=== PATIENT | female | born 1945 | race Caucasian/White ===

== ENCOUNTER 2019-09-12 09:33 | Outpatient (CLI) | payer MEDICARE | END 2019-09-12 09:34 | disposition critical access hospital (66) | LOC: EMS 09:33 | PROVIDERS: ATTEND Surgery | DX: S49.92XA Unspecified injury of left shoulder and upper arm, initial encounter (principal); S59.912A Unspecified injury of left forearm, initial encounter; S59.911A Unspecified injury of right forearm, initial encounter; S89.92XA Unspecified injury of left lower leg, initial encounter; S89.91XA Unspecified injury of right lower leg, initial encounter; R03.1 Nonspecific low blood-pressure reading; W06.XXXA Fall from bed, initial encounter; Y92.003 Bedroom of unspecified non-institutional (private) residence as the place of occurrence of the external cause | CPT/HCPCS: A0425; A0429 ==

== ENCOUNTER 2019-09-12 09:48 | Inpatient (IN) | payer MEDICARE ==
--- NOTE | 2019-09-12 10:35 | ED Physician Documentation ---
PD HPI Fall - Stated complaint Stated Complaint: FALL - Chief complaint Chief Complaint: Cardiac - History obtained from History obtained from: Patient, EMS - History of Present Illness Mechanism of injury: Other (She states she was feeling very restless sleeping and tossing and turning a lot. She states she turned excessively and fell out of bed. Her bed is near the wall and so she was wedged tightly. She had to wiggle and push herself downward to get out by the end of the bed. This took several hours.) Fall distance: From bed Where injury occurred: Home Timing - onset: Last night Injury(ies) location: Neck (She states she was somewhat sore in the base of the neck but denied any significant pain nor any numbness or tingling in the fingers or legs.), Right Upper Extremity (She has bruising as well as muscle soreness in the forearms and upper arms on both right and left. She has bruising of both legs but only mild muscle soreness), Left Uppper Extremity, Right Lower Extremity, Left Lower Extremity. No: Head, Chest, Abdomen Review of Systems Constitutional: denies: Fever, Chills, Myalgias Nose: denies: Rhinorrhea / runny nose, Congestion Throat: denies: Sore throat Cardiac: denies: Chest pain / pressure Respiratory: denies: Dyspnea, Cough GI: denies: Abdominal Pain, Vomiting, Diarrhea : denies: Dysuria Skin: reports: Abrasion (s) (both lower legs) Musculoskeletal: reports: Neck pain. denies: Back pain Neurologic: reports: Generalized weakness. denies: Focal weakness, Numbness PD PAST MEDICAL HISTORY - Past Medical History Cardiovascular: Hypertension Respiratory: None Neuro: None Endocrine/Autoimmune: None GI: None - Present Medications Home Medications: Ambulatory Orders Medication Instructions Recorded Confirmed Lisinopril [Zestril] 5 mg PO 09/12/19 No Known Home Medications 09/12/19 09/12/19 - Allergies Allergies/Adverse Reactions: Allergies Allergy/AdvReac Type Severity Reaction Status Date / Time No Known Drug Allergies Allergy Verified 09/12/19 10:02 PD ED PE NORMAL - Vitals Vital signs reviewed: Yes - General General: Alert and oriented X 3, Well developed/nourished - HEENT HEENT: Atraumatic, Pharynx benign. No: Moist mucous membranes - Neck Neck: Supple, no meningeal sign, No adenopathy, Other (Minimal tenderness in the right para vertebral muscles at the lower cervical area. No midline tenderness per se) - Cardiac Cardiac: RRR, No murmur - Respiratory Respiratory: No respiratory distress, Clear bilaterally - Abdomen Abdomen: Normal bowel sounds, Soft, Non tender, Non distended - Back Back: No spinal TTP - Derm Derm: Normal color, Warm and dry - Extremities Extremities: No edema, No calf tenderness / cord, Other (She has moderate to significant tenderness in muscles of her upper and lower arms. She has normal sensation color and capillary refill in her finger tips and radial pulses. She does hurt with flexion extension of the elbows. There is bruising from the shoulders to wrists on the dorsal aspects). No: Normal ROM s pain (Her legs have bruising as well predominantly on the anterior lateral aspects of the thighs and some on the shins but no muscle tenderness. She has pretty good range of motion of the legs without much muscle pain.) - Neuro Neuro: Alert and oriented X 3, No motor deficit, No sensory deficit Eye Opening: Spontaneous Motor: Obeys Commands Verbal: Oriented GCS Score: 15 Results - Vitals Vitals: Vital Signs - 24 hr 09/12/19 09/12/19 09/12/19 09:56 10:21 10:31 Temperature 36.8 C Heart Rate 59 L 85 87 Respiratory 18 17 18 Rate Blood Pressure 83/54 L 84/59 L 75/57 L O2 Saturation 100 98 100 09/12/19 09/12/19 09/12/19 11:01 11:30 11:35 Temperature Heart Rate 87 91 Respiratory 17 17 Rate Blood Pressure 91/61 97/54 L O2 Saturation 97 98 09/12/19 09/12/19 09/12/19 12:53 13:00 14:00 Temperature Heart Rate 93 92 96 Respiratory 24 19 17 Rate Blood Pressure 104/69 105/73 94/66 O2 Saturation 98 94 93 09/12/19 09/12/19 09/12/19 15:16 15:40 16:00 Temperature 36.6 C Heart Rate 98 94 91 Respiratory 25 H 18 17 Rate Blood Pressure 105/69 108/72 112/72 O2 Saturation 95 98 09/12/19 17:00 Temperature Heart Rate 91 Respiratory 19 Rate Blood Pressure 102/62 O2 Saturation 100 Oxygen O2 Source Room air - Labs Labs: Laboratory Tests 09/12/19 09/12/19 09/12/19 10:15 10:15 10:15 WBC RBC Hgb Hct MCV MCH MCHC RDW Plt Count MPV Neut # (Auto) Lymph # (Auto) [place] # (Auto) Eos # (Auto) Baso # (Auto) Absolute Nucleated RBC Nucleated RBC % Sodium 140 Potassium 3.4 L Chloride 106 Carbon Dioxide 21 Anion Gap 13.0 BUN 28 H Creatinine 1.4 H Estimated GFR (MDRD) 37 L Glucose 161 H Lactic Acid 3.4 H* Calcium 9.4 Magnesium 2.2 Total Bilirubin 1.0 AST 162 H ALT 48 Alkaline Phosphatase 86 Total Creatine Kinase 6928 H* Total Protein 7.3 Albumin 4.0 Globulin 3.3 Albumin/Globulin Ratio 1.2 Lipase 29 Urine Color Urine Clarity Urine pH Ur Specific [place] Urine Protein Urine Glucose (UA) Urine Ketones Urine Occult Blood Urine Nitrite Urine Bilirubin Urine Urobilinogen Ur Leukocyte Esterase Urine RBC Urine WBC Ur Epithelial Cells Ur Squamous Epith Cells Amorphous Sediment Urine Bacteria Urine Casts Ur Microscopic Review Urine Culture Comments Ethyl Alcohol Blood Type Blood Type Recheck O POSITIVE Antibody Screen 09/12/19 09/12/19 09/12/19 10:52 11:12 11:12 WBC 12.7 H RBC 4.26 Hgb 12.3 Hct 37.8 MCV 88.7 MCH 28.9 MCHC 32.5 RDW 14.3 Plt Count 242 MPV 11.2 H Neut # (Auto) 10.4 H Lymph # (Auto) 0.8 L [place] # (Auto) 1.3 H Eos # (Auto) 0.0 Baso # (Auto) 0.0 Absolute Nucleated RBC 0.00 Nucleated RBC % 0.0 Sodium Potassium Chloride Carbon Dioxide Anion Gap BUN Creatinine Estimated GFR (MDRD) Glucose Lactic Acid Calcium Magnesium Total Bilirubin AST ALT Alkaline Phosphatase Total Creatine Kinase Total Protein Albumin Globulin Albumin/Globulin Ratio Lipase Urine Color Urine Clarity Urine pH Ur Specific [place] Urine Protein Urine Glucose (UA) Urine Ketones Urine Occult Blood Urine Nitrite Urine Bilirubin Urine Urobilinogen Ur Leukocyte Esterase Urine RBC Urine WBC Ur Epithelial Cells Ur Squamous Epith Cells Amorphous Sediment Urine Bacteria Urine Casts Ur Microscopic Review Urine Culture Comments Ethyl Alcohol < 5.0 Blood Type O POSITIVE Blood Type Recheck Antibody Screen NEGATIVE 09/12/19 11:20 WBC RBC Hgb Hct MCV MCH MCHC RDW Plt Count MPV Neut # (Auto) Lymph # (Auto) [place] # (Auto) Eos # (Auto) Baso # (Auto) Absolute Nucleated RBC Nucleated RBC % Sodium Potassium Chloride Carbon Dioxide Anion Gap BUN Creatinine Estimated GFR (MDRD) Glucose Lactic Acid Calcium Magnesium Total Bilirubin AST ALT Alkaline Phosphatase Total Creatine Kinase Total Protein Albumin Globulin Albumin/Globulin Ratio Lipase Urine Color YELLOW Urine Clarity CLEAR Urine pH 5.5 Ur Specific [place] >=1.030 H Urine Protein 100 H Urine Glucose (UA) 250 H Urine Ketones NEGATIVE Urine Occult Blood MODERATE H Urine Nitrite NEGATIVE Urine Bilirubin NEGATIVE Urine Urobilinogen 0.2 (NORMAL) Ur Leukocyte Esterase NEGATIVE Urine RBC None Seen Urine WBC 0-3 Ur Epithelial Cells RARE Transitional Ur Squamous Epith Cells FEW Squamous Amorphous Sediment Moderate Urine Bacteria Few Urine Casts 0-2 Hyaline Casts Ur Microscopic Review INDICATED Urine Culture Comments NOT INDICATED Ethyl Alcohol Blood Type Blood Type Recheck Antibody Screen - Rads (name of study) chest/abd CT Radiology: Prelim report reviewed (no acute truncal injuries), See rad report cervical CT Radiology: Prelim report reviewed (Notable arthritic changes in the facets at all levels. There is a possible linear fracture at the right facet of C3-4 involving C4.), See rad report PD MEDICAL DECISION MAKING - ED course Complexity details: reviewed results (Chest and abdomen appear clear on the CTs. Her neck CT had question of arthritic change versus old or new facet fracture at C3-4. We will have spine at the trauma center review the films to see if this is of any clinical consequence), considered differential (Concern for rhabdo given the muscle soreness and significant bruising on both upper arms and forearms. She is initially hypotensive and may be related to hydration. Will look for signs of infection otherwise. She has not had any infectious symptoms. Can scan chest/abd to ensure to thoracic trauma), d/w patient ED course: She is having rhabdomyolysis. We do not have prior baseline labs. Her creatinine is 1.4 so not significantly elevated but not sure if it is change from baseline. Her CK is elevated at 6000 and needs IV fluids. Her lactate was elevated as well though no signs of or symptoms of sepsis or preceding infection to this. Departure - Departure Disposition: 66 [facility] DC/Xfer Clinical Impression: Transient hypotension Traumatic ecchymosis of multiple sites of upper extremity and shoulder Qualifiers: Encounter type: initial encounter Laterality: unspecified laterality Qualified Code(s): S40.029A - Contusion of unspecified upper arm, initial encounter Traumatic ecchymosis of lower leg Qualifiers: Encounter type: initial encounter Laterality: unspecified laterality Qualified Code(s): S80.10XA - Contusion of unspecified lower leg, initial encounter Rhabdomyolysis Qualifiers: Rhabdomyolysis type: traumatic Encounter type: initial encounter Qualified Code(s): T79.6XXA - Traumatic ischemia of muscle, initial encounter Condition: Stable Record reviewed to determine appropriate education?: Yes
[2019-09-12] MEDS ORDERED: SODIUM CHLORIDE 0.9% 1,000 ML IV STA ×3 (10:48→19:11)
[2019-09-12] MEDS ORDERED: LACTATED RINGERS 1,000 ML IV STA (10:49)
[2019-09-12] MEDS ORDERED: IOVERSOL 320 100 ML VIAL IVP ONE ×2 (11:08→13:15)
[2019-09-12 11:18] LABS: BASOPHILS % (AUTO) 0.3 %; EOSINOPHILS % (AUTO) 0.1 %; HGB - HEMOGLOBIN 12.3 g/dL (12.0-16.0); LYMPHOCYTES # (AUTO) 0.8 10^3/uL (1.5-3.5); LYMPHOCYTES % (AUTO) 6.5 %; MEAN CORPUSCULAR HEMOGLOBIN 28.9 pg (27.0-31.0); MEAN CORPUSCULAR HGB CONC 32.5 g/dL (32.0-36.0); MEAN CORPUSCULAR VOLUME 88.7 fL (81.0-99.0); MEAN PLATELET VOLUME 11.2 fL (7.9-10.8); MONOCYTES # (AUTO) 1.3 10^3/uL (0.0-1.0); MONOCYTES % (AUTO) 10.5 %; NEUTROPHILS # (AUTO) 10.4 10^3/uL (1.5-6.6); PLT - PLATELET COUNT 242 10^3/uL (130-450); RED BLOOD COUNT 4.26 10^6/uL (4.20-5.40); RED CELL DISTRIBUTION WIDTH 14.3 % (12.0-15.0); WHITE BLOOD COUNT 12.7 x10^3/uL (4.8-10.8)
[2019-09-12 11:40] LABS: BILIRUBIN,URINE NEGATIVE (NEGATIVE); GLUCOSE, URINE (UA) 250 mg/dL (NEGATIVE); KETONES,URINE (UA) NEGATIVE (NEGATIVE); LEUKOCYTE ESTERASE, URINE NEGATIVE (NEGATIVE); NITRITE,URINE NEGATIVE (NEGATIVE); OCCULT BLOOD,URINE MODERATE (NEGATIVE); PH,URINE 5.5 PH (5.0-7.5); PROTEIN,URINE 100 mg/dL (NEGATIVE); UROBILINOGEN,URINE 0.2 (NORMAL) E.U./dL (NORMAL)
[2019-09-12 11:45] LABS: CLARITY,URINE CLEAR (CLEAR)
[2019-09-12 11:57] LABS: AMORPHOUS SEDIMENT,UR Moderate /LPF; BACTERIA,URINE Few /HPF (None Seen); EPITHELIAL CELLS,UR RARE Transitional /HPF (<= Few)
[2019-09-12 11:57] LABS: ALBUMIN/GLOBULIN RATIO 1.2 (1.0-2.2); CALCIUM 9.4 mg/dL (8.5-10.3); CREATININE 1.4 mg/dL (0.4-1.0); MAGNESIUM 2.2 mg/dL (1.7-2.8); TOTAL PROTEIN 7.3 g/dL (6.7-8.2)
[2019-09-12 11:58] LABS: CASTS, URINE 0-2 Hyaline Casts /LPF; RBC,URINE None Seen /HPF (0-5); SQUAMOUS EPITHELIAL CELL,UR FEW Squamous (<= Few)
[2019-09-12] MEDS ORDERED: HYDROmorphone 1 MG/ML CARPUJECT IVP STA (13:03)
[2019-09-12] MEDS ORDERED: KETOROLAC 15 MG/ML VIAL IVP STA (13:04)
--- NOTE | 2019-09-12 13:10 | CT Report ---
PROCEDURE: CERVICAL SPINE WO INDICATIONS: fall, neck pain TECHNIQUE: Noncontrast 3 mm thick sections acquired from the skull base to the T4 level. Sagittal and coronal r eformats were then constructed. For radiation dose reduction, the following was used: automated exp osure control, adjustment of mA and/or kV according to patient size. COMPARISON: None. FINDINGS: Image quality: Excellent. Bones: Extensive cervical spondylitic change. Findings include multilevel facet arthropathy. Anteroli sthesis of C3 on C4 measuring 4 mm may be degenerative in nature secondary to cervical facet there is extensive cervical facet arthropathy involving most levels. However, there is an apparent acute frac ture involving the right C3-C4 facet joint at the superior articulation of the C4 facet. Reference im age 42/5 (coronal reformats). This probable acute fracture extends into the vertebral foramen. Also r eference sagittal image 57/6. Cannot exclude ligamentous injury. No other fractures or dislocations. Visualized superior ribs are intact. Soft tissues: Prevertebral soft tissues are normal in thickness. No paravertebral hematomas. No ap ical pneumothoraces. IMPRESSION: 1. There is severe cervical spondylitic change. Findings include extensive cervical facet arthropathy . 2. There is apparent right facet fracture at C3-C4 involving C4. It extends into the vertebral artery foramen. 3. 4 mm anterolisthesis of C3 and C4 may be a chronic finding secondary to cervical facet arthropathy . However, cannot exclude ligamentous laxity. Above discussed with YOLA DUGGAN at the time of dictation on 09.12.19 at 13:07 hours. Reviewed by: Anupam Suarez MD on 09/12/2019 1:09 PM PDT Approved by: Anupam Suarez MD on 09/12/2019 1:09 PM PDT Station ID: [id number]
--- NOTE | 2019-09-12 13:18 | CT Report ---
PROCEDURE: CHEST W INDICATIONS: fall CONTRAST: IV CONTRAST: Optiray 320 ml: 100 PO CONTRAST: *NO PO CONTRAST TECHNIQUE: After the administration of intravenous contrast, 5 mm thick sections acquired from the pulmonary api tristan to the posterior costophrenic angles. 7 mm thick coronal MIP reformats were acquired. For radia tion dose reduction, the following was used: automated exposure control, adjustment of mA and/or kV according to patient size. COMPARISON: None. FINDINGS: Image quality: Excellent. Lungs and pleura: No acute air space opacities. No pleural effusions or pneumothorax. Central and peripheral airways are patent and normal in caliber. Mediastinum: Heart size is normal. No pericardial effusion. Coronary artery calcifications. No medi astinal or hilar adenopathy by size criteria. Thoracic aorta and central pulmonary arteries are norm al in size. Esophagus is normal in caliber. No hiatal hernia. Bones and chest wall: No suspicious bony lesions. Question nondisplaced fracture head of the right f irst rib at the right sternocostal joint. Reference image 10/. Suggest clinical correlation for pain symptomatology. No vertebral body compression fractures. No axillary or supraclavicular adenopathy by size criteria. Thyroid gland is unremarkable. Abdomen: Hepatic steatosis. IMPRESSION: 1. Question fracture of the head of the first right rib. Suggest clinical correlation for presence or absence of pain. 2. Hepatic steatosis. 3. Coronary artery disease. Reviewed by: Anupam Suarez MD on 09/12/2019 1:17 PM PDT Approved by: Anupam Suarez MD on 09/12/2019 1:17 PM PDT Station ID: [id number]
--- NOTE | 2019-09-12 13:18 | CT Report ---
PROCEDURE: Abdomen/Pelvis W INDICATIONS: fall; low BP CONTRAST: IV CONTRAST: Optiray 320 ml: 100 PO CONTRAST: *NO PO CONTRAST TECHNIQUE: After the administration of oral and intravenous contrast, 5 mm thick sections acquired from the diap hragms to the symphysis. 5 mm thick coronal and sagittal reformats were acquired. For radiation dos e reduction, the following was used: automated exposure control, adjustment of mA and/or kV accordin g to patient size. COMPARISON: None. FINDINGS: Image quality: Excellent. ABDOMEN: Lung bases: Lung bases are clear. Heart size is normal. Solid organs: Liver is mildly prominent with steatosis. The spleen is normal in size and enhancement . Gallbladder is unremarkable Biliary system is non dilated. Pancreas enhances normally. Slight no dularity is present within the adrenal glands bilaterally, left greater than right. Kidneys are atrop hic with bilateral low-attenuation foci the most prominent on the right measuring 27 mm. Peritoneum and bowel: Bowel loops demonstrate normal wall thickness and caliber. No free fluid or a ir. Scattered colonic diverticula are present. Nodes and vessels: No retroperitoneal or mesenteric adenopathy by size criteria. Aorta and inferior vena cava are normal in size. Miscellaneous: Supraumbilical ventral hernia with small bowel herniation is present. Diastases of rec tus musculature measures 5 cm. No incarceration or strangulation. No proximal obstruction. PELVIS: Genitourinary: Bladder is collapsed with a Guidry catheter, limiting evaluation. Foci of air is prese nt in the nondependent portion. Miscellaneous: No inguinal hernias or adenopathy. Bones: No suspicious bony lesions. No vertebral body compression fractures. Cysts are present with in the femoral heads bilaterally. IMPRESSION: 1. No acute visceral or osseous abnormality. 2. Diverticulosis. 3. Ventral hernia. 4. Hepatic steatosis. Reviewed by: Stacey Shannon MD on 09/12/2019 1:16 PM PDT Approved by: Stacey Shannon MD on 09/12/2019 1:16 PM PDT Station ID: [id number]
[2019-09-12 17:35] LABS: CALCIUM 8.4 mg/dL (8.5-10.3); CREATININE 1.1 mg/dL (0.4-1.0)
[2019-09-12] MEDS ORDERED: NYSTATIN POWDER 15 GM TOP STA (18:11)
[2019-09-12] MEDS ORDERED: MORPHINE 2 MG/ML CARPUJECT IVP STA (19:11)
[2019-09-12] MEDS ORDERED: SODIUM CHLORIDE FLUSH 0.9% 10 ML SYRINGE IVP PRN (19:39)
--- NOTE | 2019-09-12 19:44 | ED Physician Documentation ---
ED Addendum - Addendum Addendum: 09/12/19 19:42 Discussed the case with Dr. Rashel Noble, neurosurgery at [facility]. He reviewed the images. States that this injury does not need any active management. Does not need a c-collar. Does not need repeat imaging unless she develops symptoms such as pain, weakness or numbness c/w radiculopathy. If this occurs, she can follow-up in clinic at [facility]. Does not need repeat imaging either. Discussed the case with Dr. Alfonso, hospitalist who accepts This document was made in part using voice recognition software. While efforts are made to proofread this document, sound alike and grammatical errors may occur.
--- NOTE | 2019-09-12 19:46 | HISTORY & PHYSICAL EXAMINATION ---
Chief Complaint - Chief Complaint Chief Complaint: fall History of Present Illness - Admitted From Admitted From:: [facility] ED - History Obtained From Records Reviewed: yes History obtained from: patient - History of Present Illness HPI Comment/Other: Patient is a 74-year-old female who fell out of bed last night and got wedged between the wall and the side board. This happened around 130 and 2 AM. It took her about 5 hours to scoot down about 3 feet enough to be able to free an arm. After this she was able to reach her phone and call her neighbor who came to her aid. Her neighbor then called EMS who brought her to the ED. She was significantly bruised on her arms and legs as a result of trying to free herself. She was found to be hypotensive with a systolic blood pressure of 84 upon presentation to the ED. She lives alone and usually does not use any walking aid at home. She is independent for activities of daily living. In the ED work-up included CK which was initially 6000 and 10,000 and recheck. Her creatinine was initially 1.4. She also had a lactic acid of 3.4. She also had a CT scan done of the neck which showed a right facet fracture between C3-C4. This was discussed with her spine surgeons at [facility] who determined that no further intervention was warranted. Also that the patient did not need a c- collar. At bedside she is laying flat. She denies headache, neck pain, chest pain, dyspnea, abdominal pain, nausea, vomiting, fever or chills. She complains of pain in her knees which is exquisitely tender to touch. As a result of her lab findings she is presented for admission for further management. 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 She was a smoker), Father: Family History Comment/Other: Father had vascular dementia. Living arrangement: At home Living Situation: Alone Social History Notes: She lives alone. She does not smoke tobacco products. She rarely drinks alcohol. She denies any illicit drugs. - POLST Patient has POLST: No POLST Status: Full Code Meds/Allgy - Home Medications Home Medications: Ambulatory Orders Medication Instructions Recorded Confirmed Lisinopril [Zestril] 5 mg PO 09/12/19 No Known Home Medications 09/12/19 09/12/19 - Allergies Allergies/Adverse Reactions: Allergies Allergy/AdvReac Type Severity Reaction Status Date / Time No Known Drug Allergies Allergy Verified 09/12/19 10:02 Review of Systems - Constitutional Constitutional: denies: Fatigue, Fever, Chills - Eyes Eyes: denies: Pain, Vision loss, Dipolpia - Ears, Nose & Throat Ears, Nose & Throat: denies: Ear pain - Cardiovascular Cariovascular: denies: Irregular heart rate, Palpitations, Chest pain, Edema, Lightheadedness, Syncope, Exertional dyspnea - Respiratory Respiratory: denies: Cough, Wheezing, SOB at rest, SOB with exertion - Gastrointestinal Gastrointestinal: denies: Abdominal pain, Abdominal distention, Nausea, Vomiting - Genitourinary Genitourinary: denies: Dysuria, Frequency, Urgency, Hematuria, Incontinence - Musculoskeletal Musculoskeletal: reports: Muscle pain, Back pain, Muscle weakness - Integumentary Integumentary: denies: Rash, Pruritis - Neurological Neurological: denies: General weakness, Focal weakness, Headache - Psychiatric Psychiatric: denies: Depression, Anxiety - Endocrine Endocrine: denies: Polyuria, Polydypsia - Hematologic/Lymphatic Hematologic/Lymphatic: reports: Bruising (arms and legs). denies: Anemia Prior Level of Functionality: Patient is independent for activities of daily living Exam - Vital Signs Vital Signs: Vital Signs x48h Temp Pulse Resp BP Pulse Ox 09/12/19 19:00 91 18 105/66 97 09/12/19 18:00 88 21 112/71 96 09/12/19 17:00 91 19 102/62 100 09/12/19 16:00 91 17 112/72 98 09/12/19 15:40 94 18 108/72 95 09/12/19 15:16 36.6 C 98 25 H 105/69 09/12/19 14:00 96 17 94/66 93 09/12/19 13:00 92 19 105/73 94 09/12/19 12:53 93 24 104/69 98 - Physical Exam General Appearance: positive: Alert, Moderate distress Eyes Bilateral: positive: PERRL, EOMI ENT: positive: No signs of dehydration Neck: positive: No JVD, Trachea midline Respiratory: positive: Chest non-tender, No respiratory distress, Breath sounds nml. negative: Wheezes, Rales, Rhonchi Cardiovascular: positive: Regular rate & rhythm Abdomen: positive: Non-tender, No organomegaly, No distention Back: positive: Nml inspection Skin: positive: Warm, Dry, Other (bruising noted on arms and legs) Extremities: positive: Full ROM, No pedal edema Neurologic/Psychiatric: positive: Oriented x3, Mood/affect nml Conclusion/Plan - Problem List (1) Rhabdomyolysis Conclusion/Plan: Patient receiving normal saline at 150 mils per hour. We will check CK daily. Qualifiers: Rhabdomyolysis type: traumatic Encounter type: initial encounter Qualified Code(s): T79.6XXA - Traumatic ischemia of muscle, initial encounter (2) JESSICA (acute kidney injury) Conclusion/Plan: Likely secondary to rhabdomyolysis. Initial creatinine was 1.4. Creatinine is currently 1.1 after IV hydration. Anticipating further improvement with more hydration. Will check BMP in the morning. (3) Traumatic dislocation of facet joint between third and fourth cervical verte brae Conclusion/Plan: The radiologic findings were discussed with the spine surgeons at [facility] who determined that the patient did not need a c-collar and that no further intervention was needed. Tylenol ordered for pain (4) DM (diabetes mellitus), type 2 Conclusion/Plan: Patient takes metformin at home. Will hold for now. Accu-Cheks q. before meals and at bedtime. - Lab Results Fish Bones: 09/12/19 11:12 09/12/19 16:50 Core Measures - Anticipated LOS I expect patient to be DC'd or transferred within 96 hours.: Yes - DVT/VTE - Prophylaxis VTE/DVT Device ordered at admit?: Yes
[2019-09-12] MEDS: oxyCODONE 5 MG TABLET PO PRN (21:57)
[2019-09-12] MEDS: ACETAMINOPHEN 325 MG TABLET PO PRN (21:57)
[2019-09-12] MEDS: SODIUM CHLORIDE 0.9% 1,000 ML IV SCH (21:58)
[2019-09-13] MEDS: oxyCODONE 5 MG TABLET PO PRN ×3 (00:20→11:04)
--- NOTE | 2019-09-13 00:51 | CONSULTATION NOTE ---
Consultation Report: Called for IV access. 20ga 1.88" IV placed at R FA with US x 1 aatempt. Easily flushes w/cap. Secured. Pt tolerated procedure without complaint.
[2019-09-13] MEDS: SODIUM CHLORIDE FLUSH 0.9% 10 ML SYRINGE IVP SCH ×3 (01:48→17:52)
[2019-09-13] MEDS: ACETAMINOPHEN 325 MG TABLET PO PRN ×2 (04:30→11:04)
[2019-09-13] MEDS: SODIUM CHLORIDE 0.9% 1,000 ML IV SCH ×3 (04:40→17:51)
[2019-09-13] MEDS: PANTOPRAZOLE 40 MG TABLET PO SCH (06:10)
[2019-09-13 06:25] LABS: BASOPHILS % (AUTO) 0.3 %; EOSINOPHILS % (AUTO) 0.4 %; HGB - HEMOGLOBIN 11.3 g/dL (12.0-16.0); LYMPHOCYTES # (AUTO) 1.5 10^3/uL (1.5-3.5); LYMPHOCYTES % (AUTO) 13.1 %; MEAN CORPUSCULAR HEMOGLOBIN 27.7 pg (27.0-31.0); MEAN CORPUSCULAR HGB CONC 31.2 g/dL (32.0-36.0); MEAN CORPUSCULAR VOLUME 88.7 fL (81.0-99.0); MEAN PLATELET VOLUME 11.2 fL (7.9-10.8); MONOCYTES # (AUTO) 0.9 10^3/uL (0.0-1.0); MONOCYTES % (AUTO) 8.2 %; NEUTROPHILS # (AUTO) 8.6 10^3/uL (1.5-6.6); NEUTROPHILS % (AUTO) 77.5 %; PLT - PLATELET COUNT 215 10^3/uL (130-450); RED BLOOD COUNT 4.08 10^6/uL (4.20-5.40); RED CELL DISTRIBUTION WIDTH 14.6 % (12.0-15.0); WHITE BLOOD COUNT 11.1 x10^3/uL (4.8-10.8)
[2019-09-13 07:18] LABS: CREATININE 0.7 mg/dL (0.4-1.0)
--- NOTE | 2019-09-13 08:36 | PHARMACY PROGRESS NOTE ---
- Best Possible Medication History Admit Date and Time: 09/12/191938 Processed by: Pharmacy Medication History completed: Yes Secondary Source(s): Physician records, Pharmacy records, Insurance records As the person ultimately responsible for medication therapy, providers are able to order a medication from an existing home medication list in [facility] via the "Reconcile Routine" prior to Confirmation of that medication by bioinformatics support specialist. Such practice is discouraged except when the physician, in their clinical judgment, deems that a medical need exists for a medication without regard to previous use.
[2019-09-13] MEDS ORDERED: ZINC OXIDE 20% OINT 30 GM TUBE TOP PRN (11:00)
--- NOTE | 2019-09-13 12:23 | PROVIDER PROGRESS NOTE ---
Assessment/Plan - Problem List (1) Rhabdomyolysis Qualifiers: Rhabdomyolysis type: traumatic Encounter type: initial encounter Qualified Code(s): T79.6XXA - Traumatic ischemia of muscle, initial encounter Assessment/Plan: CK continues to climb from admission 6900>>10,700>> 16,810 today. I suspect that the rising CK is a result of continued washout from the muscle trauma. Follow CK daily. Continue IV fluids. Treat pain PRN. We will hold off on physical therapy due to diffuse pain. (2) Cervical spine fracture Assessment/Plan: She has a fracture of her C3/C4 facet; it is impinging into the lumen of the vertebral artery foramen. She was cleared by neurosurgery at [facility], did not need to be transferred to a larger facility. A c-collar was also not advised. She has no pain in the neck. We will continue with pain medications and order a c-collar to use prn pain. (3) JESSICA (acute kidney injury) Assessment/Plan: Resolved with IV fluids overnight. Glucophage is on hold. Follow BMP daily. (4) Traumatic ecchymosis of multiple sites Assessment/Plan: Photos were taken by the admitting RN. Will treat for pain as needed. Also watch her hemoglobin in case she had a lot of blood loss into these ecchymotic areas. Follow CBC daily. Will hold off on physical therapy starting until tomorrow because of the pain everywhere. (5) Restless leg syndrome Assessment/Plan: She has had this for years, never had it treated, states it runs in her family. We will start treatment with gabapentin, 100 mg during the day and 300 mg at bedtime, this will also help with pain control. We will also check iron stores, as recommended in [employer] (6) DM (diabetes mellitus), type 2 Assessment/Plan: She is on oral diabetic med at home. We will change her regular diet to a carb controlled diet and start fingerstick checks and sliding scale insulin coverage. Check A1c (7) Hx of essential hypertension Assessment/Plan: She was on an ARB prior to admission, for blood pressure control. Here blood pressure is 110-120s systolic off her BP meds. We will resume her Losartan if blood pressure becomes hypertensive - Current Meds Current Meds: Current Medications Generic Name Dose Route Start Last Admin Trade Name Freq PRN Reason Stop Dose Admin Acetaminophen 650 mg 09/12/19 19:39 09/13/19 11:04 Tylenol PO 650 mg Q6HR PRN Administration Pain 1 to 4 Sodium Chloride 1,000 mls @ 150 mls/hr 09/12/19 20:00 09/13/19 11:04 Normal Saline 0.9% IV 150 mls/hr .Q6H40M JOSE Administration Oxycodone HCl 5 mg 09/12/19 21:04 09/13/19 11:04 Roxicodone PO 5 mg Q4HR PRN Administration PAIN Pantoprazole Sodium 40 mg 09/13/19 07:00 09/13/19 06:10 Protonix PO 40 mg QDAC JOSE Administration Sodium Chloride 10 ml 09/13/19 01:00 09/13/19 10:26 Normal Saline Flush 0.9% IVP Not Given 0100,0900,1700 JOSE - Lab Result Fish Bone Diagrams: 09/13/19 06:00 09/13/19 06:00 - Additional Planning My Orders: My Active Orders 09/13/19 11:00 Zinc Oxide 20% Oint [Zinc Oxide] 1 applic TOP PRN PRN 09/13/19 11:55 Blood Glucose Checks - Eating [RC] 0800,1200,1700,2100 Initiate Hypoglycemia Protocol [RC] .protocol 09/13/19 11:56 Miscellaenous Nursing Order [RC] QSHIFT ED C-Collar Application PRN 09/13/19 12:00 Insulin Aspart [NovoLOG] 1 - 5 unit SUBQ 0800,1200,1700,2100 09/13/19 Dinner DIET [Carb-controlled Diet] [DIET] 09/14/19 05:00 A1C [CHEM] Routine Subjective - Subjective Patient Reports: Other (Complains of pain in bilateral lower legs and bilateral shoulders and both arms. Planes of anxiety and says she had a panic attack, reliving the 7 hours she was wedged between her bed and her wall. She reports she has restless leg syndrome.) Objective Vital Signs: Vital Signs - 24 hr 09/12/19 09/12/19 09/12/19 12:53 13:00 14:00 Temperature Heart Rate 93 92 96 Heart Rate [ Brachial] Heart Rate [ Radial] Respiratory 24 19 17 Rate Blood Pressure 104/69 105/73 94/66 Blood Pressure [Left Brachial artery] Blood Pressure [Right Brachial artery] O2 Saturation 98 94 93 09/12/19 09/12/19 09/12/19 15:16 15:40 16:00 Temperature 36.6 C Heart Rate 98 94 91 Heart Rate [ Brachial] Heart Rate [ Radial] Respiratory 25 H 18 17 Rate Blood Pressure 105/69 108/72 112/72 Blood Pressure [Left Brachial artery] Blood Pressure [Right Brachial artery] O2 Saturation 95 98 09/12/19 09/12/19 09/12/19 17:00 18:00 19:00 Temperature Heart Rate 91 88 91 Heart Rate [ Brachial] Heart Rate [ Radial] Respiratory 19 21 18 Rate Blood Pressure 102/62 112/71 105/66 Blood Pressure [Left Brachial artery] Blood Pressure [Right Brachial artery] O2 Saturation 100 96 97 09/12/19 09/12/19 09/13/19 20:30 23:55 03:33 Temperature 36.5 C 36.6 C 36.6 C Heart Rate Heart Rate [ 91 Brachial] Heart Rate [ 92 89 Radial] Respiratory 18 16 18 Rate Blood Pressure Blood Pressure 107/61 [Left Brachial artery] Blood Pressure 113/66 97/53 L [Right Brachial artery] O2 Saturation 100 93 93 09/13/19 09/13/19 04:30 07:48 Temperature 36.3 C L Heart Rate Heart Rate [ 96 91 Brachial] Heart Rate [ Radial] Respiratory 18 Rate Blood Pressure Blood Pressure 113/72 118/62 [Left Brachial artery] Blood Pressure [Right Brachial artery] O2 Saturation 92 Oxygen O2 Source Room air I&O (Last 24 Hrs): Intake and Output Totals x24h 09/11/19 09/12/19 09/13/19 23:59 23:59 23:59 Intake Total 3663 2400.0 Output Total 525 250 Balance 3138 2150.0 General: Alert, Oriented x3 HEENT: Other (Oral mucosa dry, few ecchymoses of the cheeks are present) Neck: Supple, No JVD Neuro: Alert, Non Focal, Other (Continuous movement of her legs is noted while we are talking) Cardiovascular: Regular rate Respiratory: No respiratory distress, Breath sounds nml Abdomen: Normal bowel sounds, Soft, Other (Obese with pannus) Extremities: Other (1+ pretibial edema. Diffuse large ecchymotic purple blotches of the arms and legs (mostly the shins and calves).) - Results Results: Laboratory Results WBC 11.1 x10^3/uL (4.8-10.8) H 09/13/19 06:00 RBC 4.08 10^6/uL (4.20-5.40) L 09/13/19 06:00 Hgb 11.3 g/dL (12.0-16.0) L 09/13/19 06:00 Hct 36.2 % (37.0-47.0) L 09/13/19 06:00 MCV 88.7 fL (81.0-99.0) 09/13/19 06:00 MCH 27.7 pg (27.0-31.0) 09/13/19 06:00 MCHC 31.2 g/dL (32.0-36.0) L 09/13/19 06:00 RDW 14.6 % (12.0-15.0) 09/13/19 06:00 Plt Count 215 10^3/uL (130-450) 09/13/19 06:00 MPV 11.2 fL (7.9-10.8) H 09/13/19 06:00 Neut # (Auto) 8.6 10^3/uL (1.5-6.6) H 09/13/19 06:00 Lymph # (Auto) 1.5 10^3/uL (1.5-3.5) 09/13/19 06:00 [place] # (Auto) 0.9 10^3/uL (0.0-1.0) 09/13/19 06:00 Eos # (Auto) 0.0 10^3/uL (0.0-0.7) 09/13/19 06:00 Baso # (Auto) 0.0 10^3/uL (0.0-0.1) 09/13/19 06:00 Absolute Nucleated RBC 0.00 x10^3/uL 09/13/19 06:00 Nucleated RBC % 0.0 /100WBC 09/13/19 06:00 Sodium 137 mmol/L (135-145) 09/13/19 06:00 Potassium 3.6 mmol/L (3.5-5.0) 09/13/19 06:00 Chloride 109 mmol/L (101-111) 09/13/19 06:00 Carbon Dioxide 21 mmol/L (21-32) 09/13/19 06:00 Anion Gap 7.0 (6-13) 09/13/19 06:00 BUN 21 mg/dL (6-20) H 09/13/19 06:00 Creatinine 0.7 mg/dL (0.4-1.0) 09/13/19 06:00 Estimated GFR (MDRD) 82 (>89) L 09/13/19 06:00 Glucose 168 mg/dL (70-100) H 09/13/19 06:00 POC Whole Bld Glucose 141 mg/dL (70 - 100) H 09/13/19 11:12 Lactic Acid 2.2 mmol/L (0.5-2.2) 09/12/19 17:50 Calcium 8.0 mg/dL (8.5-10.3) L 09/13/19 06:00 Magnesium 2.2 mg/dL (1.7-2.8) 09/12/19 10:15 Total Bilirubin 1.0 mg/dL (0.2-1.0) 09/12/19 10:15 AST 162 IU/L (10-42) H 09/12/19 10:15 ALT 48 IU/L (10-60) 09/12/19 10:15 Alkaline Phosphatase 86 IU/L (42-121) 09/12/19 10:15 Total Creatine Kinase 22843 IU/L (22-269) H* 09/13/19 06:00 Total Protein 7.3 g/dL (6.7-8.2) 09/12/19 10:15 Albumin 4.0 g/dL (3.2-5.5) 09/12/19 10:15 Globulin 3.3 g/dL (2.1-4.2) 09/12/19 10:15 Albumin/Globulin Ratio 1.2 (1.0-2.2) 09/12/19 10:15 Lipase 29 U/L (22-51) 09/12/19 10:15 Urine Color YELLOW 09/12/19 11:20 Urine Clarity CLEAR (CLEAR) 09/12/19 11:20 Urine pH 5.5 PH (5.0-7.5) 09/12/19 11:20 Ur Specific [place] >=1.030 (1.002-1.030) H 09/12/19 11:20 Urine Protein 100 mg/dL (NEGATIVE) H 09/12/19 11:20 Urine Glucose (UA) 250 mg/dL (NEGATIVE) H 09/12/19 11:20 Urine Ketones NEGATIVE mg/dL (NEGATIVE) 09/12/19 11:20 Urine Occult Blood MODERATE (NEGATIVE) H 09/12/19 11:20 Urine Nitrite NEGATIVE (NEGATIVE) 09/12/19 11:20 Urine Bilirubin NEGATIVE (NEGATIVE) 09/12/19 11:20 Urine Urobilinogen 0.2 (NORMAL) E.U./dL (NORMAL) 09/12/19 11:20 Ur Leukocyte Esterase NEGATIVE (NEGATIVE) 09/12/19 11:20 Urine RBC None Seen /HPF (0-5) 09/12/19 11:20 Urine WBC 0-3 /HPF (0-5) 09/12/19 11:20 Ur Epithelial Cells RARE Transitional /HPF (<= Few) 09/12/19 11:20 Ur Squamous Epith Cells FEW Squamous (<= Few) 09/12/19 11:20 Amorphous Sediment Moderate /LPF 09/12/19 11:20 Urine Bacteria Few /HPF (None Seen) 09/12/19 11:20 Urine Casts 0-2 Hyaline Casts /LPF 09/12/19 11:20 Ur Microscopic Review INDICATED 09/12/19 11:20 Urine Culture Comments NOT INDICATED 09/12/19 11:20 Ethyl Alcohol < 5.0 mg/dL 09/12/19 10:52 Blood Type O POSITIVE 09/12/19 11:12 Blood Type Recheck O POSITIVE 09/12/19 10:15 Antibody Screen NEGATIVE 09/12/19 11:12
[2019-09-13] MEDS: INSULIN ASPART 300 UNIT/3 ML PEN SUBQ SCH ×3 (12:35→20:20)
[2019-09-13] MEDS: HYDROmorphone 1 MG/ML CARPUJECT IVP PRN (14:35)
[2019-09-13] MEDS: LORazepam 0.5 MG TABLET PO PRN (15:04)
[2019-09-13] MEDS: GABAPENTIN 100 MG CAPSULE PO SCH (16:59)
[2019-09-13] MEDS: GABAPENTIN 300 MG CAPSULE PO SCH (21:17)
[2019-09-14] MEDS: LORazepam 0.5 MG TABLET PO PRN ×2 (00:48→07:43)
[2019-09-14] MEDS: HYDROmorphone 1 MG/ML CARPUJECT IVP PRN ×2 (00:49→07:43)
[2019-09-14] MEDS: SODIUM CHLORIDE FLUSH 0.9% 10 ML SYRINGE IVP SCH ×3 (00:50→15:55)
[2019-09-14] MEDS: SODIUM CHLORIDE 0.9% 1,000 ML IV SCH ×4 (00:53→20:32)
[2019-09-14 05:11] LABS: BASOPHILS % (AUTO) 0.3 %; EOSINOPHILS # (AUTO) 0.1 10^3/uL (0.0-0.7); EOSINOPHILS % (AUTO) 1.3 %; HGB - HEMOGLOBIN 10.5 g/dL (12.0-16.0); LYMPHOCYTES # (AUTO) 1.8 10^3/uL (1.5-3.5); LYMPHOCYTES % (AUTO) 20.7 %; MEAN CORPUSCULAR HEMOGLOBIN 27.5 pg (27.0-31.0); MEAN CORPUSCULAR HGB CONC 30.6 g/dL (32.0-36.0); MEAN CORPUSCULAR VOLUME 89.8 fL (81.0-99.0); MEAN PLATELET VOLUME 11.3 fL (7.9-10.8); MONOCYTES # (AUTO) 0.8 10^3/uL (0.0-1.0); MONOCYTES % (AUTO) 8.7 %; NEUTROPHILS # (AUTO) 6.1 10^3/uL (1.5-6.6); NEUTROPHILS % (AUTO) 68.3 %; PLT - PLATELET COUNT 216 10^3/uL (130-450); RED BLOOD COUNT 3.82 10^6/uL (4.20-5.40); RED CELL DISTRIBUTION WIDTH 14.7 % (12.0-15.0); WHITE BLOOD COUNT 8.9 x10^3/uL (4.8-10.8)
[2019-09-14 05:52] LABS: HB2 TOTAL 11.1 g/dL; HEMOGLOBIN A1C 0.65 g/dL; HEMOGLOBIN A1C % 7.5 % (4.6-6.2)
[2019-09-14 06:09] LABS: CALCIUM 7.9 mg/dL (8.5-10.3); CREATININE 0.6 mg/dL (0.4-1.0)
[2019-09-14] MEDS: oxyCODONE 5 MG TABLET PO PRN ×2 (06:14→20:02)
[2019-09-14] MEDS: PANTOPRAZOLE 40 MG TABLET PO SCH (06:15)
[2019-09-14] MEDS ORDERED: MIN OIL/DIMETHICON/COCONUT OIL 92 GM TUBE TOP PRN (06:18)
[2019-09-14] MEDS: INSULIN ASPART 300 UNIT/3 ML PEN SUBQ SCH ×4 (07:43→21:58)
--- NOTE | 2019-09-14 07:52 | PROVIDER PROGRESS NOTE ---
Assessment/Plan - Problem List (1) Rhabdomyolysis Qualifiers: Rhabdomyolysis type: traumatic Encounter type: initial encounter Qualified Code(s): T79.6XXA - Traumatic ischemia of muscle, initial encounter Assessment/Plan: How she became wedged between the wall and her bed was discussed with the patient. The daughter is at bedside, visiting from [facility]. There is concerned that she was hypoglycemic and confused. CK is dropping to 8000. Continue with IV fluids. Follow CK daily (2) Cervical spine fracture Assessment/Plan: She has no neck pain. C-collar PRN was ordered. Okay to start PT today. (3) Wounds, multiple open, lower extremity Assessment/Plan: She has multiple skin tears. We will order a wound consult from [facility] (4) Traumatic ecchymosis of multiple sites Assessment/Plan: She has multiple ecchymoses. I suspect this occurred because of her restless leg syndrome hitting the wall or bed when she was wedged and on the floor for 7 hours. Pain control meds ordered. Okay to start PT today (5) Anemia Assessment/Plan: Hemoglobin was 12.7 at admission >> 11>> 8.9 today. Part of this is hemo- dilutional but I also suspect there has been blood loss into her multiple ecchymotic sites. Iron stores were checked and are adequate. Follow H&H daily, transfuse if under 7. (6) Restless leg syndrome Assessment/Plan: She had never been on any treatment in the past. Her leg movement was excessive when I first met her at admission. She likely had continued motion of these restless legs hitting hard surfaces when she was wedged on the floor for 7 hours. Gabapentin 100 mg daily and 300 mg at bedtime have been ordered, for RLS. Gabapentin will also help with pain control. (7) DM (diabetes mellitus), type 2 Assessment/Plan: She was on Glucophage at home. This was stopped with her JESSICA at admission. A1c is 7.5 indicating fair DM control. Concerned that she may have been hypoglycemic over night creating confusion and that is why she somehow was out of bed in the middle of the night, wedged between bed and wall, on the floor. Continue with carb controlled diet and sliding scale insulin for coverage of fingerstick glucose checks. She admitted that she is not good about checking fingerstick glucoses ever. Will order diabetic teaching from [facility]. (8) Anxiety and depression Assessment/Plan: Social Work saw the patient and feels there may be depression. Yesterday I saw her have anxiety when she had a panic attack "reliving how she felt when she was wedged for 7 hours between the bed and the wall". PRN Ativan has been ordered. (9) Hx of essential hypertension Assessment/Plan: Her blood pressure meds were on hold because she had a soft blood pressure at admission. Resume meds when she is hypertensive. (10) JESSICA (acute kidney injury) Assessment/Plan: Resolved. - Current Meds Current Meds: Current Medications Generic Name Dose Route Start Last Admin Trade Name Freq PRN Reason Stop Dose Admin Acetaminophen 650 mg 09/12/19 19:39 09/13/19 11:04 Tylenol PO 650 mg Q6HR PRN Administration Pain 1 to 4 Gabapentin 100 mg 09/13/19 16:38 09/13/19 16:59 Neurontin PO 100 mg DAILY JOSE Administration Gabapentin 300 mg 09/13/19 21:00 09/13/19 21:17 Neurontin PO 300 mg QPM JOSE Administration Hydromorphone HCl 1 mg 09/12/19 23:51 09/14/19 07:43 Dilaudid Inj Carp IVP 1 mg Q3HR PRN Administration PAIN Sodium Chloride 1,000 mls @ 150 mls/hr 09/12/19 20:00 09/14/19 07:42 Normal Saline 0.9% IV 150 mls/hr .Q6H40M JOSE Administration Insulin Aspart 1 - 5 unit 09/13/19 12:00 09/14/19 07:43 Novolog SUBQ Not Given 0800,1200,1700,2100 JOSE Protocol Lorazepam 0.5 mg 09/13/19 14:45 09/14/19 07:43 Ativan PO 0.5 mg Q6H PRN Administration Anxiety Oxycodone HCl 5 mg 09/12/19 21:04 09/14/19 06:14 Roxicodone PO 5 mg Q4HR PRN Administration PAIN Pantoprazole Sodium 40 mg 09/13/19 07:00 09/14/19 06:15 Protonix PO 40 mg QDAC JOSE Administration Sodium Chloride 10 ml 09/13/19 01:00 09/14/19 00:50 Normal Saline Flush 0.9% IVP 10 ml 0100,0900,1700 [facility] Administration - Lab Result Fish Bone Diagrams: 09/14/19 04:30 09/14/19 04:30 - Additional Planning My Orders: My Active Orders 09/13/19 11:00 Zinc Oxide 20% Oint [Zinc Oxide] 1 applic TOP PRN PRN 09/13/19 11:55 Blood Glucose Checks - Eating [RC] 0800,1200,1700,2100 Initiate Hypoglycemia Protocol [RC] .protocol 09/13/19 11:56 Miscellaenous Nursing Order [RC] QSHIFT ED C-Collar Application PRN 09/13/19 12:00 Insulin Aspart [NovoLOG] 1 - 5 unit SUBQ 0800,1200,1700,2100 09/13/19 14:45 LORazepam [Ativan] 0.5 mg PO Q6H PRN 09/13/19 Dinner DIET [Carb-controlled Diet] [DIET] 09/13/19 16:38 Gabapentin [Neurontin] 100 mg PO DAILY 09/13/19 21:00 Gabapentin [Neurontin] 300 mg PO QPM 09/14/19 Wound Consult MAC [MAC] Routine 09/14/19 06:18 Min Oil/Dimeth/Coconut Oil Crm [Cavilon] 1 applic TOP PRN PRN 09/14/19 09:00 Docusate Sodium 250Mg Capsule [Colace 250Mg Capsule] 250 - 500 mg PO DAILY Senna [Senokot] 8.6 - 17.2 mg PO DAILY polyethylene glycoL 3350 [Miralax] 17 gm PO DAILY Subjective - Subjective Patient Reports: Feeling Better, Resting Comfortably (He was able to stand up with physical therapy, took 4 steps, sat in a chair. She felt apprehensive but not lightheaded.) Objective Vital Signs: Vital Signs - 24 hr 09/13/19 09/13/19 09/13/19 12:33 16:58 20:18 Temperature 36.4 C L 36.8 C 36.7 C Heart Rate [ 83 90 94 Brachial] Respiratory 20 16 16 Rate Blood Pressure 124/66 126/69 136/72 H [Left Brachial artery] O2 Saturation 94 97 98 09/13/19 09/14/19 09/14/19 23:45 03:05 07:22 Temperature 36.5 C 36.7 C 36.7 C Heart Rate [ 95 99 93 Brachial] Respiratory 18 18 20 Rate Blood Pressure 138/71 H 146/79 H 136/77 H [Left Brachial artery] O2 Saturation 95 93 92 Oxygen O2 Source Room air I&O (Last 24 Hrs): Intake and Output Totals x24h 09/12/19 09/13/19 09/14/19 23:59 23:59 23:59 Intake Total 3663 4730.0 1627.5 Output Total 525 1025 300 Balance 3138 3705.0 1327.5 General: Alert, Oriented x3 HEENT: Mucous membr. moist/pink, Other (Several bruises and skin abraisions of the right face) Neuro: Alert, Non Focal Cardiovascular: Regular rate Respiratory: No respiratory distress Abdomen: Soft, Other (Obese with pannus) Extremities: Other (Trace-1+ edema. Multiple large ecchymoses, some have skin tears and are covered with Band-Aids, some skin abrasions. No purulence seen) - Results Results: Laboratory Results WBC 8.9 x10^3/uL (4.8-10.8) 09/14/19 04:30 RBC 3.82 10^6/uL (4.20-5.40) L 09/14/19 04:30 Hgb 10.5 g/dL (12.0-16.0) L 09/14/19 04:30 Hct 34.3 % (37.0-47.0) L 09/14/19 04:30 MCV 89.8 fL (81.0-99.0) 09/14/19 04:30 MCH 27.5 pg (27.0-31.0) 09/14/19 04:30 MCHC 30.6 g/dL (32.0-36.0) L 09/14/19 04:30 RDW 14.7 % (12.0-15.0) 09/14/19 04:30 Plt Count 216 10^3/uL (130-450) 09/14/19 04:30 MPV 11.3 fL (7.9-10.8) H 09/14/19 04:30 Neut # (Auto) 6.1 10^3/uL (1.5-6.6) 09/14/19 04:30 Lymph # (Auto) 1.8 10^3/uL (1.5-3.5) 09/14/19 04:30 [place] # (Auto) 0.8 10^3/uL (0.0-1.0) 09/14/19 04:30 Eos # (Auto) 0.1 10^3/uL (0.0-0.7) 09/14/19 04:30 Baso # (Auto) 0.0 10^3/uL (0.0-0.1) 09/14/19 04:30 Absolute Nucleated RBC 0.00 x10^3/uL 09/14/19 04:30 Nucleated RBC % 0.0 /100WBC 09/14/19 04:30 Sodium 139 mmol/L (135-145) 09/14/19 04:30 Potassium 3.4 mmol/L (3.5-5.0) L 09/14/19 04:30 Chloride 113 mmol/L (101-111) H 09/14/19 04:30 Carbon Dioxide 21 mmol/L (21-32) 09/14/19 04:30 Anion Gap 5.0 (6-13) L 09/14/19 04:30 BUN 12 mg/dL (6-20) 09/14/19 04:30 Creatinine 0.6 mg/dL (0.4-1.0) 09/14/19 04:30 Estimated GFR (MDRD) 98 (>89) 09/14/19 04:30 Glucose 145 mg/dL (70-100) H 09/14/19 04:30 POC Whole Bld Glucose 129 mg/dL (70 - 100) H 09/14/19 07:19 Glycated Hemoglobin 7.5 % (4.6-6.2) H 09/14/19 04:30 Estim Average Glucose 169 (70-100) H 09/14/19 04:30 Lactic Acid 2.2 mmol/L (0.5-2.2) 09/12/19 17:50 Calcium 7.9 mg/dL (8.5-10.3) L 09/14/19 04:30 Magnesium 2.2 mg/dL (1.7-2.8) 09/12/19 10:15 Iron 37 ug/dL (28-170) 09/14/19 04:30 TIBC 287 ug/dL (250-450) 09/14/19 04:30 % Saturation 13 % (20-50) L 09/14/19 04:30 Transferrin 205 mg/dL (192-382) 09/14/19 04:30 Total Bilirubin 1.0 mg/dL (0.2-1.0) 09/12/19 10:15 AST 162 IU/L (10-42) H 09/12/19 10:15 ALT 48 IU/L (10-60) 09/12/19 10:15 Alkaline Phosphatase 86 IU/L (42-121) 09/12/19 10:15 Total Creatine Kinase 8039 IU/L (22-269) H* 09/14/19 04:30 Total Protein 7.3 g/dL (6.7-8.2) 09/12/19 10:15 Albumin 4.0 g/dL (3.2-5.5) 09/12/19 10:15 Globulin 3.3 g/dL (2.1-4.2) 09/12/19 10:15 Albumin/Globulin Ratio 1.2 (1.0-2.2) 09/12/19 10:15 Lipase 29 U/L (22-51) 09/12/19 10:15 Urine Color YELLOW 09/12/19 11:20 Urine Clarity CLEAR (CLEAR) 09/12/19 11:20 Urine pH 5.5 PH (5.0-7.5) 09/12/19 11:20 Ur Specific [place] >=1.030 (1.002-1.030) H 09/12/19 11:20 Urine Protein 100 mg/dL (NEGATIVE) H 09/12/19 11:20 Urine Glucose (UA) 250 mg/dL (NEGATIVE) H 09/12/19 11:20 Urine Ketones NEGATIVE mg/dL (NEGATIVE) 09/12/19 11:20 Urine Occult Blood MODERATE (NEGATIVE) H 09/12/19 11:20 Urine Nitrite NEGATIVE (NEGATIVE) 09/12/19 11:20 Urine Bilirubin NEGATIVE (NEGATIVE) 09/12/19 11:20 Urine Urobilinogen 0.2 (NORMAL) E.U./dL (NORMAL) 09/12/19 11:20 Ur Leukocyte Esterase NEGATIVE (NEGATIVE) 09/12/19 11:20 Urine RBC None Seen /HPF (0-5) 09/12/19 11:20 Urine WBC 0-3 /HPF (0-5) 09/12/19 11:20 Ur Epithelial Cells RARE Transitional /HPF (<= Few) 09/12/19 11:20 Ur Squamous Epith Cells FEW Squamous (<= Few) 09/12/19 11:20 Amorphous Sediment Moderate /LPF 09/12/19 11:20 Urine Bacteria Few /HPF (None Seen) 09/12/19 11:20 Urine Casts 0-2 Hyaline Casts /LPF 09/12/19 11:20 Ur Microscopic Review INDICATED 09/12/19 11:20 Urine Culture Comments NOT INDICATED 09/12/19 11:20 Ethyl Alcohol < 5.0 mg/dL 09/12/19 10:52 Blood Type O POSITIVE 09/12/19 11:12 Blood Type Recheck O POSITIVE 09/12/19 10:15 Antibody Screen NEGATIVE 09/12/19 11:12
[2019-09-14] MEDS: polyethylene glycoL 3350 17 GM PACKET PO SCH (08:49)
[2019-09-14] MEDS: DOCUSATE SODIUM 250 MG CAPSULE PO SCH (08:53)
[2019-09-14] MEDS: SENNA 8.6 MG TABLET PO SCH (08:53)
[2019-09-14] MEDS: GABAPENTIN 100 MG CAPSULE PO SCH (08:53)
[2019-09-14] MEDS: GABAPENTIN 300 MG CAPSULE PO SCH (20:32)
[2019-09-15] MEDS: ACETAMINOPHEN 325 MG TABLET PO PRN
[2019-09-15] MEDS: oxyCODONE 5 MG TABLET PO PRN ×4 (00:01→23:40)
[2019-09-15] MEDS: LORazepam 0.5 MG TABLET PO PRN ×3 (00:01→20:48)
[2019-09-15] MEDS: SODIUM CHLORIDE FLUSH 0.9% 10 ML SYRINGE IVP SCH ×4 (01:12→23:16)
[2019-09-15] MEDS: SODIUM CHLORIDE 0.9% 1,000 ML IV SCH ×4 (02:51→23:11)
[2019-09-15 05:50] LABS: BASOPHILS % (AUTO) 0.4 %; EOSINOPHILS # (AUTO) 0.2 10^3/uL (0.0-0.7); EOSINOPHILS % (AUTO) 2.9 %; HGB - HEMOGLOBIN 10.6 g/dL (12.0-16.0); LYMPHOCYTES # (AUTO) 1.7 10^3/uL (1.5-3.5); LYMPHOCYTES % (AUTO) 23.6 %; MEAN CORPUSCULAR HGB CONC 32.2 g/dL (32.0-36.0); MEAN CORPUSCULAR VOLUME 89.9 fL (81.0-99.0); MEAN PLATELET VOLUME 11.2 fL (7.9-10.8); MONOCYTES # (AUTO) 0.5 10^3/uL (0.0-1.0); MONOCYTES % (AUTO) 6.8 %; NEUTROPHILS # (AUTO) 4.8 10^3/uL (1.5-6.6); NEUTROPHILS % (AUTO) 65.3 %; PLT - PLATELET COUNT 205 10^3/uL (130-450); RED BLOOD COUNT 3.66 10^6/uL (4.20-5.40); RED CELL DISTRIBUTION WIDTH 14.7 % (12.0-15.0); WHITE BLOOD COUNT 7.3 x10^3/uL (4.8-10.8)
[2019-09-15 06:01] LABS: CALCIUM 7.8 mg/dL (8.5-10.3); CREATININE 0.6 mg/dL (0.4-1.0)
[2019-09-15] MEDS: PANTOPRAZOLE 40 MG TABLET PO SCH (06:45)
[2019-09-15] MEDS ORDERED: POTASSIUM CHLORIDE 20 MEQ TABLET PO ONE (07:13)
[2019-09-15] MEDS: SENNA 8.6 MG TABLET PO SCH ×2 (07:51→20:48)
[2019-09-15] MEDS: DOCUSATE SODIUM 250 MG CAPSULE PO SCH (08:24)
[2019-09-15] MEDS: polyethylene glycoL 3350 17 GM PACKET PO SCH (08:25)
[2019-09-15] MEDS: GABAPENTIN 100 MG CAPSULE PO SCH (08:25)
[2019-09-15] MEDS: INSULIN ASPART 300 UNIT/3 ML PEN SUBQ SCH ×4 (08:36→21:18)
--- NOTE | 2019-09-15 09:08 | PROVIDER PROGRESS NOTE ---
Assessment/Plan - Problem List (1) Wheezing Assessment/Plan: This is a new complaint, started this morning. It is likely cardiac asthma from getting IV fluids at 150 cc/hour for 3 days. She denies asthma or COPD. We will obtain chest x-ray>> it showed CHF. Lasix iv x1 was given and she improved. We will obtain BNP and troponins. We will obtain Echo to evaluate LV and RV contractility. Will decrease IV fluid rate substantially. Follow BNP (2) Pulmonary HTN Assessment/Plan: The Echo was done and showed LVH, normal LVEF and RVEF with mild-moder mitral and tricuspid regurg and found pulm HTN, PA pressure 60 mmhg. The EKG showed RBBB with right axis deviation. She enies any pulmonary Hx llike asthma or COPD. She may have sleep apnea, given her obesity and description of restless sleep. A sleep study and PFTs after Dch are advised. (3) Rhabdomyolysis Qualifiers: Rhabdomyolysis type: traumatic Encounter type: subsequent encounter Qualified Code(s): T79.6XXD - Traumatic ischemia of muscle, subsequent encounter Assessment/Plan: Her admission CK was 6405>> 8039>> 84061 even despite [place] [address] yesterday, and 6928 today. Continue iv fluids, but the rate has been decreased from 150/hr to 60/hr. Follow CK daily. (4) Cervical spine fracture Assessment/Plan: She has fracture of the facet between C3 and C4. When she was in the ER, those images were sent to [facility] and the neurosurgeon signed off on this, they did not even recommend a c-collar. She has no neck pain. C-collar was ordered to use here when OOB and when ambulating. She started PT \\yesterday (5) Wounds, multiple open, lower extremity Assessment/Plan: She has multiple skin tears. A wound consult from [facility] was requested to be done today. (6) Traumatic ecchymosis of multiple sites Assessment/Plan: She has multiple ecchymoses. I suspect this occurred because of her restless leg syndrome hitting the wall or bed when she was wedged and on the floor for 7 hours. Pain control meds ordered. She started PT yesterday. (7) Anemia Assessment/Plan: Hemoglobin was 12.7 at admission >> 11>> 10 for 2 days. This is likely hemo-dilutional but I also suspect there has been blood loss into her multiple ecchymotic sites. Iron stores were checked and are adequate. Follow H&H daily, transfuse if under 7. (8) Restless leg syndrome Assessment/Plan: She described that this was familial, and had never been treated for her. Gabapentin 100 mg daily was started and 300 mg at at bedtime, also for pain control. This is helped her considerably and she has been very thankful for this new med. (9) DM (diabetes mellitus), type 2 Assessment/Plan: She was only on metformin for diabetic management. She admitted that she never checked fingerstick checks. Her A1c came back at 7.5. Diabetic Education from [facility] was ordered to see her today for further education, recommendations and management. (10) Anxiety and depression Assessment/Plan: On her first day here, she had a "panic attack" reliving how she felt when she was wedged between the wall and the mattress. When the social services designee saw her, there was an impression that the patient is also somewhat depressed. Ativan as needed has been prescribed. She needs follow-up for this by her PCP after discharge. (11) Hx of essential hypertension Assessment/Plan: She was on losartan before this hospitalization. It has been on hold since admission because she has had "soft" blood pressures and was in [place]. Resume it when BPs are elevated. (12) JESSICA (acute kidney injury) Assessment/Plan: Resolved with iv fluids - Current Meds Current Meds: Current Medications Generic Name Dose Route Start Last Admin Trade Name Freq PRN Reason Stop Dose Admin Acetaminophen 650 mg 09/12/19 19:39 09/15/19 00:00 Tylenol PO 650 mg Q6HR PRN Administration Pain 1 to 4 Docusate Sodium 250 - 500 mg 09/14/19 09:00 09/15/19 08:24 Colace 250mg Capsule PO 250 mg DAILY JOSE Administration Gabapentin 100 mg 09/13/19 16:38 09/15/19 08:25 Neurontin PO 100 mg DAILY JOSE Administration Gabapentin 300 mg 09/13/19 21:00 09/14/19 20:32 Neurontin PO 300 mg QPM JOSE Administration Hydromorphone HCl 1 mg 09/12/19 23:51 09/14/19 07:43 Dilaudid Inj Carp IVP 1 mg Q3HR PRN Administration PAIN Sodium Chloride 1,000 mls @ 60 mls/hr 09/15/19 09:04 09/15/19 09:05 Normal Saline 0.9% IV 60 mls/hr .[id number] JOSE Administration Insulin Aspart 1 - 5 unit 09/13/19 12:00 09/15/19 08:36 Novolog SUBQ 1 unit 0800,1200,1700,2100 JOSE Administration Protocol Lorazepam 0.5 mg 09/13/19 14:45 09/15/19 08:25 Ativan PO 0.5 mg Q6H PRN Administration Anxiety Oxycodone HCl 5 mg 09/12/19 21:04 09/15/19 08:25 Roxicodone PO 5 mg Q4HR PRN Administration PAIN Pantoprazole Sodium 40 mg 09/13/19 07:00 09/15/19 06:45 Protonix PO Not Given QDAC JOSE Polyethylene Glycol 17 gm 09/14/19 09:00 09/15/19 08:25 Miralax PO 17 gm DAILY JOSE Administration Senna 8.6 - 17.2 mg 09/14/19 09:00 09/15/19 07:51 Senokot PO Not Given DAILY JOSE Sodium Chloride 10 ml 09/13/19 01:00 09/15/19 07:30 Normal Saline Flush 0.9% IVP Not Given 0100,0900,1700 JOSE - Lab Result Fish Bone Diagrams: 09/15/19 04:45 09/15/19 04:45 - Additional Planning My Orders: My Active Orders 09/14/19 09:00 Docusate Sodium 250Mg Capsule [Colace 250Mg Capsule] 250 - 500 mg PO DAILY Senna [Senokot] 8.6 - 17.2 mg PO DAILY polyethylene glycoL 3350 [Miralax] 17 gm PO DAILY 09/15/19 BNP - B-NATRIURETIC PEPTIDE [IAI] Routine Diabetes Outpatient Education MAC [MAC] Routine 09/15/19 08:58 Chest 1 View X-Ray [XR] Stat 09/15/19 09:03 Echo Transthoracic Complete [ECHO] Routine 09/15/19 09:04 Sodium Chloride 0.9% [Normal Saline 0.9%] 1,000 ml IV 60 mls/hr 09/16/19 05:00 BNP - B-NATRIURETIC PEPTIDE [IAI] DAILYLAB Subjective - Subjective Patient Reports: Shortness of Breath, Other (Less restless legs since on Gabapentin.) Objective Vital Signs: Vital Signs - 24 hr 09/14/19 09/14/19 09/14/19 13:09 15:46 19:49 Temperature 36.7 C 36.6 C 36.6 C Heart Rate [ 92 94 98 Brachial] Respiratory 16 20 20 Rate Blood Pressure 130/66 138/76 H 140/78 H [Left Brachial artery] Blood Pressure [Right Brachial artery] O2 Saturation 93 95 94 09/15/19 09/15/19 09/15/19 00:17 04:25 07:50 Temperature 36.4 C L 36.5 C 36.5 C Heart Rate [ 94 95 96 Brachial] Respiratory 20 20 24 Rate Blood Pressure 143/76 H 141/73 H [Left Brachial artery] Blood Pressure 138/78 H [Right Brachial artery] O2 Saturation 93 93 09/15/19 08:23 Temperature Heart Rate [ Brachial] Respiratory Rate Blood Pressure [Left Brachial artery] Blood Pressure [Right Brachial artery] O2 Saturation 94 Oxygen O2 Source Room air I&O (Last 24 Hrs): Intake and Output Totals x24h 09/13/19 09/14/19 09/15/19 23:59 23:59 23:59 Intake Total 4730.0 4530.0 1882.0 Output Total 1025 1125 300 Balance 3705.0 3405.0 1582.0 General: Alert, Oriented x3 HEENT: Mucous membr. moist/pink, Other (Abraision lateral to R eye.) Neck: Supple, No JVD Neuro: Alert, Non Focal Cardiovascular: Regular rate, No murmurs Respiratory: No respiratory distress Abdomen: Normal bowel sounds, Soft, Other (Obese with pannus) - Results Results: Laboratory Results WBC 7.3 x10^3/uL (4.8-10.8) 09/15/19 04:45 RBC 3.66 10^6/uL (4.20-5.40) L 09/15/19 04:45 Hgb 10.6 g/dL (12.0-16.0) L 09/15/19 04:45 Hct 32.9 % (37.0-47.0) L 09/15/19 04:45 MCV 89.9 fL (81.0-99.0) 09/15/19 04:45 MCH 29.0 pg (27.0-31.0) 09/15/19 04:45 MCHC 32.2 g/dL (32.0-36.0) 09/15/19 04:45 RDW 14.7 % (12.0-15.0) 09/15/19 04:45 Plt Count 205 10^3/uL (130-450) 09/15/19 04:45 MPV 11.2 fL (7.9-10.8) H 09/15/19 04:45 Neut # (Auto) 4.8 10^3/uL (1.5-6.6) 09/15/19 04:45 Lymph # (Auto) 1.7 10^3/uL (1.5-3.5) 09/15/19 04:45 [place] # (Auto) 0.5 10^3/uL (0.0-1.0) 09/15/19 04:45 Eos # (Auto) 0.2 10^3/uL (0.0-0.7) 09/15/19 04:45 Baso # (Auto) 0.0 10^3/uL (0.0-0.1) 09/15/19 04:45 Absolute Nucleated RBC 0.00 x10^3/uL 09/15/19 04:45 Nucleated RBC % 0.0 /100WBC 09/15/19 04:45 Sodium 139 mmol/L (135-145) 09/15/19 04:45 Potassium 3.3 mmol/L (3.5-5.0) L 09/15/19 04:45 Chloride 112 mmol/L (101-111) H 09/15/19 04:45 Carbon Dioxide 19 mmol/L (21-32) L 09/15/19 04:45 Anion Gap 8.0 (6-13) 09/15/19 04:45 BUN 10 mg/dL (6-20) 09/15/19 04:45 Creatinine 0.6 mg/dL (0.4-1.0) 09/15/19 04:45 Estimated GFR (MDRD) 98 (>89) 09/15/19 04:45 Glucose 153 mg/dL (70-100) H 09/15/19 04:45 POC Whole Bld Glucose 147 mg/dL (70 - 100) H 09/15/19 07:44 Glycated Hemoglobin 7.5 % (4.6-6.2) H 09/14/19 04:30 Estim Average Glucose 169 (70-100) H 09/14/19 04:30 Lactic Acid 2.2 mmol/L (0.5-2.2) 09/12/19 17:50 Calcium 7.8 mg/dL (8.5-10.3) L 09/15/19 04:45 Magnesium 2.2 mg/dL (1.7-2.8) 09/12/19 10:15 Iron 37 ug/dL (28-170) 09/14/19 04:30 TIBC 287 ug/dL (250-450) 09/14/19 04:30 % Saturation 13 % (20-50) L 09/14/19 04:30 Transferrin 205 mg/dL (192-382) 09/14/19 04:30 Total Bilirubin 1.0 mg/dL (0.2-1.0) 09/12/19 10:15 AST 162 IU/L (10-42) H 09/12/19 10:15 ALT 48 IU/L (10-60) 09/12/19 10:15 Alkaline Phosphatase 86 IU/L (42-121) 09/12/19 10:15 Total Creatine Kinase 6405 IU/L (22-269) H* 09/15/19 04:45 Total Protein 7.3 g/dL (6.7-8.2) 09/12/19 10:15 Albumin 4.0 g/dL (3.2-5.5) 09/12/19 10:15 Globulin 3.3 g/dL (2.1-4.2) 09/12/19 10:15 Albumin/Globulin Ratio 1.2 (1.0-2.2) 09/12/19 10:15 Lipase 29 U/L (22-51) 09/12/19 10:15 Urine Color YELLOW 09/12/19 11:20 Urine Clarity CLEAR (CLEAR) 09/12/19 11:20 Urine pH 5.5 PH (5.0-7.5) 09/12/19 11:20 Ur Specific [place] >=1.030 (1.002-1.030) H 09/12/19 11:20 Urine Protein 100 mg/dL (NEGATIVE) H 09/12/19 11:20 Urine Glucose (UA) 250 mg/dL (NEGATIVE) H 09/12/19 11:20 Urine Ketones NEGATIVE mg/dL (NEGATIVE) 09/12/19 11:20 Urine Occult Blood MODERATE (NEGATIVE) H 09/12/19 11:20 Urine Nitrite NEGATIVE (NEGATIVE) 09/12/19 11:20 Urine Bilirubin NEGATIVE (NEGATIVE) 09/12/19 11:20 Urine Urobilinogen 0.2 (NORMAL) E.U./dL (NORMAL) 09/12/19 11:20 Ur Leukocyte Esterase NEGATIVE (NEGATIVE) 09/12/19 11:20 Urine RBC None Seen /HPF (0-5) 09/12/19 11:20 Urine WBC 0-3 /HPF (0-5) 09/12/19 11:20 Ur Epithelial Cells RARE Transitional /HPF (<= Few) 09/12/19 11:20 Ur Squamous Epith Cells FEW Squamous (<= Few) 09/12/19 11:20 Amorphous Sediment Moderate /LPF 09/12/19 11:20 Urine Bacteria Few /HPF (None Seen) 09/12/19 11:20 Urine Casts 0-2 Hyaline Casts /LPF 09/12/19 11:20 Ur Microscopic Review INDICATED 09/12/19 11:20 Urine Culture Comments NOT INDICATED 09/12/19 11:20 Ethyl Alcohol < 5.0 mg/dL 09/12/19 10:52 Blood Type O POSITIVE 09/12/19 11:12 Blood Type Recheck O POSITIVE 09/12/19 10:15 Antibody Screen NEGATIVE 09/12/19 11:12
--- NOTE | 2019-09-15 09:17 | XRAY Report ---
PROCEDURE: Chest 1 View X-Ray INDICATIONS: wheezing TECHNIQUE: One view of the chest was acquired. COMPARISON: None FINDINGS: Surgical changes and devices: None. Lungs and pleura: No pneumothorax. Small bilateral pleural fluid collections. There is basilar opaci fication and increased perihilar opacification. Mediastinum: Mediastinal contours appear normal. Heart size is normal. Bones and chest wall: No suspicious bony lesions. Overlying soft tissues appear unremarkable. IMPRESSION: 1. Bilateral perihilar and bibasilar increased opacification concerning for pulmonary edema. 2. Small bilateral pleural effusions. Reviewed by: Jessa Dooley MD, PhD on 09/15/2019 9:16 AM PDT Approved by: Jessa Dooley MD, PhD on 09/15/2019 9:16 AM PDT Station ID: [id number]
[2019-09-15] MEDS ORDERED: FUROSEMIDE 20 MG/2 ML VIAL IVP STA (09:29)
[2019-09-15] MEDS ORDERED: DOCUSATE SODIUM 250 MG CAPSULE PO SCH (20:00)
[2019-09-15] MEDS: GABAPENTIN 300 MG CAPSULE PO SCH (20:49)
[2019-09-16] MEDS: LORazepam 0.5 MG TABLET PO PRN (02:42)
[2019-09-16 04:59] LABS: BASOPHILS # (AUTO) 0.1 10^3/uL (0.0-0.1); BASOPHILS % (AUTO) 0.7 %; EOSINOPHILS # (AUTO) 0.2 10^3/uL (0.0-0.7); EOSINOPHILS % (AUTO) 2.8 %; HGB - HEMOGLOBIN 11.4 g/dL (12.0-16.0); LYMPHOCYTES # (AUTO) 1.7 10^3/uL (1.5-3.5); LYMPHOCYTES % (AUTO) 22.1 %; MEAN CORPUSCULAR HEMOGLOBIN 28.7 pg (27.0-31.0); MEAN CORPUSCULAR HGB CONC 32.1 g/dL (32.0-36.0); MEAN CORPUSCULAR VOLUME 89.4 fL (81.0-99.0); MEAN PLATELET VOLUME 11.4 fL (7.9-10.8); MONOCYTES # (AUTO) 0.6 10^3/uL (0.0-1.0); MONOCYTES % (AUTO) 7.6 %; NEUTROPHILS # (AUTO) 4.8 10^3/uL (1.5-6.6); NEUTROPHILS % (AUTO) 64.8 %; PLT - PLATELET COUNT 229 10^3/uL (130-450); RED BLOOD COUNT 3.97 10^6/uL (4.20-5.40); RED CELL DISTRIBUTION WIDTH 14.6 % (12.0-15.0); WHITE BLOOD COUNT 7.5 x10^3/uL (4.8-10.8)
[2019-09-16 05:29] LABS: CALCIUM 8.4 mg/dL (8.5-10.3); CREATININE 0.6 mg/dL (0.4-1.0)
[2019-09-16] MEDS: oxyCODONE 5 MG TABLET PO PRN ×3 (05:41→22:18)
[2019-09-16] MEDS: PANTOPRAZOLE 40 MG TABLET PO SCH (05:41)
[2019-09-16] MEDS ORDERED: POTASSIUM CHLORIDE 20 MEQ TABLET PO ONE (06:43)
[2019-09-16] MEDS: INSULIN ASPART 300 UNIT/3 ML PEN SUBQ SCH ×4 (07:42→20:41)
[2019-09-16] MEDS: GABAPENTIN 100 MG CAPSULE PO SCH (09:08)
[2019-09-16] MEDS: HEPARIN 5,000 UNIT/ML VIAL SUBQ SCH ×2 (09:08→20:42)
[2019-09-16] MEDS: DOCUSATE SODIUM 250 MG CAPSULE PO SCH (09:08)
[2019-09-16] MEDS: SENNA 8.6 MG TABLET PO SCH (09:08)
[2019-09-16] MEDS: polyethylene glycoL 3350 17 GM PACKET PO SCH (09:11)
[2019-09-16] MEDS: SODIUM CHLORIDE FLUSH 0.9% 10 ML SYRINGE IVP SCH ×2 (10:12→20:34)
[2019-09-16] MEDS ORDERED: PETROLATUM WHITE 5 GM PACKET TOP PRN (10:29)
--- NOTE | 2019-09-16 12:20 | PROVIDER PROGRESS NOTE ---
Subjective - Prog Note Date Prog Note Date: 09/16/19 Prog Note Time: 13:12 - Subjective Pt reports feeling: Improved Subjective: looking forward to go home. still a little sob this am wan wheezing again. Current Medications - Current Medications Current Medications: Active Medications Acetaminophen (Tylenol) 650 mg PO Q6HR PRN PRN Reason: Pain 1 to 4 Last Admin: 09/15/19 00:00 Dose: 650 mg Documented by: Docusate Sodium (Colace 250mg Capsule) 250 - 500 mg PO DAILY [facility] Last Admin: 09/16/19 09:08 Dose: 250 mg Documented by: Gabapentin (Neurontin) 100 mg PO DAILY [facility] Last Admin: 09/16/19 09:08 Dose: 100 mg Documented by: Gabapentin (Neurontin) 300 mg PO QPM [facility] Last Admin: 09/15/19 20:49 Dose: 300 mg Documented by: Heparin Sodium (Porcine) () 5,000 unit SUBQ BID [facility] Last Admin: 09/16/19 09:08 Dose: 5,000 unit Documented by: Hydromorphone HCl (Dilaudid Inj Carp) 1 mg IVP Q3HR PRN PRN Reason: PAIN Last Admin: 09/14/19 07:43 Dose: 1 mg Documented by: Sodium Chloride (Normal Saline 0.9%) 1,000 mls @ 60 mls/hr IV .[id number] [facility] Last Admin: 09/15/19 23:11 Dose: 60 mls/hr Documented by: Insulin Aspart (Novolog) 1 - 5 unit SUBQ 0800,1200,1700,2100 [facility]; Protocol Last Admin: 09/16/19 12:02 Dose: 1 unit Documented by: Lorazepam (Ativan) 0.5 mg PO Q6H PRN PRN Reason: Anxiety Last Admin: 09/16/19 02:42 Dose: 0.5 mg Documented by: Losartan Potassium (Cozaar) 50 mg PO DAILY [facility] Mineral Oil (Cavilon) 1 applic TOP PRN PRN PRN Reason: Skin Care Multi-Ingredient Ointment (Zinc Oxide) 1 applic TOP PRN PRN PRN Reason: Skin Care Oxycodone HCl (Roxicodone) 5 mg PO Q4HR PRN PRN Reason: PAIN Last Admin: 09/16/19 05:41 Dose: 5 mg Documented by: Pantoprazole Sodium (Protonix) 40 mg PO QDAC [facility] Last Admin: 09/16/19 05:41 Dose: 40 mg Documented by: Petrolatum (Vaseline) 1 applic TOP Q4HR PRN PRN Reason: Dry Skin Last Admin: 09/16/19 10:46 Dose: 5 applic Documented by: Polyethylene Glycol (Miralax) 17 gm PO DAILY [facility] Last Admin: 09/16/19 09:11 Dose: 17 gm Documented by: Senna (Senokot) 8.6 - 17.2 mg PO DAILY [facility] Last Admin: 09/16/19 09:08 Dose: 8.6 mg Documented by: Sodium Chloride (Normal Saline Flush 0.9%) 10 ml IVP PRN PRN PRN Reason: NEEDED PER PROVIDER ORDERS Sodium Chloride (Normal Saline Flush 0.9%) 10 ml IVP 0100,0900,1700 [facility] Last Admin: 09/16/19 10:12 Dose: Not Given Documented by: Losartan Potassium 50 mg PO DAILY 09/13/19 metFORMIN [Glucophage] 500 mg PO BIDWM 09/13/19 Objective - Vital Signs/Intake & Output Reviewed Vital Signs: Yes Vital Signs: Vital Signs x48h Temp Pulse Resp BP Pulse Ox 09/16/19 07:35 36.6 C 98 14 149/88 H 90 L 09/16/19 05:45 94 Intake & Output: Intake & Output 09/13/19 09/14/19 09/15/19 09/16/19 23:59 23:59 23:59 23:59 Intake Total 4730.0 4530.0 3084.0 120 Output Total 1025 1125 3500 550 Balance 3705.0 3405.0 -416.0 -430 - Objective General Appearance: positive: Alert (but a little confused, asking if someone will be teaching her to make pancakes this morning), Mild distress Eyes Bilateral: positive: PERRL ENT: positive: Pharynx nml Neck: positive: No JVD. negative: Stiff neck Respiratory: positive: Chest non-tender, Other (diminished at bases.). negative: Wheezes, Rales, Rhonchi Cardiovascular: positive: Regular rate & rhythm, Systolic murmur. negative: Gallop/S4, Friction rub Abdomen: positive: Non-tender, No organomegaly, Nml bowel sounds, No distention Skin: positive: Warm, Dry Extremities: positive: Full ROM, No pedal edema Neurologic/Psychiatric: positive: Oriented x3, CN's nml (2-12), Motor nml, Disoriented to place - Lab Results Fish Bones: 09/16/19 04:20 09/16/19 04:20 Other Labs: Lab Results x24hrs 09/16/19 09/16/19 09/16/19 Range/Units 12:01 07:33 04:20 WBC (4.8-10.8) x10^3/uL RBC (4.20-5.40) 10^6/uL Hgb (12.0-16.0) g/dL Hct (37.0-47.0) % MCV (81.0-99.0) fL MCH (27.0-31.0) pg MCHC (32.0-36.0) g/dL RDW (12.0-15.0) % Plt Count (130-450) 10^3/uL MPV (7.9-10.8) fL Neut # (Auto) (1.5-6.6) 10^3/uL Lymph # (Auto) (1.5-3.5) 10^3/uL [place] # (Auto) (0.0-1.0) 10^3/uL Eos # (Auto) (0.0-0.7) 10^3/uL Baso # (Auto) (0.0-0.1) 10^3/uL Absolute Nucleated RBC x10^3/uL Nucleated RBC % /100WBC Sodium (135-145) mmol/L Potassium (3.5-5.0) mmol/L Chloride (101-111) mmol/L Carbon Dioxide (21-32) mmol/L Anion Gap (6-13) BUN (6-20) mg/dL Creatinine (0.4-1.0) mg/dL Estimated GFR (MDRD) (>89) Glucose (70-100) mg/dL POC Whole Bld Glucose 153 H 158 H (70 - 100) mg/dL Calcium (8.5-10.3) mg/dL Total Creatine Kinase (22-269) IU/L Troponin I High Sens (2.3-14.8) ng/L B-Natriuretic Peptide 356 H (5-100) pg/mL 09/16/19 09/16/19 09/15/19 Range/Units 04:20 04:20 21:11 WBC 7.5 (4.8-10.8) x10^3/uL RBC 3.97 L (4.20-5.40) 10^6/uL Hgb 11.4 L (12.0-16.0) g/dL Hct 35.5 L (37.0-47.0) % MCV 89.4 (81.0-99.0) fL MCH 28.7 (27.0-31.0) pg MCHC 32.1 (32.0-36.0) g/dL RDW 14.6 (12.0-15.0) % Plt Count 229 (130-450) 10^3/uL MPV 11.4 H (7.9-10.8) fL Neut # (Auto) 4.8 (1.5-6.6) 10^3/uL Lymph # (Auto) 1.7 (1.5-3.5) 10^3/uL [place] # (Auto) 0.6 (0.0-1.0) 10^3/uL Eos # (Auto) 0.2 (0.0-0.7) 10^3/uL Baso # (Auto) 0.1 (0.0-0.1) 10^3/uL Absolute Nucleated RBC 0.00 x10^3/uL Nucleated RBC % 0.0 /100WBC Sodium 140 (135-145) mmol/L Potassium 3.4 L (3.5-5.0) mmol/L Chloride 110 (101-111) mmol/L Carbon Dioxide 22 (21-32) mmol/L Anion Gap 8.0 (6-13) BUN 9 (6-20) mg/dL Creatinine 0.6 (0.4-1.0) mg/dL Estimated GFR (MDRD) 98 (>89) Glucose 166 H (70-100) mg/dL POC Whole Bld Glucose 172 H (70 - 100) mg/dL Calcium 8.4 L (8.5-10.3) mg/dL Total Creatine Kinase 6937 H* (22-269) IU/L Troponin I High Sens (2.3-14.8) ng/L B-Natriuretic Peptide (5-100) pg/mL 09/15/19 09/15/19 Range/Units 16:48 12:10 WBC (4.8-10.8) x10^3/uL RBC (4.20-5.40) 10^6/uL Hgb (12.0-16.0) g/dL Hct (37.0-47.0) % MCV (81.0-99.0) fL MCH (27.0-31.0) pg MCHC (32.0-36.0) g/dL RDW (12.0-15.0) % Plt Count (130-450) 10^3/uL MPV (7.9-10.8) fL Neut # (Auto) (1.5-6.6) 10^3/uL Lymph # (Auto) (1.5-3.5) 10^3/uL [place] # (Auto) (0.0-1.0) 10^3/uL Eos # (Auto) (0.0-0.7) 10^3/uL Baso # (Auto) (0.0-0.1) 10^3/uL Absolute Nucleated RBC x10^3/uL Nucleated RBC % /100WBC Sodium (135-145) mmol/L Potassium (3.5-5.0) mmol/L Chloride (101-111) mmol/L Carbon Dioxide (21-32) mmol/L Anion Gap (6-13) BUN (6-20) mg/dL Creatinine (0.4-1.0) mg/dL Estimated GFR (MDRD) (>89) Glucose (70-100) mg/dL POC Whole Bld Glucose 136 H (70 - 100) mg/dL Calcium (8.5-10.3) mg/dL Total Creatine Kinase (22-269) IU/L Troponin I High Sens 470.7 H* (2.3-14.8) ng/L B-Natriuretic Peptide (5-100) pg/mL ABX Reporting Has patient been on IV antibiotics over the past 48 hours?: No Assessment/Plan - Problem List (1) Cardiac asthma Impression: This is a new diagnosis for her and her symptoms started on the morning of September 14. She is anxious to go home. Yesterday chest x-ray showed congestive heart failure.Between yesterday and today she has improved but this morning she is still mildly tachypneic, still mildly wheezing. It is likely cardiac asthma from getting IV fluids at 150 cc/hour for 3 days. She denies asthma or COPD.Since September 11 she is still +9832 cc. BNP was 287 yesterday and 356 today. Troponin was 509.9 yesterday and repeat troponin III hours later was 470. No EKG done. Or if it has been done is not been scanned yet. Echocardiogram from September 14 shows mild concentric left ventricular hypertrophy. Left ventricular systolic function normal with an ejection fraction of 60 to 65%Impaired relaxation consistent with grade 1 diastolic dysfunction. Moderate primary mitral regurgitation. Mild to moderate tricuspid regurgitation. Moderately abnormal right heart pressures with an RVSP at rest of 60 mmHg. Treatment was Lasix IV push once at 9 in the morning. She had good diuresis but not substantial enough. Plan: Repeat troponin today EKG Repeat Lasix. I have to balance the needs of her rhabdomyolysis treatment versus fluid overload (2) Pulmonary HTN Assessment/Plan: The Echo was done and showed LVH, normal LVEF and RVEF with mild-moder mitral and tricuspid regurg and found pulm HTN, PA pressure 60 mmhg. The EKG showed RBBB with right axis deviation. She denies any pulmonary Hx llike asthma or COPD. She may have sleep apnea, given her obesity and description of restless sleep. A sleep study and PFTs after Dch were advised to her by hospitalist 09/14 and I repeated that advisement today (3) Rhabdomyolysis Qualifiers: Rhabdomyolysis type: traumatic Encounter type: subsequent encounter Qualified Code(s): T79.6XXD - Traumatic ischemia of muscle, subsequent encounter Assessment/Plan: Her admission CK was 6405>> 8039>> 93565 even despite [place] [address] [place] 6928 and 6937 today. We have continued IVF, but the rate has been decreased from 150/hr to 60/hr. Follow CK daily. (4) Cervical spine fracture Assessment/Plan: She has fracture of the facet between C3 and C4. When she was in the ER, those images were sent to [facility] and the neurosurgeon signed off on this, they would not even recommend a c-collar. She has no neck pain. C-collar was ordered to use here when OOB and when ambulating. She started PT 09/13 and continues it today. Able to get out of bed and walks 40 feet with walker. Doesn't use a walker at home. Needed less and less feeding assist. (5) Wounds, multiple open, lower extremity Assessment/Plan: She has multiple skin tears. A wound consult from [facility] was requested to be done and she was seen today. She will be getting debridement of her scabs today and wound RN has asked for vaseline to dry skin on legs. Will order. (6) Traumatic ecchymosis of multiple sites Assessment/Plan: She has multiple ecchymoses. This was felt to have occurred because of her restless leg syndrome hitting the wall or bed when she was wedged and on the floor for 7 hours. Pain control meds ordered. She started PT 09/13 and they would like order for FWW. (7) Anemia Assessment/Plan: Hemoglobin was 12.7 at admission >> 11>> 10 for 2 days. This is likely hemo-dilutional but also suspected there had been blood loss into her multiple ecchymotic sites. Iron stores were checked and are adequate. Follow H&H daily, transfuse if under 7. (8) Restless leg syndrome Assessment/Plan: She described that this was familial, and had never been treated for her. Gabapentin 100 mg daily was started and 300 mg at at bedtime, also for pain control. This is helped her considerably and she has been very thankful for this new med. (9) DM (diabetes mellitus), type 2 Assessment/Plan: She was only on metformin for diabetic management. She admitted that she never checked fingerstick checks. Her A1c came back at 7.5. Diabetic Education from [facility] was ordered to see her today for further education, recommendations and management. Yesterday her glucose was 147, 151, 136, 172. Today she has been 158 and 153. She is not on sliding scale insulin. Metformin is being held. Plan: no change (10) Anxiety and depression Assessment/Plan: On her first day here, she had a "panic attack" reliving how she felt when she was wedged between the wall and the mattress. When the social insurance analyst saw her, there was an impression that the patient is also somewhat depressed. Ativan as needed has been prescribed. She needs follow-up for this by her PCP after discharge. (11) Hx of essential hypertension Assessment/Plan: She was on losartan before this hospitalization. It has been on hold since admission because she has had "soft" blood pressures and was in [place]. Yesterday systolic was in the 130s to 140s. This morning she is 143-149. Since acute kidney injury with a creatinine of 1.4 has now come down to 0.6, will resume losartan. (12) JESSICA (acute kidney injury) Assessment/Plan: Resolved with IV fluids
[2019-09-16] MEDS ORDERED: FUROSEMIDE 20 MG/2 ML VIAL IVP STA (12:27)
[2019-09-16] MEDS: LOSARTAN 50 MG TABLET PO SCH (13:22)
[2019-09-16] MEDS: SODIUM CHLORIDE 0.9% 1,000 ML IV SCH (18:36)
[2019-09-16] MEDS ORDERED: MAGNESIUM HYDROXIDE 2,400 MG/30 ML UDC PO ONE (19:59)
[2019-09-16] MEDS: GABAPENTIN 300 MG CAPSULE PO SCH (20:33)
[2019-09-17] MEDS: SODIUM CHLORIDE FLUSH 0.9% 10 ML SYRINGE IVP SCH ×2 (01:16→09:07)
[2019-09-17] MEDS: LORazepam 0.5 MG TABLET PO PRN ×2 (01:41→10:00)
[2019-09-17 05:33] LABS: BASOPHILS # (AUTO) 0.1 10^3/uL (0.0-0.1); BASOPHILS % (AUTO) 0.6 %; EOSINOPHILS # (AUTO) 0.3 10^3/uL (0.0-0.7); EOSINOPHILS % (AUTO) 3.6 %; HGB - HEMOGLOBIN 11.3 g/dL (12.0-16.0); LYMPHOCYTES # (AUTO) 1.9 10^3/uL (1.5-3.5); LYMPHOCYTES % (AUTO) 24.7 %; MEAN CORPUSCULAR HEMOGLOBIN 29.3 pg (27.0-31.0); MEAN CORPUSCULAR HGB CONC 32.9 g/dL (32.0-36.0); MEAN CORPUSCULAR VOLUME 88.9 fL (81.0-99.0); MEAN PLATELET VOLUME 10.9 fL (7.9-10.8); MONOCYTES # (AUTO) 0.7 10^3/uL (0.0-1.0); MONOCYTES % (AUTO) 9.2 %; NEUTROPHILS # (AUTO) 4.6 10^3/uL (1.5-6.6); NEUTROPHILS % (AUTO) 59.6 %; PLT - PLATELET COUNT 243 10^3/uL (130-450); RED BLOOD COUNT 3.86 10^6/uL (4.20-5.40); RED CELL DISTRIBUTION WIDTH 14.9 % (12.0-15.0); WHITE BLOOD COUNT 7.8 x10^3/uL (4.8-10.8)
[2019-09-17] MEDS: PANTOPRAZOLE 40 MG TABLET PO SCH (05:59)
[2019-09-17 06:19] LABS: CALCIUM 8.5 mg/dL (8.5-10.3); CREATININE 0.5 mg/dL (0.4-1.0)
[2019-09-17] MEDS ORDERED: POTASSIUM CHLORIDE 20 MEQ TABLET PO ONE (07:04)
--- NOTE | 2019-09-17 07:29 | Discharge Plan ---
Discharge Plan Problem Reviewed?: Yes Disposition: Home Health Service Condition: Stable Prescriptions: oxyCODONE [Roxicodone] 5 mg PO Q4HR PRN #30 tablet PRN Reason: Pain Aspirin 81 mg PO DAILY #30 tab.chew Atorvastatin [Lipitor] 40 mg PO DAILY #120 tablet Gabapentin [Neurontin] 100 mg PO DAILY #30 capsule Gabapentin [Neurontin] 300 mg PO QPM #30 capsule Walker [Ultra-Light Rollator] 1 each MC DAILY #1 each Diet: Cardiac Activity Restrictions: Activity as Tolerated Shower Restrictions: No Driving Restrictions: No Assistance Devices: Walker Instruction Topics: Lorazepam tablets, Pantoprazole tablets, Gabapentin capsules or tablets, Acetaminophen tablets or caplets, Hydromorphone injection, Docusate Sodium Senna tablets or capsules, Insulin Aspart injection, Oxycodone tablets or capsules Health Concerns: You came to our emergency room via ambulance because you had fallen out of bed and your body was wedged between the side board of the bed, and the wall. It took several hours of wiggling to finally get out from being stuck and you had significant bruising all over your body. We found you to have: 1. Rhabdomyolysis. This is a breakdown of muscles, causing an elevation of the muscle protein into your blood. Normal is 269. You presented as 6928. The highest level you had while you were here was 16,864. At discharge you are still elevated at 4566 but your kidney function is normal, you are eating normally, and able to ambulate in the room and we feel you are safe for discharge. 2. Diabetes was relatively controlled. Your glycosylated hemoglobin is 7.5% which is appropriate for person your age. We held your metformin because metformin can cause lactic acidosis and kidney failure in a patient who is sick in the hospital. 3. In hydrating you to get rid of the muscle enzyme, you received over 9 L of normal saline and it caused you to be temporarily fluid overloaded. We felt that you developed cardiac asthma which means fluid buildup in your lungs and caused you to wheeze. Treatment was 1 dose of Lasix and reducing your IV fluids. We also checked an EKG to make sure you were not having a heart attack and it was unremarkable. Muscle enzymes related to heart damage were elevated and it was not clear if you have heart damage from your fall on the floor or do you need be evaluated for blocked arteries in your heart. We also did an echocardiogram which is an ultrasound of your heart and found you to have pulmonary hypertension. That means that the blood pressure in your lungs is very high in the right side of your heart has to work very hard to get blood into your lungs and the rest of your body. 4. You were found to have a cervical spine fracture of C3-C4 side bone called a facet. We did speak to neurosurgery at [facility] who said you did not need any further treatment other than putting a soft collar around your neck when you are going to do exercise. 5. Restless leg syndrome is what caused you to fall out of bed. 6. You develop multiple skin tears of your lower extremities. Unfortunately the wound clinic is very behind with patients because of COVID-19. They were able to see you twice while you were in the hospital and the second time was the day of discharge. Plan of Treatment: 1. Please make sure you drink 32 ounces of water a day to make sure that you are flushing out the muscle protein from your bloodstream through your kidneys. 2. Do not resume metformin for another week. 3. Because of the muscle enzyme elevation of your heart muscle, please have your primary care provider refer you for a stress test of your heart.You will need to see your primary care provider in the next week, and have him/her make that referral. 4. Because of the nonspecificity of the heart muscle damage, we will send you home on the medicines that we send people home with you have had a heart attack. This is only temporary until you see a enterprise application architect. You are already on 1 of them which is losartan. We will add a cholesterol pill, and an aspirin. Take these until you get an opinion with the enterprise application architect and after your stress test. 5. For your restless leg syndrome we started you on gabapentin. You take 1 in the day and a higher dose at night. It seems to have helped you so we are sending you home with a 30-day supply. 6. Because you had deconditioning from falling down, and skin tears, we are ordering home health to start physical therapy in your home as well as a wound nurse to help you down the road for your skin tears. Your skin tears can be treated by simple soap and water. Do that daily. Dry her legs gently. Cover with Kerlix gauze. Do not soak your legs in a bath but you can take a shower. 7. When you work with physical therapy, wear a soft C-spine collar for the bone crack in your C3-C4 neck bone. I have also sent 30 tablets of oxycodone to the [facility]. Oxycodone is a powerful narcotic. Take 1 tablet every 6 hours as needed for neck pain. Oxycodone can cause severe constipation so make sure you are drinking the 32 ounces of water, and her eating your fruits and vegetables for fiber. You may need to take a stool softener every day. It is available [id number] and is called Colace. Follow the instructions on the box. 8. Since your heart ultrasound test shows you to have high blood pressure of the lungs, and you have sleep apnea when we observe you sleep, please ask your primary care provider to refer you for a sleep study to see if you need a CPAP mask or a trilogy mask. Care Goals: To resume your baseline status of complete independence where you drive a car, do not need a walker, and take care of your own home. Assessment: Patient states she understands treatment plan, goals, and will follow through. No Smoking: If you smoke, Please STOP! Call for help. Follow-up with: Rachana Guzmán ARNP, RN [facility] [Primary Care Provider] -
[2019-09-17] MEDS: INSULIN ASPART 300 UNIT/3 ML PEN SUBQ SCH ×2 (07:50→11:40)
--- NOTE | 2019-09-17 07:54 | DISCHARGE SUMMARY ---
"Discharge Summary Admit Date: 09/12/19 Discharge Date: 09/17/19 Discharging Provider: Georgia Taylor MD Primary Care Provider: MERLIN Almaraz Code Status: Attempt Resuscitation Condition at Discharge: Stable Discharge Disposition: [facility] - DIAGNOSES Discharge Diagnoses with Status of Each Condition: 1. Rhabdomyolysis 2. Dislocation of facet joint between third and fourth cervical vertebrae 3. Acute kidney injury 4. Fall at home 5. Pulmonary hypertension 6. Fluid overload 7. Cardiac asthma 8. Wounds, multiple open, lower extremity 9. Traumatic ecchymosis of multiple sites 10. Chronic anemia 11. Type 2 diabetes mellitus, controlled, not on insulin without complication 12. Anxiety and depression 13. Essential hypertension 14. Probable sleep apnea 15. Restless leg syndrome 16. elevated troponins. - HPI History of Present Illness: Patient is a 74-year-old female who fell out of bed last night and got wedged between the wall and the side board. This happened around 130 and 2 AM. It took her about 5 hours to scoot down about 3 feet enough to be able to free an arm. After this she was able to reach her phone and call her neighbor who came to her aid. Her neighbor then called EMS who brought her to the ED. She was significantly bruised on her arms and legs as a result of trying to free herself. She was found to be hypotensive with a systolic blood pressure of 84 upon presentation to the ED. She lives alone and usually does not use any walking aid at home. She is independent for activities of daily living. In the ED work-up included CK which was initially 6000 and 10,000 and recheck. Her creatinine was initially 1.4. She also had a lactic acid of 3.4. She also had a CT scan done of the neck which showed a right facet fracture between C3-C4. This was discussed with her spine surgeons at [facility] who determined that no further intervention was warranted. Also that the patient did not need a c- collar. At bedside she is laying flat. She denies headache, neck pain, chest pain, dyspnea, abdominal pain, nausea, vomiting, fever or chills. She complains of pain in her knees which is exquisitely tender to touch. As a result of her lab findings she is presented for admission for further management. - Past Medical History Cardiovascular: reports: Hypertension Respiratory: reports: None Neuro: reports: None Endocrine/Autoimmune: reports: None, Type 2 diabetes GI: reports: None, Hiatal hernia, Other (ventral hernia) FURNACE TAPPER: reports: None : reports: Frequency HEENT: reports: None Psych: reports: None Musculoskeletal: reports: None Derm: reports: None - Past Surgical History General: reports: Gastric surgery, Other (partial colectomy) Ortho: reports: Hip replacement /FURNACE TAPPER: reports: section, Hysterectomy Derm: reports: Skin cancer surgery - CONSULTS | PROCEDURES Procedures: 1. Cervical spine CT. Severe cervical spondylitic changes. Extensive cervical facet arthropathy. Right facet fracture at C3-C4 involving C4. Extends into the vertebral artery foramen. 4 mm anterolisthesis of C4 3 and C4 seems to be a chronic finding. 2. Abdomen pelvis CT without acute visceral or osseous abnormality. Diverticulosis. Ventral hernia. Hepatic steatosis. 3. Chest CT with question of fracture of the head of the first right rib. Hepatic steatosis. Coronary artery disease. No acute abdominal process. 4. Chest x-ray with bilateral perihilar and bibasilar increased opacification concerning for pulmonary edema. Small bilateral pleural effusions. 5. Echocardiogram with mild concentric left ventricular hypertrophy. Left ventricular systolic function normal with ejection fraction 60 to 65%. Right ventricle normal. Moderate pulmonary Merry mitral regurgitation. Mild to moderate tricuspid regurgitation. Moderately abnormal right heart pressures. RVSP at rest 60 mmHg. - HOSPITAL COURSE Hospital Course: The patient was treated as a rhabdomyolysis and aggressively hydrated. She became fluid overloaded and echocardiogram had to be done because she developed wheezing and shortness of breath that we felt was cardiac asthma. That was treated with diuretics and she improved. Echocardiogram results are as above. Because of laying between the bed and the wall, and wiggling trying to get out for hours, she had a lot of skin tears on her arms and legs. Those were also all treated with simple Tegaderm dressings. She was seen by house wrecker. Home health RN was ordered for wound care to help her. She was seen by physical therapy. It was recommended that she go home with home health and a walker. Physical therapy also wanted her to wear a soft C-spine collar. Neurosurgery did not feel that needed to be any intervention (or a C- spine collar) for the facet fracture. Restless leg syndrome was a problem for her. She has obstructive sleep apnea observed during her stay here. But she is never been diagnosed with it. Restless legs are what keep her awake at night. And that may been what caused her to roll off the bed. We started her on gabapentin and it worked very well for her and she asked for a stick send her home with new prescriptions. Her diabetes was relatively well controlled. Glycosylated hemoglobin was 7.5%. We did hold her metformin while she was in the hospital because of acute kidney injury. She can resume it when she gets home. She did have elevation of troponin high-sensitivity markers. It was unclear if she was really having any cardiac issues and that EKG was unchanged. However they were quite high at 509. Second set was 470. Third set was 339. We did start her on atorvastatin and aspirin. We are asking her to follow-up with her primary care provider to get a stress test scheduled. She was discharged in stable condition. Temperature was 36.4. Temperature 93. Blood pressure 149/78. Respirations 14 and she is 95% on room air. She is 5 foot 7 inches tall and weighs 113 kg. She is a morbidly obese pleasant female who looks her stated age. No jugular venous distention on neck exam. Lungs have diminished breath sounds at the bases but were otherwise clear. She had a regular rate and rhythm. Soft systolic ejection murmur. Abdomen was obese, soft, nontender. Legs had edema. Skin tears on knees, forearms were healing. The skin tears were present on admission from her falling at home. Greater than 30 minutes was spent coordinating discharge. I am asking her to follow-up with her primary care provider Rachana Guzmán. - ALLERGIES Allergies/Adverse Reactions: Allergies Allergy/AdvReac Type Severity Reaction Status Date / Time No Known Drug Allergies Allergy Verified 09/12/19 10:02 - MEDICATIONS Home Medications: Ambulatory Orders Medication Instructions Recorded Confirmed Losartan Potassium 50 mg PO DAILY 09/13/19 09/13/19 Walker [Ultra-Light Rollator] 1 each MC DAILY #1 each 09/16/19 Aspirin 81 mg PO DAILY #30 tab.chew 09/17/19 Atorvastatin [Lipitor] 40 mg PO DAILY #120 tablet 09/17/19 Gabapentin [Neurontin] 100 mg PO DAILY #30 capsule 09/17/19 Gabapentin [Neurontin] 300 mg PO QPM #30 capsule 09/17/19 oxyCODONE [Roxicodone] 5 mg PO Q4HR PRN #30 tablet 09/17/19 - LABS Result Diagrams: 09/17/19 05:19 09/17/19 05:19"
[2019-09-17 08:47] VITALS: BP 149/78
[2019-09-17] MEDS: DOCUSATE SODIUM 250 MG CAPSULE PO SCH (08:59)
[2019-09-17] MEDS: GABAPENTIN 100 MG CAPSULE PO SCH (08:59)
[2019-09-17] MEDS: HEPARIN 5,000 UNIT/ML VIAL SUBQ SCH (08:59)
[2019-09-17] MEDS: LOSARTAN 50 MG TABLET PO SCH (08:59)
[2019-09-17] MEDS: polyethylene glycoL 3350 17 GM PACKET PO SCH (09:04)
[2019-09-17] MEDS: SENNA 8.6 MG TABLET PO SCH (09:07)
[2019-09-17] MEDS: oxyCODONE 5 MG TABLET PO PRN (11:39)
[2019-09-17] MEDS: ACETAMINOPHEN 325 MG TABLET PO PRN (11:39)
== END 2019-09-17 12:00 | disposition home health service (06) | DRG 964 ==
LOC: ED 09:48 → MS2 19:39
PROVIDERS: ADMIT Internal Medicine; ATTEND Specialist
DX: T79.6XXA Traumatic ischemia of muscle, initial encounter (principal); S50.12XA Contusion of left forearm, initial encounter; S50.11XA Contusion of right forearm, initial encounter; S12.200A Unspecified displaced fracture of third cervical vertebra, initial encounter for closed fracture; S13.141A Dislocation of C3/C4 cervical vertebrae, initial encounter; S60.212A Contusion of left wrist, initial encounter; S60.211A Contusion of right wrist, initial encounter; S40.012A Contusion of left shoulder, initial encounter; S40.011A Contusion of right shoulder, initial encounter; S70.12XA Contusion of left thigh, initial encounter; S70.11XA Contusion of right thigh, initial encounter; S80.812A Abrasion, left lower leg, initial encounter; S80.811A Abrasion, right lower leg, initial encounter; S80.12XA Contusion of left lower leg, initial encounter; S80.11XA Contusion of right lower leg, initial encounter; M54.2 Cervicalgia; M47.812 Spondylosis without myelopathy or radiculopathy, cervical region; R93.7 Abnormal findings on diagnostic imaging of other parts of musculoskeletal system; S12.300A Unspecified displaced fracture of fourth cervical vertebra, initial encounter for closed fracture; I95.89 Other hypotension; N17.9 Acute kidney failure, unspecified; I50.1 Left ventricular failure, unspecified; I27.20 Pulmonary hypertension, unspecified; I95.9 Hypotension, unspecified; I11.0 Hypertensive heart disease with heart failure; I10 Essential (primary) hypertension; I25.10 Atherosclerotic heart disease of native coronary artery without angina pectoris; I45.10 Unspecified right bundle-branch block; E87.70 Fluid overload, unspecified; W06.XXXA Fall from bed, initial encounter; E66.01 Morbid (severe) obesity due to excess calories; D64.9 Anemia, unspecified; F32.9 Major depressive disorder, single episode, unspecified; F41.0 Panic disorder [episodic paroxysmal anxiety]; G25.81 Restless legs syndrome; G47.33 Obstructive sleep apnea (adult) (pediatric); R79.89 Other specified abnormal findings of blood chemistry; S81.012A Laceration without foreign body, left knee, initial encounter; S81.011A Laceration without foreign body, right knee, initial encounter; S51.812A Laceration without foreign body of left forearm, initial encounter; S51.811A Laceration without foreign body of right forearm, initial encounter; S40.022A Contusion of left upper arm, initial encounter; S40.021A Contusion of right upper arm, initial encounter; Y92.009 Unspecified place in unspecified non-institutional (private) residence as the place of occurrence of the external cause; S00.81XA Abrasion of other part of head, initial encounter; Z68.39 Body mass index [BMI] 39.0-39.9, adult; Z79.84 Long term (current) use of oral hypoglycemic drugs
CPT/HCPCS: 36415; 51702; 71045; 71260; 72125; 74177; 80048; 80053; 81001; 82550; 83036; 83540; 83605; 83690; 83735; 83880; 84466; 84484; 85025; 86850; 86900; 86901; 93005; 93306; 96361; 96374; 96375; 97110; 97162; 97166; 97530; 99284; 99285; A9270; J1170; J7120; Q9967; 80320; 81003; 87086

== ENCOUNTER 2019-10-10 14:12 | Outpatient (CLI) | payer MEDICARE ==
[2019-10-10 18:13] LABS: BASOPHILS # (AUTO) 0.1 10^3/uL (0.0-0.1); BASOPHILS % (AUTO) 0.7 %; EOSINOPHILS # (AUTO) 0.5 10^3/uL (0.0-0.7); EOSINOPHILS % (AUTO) 7.5 %; HGB - HEMOGLOBIN 12.5 g/dL (12.0-16.0); LYMPHOCYTES # (AUTO) 2.2 10^3/uL (1.5-3.5); LYMPHOCYTES % (AUTO) 31.3 %; MEAN CORPUSCULAR HEMOGLOBIN 27.2 pg (27.0-31.0); MEAN CORPUSCULAR HGB CONC 30.6 g/dL (32.0-36.0); MEAN CORPUSCULAR VOLUME 88.9 fL (81.0-99.0); MEAN PLATELET VOLUME 11.1 fL (7.9-10.8); MONOCYTES # (AUTO) 0.8 10^3/uL (0.0-1.0); MONOCYTES % (AUTO) 10.5 %; NEUTROPHILS # (AUTO) 3.5 10^3/uL (1.5-6.6); NEUTROPHILS % (AUTO) 49.4 %; PLT - PLATELET COUNT 295 10^3/uL (130-450); RED CELL DISTRIBUTION WIDTH 14.2 % (12.0-15.0); WHITE BLOOD COUNT 7.2 x10^3/uL (4.8-10.8)
[2019-10-10 18:23] LABS: ALBUMIN 4.1 g/dL (3.2-5.5); ALBUMIN/GLOBULIN RATIO 1.1 (1.0-2.2); BILIRUBIN,TOTAL 0.3 mg/dL (0.2-1.0); CALCIUM 9.7 mg/dL (8.5-10.3); CREATININE 0.6 mg/dL (0.4-1.0); TOTAL PROTEIN 7.8 g/dL (6.7-8.2)
== END 2019-10-10 23:59 | disposition home or self-care (01) ==
LOC: LAB.WCP 14:12
PROVIDERS: ATTEND Nurse Practitioner
DX: N17.9 Acute kidney failure, unspecified (principal); M62.82 Rhabdomyolysis; E11.29 Type 2 diabetes mellitus with other diabetic kidney complication; I10 Essential (primary) hypertension
CPT/HCPCS: 36415; 80053; 85025

== ENCOUNTER 2020-06-01 | Outpatient (CLI) | payer MEDICARE | END 2020-06-01 05:40 | disposition critical access hospital (66) | DX: R10.32 Left lower quadrant pain (principal) | CPT/HCPCS: A0425; A0427 ==

== ENCOUNTER 2020-06-01 05:55 | Inpatient (IN) | payer MEDICARE ==
[2020-06-01] MEDS ORDERED: SODIUM CHLORIDE 0.9% 1,000 ML IV STA (06:18)
[2020-06-01 06:31] LABS: BASOPHILS # (AUTO) 0.1 10^3/uL (0.0-0.1); BASOPHILS % (AUTO) 0.4 %; EOSINOPHILS % (AUTO) 0.3 %; HCT - HEMATOCRIT 44.8 % (37.0-47.0); HGB - HEMOGLOBIN 14.4 g/dL (12.0-16.0); LYMPHOCYTES # (AUTO) 1.3 10^3/uL (1.5-3.5); LYMPHOCYTES % (AUTO) 10.5 %; MEAN CORPUSCULAR HEMOGLOBIN 27.7 pg (27.0-31.0); MEAN CORPUSCULAR HGB CONC 32.1 g/dL (32.0-36.0); MEAN CORPUSCULAR VOLUME 86.2 fL (81.0-99.0); MONOCYTES # (AUTO) 0.7 10^3/uL (0.0-1.0); NEUTROPHILS # (AUTO) 9.9 10^3/uL (1.5-6.6); NEUTROPHILS % (AUTO) 82.5 %; PLT - PLATELET COUNT 285 10^3/uL (130-450); WHITE BLOOD COUNT 12.1 x10^3/uL (4.8-10.8)
[2020-06-01 06:44] LABS: ALBUMIN 4.2 g/dL (3.2-5.5); ALBUMIN/GLOBULIN RATIO 1.1 (1.0-2.2); BILIRUBIN,TOTAL 1.2 mg/dL (0.2-1.0); CALCIUM 9.4 mg/dL (8.5-10.3); CREATININE 0.7 mg/dL (0.4-1.0); POTASSIUM 3.8 mmol/L (3.5-5.0)
[2020-06-01] MEDS ORDERED: IOPAMIDOL-300 100 ML VIAL ONE (06:56)
--- NOTE | 2020-06-01 07:10 | ED Physician Documentation ---
History of Present Illness - Stated complaint Stated Complaint: LOWER ABD PX - Chief complaint Chief Complaint: Abd Pain - History obtained from History obtained from: Patient - Additonal information Additional information: Patient comes emergency department chief complaint of pain in the area of her abdominal hernia after weed eating yesterday. Patient states that she began to notice that she had pain around the hernia site and seemed to be "sticking out" more. She states she stopped weed eating and tried to relax, but that she kept getting waves of pain. She states she has had a couple of good bowel movements since symptoms started, but that she feels as though her hernia has not reduced all the way. Patient states that when the pain escalates, it is quite strong, but that in between, it is about a 2-3. Patient denies any nausea or vomiting. No fevers or chills. She states she has been seen for the hernia before and has been told that she will not be a surgical candidate until she loses weight. No other complaints at this time. Review of Systems Ten Systems: 10 systems reviewed and negative Constitutional: reports: Reviewed and negative Eyes: reports: Reviewed and negative Ears: reports: Reviewed and negative Nose: reports: Reviewed and negative Throat: reports: Reviewed and negative Cardiac: reports: Reviewed and negative Respiratory: reports: Reviewed and negative GI: reports: Abdominal Pain. denies: Nausea, Vomiting, Constipation, Diarrhea, Bloody / black stool : reports: Reviewed and negative Skin: reports: Reviewed and negative Musculoskeletal: reports: Reviewed and negative Neurologic: reports: Reviewed and negative Psychiatric: reports: Reviewed and negative Endocrine: reports: Reviewed and negative Immunocompromised: reports: Reviewed and negative PD PAST MEDICAL HISTORY - Past Medical History Past Medical History: Yes Cardiovascular: Hypertension Respiratory: None Neuro: None Endocrine/Autoimmune: Type 2 diabetes GI: None, Hiatal hernia, Other HEATING FIXTURE TENDER: None : Frequency HEENT: None Psych: None Musculoskeletal: None Derm: None - Past Surgical History Past Surgical History: Yes General: Gastric surgery, Other Ortho: Hip replacement /HEATING FIXTURE TENDER: section, Hysterectomy Derm: Skin cancer surgery - Present Medications Home Medications: Ambulatory Orders Medication Instructions Recorded Confirmed Losartan Potassium 50 mg PO DAILY 09/13/19 06/01/20 Walker [Ultra-Light Rollator] 1 each MC DAILY #1 each 09/16/19 Atorvastatin Calcium 40 mg PO DAILY 06/01/20 06/01/20 Gabapentin [Neurontin] 300 mg PO QPM PRN 06/01/20 06/01/20 metFORMIN [Glucophage] 500 mg PO BID 06/01/20 06/01/20 oxyCODONE [Roxicodone] 5 mg PO PRN PRN 06/01/20 06/01/20 - Allergies Allergies/Adverse Reactions: Allergies Allergy/AdvReac Type Severity Reaction Status Date / Time No Known Drug Allergies Allergy Verified 06/01/20 06:09 - Social History Does the pt smoke?: Yes Smoking Status: Current every day smoker Does the pt drink ETOH?: Yes Does the pt have substance abuse?: No - Immunizations Immunizations are current?: Yes - POLST Patient has POLST: No POLST Status: Full Code PD ED PE NORMAL - Vitals Vital signs reviewed: Yes - General General: Alert and oriented X 3, No acute distress, Well developed/nourished (Obese female well-appearing and in no apparent distress.) - HEENT HEENT: Atraumatic, PERRL, EOMI, Moist mucous membranes - Neck Neck: Supple, no meningeal sign - Cardiac Cardiac: RRR, No murmur - Respiratory Respiratory: No respiratory distress, Clear bilaterally, Other - Abdomen Abdomen: Soft, Other (Obese abdomen with soft, upper abdominal bulge/prominence just to the left of midline, consistent with abdominal wall hernia. Hernia is largely reducible, but immediately rebounds.) - Derm Derm: Warm and dry - Extremities Extremities: No deformity - Neuro Neuro: Alert and oriented X 3 - Psych Psych: Normal mood, Normal affect Results - Vitals Vitals: Oxygen O2 Source Room air - Labs Labs: Laboratory Tests 06/01/20 06/01/20 06/01/20 06:26 06:26 11:00 WBC 12.1 H RBC 5.20 Hgb 14.4 Hct 44.8 MCV 86.2 MCH 27.7 MCHC 32.1 RDW 14.0 Plt Count 285 MPV 11.0 H Neut # (Auto) 9.9 H Lymph # (Auto) 1.3 L [place] # (Auto) 0.7 Eos # (Auto) 0.0 Baso # (Auto) 0.1 Absolute Nucleated RBC 0.00 Nucleated RBC % 0.0 Sodium 134 L Potassium 3.8 Chloride 99 L Carbon Dioxide 23 Anion Gap 12.0 BUN 20 Creatinine 0.7 Estimated GFR (MDRD) 82 L Glucose 277 H Calcium 9.4 Total Bilirubin 1.2 H AST 22 ALT 28 Alkaline Phosphatase 123 H Total Protein 8.0 Albumin 4.2 Globulin 3.8 Albumin/Globulin Ratio 1.1 Lipase 22 Urine Color YELLOW Urine Clarity CLEAR Urine pH 6.0 Ur Specific [place] 1.010 Urine Protein NEGATIVE Urine Glucose (UA) 100 H Urine Ketones NEGATIVE Urine Occult Blood LARGE H Urine Nitrite NEGATIVE Urine Bilirubin NEGATIVE Urine Urobilinogen 0.2 (NORMAL) Ur Leukocyte Esterase NEGATIVE Urine RBC 11-25 H Urine WBC 0-3 Ur Squamous Epith Cells RARE Squamous Urine Bacteria Rare Ur Microscopic Review INDICATED Urine Culture Comments NOT INDICATED - Rads (name of study) CT abd/pelvis Radiology: Final report received, EMP read indepedently, See rad report (SBO, abd wall hernia) PD MEDICAL DECISION MAKING - ED course Complexity details: reviewed results, re-evaluated patient, considered differential, d/w patient ED course: Patient was worked up with labs, which were unremarkable. Patient was fairly well-appearing and her hernia did seem to be soft and fairly reducible; however, given the degree of obesity of the patient's abdominal wall, I could not be completely confident that the hernia was entirely reducing, and so I did obtain a CT of the abdomen and pelvis. This showed a SBO with transition point at the hernia site. I spoke with Dr. Schmitz, who agreed to admit the pt to his service. Pt remained stable, without N/V. Departure - Departure Disposition: [facility] DC/Xfer Clinical Impression: Small bowel obstruction, Abdominal wall hernia Condition: Serious Discharge Date/Time: 06/01/20 14:13
[2020-06-01] MEDS ORDERED: IOPAMIDOL-300 100 ML VIAL IVP ONE (08:23)
--- NOTE | 2020-06-01 08:34 | CT Report ---
PROCEDURE: Abdomen/Pelvis W INDICATIONS: mid-abd pain/hernia CONTRAST: IV CONTRAST: Isovue 300 ml: 100 PO CONTRAST: *NO PO CONTRAST TECHNIQUE: After the administration of nonionic contrast, 5 mm thick sections acquired from the diaphragms to th e symphysis. 5 mm thick coronal and sagittal reformats were acquired. For radiation dose reduction, the following was used: automated exposure control, adjustment of mA and/or kV according to patient size. COMPARISON: This hernia was previously present in August of last year, including several small bowel l oops extending through it, but the adjacent small bowel was not fluid dilated as is currently the james e. CT 09/12/2019 reviewed. FINDINGS: Image quality: Excellent. ABDOMEN: Lung bases: Lung bases are clear. Heart size is normal. Solid organs: Liver and spleen are normal in size and enhancement. Gallbladder appears normal. Jim iary system is non dilated. Pancreas enhances normally. No adrenal nodules. Kidneys demonstrate no rmal size and enhancement, without hydronephrosis. Peritoneum and bowel: Colonic bowel loops demonstrate normal wall thickness and caliber. Small bowel loops from the mid abdomen inferiorly are fluid-dilated over a portion of the mid abdomen, associate d with a ventral body wall defect through which small bowel loops pass into the subcutaneous fat, bes t seen centered on CT series 6 image 43. The defect at the midline measures up to 6.9 cm, constrictin g small bowel loops with fluid dilatation extending to this body wall hernia but the dilated nearby s mall bowel loops were not present at that time. No free fluid or air. Nodes and vessels: No retroperitoneal or mesenteric adenopathy by size criteria. Aorta and inferior vena cava are normal in size. Miscellaneous: No ventral hernias. PELVIS: Genitourinary: Bladder wall thickness is normal. Miscellaneous: No inguinal hernias or adenopathy. A fluid-filled small bowel loops extend into the pelvis contiguous with the fluid dilated small bowel loops from above. There are relatively collapsed small bowel loops towards the cecum. Several scattered surgical clips are present over the pelvis, p reviously the case. Bones: No suspicious bony lesions. No vertebral body compression fractures. IMPRESSION: Small bowel partial or complete obstruction pattern, with fluid dilatation of small silver l loops over portions of the mid abdomen and pelvis. There is relative collapse of small bowel loops towards the cecum. The etiology of small bowel obstruction likely is the previously present body wall hernia at the midline due to immediate adjacent fluid distention of small bowel loops extending into this body wall hernia. Surgical clips also are present over the pelvis, and a coincidental second si te of adhesion as additional cause of small bowel dilatation cannot be entirely excluded. This is con sidered relatively unlikely when compared to the body wall hernia and appearance of immediate adjacen t small bowel loops at this time. The body wall hernia was previously present in August of last year, and small bowel loops have herniate d into the subcutaneous fat at that time but small bowel dilatation was not present then. Reviewed by: Eagle Bowser MD on 06/01/2020 8:32 AM PDT Approved by: Eagle Bowser MD on 06/01/2020 8:32 AM PDT Station ID: [id number]
[2020-06-01 11:04] LABS: BILIRUBIN,URINE NEGATIVE (NEGATIVE); GLUCOSE, URINE (UA) 100 mg/dL (NEGATIVE); KETONES,URINE (UA) NEGATIVE (NEGATIVE); LEUKOCYTE ESTERASE, URINE NEGATIVE (NEGATIVE); NITRITE,URINE NEGATIVE (NEGATIVE); OCCULT BLOOD,URINE LARGE (NEGATIVE); PROTEIN,URINE NEGATIVE (NEGATIVE); UROBILINOGEN,URINE 0.2 (NORMAL) E.U./dL (NORMAL)
[2020-06-01 11:05] LABS: CLARITY,URINE CLEAR (CLEAR)
[2020-06-01 11:23] LABS: BACTERIA,URINE Rare /HPF (None Seen); SQUAMOUS EPITHELIAL CELL,UR RARE Squamous (<= Few); WBC,URINE 0-3 /HPF (0-5)
[2020-06-01] MEDS ORDERED: ONDANSETRON 4 MG/2 ML VIAL IVP PRN (13:58)
--- NOTE | 2020-06-01 14:10 | SURGERY HX AND PHYSICAL(T) ---
Surgical History & Physical - Chief Complaint/HPI Chief Complaint: Small bowel obstruction in the setting of ventral hernia History of Present Illness: 75-year-old female presenting for incarcerated hernia with small bowel obstruction. No significant family history. Notable past surgical history to include laparotomy for perforated viscus. Thereafter incisional hernia repair with mesh that has in the interval failed. Patient reports change in bowel function, denies bleeding per rectum, and complains of increasing abdominal pain. Patient does not use tobacco but has in the past. Patient has a history of alcohol use but denies any associated abuse. No history of heart attack or stroke. Patient takes no systemic anticoagulation. Endoscopic history includes remote colonoscopy. Emergency provider has not been able to reduce hernia and surgical consultation was called for incarcerated hernia associated bowel and obstruction. - PMH/PSH/Social Hx Neurological History: None Eyes, Ears, Nose, Throat: None Cardiovascular: Hypertension Respiratory: None Skin: None Endocrine/Autoimmune: Type 2 diabetes Gastrointestinal: None, Hiatal hernia, Other NEUROPATHOLOGIST: None Urinary: Frequency Musculoskeletal: None Blood Disorders: None Psychiatric: None General: Gastric surgery, Other Orthopedic: Hip replacement Dermatologic: Skin cancer surgery Smoking Status: Former smoker Does the pt drink ETOH?: Yes Frequency: Occasional Does the pt have substance abuse?: No - Home Meds and Allergies Home Medications: Losartan Potassium 50 mg PO DAILY 09/13/19 Atorvastatin Calcium 40 mg PO DAILY 06/01/20 Gabapentin [Neurontin] 300 mg PO QPM PRN 06/01/20 metFORMIN [Glucophage] 500 mg PO BID 06/01/20 oxyCODONE [Roxicodone] 5 mg PO PRN PRN 06/01/20 Allergies/Adverse Reactions: Allergies Allergy/AdvReac Type Severity Reaction Status Date / Time No Known Drug Allergies Allergy Verified 06/01/20 06:09 - Review of Systems Constitutional: Fatigue, Malaise Gastrointestinal: Nausea, Vomiting, Abdominal pain - Vital Signs Heart Rate: 94 Blood Pressure: 167/90 Temperature: 36.5 C Respiratory Rate: 18 O2 Saturation: 100 Weight (kg): 109.2 kg Height: 1.7 m - Physical Exam General Appearance: positive: Mild distress Eyes Bilatera: positive: Normal inspection, PERRL, EOMI ENT: positive: ENT inspection nml Neck: positive: Nml inspection Respiratory: positive: Chest non-tender, No respiratory distress, Breath sounds nml. negative: Wheezes, Rales, Rhonchi Cardiovascular: positive: Regular rate & rhythm Abdomen: positive: Tenderness, Other (Softly distended, midline hernia supra umbilical palpable medium to small size defect. Carefully reduced with significant taxis. Associated pain. No overlying erythema. No diffuse peritoneal signs; no rebound or guarding. Long midline scar for which the umbilical and infraumbilical portions wit) Extremities: positive: Non-tender, Full ROM, Nml appearance Neurologic/Psychiatric: positive: Oriented x3, CN's nml (2-12), Motor nml, Sensation nml, Mood/affect nml - Patient Review Patient Review: Problems were reviewed with the patient during this visit. Medications were reviewed with the patient during this visit. Allergies were reviewed this patient during this visit. Pertinent Tests Reviewed: All pertitent test for this patient were reviewed. - Assessment & Plan Assessment and Plan: 75-year-old female with history of remote laparotomy, secondary to acute abdominal pain/perforation. She had interval repair which apparently appears to have failed. She acutely presents with high-grade small bowel obstruction with associated obstipation secondary to incisional hernia which I was able to reduce at the bedside. No peritoneal signs at this time. Plan as follows: 1. bowel rest, nasogastric decompression, IV fluid resuscitation. 2. Serial abdominal exams, plain film imaging, possible repeat imaging with CT and contrast challenge. 3. Plan hybrid open and laparoscopic hernia repair with mini laparotomy to evaluate bowel performed necessary adhesiolysis and intend mesh underlay for reinforcements in the form of an intraperitoneal onlay mesh beneath the primary suture repair. 4. Electrolytes normal at this time we will continue to monitor them with daily lab draws.
[2020-06-01] MEDS: D5NS W/20 MEQ KCL 1,000 ML IV SCH ×2 (15:43→22:46)
--- NOTE | 2020-06-01 16:22 | PHARMACY PROGRESS NOTE ---
- Best Possible Medication History Admit Date and Time: 06/01/20 1358 Processed by: Pharmacy Medication History completed: Yes Patient Interview: Completed Secondary Source(s): Pharmacy records, Insurance records As the person ultimately responsible for medication therapy, providers are able to order a medication from an existing home medication list in [facility] via the "Reconcile Routine" prior to Confirmation of that medication by network support manager. Such practice is discouraged except when the physician, in their clinical judgment, deems that a medical need exists for a medication without regard to previous use.
[2020-06-01] MEDS: METOCLOPRAMIDE 10 MG/2 ML VIAL IVP SCH (18:49)
[2020-06-01] MEDS: methocarbamoL 500 MG TABLET PO SCH (18:49)
[2020-06-01] MEDS: SODIUM CHLORIDE FLUSH 0.9% 10 ML SYRINGE IVP SCH (18:50)
[2020-06-01] MEDS: ACETAMINOPHEN 1,000 MG/100 ML 100 ML IV PRN (21:30)
[2020-06-01 22:17] LABS: B. PARAPERTUSSIS- RESP PCR PAN NOT DETECTED; B. PERTUSSIS- RESP PCR PANEL NOT DETECTED; C. PNEUMONIAE- RESP PCR PANEL NOT DETECTED; CORONAVIRUS 229E-RESP PCR NOT DETECTED; CORONAVIRUS HKU1-RESP PCR NOT DETECTED; CORONAVIRUS NL63-RESP PCR NOT DETECTED; CORONAVIRUS OC43-RESP PCR NOT DETECTED; HUMAN METAPNEUMOVIRUS NOT DETECTED; INFLUENZA A- RESP PCR PANEL NOT DETECTED; INFLUENZA B - RESP PCR PANEL NOT DETECTED; M. PNEUMONIAE- RESP PCR PANEL NOT DETECTED; PARAINFLUENZA VIRUS 1 NOT DETECTED; PARAINFLUENZA VIRUS 2 NOT DETECTED; PARAINFLUENZA VIRUS 3 NOT DETECTED; PARAINFLUENZA VIRUS 4 NOT DETECTED; RHINOVIRUS/ENTEROVIRUS NOT DETECTED; RSV- RESP PCR PANEL NOT DETECTED; SARS-CoV-2 -RESP PCR PANEL NOT DETECTED
[2020-06-02] MEDS: methocarbamoL 500 MG TABLET PO SCH ×5 (00:16→23:31)
[2020-06-02] MEDS: SODIUM CHLORIDE FLUSH 0.9% 10 ML SYRINGE IVP SCH ×4 (00:16→23:31)
[2020-06-02] MEDS: METOCLOPRAMIDE 10 MG/2 ML VIAL IVP SCH ×5 (00:16→23:31)
[2020-06-02] MEDS: HYDROmorphone 0.5 MG/0.5 ML SYRINGE IVP PRN ×3 (02:39→16:35)
[2020-06-02 04:49] LABS: BASOPHILS % (AUTO) 0.6 %; EOSINOPHILS # (AUTO) 0.2 10^3/uL (0.0-0.7); EOSINOPHILS % (AUTO) 2.4 %; HCT - HEMATOCRIT 38.9 % (37.0-47.0); LYMPHOCYTES # (AUTO) 1.9 10^3/uL (1.5-3.5); LYMPHOCYTES % (AUTO) 25.9 %; MEAN CORPUSCULAR HEMOGLOBIN 27.3 pg (27.0-31.0); MEAN CORPUSCULAR HGB CONC 30.8 g/dL (32.0-36.0); MEAN CORPUSCULAR VOLUME 88.6 fL (81.0-99.0); MEAN PLATELET VOLUME 11.2 fL (7.9-10.8); MONOCYTES # (AUTO) 0.7 10^3/uL (0.0-1.0); MONOCYTES % (AUTO) 9.3 %; NEUTROPHILS # (AUTO) 4.4 10^3/uL (1.5-6.6); NEUTROPHILS % (AUTO) 61.5 %; PLT - PLATELET COUNT 232 10^3/uL (130-450); RED BLOOD COUNT 4.39 10^6/uL (4.20-5.40); RED CELL DISTRIBUTION WIDTH 14.3 % (12.0-15.0); WHITE BLOOD COUNT 7.2 x10^3/uL (4.8-10.8)
[2020-06-02 05:00] LABS: ALBUMIN 3.4 g/dL (3.2-5.5); ALBUMIN/GLOBULIN RATIO 1.1 (1.0-2.2); BILIRUBIN,TOTAL 0.6 mg/dL (0.2-1.0); CALCIUM 8.4 mg/dL (8.5-10.3); CREATININE 0.6 mg/dL (0.4-1.0); MAGNESIUM 1.8 mg/dL (1.7-2.8); POTASSIUM 3.7 mmol/L (3.5-5.0); TOTAL PROTEIN 6.5 g/dL (6.7-8.2)
[2020-06-02] MEDS: PANTOPRAZOLE 40 MG VIAL IVP SCH (06:09)
[2020-06-02] MEDS: SODIUM CHLORIDE FLUSH 0.9% 10 ML SYRINGE IVP PRN ×2 (06:10→16:39)
[2020-06-02] MEDS: ACETAMINOPHEN 1,000 MG/100 ML 100 ML IV PRN (06:23)
[2020-06-02] MEDS: D5NS W/20 MEQ KCL 1,000 ML IV SCH ×3 (06:44→23:30)
[2020-06-02] MEDS: ENOXAPARIN 40 MG/0.4 ML SYRINGE SUBQ SCH (08:04)
[2020-06-02] MEDS ORDERED: BUPIVACAINE 0.5% PF 30 ML VIAL ONE (08:36)
--- NOTE | 2020-06-02 10:19 | ANESTHESIA ---
Pre-Anesthesia VS, & Labs - Diagnosis abdominal wall hernia, small bowel obstruction - Procedure laparoscopic incisional hernia repair with possible small bowel resection Vital Signs: Temp Pulse Resp BP Pulse Ox 36.6 C 93 16 132/79 H 95 06/02/20 07:18 06/02/20 07:18 06/02/20 07:18 06/02/20 07:18 06/02/20 07:18 Height: 5 ft 7 in Weight (kg): 107 kg Body Mass Index: 36.9 BMI Classification: Obese - NPO >8 hours - Is Patient ?: No - Lab Results Current Lab Results: Laboratory Tests 06/02/20 04:35: Sodium 140, Potassium 3.7, Chloride 109, Carbon Dioxide 23, Anion Gap 8.0, BUN 12, Creatinine 0.6, Estimated GFR (MDRD) 98, Glucose 217 H, C alcium 8.4 L, Phosphorus 3.0, Magnesium 1.8, Total Bilirubin 0.6, AST 17, ALT 20, Alkaline Phosphatase 103, Total Protein 6.5 L, Albumin 3.4, Globulin 3.1, Albumin/Globulin Ratio 1.1 06/02/20 04:35: WBC 7.2, RBC 4.39, Hgb 12.0, Hct 38.9, MCV 88.6, MCH 27.3, MCHC 30.8 L, RDW 14.3, Plt Count 232, MPV 11.2 H, Neut # (Auto) 4.4, Lymph # (Auto) 1.9, [place] # (Auto) 0.7, Eos # (Auto) 0.2, Baso # (Auto) 0.0, Absolute Nucleated RBC 0.00, Nucleated RBC % 0.0 06/01/20 20:03: Blood Type O POSITIVE, Antibody Screen NEGATIVE 06/01/20 06:26: Sodium 134 L, Potassium 3.8, Chloride 99 L, Carbon Dioxide 23, Anion Gap 12.0, BUN 20, Creatinine 0.7, Estimated GFR (MDRD) 82 L, Glucose 277 H , Calcium 9.4, Total Bilirubin 1.2 H, AST 22, ALT 28, Alkaline Phosphatase 123 H , Total Protein 8.0, Albumin 4.2, Globulin 3.8, Albumin/Globulin Ratio 1.1, Lipase 22 06/01/20 06:26: WBC 12.1 H, RBC 5.20, Hgb 14.4, Hct 44.8, MCV 86.2, MCH 27.7, MCHC 32.1, RDW 14.0, Plt Count 285, MPV 11.0 H, Neut # (Auto) 9.9 H, Lymph # (Auto) 1.3 L, [place] # (Auto) 0.7, Eos # (Auto) 0.0, Baso # (Auto) 0.1, Absolute Nucleated RBC 0.00, Nucleated RBC % 0.0 Fish Bones: 06/02/20 04:35 06/02/20 04:35 Home Medications and Allergies Home Medications: Ambulatory Orders Atorvastatin Calcium 40 mg PO DAILY 06/01/20 Gabapentin [Neurontin] 300 mg PO QPM PRN 06/01/20 metFORMIN [Glucophage] 500 mg PO BID 06/01/20 oxyCODONE [Roxicodone] 5 mg PO PRN PRN 06/01/20 Active Medications Enoxaparin Sodium (Enoxaparin 40 Mg/0.4 Ml Syringe) 40 mg SUBQ DAILY [facility] Last Admin: 06/02/20 08:04 Dose: 40 mg Documented by: Hydromorphone HCl (Hydromorphone 0.5 Mg/0.5 Ml Syringe) 0.5 mg IVP Q2H PRN PRN Reason: Pain 8 to 10 Last Admin: 06/02/20 02:39 Dose: 0.5 mg Documented by: Potassium Chloride/Dextrose/Sod Cl (D5ns W/20 Meq Kcl) 1,000 mls @ 125 mls/hr IV .Q8H [facility] Last Admin: 06/02/20 06:44 Dose: 125 mls/hr Documented by: Acetaminophen (Ofirmev) 100 mls @ 400 mls/hr IV Q6HR PRN PRN Reason: PAIN Last Infusion: 06/02/20 06:38 Dose: Infused Documented by: Methocarbamol (Methocarbamol 500 Mg Tablet) 500 mg PO Q6HR [facility] Last Admin: 06/02/20 06:07 Dose: 500 mg Documented by: Metoclopramide HCl (Metoclopramide 10 Mg/2 Ml Vial) 10 mg IVP Q6HR [facility] Last Admin: 06/02/20 06:09 Dose: 10 mg Documented by: Ondansetron HCl (Ondansetron 4 Mg/2 Ml Vial) 4 mg IVP Q6HR PRN PRN Reason: Nausea / Vomiting Pantoprazole Sodium (Pantoprazole 40 Mg Vial) 40 mg IVP QDAC [facility] Last Admin: 06/02/20 06:09 Dose: 40 mg Documented by: Sodium Chloride (Sodium Chloride Flush 0.9% 10 Ml Syringe) 10 ml IVP 0100,0900,1700 [facility] Last Admin: 06/02/20 00:16 Dose: 10 ml Documented by: Sodium Chloride (Sodium Chloride Flush 0.9% 10 Ml Syringe) 10 ml IVP PRN PRN PRN Reason: NEEDED PER PROVIDER ORDERS Last Admin: 06/02/20 06:10 Dose: 10 ml Documented by: Losartan Potassium 50 mg PO DAILY 09/13/19 Atorvastatin Calcium 40 mg PO DAILY 06/01/20 Gabapentin [Neurontin] 300 mg PO QPM PRN 06/01/20 metFORMIN [Glucophage] 500 mg PO BID 06/01/20 oxyCODONE [Roxicodone] 5 mg PO PRN PRN 06/01/20 Allergies/Adverse Reactions: Allergies Allergy/AdvReac Type Severity Reaction Status Date / Time No Known Drug Allergies Allergy Verified 06/01/20 06:09 Anes History & Medical History - Medical History Cardiovascular: reports: Hypertension Pulmonary: reports: None Gastrointestinal: reports: Diverticulitis, Other Urinary: reports: None Neuro: reports: None Musculoskeletal: reports: Osteoarthritis Endocrine/Autoimmune: reports: Type 2 diabetes Blood Disorders: reports: None Skin: reports: None Smoking Status: Never smoker History of Cancer?: No Other Past Medical History: abdominal hernia - Surgical History General: reports: Gastric surgery, Colonoscopy, Other Gynecologic: reports: section, Hysterectomy Orthopedic: reports: Hip replacement Dermatologic: reports: Skin cancer surgery Plan Anesthesia Type: General, Transverse Abdominis Plane (TAP) Block, Other Block (or spina erectus) Consent for Procedure(s) Verified and Reviewed: Yes Code Status: Attempt Resuscitation ASA classification: 2-Mild systemic disease Is this case an emergency?: No
[2020-06-02] MEDS ORDERED: fentaNYL 100 MCG/2 ML VIAL ONE ×2 (10:30→15:02)
[2020-06-02] MEDS ORDERED: LIDOCAINE-MPF 2% 5 ML VIAL ONE (10:30)
[2020-06-02] MEDS ORDERED: SODIUM CHLORIDE 0.9% 10 ML VIAL IVP ONE (10:30)
[2020-06-02] MEDS ORDERED: PROPOFOL 200 MG/20 ML VIAL IVP ONE (10:30)
[2020-06-02] MEDS ORDERED: DEXAMETHASONE 10 MG/ML VIAL ONE (10:30)
[2020-06-02] MEDS ORDERED: ROPIVACAINE 0.5% PF 20 ML AMPULE ONE (10:30)
[2020-06-02] MEDS ORDERED: MIDAZOLAM 2 MG/2 ML VIAL ONE (10:30)
[2020-06-02] MEDS ORDERED: ONDANSETRON 4 MG/2 ML VIAL ONE (10:30)
[2020-06-02] MEDS ORDERED: DEXAMETHASONE 4 MG/ML VIAL ONE (10:30)
[2020-06-02] MEDS ORDERED: EPINEPHrine 1 MG/ML AMP ONE (10:31)
[2020-06-02] MEDS ORDERED: ROCURONIUM 50 MG/5 ML VIAL ONE (10:31)
[2020-06-02] MEDS ORDERED: ePHEDrine 50 MG/ML VIAL IVP PRN (10:49)
[2020-06-02] MEDS ORDERED: HYDROmorphone 0.5 MG/0.5 ML SYRINGE IVP PRN (10:49)
[2020-06-02] MEDS ORDERED: MORPHINE 2 MG/ML CARPUJECT IVP PRN (10:49)
[2020-06-02] MEDS ORDERED: METOCLOPRAMIDE 10 MG/2 ML VIAL IVP PRN (10:49)
[2020-06-02] MEDS ORDERED: NALOXONE 0.4 MG/ML VIAL IVP PRN (10:49)
[2020-06-02] MEDS ORDERED: ATROPINE ABBOJECT 1 MG/10 ML SYRINGE IVP PRN (10:49)
[2020-06-02] MEDS ORDERED: ONDANSETRON 4 MG/2 ML VIAL IVP PRN (10:49)
[2020-06-02] MEDS ORDERED: LACTATED RINGERS 1,000 ML IV SCH (11:00)
[2020-06-02] MEDS ORDERED: ceFAZolin 1 GM VIAL ONE (11:41)
[2020-06-02] MEDS ORDERED: HYDROmorphone 1 MG/ML CARPUJECT ONE (11:56)
[2020-06-02] MEDS ORDERED: BUPIVACAINE 0.5% PF 30 ML VIAL INFIL ONE ×2 (12:11)
[2020-06-02] MEDS ORDERED: ACETAMINOPHEN 1,000 MG/100 ML 100 ML IV ONE (13:20)
[2020-06-02] MEDS ORDERED: SUGAMMADEX 200 MG/2 ML VIAL IVP ONE (14:20)
[2020-06-02] MEDS ORDERED: LACTATED RINGERS 200 ML IV ONE (14:43)
[2020-06-02] MEDS ORDERED: GABAPENTIN 300 MG CAPSULE PO PRN (15:00)
[2020-06-02] MEDS ORDERED: HYDROmorphone 0.5 MG/0.5 ML SYRINGE ONE (15:02)
[2020-06-02] MEDS: fentaNYL 100 MCG/2 ML VIAL IVP PRN ×2 (15:05→15:15)
[2020-06-02] MEDS ORDERED: HYDROmorphone PCA 20MG/100ML IV PRN (15:39)
--- NOTE | 2020-06-02 15:43 | OPERATIVE REPORT ---
Operative Report - General Admit Date: 06/01/20 Procedure Date: 06/02/20 Planned Procedure: 1. Diagnostic laparoscopy 2. Mini laparotomy 3. Planned adhesiolysis 4. Primary incisional hernia repair 5. Planned intraperitoneal onlay mesh laparoscopic assisted Pre-Op Diagnosis: Obesity, incarcerated hernia, small bowel obstruction, multiple prior Sx Procedure Performed: 1. Diagnostic laparoscopy 2. Mini laparotomy 3. Extensive open adhesiolysis adhesiolysis greater than 2 hours 4. Extensive laparoscopic adhesiolysis greater than 1 hour 4. Primary incisional hernia repair 5. Planned intraperitoneal onlay mesh laparoscopic assisted, echo ventral light ST 6. Drain placement Post Op Diagnosis: Same, eroded mesh, extensive adhesions, hostile abdomen, hostile pelvis - Procedure Note Primary Surgeon: Nadir Secondary Surgeon: Gertrudis Anesthesia Provider: Salvador Anesthesia Technique: General ET tube, Local, Regional block Pathology: 1. Small bowel 2. Eroded mesh Estimated Blood Loss (mL): 350 Drain/Tube Type: Pierce drain Indications: 1. Incarcerated hernia 2. Supraumbilical incisional hernia 3. History of multiple abdominal surgeries 4. Small bowel obstruction Complications: NONE - Other Other Information/Narrative: Final report pending
[2020-06-02] MEDS: CIPROFLOXACIN 400 MG/200 ML 400 MG/200 ML BAG IV SCH (16:05)
[2020-06-02] MEDS: metroNIDAZOLE 500 MG/100 ML 500 MG/100 ML BAG IV SCH ×2 (16:21→23:31)
--- NOTE | 2020-06-02 16:22 | XRAY Report ---
PROCEDURE: Abdomen 1 View X-Ray INDICATIONS: NG tube placement TECHNIQUE: 1 view of the abdomen was acquired. COMPARISON: Prior CT abdomen and pelvis one day ago FINDINGS: Surgical changes and devices: Cutaneous anterior paramedian surgical clips over the abdomen and exten ding inferiorly towards the pelvis. Additional surgical clips within the peritoneal space in the lowe r abdomen and pelvis. What appears to be a long surgical drain crosses the abdomen into the pelvis an d then cephalad near the right iliac crests. An esophagogastric tube is partially visualized at the l eft upper quadrant, within the gastric lumen of the gastric body area, and does not cross towards the gastric antrum.. Bowel: No pneumoperitoneum. The bowel gas pattern is nonspecific. Soft tissues: No masses; visualized solid organ contours appear normal in size. No suspicious abdom inal calcifications. Very limited quality of visualization due to body habitus. Bones: No suspicious bony abnormalities. IMPRESSION: Large body habitus, limited quality of visualization. Postsurgical changes as discussed. Esophagogastric tube tip is within the gastric body area. Reviewed by: Eagle Bowser MD on 06/02/2020 4:21 PM PDT Approved by: Eagle Bowser MD on 06/02/2020 4:21 PM PDT Station ID: [id number]
--- NOTE | 2020-06-02 16:37 | ANESTHESIA POST OP EVALUATION ---
Anesthesia Post Eval - Post Anesthesia Eval Vitals: Last Vital Signs Temp 36.4 C L 06/02/20 15:47 Pulse 96 06/02/20 16:19 Resp 25 H 06/02/20 16:19 BP 140/80 H 06/02/20 16:19 Pulse Ox 95 06/02/20 16:19 CV Function Including HR & BP: Stable Pain Control: Satisfactory Nausea & Vomiting: Negative Mental Status: Baseline Respiratory Status: Airway Patent Hydration Status: Satisfactory Anesthesia Complications: None
[2020-06-02] MEDS ORDERED: INSULIN ASPART 300 UNIT/3 ML PEN SUBQ SCH (17:00)
[2020-06-02] MEDS: INSULIN REGULAR HUMAN 300 UNIT/3 ML VIAL SUBQ SCH ×2 (18:03→23:31)
[2020-06-02] MEDS: ACETAMINOPHEN 1,000 MG/100 ML 100 ML IV SCH (18:54)
[2020-06-03] MEDS: ACETAMINOPHEN 1,000 MG/100 ML 100 ML IV SCH ×4 (01:00→19:58)
[2020-06-03] MEDS: CIPROFLOXACIN 400 MG/200 ML 400 MG/200 ML BAG IV SCH ×2 (04:41→15:22)
[2020-06-03 05:19] LABS: BASOPHILS % (AUTO) 0.4 %; EOSINOPHILS # (AUTO) 0.2 10^3/uL (0.0-0.7); EOSINOPHILS % (AUTO) 1.4 %; HCT - HEMATOCRIT 38.9 % (37.0-47.0); HGB - HEMOGLOBIN 12.1 g/dL (12.0-16.0); LYMPHOCYTES # (AUTO) 0.6 10^3/uL (1.5-3.5); LYMPHOCYTES % (AUTO) 5.4 %; MEAN CORPUSCULAR HEMOGLOBIN 27.8 pg (27.0-31.0); MEAN CORPUSCULAR HGB CONC 31.1 g/dL (32.0-36.0); MEAN CORPUSCULAR VOLUME 89.4 fL (81.0-99.0); MEAN PLATELET VOLUME 11.4 fL (7.9-10.8); MONOCYTES # (AUTO) 1.1 10^3/uL (0.0-1.0); MONOCYTES % (AUTO) 9.5 %; NEUTROPHILS # (AUTO) 9.2 10^3/uL (1.5-6.6); NEUTROPHILS % (AUTO) 82.8 %; PLT - PLATELET COUNT 254 10^3/uL (130-450); RED BLOOD COUNT 4.35 10^6/uL (4.20-5.40); RED CELL DISTRIBUTION WIDTH 14.3 % (12.0-15.0); WHITE BLOOD COUNT 11.1 x10^3/uL (4.8-10.8)
[2020-06-03 05:30] LABS: ALBUMIN 3.1 g/dL (3.2-5.5); ALBUMIN/GLOBULIN RATIO 0.9 (1.0-2.2); BILIRUBIN,TOTAL 0.7 mg/dL (0.2-1.0); CALCIUM 8.1 mg/dL (8.5-10.3); CREATININE 0.6 mg/dL (0.4-1.0); MAGNESIUM 1.6 mg/dL (1.7-2.8); PHOSPHORUS 3.2 mg/dL (2.5-4.6); POTASSIUM 4.3 mmol/L (3.5-5.0); TOTAL PROTEIN 6.7 g/dL (6.7-8.2)
[2020-06-03] MEDS: METOCLOPRAMIDE 10 MG/2 ML VIAL IVP SCH ×4 (06:03→23:31)
[2020-06-03] MEDS: PANTOPRAZOLE 40 MG VIAL IVP SCH (06:03)
[2020-06-03] MEDS: methocarbamoL 500 MG TABLET PO SCH ×5 (06:04→23:32)
[2020-06-03] MEDS: INSULIN REGULAR HUMAN 300 UNIT/3 ML VIAL SUBQ SCH ×4 (06:27→23:43)
[2020-06-03] MEDS: D5NS W/20 MEQ KCL 1,000 ML IV SCH ×3 (07:56→23:31)
[2020-06-03] MEDS: metroNIDAZOLE 500 MG/100 ML 500 MG/100 ML BAG IV SCH ×3 (07:58→23:30)
[2020-06-03] MEDS ORDERED: WALKER MC SCH (09:00)
[2020-06-03] MEDS: ATORVASTATIN 40 MG TABLET PO SCH (09:01)
[2020-06-03] MEDS: ENOXAPARIN 40 MG/0.4 ML SYRINGE SUBQ SCH (09:01)
[2020-06-03] MEDS: LOSARTAN 50 MG TABLET PO SCH (09:01)
[2020-06-03] MEDS: SODIUM CHLORIDE FLUSH 0.9% 10 ML SYRINGE IVP SCH ×3 (09:02→23:43)
[2020-06-03] MEDS ORDERED: INSULIN REGULAR HUMAN 300 UNIT/3 ML VIAL SUBQ SCH (12:00)
[2020-06-04] MEDS: ACETAMINOPHEN 1,000 MG/100 ML 100 ML IV SCH ×4 (01:36→19:47)
[2020-06-04] MEDS: CIPROFLOXACIN 400 MG/200 ML 400 MG/200 ML BAG IV SCH ×2 (04:22→16:01)
[2020-06-04 05:18] LABS: BASOPHILS % (AUTO) 0.2 %; EOSINOPHILS # (AUTO) 0.1 10^3/uL (0.0-0.7); HCT - HEMATOCRIT 32.4 % (37.0-47.0); HGB - HEMOGLOBIN 9.8 g/dL (12.0-16.0); LYMPHOCYTES # (AUTO) 1.4 10^3/uL (1.5-3.5); MEAN CORPUSCULAR HEMOGLOBIN 27.5 pg (27.0-31.0); MEAN CORPUSCULAR HGB CONC 30.2 g/dL (32.0-36.0); MEAN PLATELET VOLUME 11.9 fL (7.9-10.8); MONOCYTES # (AUTO) 0.8 10^3/uL (0.0-1.0); MONOCYTES % (AUTO) 7.6 %; NEUTROPHILS # (AUTO) 7.5 10^3/uL (1.5-6.6); NEUTROPHILS % (AUTO) 76.6 %; PLT - PLATELET COUNT 202 10^3/uL (130-450); RED BLOOD COUNT 3.56 10^6/uL (4.20-5.40); RED CELL DISTRIBUTION WIDTH 14.7 % (12.0-15.0); WHITE BLOOD COUNT 9.8 x10^3/uL (4.8-10.8)
[2020-06-04 05:30] LABS: ALBUMIN 2.6 g/dL (3.2-5.5); ALBUMIN/GLOBULIN RATIO 0.7 (1.0-2.2); BILIRUBIN,TOTAL 0.6 mg/dL (0.2-1.0); CALCIUM 8.2 mg/dL (8.5-10.3); CREATININE 0.6 mg/dL (0.4-1.0); MAGNESIUM 1.7 mg/dL (1.7-2.8); PHOSPHORUS 1.4 mg/dL (2.5-4.6); POTASSIUM 3.9 mmol/L (3.5-5.0); TOTAL PROTEIN 6.1 g/dL (6.7-8.2)
[2020-06-04 05:36] LABS: PLATELET ESTIMATE, MANUAL NORMAL (130-450,000) (NORMAL); PLATELET MORPHOLOGY NORMAL APPEARANCE (NORMAL); RBC MORPHOLOGY (MULTIPLE) NORMAL APPEARANCE (NORMAL); WBC MORPHOLOGY (MULTIPLE) NORMAL APPEARANCE (NORMAL)
[2020-06-04] MEDS: methocarbamoL 500 MG TABLET PO SCH ×4 (06:21→23:13)
[2020-06-04] MEDS: PANTOPRAZOLE 40 MG VIAL IVP SCH (06:23)
[2020-06-04] MEDS: METOCLOPRAMIDE 10 MG/2 ML VIAL IVP SCH ×4 (06:23→23:17)
[2020-06-04] MEDS: INSULIN REGULAR HUMAN 300 UNIT/3 ML VIAL SUBQ SCH (06:23)
[2020-06-04] MEDS: SODIUM CHLORIDE FLUSH 0.9% 10 ML SYRINGE IVP PRN (06:28)
[2020-06-04] MEDS: D5NS W/20 MEQ KCL 1,000 ML IV SCH (07:42)
[2020-06-04] MEDS: metroNIDAZOLE 500 MG/100 ML 500 MG/100 ML BAG IV SCH ×3 (08:45→23:16)
[2020-06-04] MEDS: DOCUSATE SODIUM 250 MG CAPSULE PO SCH (09:38)
[2020-06-04] MEDS: SODIUM CHLORIDE FLUSH 0.9% 10 ML SYRINGE IVP SCH ×3 (09:38→23:17)
[2020-06-04] MEDS: ATORVASTATIN 40 MG TABLET PO SCH (09:38)
[2020-06-04] MEDS: ENOXAPARIN 40 MG/0.4 ML SYRINGE SUBQ SCH (09:38)
[2020-06-04] MEDS: LOSARTAN 50 MG TABLET PO SCH (09:38)
[2020-06-04] MEDS ORDERED: hydrALAZINE INJ 20 MG/ML VIAL IVP PRN (10:31)
[2020-06-04] MEDS ORDERED: LOSARTAN 50 MG TABLET PO ONE ×2 (11:00→16:15)
--- NOTE | 2020-06-04 11:13 | CONSULTATION NOTE ---
Referring Provider Name of Referring Provider:: Consult Date: 06/04/20 Chief Complaint - Chief Complaint Chief Complaint: abdominal pain History of Present Illness - Admitted From Admitted From:: ICU - History Obtained From Records Reviewed: [employer] History obtained from: pt and [employer] Exam Limitations: no - History of Present Illness HPI Comment/Other: This is a 75-year-old female with history of hiatal hernia, HTN, diabetes, and remote laparotomy, who complain of abdominal pain. pt was found to have incarcerated hernia with small bowel obstruction. pt had Diagnostic laparoscopy, Primary incisional hernia repair, Drain placement done by our surgeon. In S/P surgery care, pt was found to have elevated blood pressure, and elevated glucose level. Medical team was consulted for evaluation and treatment for refractory hypertension post-operative status post, and elevated glucose level. pt denies fever, chill, chest pain, cough, shortness of breath, nausea or vomiting. she report mild sore at surgery site. pt already start to have clear diet at breakfast. History - Past Medical History Cardiovascular: reports: Hypertension Respiratory: reports: None Neuro: reports: None Endocrine/Autoimmune: reports: Type 2 diabetes GI: reports: None, Hiatal hernia, Other TAXATION ACCOUNTANT: reports: None : reports: Frequency HEENT: reports: None Psych: reports: None Musculoskeletal: reports: None Derm: reports: None Other Past Medical History: abdominal hernia - Past Surgical History General: reports: Gastric surgery, Other Ortho: reports: Hip replacement /TAXATION ACCOUNTANT: reports: section, Hysterectomy Derm: reports: Skin cancer surgery - Family & Social History Family History: Mother: (in their 80's), Cancer (lung cancer. She was a smoker), Father: Family History Comment/Other: Father had vascular dementia. Social History Notes: She lives alone. She does not smoke tobacco products. She rarely drinks alcohol. She denies any illicit drugs. - POLST Patient has POLST: No POLST Status: Full Code Meds/Allgy - Home Medications Home Medications: Ambulatory Orders Medication Instructions Recorded Confirmed Losartan Potassium 50 mg PO DAILY 09/13/19 06/01/20 Walker [Ultra-Light Rollator] 1 each [facility] DAILY #1 each 09/16/19 Atorvastatin Calcium 40 mg PO DAILY 06/01/20 06/01/20 Gabapentin [Neurontin] 300 mg PO QPM PRN 06/01/20 06/01/20 metFORMIN [Glucophage] 500 mg PO BID 06/01/20 06/01/20 oxyCODONE [Roxicodone] 5 mg PO PRN PRN 06/01/20 06/01/20 - Allergies Allergies/Adverse Reactions: Allergies Allergy/AdvReac Type Severity Reaction Status Date / Time No Known Drug Allergies Allergy Verified 06/01/20 06:09 Review of Systems - Constitutional Constitutional: denies: Fatigue, Diaphoresis - Eyes Eyes: denies: Pain, Field loss, Vision loss - Ears, Nose & Throat Ears, Nose & Throat: denies: Ear pain, Tinnitus, Nosebleeds, Bleeding gums - Cardiovascular Cariovascular: denies: Irregular heart rate, Palpitations, Chest pain, Lightheadedness, Syncope - Respiratory Respiratory: denies: Cough, Sputum production, Wheezing, Hemoptysis, SOB at rest - Gastrointestinal Gastrointestinal: reports: Abdominal pain (at surgery site). denies: Diarrhea, Nausea, Vomiting - Genitourinary Genitourinary: reports: Other (pt has Guidry) - Musculoskeletal Musculoskeletal: denies: Muscle pain, Muscle aches - Integumentary Integumentary: denies: Rash, Lesions - Neurological Neurological: denies: Focal weakness, Headache, Dizziness, Numbness, Seizures, Incoordination, Slurred speech - Psychiatric Psychiatric: denies: Depression, Suicidal - Endocrine Endocrine: denies: Polyuria, Polyphagia - Hematologic/Lymphatic Hematologic/Lymphatic: denies: Lymphadenopathy Exam - Vital Signs Vital Signs: Vital Signs x48h Temp Pulse Resp BP Pulse Ox 06/04/20 10:00 96 19 167/72 H 97 06/04/20 09:00 97 18 173/76 H 97 06/04/20 08:00 99 18 162/83 H 97 06/04/20 07:00 108 H 25 H 141/76 H 93 06/04/20 06:00 36.7 C 93 23 160/72 H 93 06/04/20 05:00 93 17 149/76 H 99 06/04/20 04:00 93 17 130/68 98 - Physical Exam General Appearance: positive: No acute distress, Alert. negative: Lethargic Eyes Bilateral: positive: Normal inspection, PERRL, No lid inflammation ENT: positive: ENT inspection nml, No signs of dehydration. negative: Purulent nasal drainage Neck: positive: Nml inspection, Trachea midline. negative: Thyromegaly, Tracheal deviation Respiratory: positive: Chest non-tender, No respiratory distress, Breath sounds nml. negative: Wheezes, Rales Cardiovascular: positive: Regular rate & rhythm, No murmur. negative: Tachycardia, Bradycardia, Systolic murmur, Diastolic murmur Peripheral Pulses: positive: 2+ Abdomen: positive: Non-tender, Nml bowel sounds, Other (pt has drainage bag). negative: Tenderness Back: positive: Nml inspection Skin: positive: Color nml, Warm, Dry. negative: Cyanosis, Diaphoresis Extremities: positive: Non-tender, Nml appearance. negative: Calf tenderness Neurologic/Psychiatric: positive: Oriented x3, Sensation nml, Mood/affect nml. negative: Weakness, Sensory loss, Facial droop, Slurred/abnml speech Conclusion/Plan - Plan Plan: 1, s/p of laparoscopy, Primary incisional hernia repair. mainly by surgeon at management, we will continue pain control, continue PT/OT, drainage management, advanced diet as tolerated, lovenox for DVT Prophylaxis. 2, diabetes. Patient report she takes Metformin in the home. Surgeon already resumed Metformin, We will check A1c, in the hospital we will start with insulin, ACH S check glucose, hypoglycemia protocol. 3, Patient had elevated blood pressure, patient take losartan 50 mg daily. 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 Today patient's hemoglobin 9.8, Patient just had surgery, We will do anemia study and followup with result. Thank surgeon let us to take care of this patient. - Lab Results Fish Bones: 06/04/20 04:30 06/04/20 04:30
[2020-06-04] MEDS: INSULIN ASPART 300 UNIT/3 ML PEN SUBQ SCH ×3 (12:03→20:56)
[2020-06-04] MEDS: NEUTRA-PHOS 250 MG TABLET PO SCH ×2 (12:05→17:15)
[2020-06-04 12:18] LABS: ESTIMATED AVERAGE GLUCOSE 206 mg/dL (70-100); HEMOGLOBIN A1c% 8.8 % (4.27-6.07)
[2020-06-04 12:35] LABS: ABSOLUTE RETICS # AUTO 0.063 10^6/uL (0.020-0.110); RED BLOOD COUNT 3.55 10^6/uL (4.20-5.40); RETICULOCYTE COUNT % (AUTO) 1.76 % (0.5-2.3)
[2020-06-04 12:54] LABS: FERRITIN 103.1 ng/mL (11.0-306.8)
--- NOTE | 2020-06-04 13:19 | PROVIDER PROGRESS NOTE ---
Progress Note Subjective: Remains in ICU with no complications. Awaiting bowel function. Nasogastric tube in place. Minimal output. Voiding by Guidry. Pre-Op Diagnosis: Obesity, incarcerated hernia, small bowel obstruction, multiple prior Sx Procedure Performed: 1. Diagnostic laparoscopy 2. Mini laparotomy 3. Extensive open adhesiolysis adhesiolysis greater than 2 hours 4. Extensive laparoscopic adhesiolysis greater than 1 hour 4. Primary incisional hernia repair 5. Planned intraperitoneal onlay mesh laparoscopic assisted, echo ventral light ST 6. Drain placement Post Op Diagnosis: Same, eroded mesh, extensive adhesions, hostile abdomen, hostile pelvis Objective Afebrile hemodynamically acceptable General Appearance: positive: No acute distress Eyes Bilateral: positive: Normal inspection ENT: positive: ENT inspection nml Neck: positive: Nml inspection Respiratory: positive: Chest non-tender, No respiratory distress, Breath sounds nml. negative: Wheezes, Rales, Rhonchi Cardiovascular: positive: Regular rate & rhythm Abdomen: Below Extremities: positive: Non-tender, Full ROM, Nml appearance Neurologic/Psychiatric: positive: Oriented x3, CN's nml (2-12) Abdominal Exam: Inspection - Erythema none; Scars trocars - dressed clean dry and intact Auscultation -normoactive bowel sounds Palpation - Hernias none; Fluctuance none; Induration none; Scar N/A Pierce drain serosanguineous. Prevena dressing in place. Impression/Plan 75-year-old female morbidly obese presenting postoperative day #1 hospital day #2 status post above listed procedure. Extensive adhesiolysis. Bowel resection. In ICU. Stable. Awaiting bowel function. (1) GI - IVF, bowel regimen, advance diet as tolerated. GI ppx. Anticipate ileus. Opiate sparring analgesia. NG tube clamp trial. (2) SURGERY - out of bed with abdominal binder. Continue Pierce drain. Awaiting bowel function. (3) Renal/Lytes - continue IVF. Renal indices within normal limits. Maintain Guidry catheter. (4) Respiratory - O2 as necessary. Continue IS. (5) Heme - Will continue with DVT ppx. H/H stable. (6) Cardiovascular - HD acceptable. (7) Neuro - Opiate sparring analgesia. Antispasmodics with Robaxin. Toradol. Neuropathic agents. (8) Immune/Infectious Disease - continue new antibiotics secondary to a synthetic mesh and bowel resection..
--- NOTE | 2020-06-04 13:20 | PROVIDER PROGRESS NOTE ---
Progress Note Subjective: Remains in ICU with no complications. Awaiting bowel function. Nasogastric tube removed following successful trial of clamping. Plan removal and trial of Voiding. Pre-Op Diagnosis: Obesity, incarcerated hernia, small bowel obstruction, multiple prior Sx Procedure Performed: 1. Diagnostic laparoscopy 2. Mini laparotomy 3. Extensive open adhesiolysis adhesiolysis greater than 2 hours 4. Extensive laparoscopic adhesiolysis greater than 1 hour 4. Primary incisional hernia repair 5. Planned intraperitoneal onlay mesh laparoscopic assisted, echo ventral light ST 6. Drain placement Post Op Diagnosis: Same, eroded mesh, extensive adhesions, hostile abdomen, hostile pelvis Objective Afebrile hemodynamically acceptable General Appearance: positive: No acute distress Eyes Bilateral: positive: Normal inspection ENT: positive: ENT inspection nml Neck: positive: Nml inspection Respiratory: positive: Chest non-tender, No respiratory distress, Breath sounds nml. negative: Wheezes, Rales, Rhonchi Cardiovascular: positive: Regular rate & rhythm Abdomen: Below Extremities: positive: Non-tender, Full ROM, Nml appearance Neurologic/Psychiatric: positive: Oriented x3, CN's nml (2-12) Abdominal Exam: Inspection - Erythema none; Scars trocars - dressed clean dry and intact Auscultation -normoactive bowel sounds Palpation - Hernias none; Fluctuance none; Induration none; Scar N/A Pierce drain serosanguineous. Prevena dressing in place. Impression/Plan 75-year-old female morbidly obese presenting postoperative day #2 hospital day #3 status post above listed procedure. Extensive adhesiolysis. Bowel resection. Transfer out of the ICU. Stable. Awaiting bowel function. (1) GI - IVF, bowel regimen, advance diet as tolerated. GI ppx. Anticipate ileus. Opiate sparring analgesia. (2) SURGERY - out of bed with abdominal binder. Continue Pierce drain. Awaiting bowel function. (3) Renal/Lytes - continue IVF. Renal indices within normal limits. Maintain Guidry catheter. (4) Respiratory - O2 as necessary. Continue IS. (5) Heme - Will continue with DVT ppx. H/H stable. (6) Cardiovascular - HD acceptable. (7) Neuro - Opiate sparring analgesia. Antispasmodics with Robaxin. Toradol. Neuropathic agents. (8) Immune/Infectious Disease - continue new antibiotics secondary to a synthetic mesh and bowel resection. (9) PT/OT for out of bed given the extent of operative intervention
[2020-06-04 14:11] LABS: IRON < 6 ug/dL (28-170); TOTAL IRON BINDING CAPACITY 232 ug/dL (250-450); TRANSFERRIN 166 mg/dL (192-382)
[2020-06-04] MEDS ORDERED: LOSARTAN 50 MG TABLET PO SCH (16:00)
[2020-06-04] MEDS: FERROUS SULFATE 325 MG TABLET PO SCH (17:15)
[2020-06-04] MEDS: metFORMIN 500 MG TABLET PO SCH (17:15)
[2020-06-04] MEDS: INSULIN GLARGINE 300 UNIT/3 ML PEN SUBQ SCH (20:56)
[2020-06-05] MEDS: ACETAMINOPHEN 1,000 MG/100 ML 100 ML IV SCH ×2 (01:53→08:54)
[2020-06-05] MEDS: SODIUM CHLORIDE FLUSH 0.9% 10 ML SYRINGE IVP PRN ×3 (01:54→06:21)
[2020-06-05] MEDS: CIPROFLOXACIN 400 MG/200 ML 400 MG/200 ML BAG IV SCH ×2 (03:58→15:38)
[2020-06-05 04:53] LABS: BASOPHILS % (AUTO) 0.3 %; EOSINOPHILS # (AUTO) 0.4 10^3/uL (0.0-0.7); EOSINOPHILS % (AUTO) 4.2 %; HCT - HEMATOCRIT 32.2 % (37.0-47.0); HGB - HEMOGLOBIN 9.8 g/dL (12.0-16.0); LYMPHOCYTES # (AUTO) 1.4 10^3/uL (1.5-3.5); LYMPHOCYTES % (AUTO) 16.5 %; MEAN CORPUSCULAR HEMOGLOBIN 27.3 pg (27.0-31.0); MEAN CORPUSCULAR HGB CONC 30.4 g/dL (32.0-36.0); MEAN CORPUSCULAR VOLUME 89.7 fL (81.0-99.0); MEAN PLATELET VOLUME 10.5 fL (7.9-10.8); MONOCYTES # (AUTO) 0.4 10^3/uL (0.0-1.0); MONOCYTES % (AUTO) 5.1 %; NEUTROPHILS # (AUTO) 6.3 10^3/uL (1.5-6.6); NEUTROPHILS % (AUTO) 73.1 %; PLT - PLATELET COUNT 217 10^3/uL (130-450); RED BLOOD COUNT 3.59 10^6/uL (4.20-5.40); RED CELL DISTRIBUTION WIDTH 14.8 % (12.0-15.0); WHITE BLOOD COUNT 8.6 x10^3/uL (4.8-10.8)
[2020-06-05 05:07] LABS: ALBUMIN 2.8 g/dL (3.2-5.5); ALBUMIN/GLOBULIN RATIO 0.8 (1.0-2.2); BILIRUBIN,TOTAL 0.9 mg/dL (0.2-1.0); CALCIUM 7.9 mg/dL (8.5-10.3); CREATININE 0.6 mg/dL (0.4-1.0); MAGNESIUM 1.6 mg/dL (1.7-2.8); PHOSPHORUS 2.4 mg/dL (2.5-4.6); POTASSIUM 3.3 mmol/L (3.5-5.0); TOTAL PROTEIN 6.1 g/dL (6.7-8.2)
[2020-06-05] MEDS: METOCLOPRAMIDE 10 MG/2 ML VIAL IVP SCH ×3 (05:57→17:18)
[2020-06-05] MEDS: methocarbamoL 500 MG TABLET PO SCH ×3 (05:57→18:27)
[2020-06-05] MEDS: PANTOPRAZOLE 40 MG VIAL IVP SCH (06:21)
[2020-06-05] MEDS: HYDROmorphone 0.5 MG/0.5 ML SYRINGE IVP PRN (06:25)
--- NOTE | 2020-06-05 07:51 | PROVIDER PROGRESS NOTE ---
Assessment/Plan - Problem List (1) Abdominal wall hernia Assessment/Plan: She is status post surgery postop day #3. This is managed by general surgery. On Flagyl and Cipro. Pain management per general surgery. (2) Hypertension Assessment/Plan: Current blood pressure is 138/67. She is on losartan 100 mg p.o. daily and hydralazine 10 mg IV 4 times daily as needed. (3) DM (diabetes mellitus), type 2 Assessment/Plan: Patient's hemoglobin A1c done yesterday was 8.8. On Lantus 5 units subcu every afternoon. She was placed on the moderate dose sliding scale insulin. She is on Metformin 500 mg p.o. twice daily. Plan would be to increase Metformin dose to 1000 mg p.o. twice daily upon discharge. Patient was advised on improving her diet and exercising more. (4) Hypokalemia Assessment/Plan: Potassium was 3.3 today. This will be replaced according to the ICU electrolyte protocol. (5) Hypomagnesemia Assessment/Plan: Will replace accordingly - Current Meds Current Meds: Current Medications Generic Name Dose Route Start Last Admin Trade Name Freq PRN Reason Stop Dose Admin Atorvastatin Calcium 40 mg 06/03/20 09:00 06/04/20 09:38 Atorvastatin 40 Mg Tablet PO 40 mg DAILY JOSE Administration Docusate Sodium 250 - 500 mg 06/04/20 09:00 06/04/20 09:38 Docusate Sodium 250 Mg Capsule PO 250 mg DAILY JOSE Administration Enoxaparin Sodium 40 mg 06/02/20 09:00 06/04/20 09:38 Enoxaparin 40 Mg/0.4 Ml Syringe SUBQ 40 mg DAILY JOSE Administration Ferrous Sulfate 325 mg 06/04/20 17:00 06/04/20 17:15 Ferrous Sulfate 325 Mg Tablet PO 325 mg BIDWM JOSE Administration Hydralazine HCl 10 mg 06/04/20 10:31 06/04/20 15:05 Hydralazine Inj 20 Mg/Ml Vial IVP 10 mg QID PRN Administration Hypertensive Emergency Hydromorphone HCl 0.5 mg 06/01/20 13:58 06/05/20 06:25 Hydromorphone 0.5 Mg/0.5 Ml Syringe IVP 0.5 mg Q2H PRN Administration Pain 8 to 10 Ciprofloxacin 400 mg in 200 mls @ 200 mls/hr 06/02/20 16:00 06/05/20 05:00 Cipro 400 Mg/200 Ml IV Infused Q12H JOSE Infusion Metronidazole 500 mg in 100 mls @ 100 mls/hr 06/02/20 16:00 06/05/20 00:19 Flagyl 500 Mg/100 Ml IV Infused Q8H JOSE Infusion Acetaminophen 100 mls @ 400 mls/hr 06/04/20 20:00 06/05/20 02:10 Ofirmev IV Infused Q6H JOSE Infusion Insulin Aspart 2 - 10 unit 06/04/20 12:00 06/04/20 20:56 Insulin Aspart 300 Unit/3 Ml Pen SUBQ 4 unit 0800,1200,1700,2100 JOSE Administration Protocol Insulin Glargine 5 unit 06/04/20 21:00 06/04/20 20:56 Insulin Glargine 300 Unit/3 Ml Pen SUBQ 5 unit QPM JOSE Administration Metformin HCl 500 mg 06/04/20 17:00 06/04/20 17:15 Metformin 500 Mg Tablet PO 500 mg BIDWM JOSE Administration Methocarbamol 500 mg 06/01/20 18:00 06/05/20 05:57 Methocarbamol 500 Mg Tablet PO 500 mg Q6HR JOSE Administration Metoclopramide HCl 10 mg 06/01/20 18:00 06/05/20 05:57 Metoclopramide 10 Mg/2 Ml Vial IVP 10 mg Q6HR JOSE Administration Pantoprazole Sodium 40 mg 06/02/20 07:00 06/05/20 06:21 Pantoprazole 40 Mg Vial IVP 40 mg QDAC JOSE Administration Sodium Chloride 10 ml 06/01/20 17:00 06/04/20 23:17 Sodium Chloride Flush 0.9% 10 Ml Syringe IVP 10 ml 0100,0900,1700 JOSE Administration Sodium Chloride 10 ml 06/01/20 13:58 06/05/20 06:21 Sodium Chloride Flush 0.9% 10 Ml Syringe IVP 10 ml PRN PRN Administration NEEDED PER PROVIDER ORDERS Sodium Phosphate 250 mg 06/04/20 12:00 06/04/20 17:15 Neutra-Phos 250 Mg Tablet PO 250 mg TIDWM JOSE Administration - Lab Result Fish Bone Diagrams: 06/05/20 04:47 06/05/20 04:47 - Additional Planning My Orders: My Active Orders 06/05/20 07:49 Initiate ICU Electrolyte Prot. [RC] QSHIFT Subjective - Subjective Patient Reports: Other (She was resting comfortably in bed at time of exam. She reported mild to moderate abdominal pain. She denied chest pain, dyspnea, [place], vomiting, fever or chills. She has also been ambulating often. She denied any bowel movement but reports flatulence.) Objective Vital Signs: Vital Signs - 24 hr 06/04/20 06/04/20 06/04/20 08:00 09:00 10:00 Temperature Heart Rate [ 99 97 96 Monitoring electrodes] Respiratory 18 18 19 Rate Blood Pressure Blood Pressure 162/83 H 173/76 H 167/72 H [Right Brachial artery] O2 Saturation 97 97 97 06/04/20 06/04/20 06/04/20 11:00 11:24 12:00 Temperature 36.9 C Heart Rate [ 94 102 H Monitoring electrodes] Respiratory 21 20 Rate Blood Pressure Blood Pressure 130/67 154/84 H [Right Brachial artery] O2 Saturation 95 95 06/04/20 06/04/20 06/04/20 13:00 14:00 15:00 Temperature Heart Rate [ 102 H 97 94 Monitoring electrodes] Respiratory 21 22 17 Rate Blood Pressure Blood Pressure 164/75 H 169/73 H 173/84 H [Right Brachial artery] O2 Saturation 95 93 92 06/04/20 06/04/20 06/04/20 15:05 15:20 15:35 Temperature Heart Rate [ Monitoring electrodes] Respiratory Rate Blood Pressure 173/84 H 163/74 H Blood Pressure 167/71 H [Right Brachial artery] O2 Saturation 06/04/20 06/04/20 06/04/20 15:45 16:00 17:00 Temperature 36.7 C Heart Rate [ 99 103 H Monitoring electrodes] Respiratory 21 21 Rate Blood Pressure Blood Pressure 163/74 H 166/74 H 136/69 H [Right Brachial artery] O2 Saturation 94 95 06/04/20 06/04/20 06/04/20 18:00 19:00 20:00 Temperature 36.7 C Heart Rate [ 101 H 99 96 Monitoring electrodes] Respiratory 23 25 H 21 Rate Blood Pressure Blood Pressure 133/65 H 144/73 H 142/68 H [Right Brachial artery] O2 Saturation 95 95 96 06/04/20 06/04/20 06/05/20 21:00 22:00 00:05 Temperature 36.7 C 36.7 C Heart Rate [ 98 88 93 Monitoring electrodes] Respiratory 24 19 21 Rate Blood Pressure Blood Pressure 124/71 140/81 H 136/75 H [Right Brachial artery] O2 Saturation 93 97 93 06/05/20 06/05/20 06/05/20 01:00 02:07 03:00 Temperature Heart Rate [ 94 94 97 Monitoring electrodes] Respiratory 20 21 20 Rate Blood Pressure Blood Pressure 132/79 H 142/7 H 154/77 H [Right Brachial artery] O2 Saturation 97 96 92 06/05/20 06/05/20 06/05/20 04:00 05:00 06:29 Temperature Heart Rate [ 98 97 91 Monitoring electrodes] Respiratory 19 16 20 Rate Blood Pressure Blood Pressure 136/91 H 157/82 H 155/82 H [Right Brachial artery] O2 Saturation 93 92 93 06/05/20 06/05/20 07:00 07:42 Temperature 36.6 C Heart Rate [ 101 H Monitoring electrodes] Respiratory 23 Rate Blood Pressure Blood Pressure 158/80 H [Right Brachial artery] O2 Saturation Oxygen O2 Source Room air I&O (Last 24 Hrs): Intake and Output Totals x24h 06/03/20 06/04/20 06/05/20 23:59 23:59 23:59 Intake Total 3994.916 4762.084 560 Output Total 1505 1300 570 Balance 2489.916 3462.084 -10 General: Alert, Oriented x3, Moderate distress (abdominal) HEENT: PERRLA, EOMI Neck: Supple, No JVD Neuro: Alert, Non Focal, Oriented Times 3 Cardiovascular: Regular rate, No murmurs Respiratory: Chest non-tender, No respiratory distress, Breath sounds nml Abdomen: Normal bowel sounds, Soft, Other (Obese abdomen. Mild tenderness to palpation) Extremities: No clubbing, No cyanosis, No edema Skin: No rashes - Results Results: Laboratory Results WBC 8.6 x10^3/uL (4.8-10.8) 06/05/20 04:47 RBC 3.59 10^6/uL (4.20-5.40) L 06/05/20 04:47 Hgb 9.8 g/dL (12.0-16.0) L 06/05/20 04:47 Hct 32.2 % (37.0-47.0) L 06/05/20 04:47 MCV 89.7 fL (81.0-99.0) 06/05/20 04:47 MCH 27.3 pg (27.0-31.0) 06/05/20 04:47 MCHC 30.4 g/dL (32.0-36.0) L 06/05/20 04:47 RDW 14.8 % (12.0-15.0) 06/05/20 04:47 Plt Count 217 10^3/uL (130-450) 06/05/20 04:47 MPV 10.5 fL (7.9-10.8) 06/05/20 04:47 Reticulocyte % (Auto) 1.76 % (0.5-2.3) 06/04/20 04:30 Neut # (Auto) 6.3 10^3/uL (1.5-6.6) 06/05/20 04:47 Lymph # (Auto) 1.4 10^3/uL (1.5-3.5) L 06/05/20 04:47 [place] # (Auto) 0.4 10^3/uL (0.0-1.0) 06/05/20 04:47 Eos # (Auto) 0.4 10^3/uL (0.0-0.7) 06/05/20 04:47 Baso # (Auto) 0.0 10^3/uL (0.0-0.1) 06/05/20 04:47 Absolute Nucleated RBC 0.00 x10^3/uL 06/05/20 04:47 Nucleated RBC % 0.0 /100WBC 06/05/20 04:47 WBC Morphology NORMAL APPEARANCE (NORMAL) 06/04/20 04:30 Platelet Estimate NORMAL (130-450,000) (NORMAL) 06/04/20 04:30 Platelet Morphology NORMAL APPEARANCE (NORMAL) 06/04/20 04:30 RBC Morph Micro Appear NORMAL APPEARANCE (NORMAL) 06/04/20 04:30 Absolute Retic 0.063 10^6/uL (0.020-0.110) 06/04/20 04:30 Sodium 138 mmol/L (135-145) 06/05/20 04:47 Potassium 3.3 mmol/L (3.5-5.0) L 06/05/20 04:47 Chloride 109 mmol/L (101-111) 06/05/20 04:47 Carbon Dioxide 22 mmol/L (21-32) 06/05/20 04:47 Anion Gap 7.0 (6-13) 06/05/20 04:47 BUN 7 mg/dL (6-20) 06/05/20 04:47 Creatinine 0.6 mg/dL (0.4-1.0) 06/05/20 04:47 Estimated GFR (MDRD) 98 (>89) 06/05/20 04:47 Glucose 182 mg/dL (70-100) H 06/05/20 04:47 Estimat Average Glucose 206 mg/dL (70-100) H 06/04/20 04:30 Hemoglobin A1c % 8.8 % (4.27-6.07) H 06/04/20 04:30 Calcium 7.9 mg/dL (8.5-10.3) L 06/05/20 04:47 Phosphorus 2.4 mg/dL (2.5-4.6) L 06/05/20 04:47 Magnesium 1.6 mg/dL (1.7-2.8) L 06/05/20 04:47 Iron < 6 ug/dL (28-170) L 06/04/20 04:30 TIBC 232 ug/dL (250-450) L 06/04/20 04:30 Transferrin 166 mg/dL (192-382) L 06/04/20 04:30 Ferritin 103.1 ng/mL (11.0-306.8) 06/04/20 04:30 Total Bilirubin 0.9 mg/dL (0.2-1.0) 06/05/20 04:47 AST 20 IU/L (10-42) 06/05/20 04:47 ALT 16 IU/L (10-60) 06/05/20 04:47 Alkaline Phosphatase 95 IU/L (42-121) 06/05/20 04:47 Lactate Dehydrogenase 150 IU/L (91-225) 06/04/20 04:30 Total Protein 6.1 g/dL (6.7-8.2) L 06/05/20 04:47 Albumin 2.8 g/dL (3.2-5.5) L 06/05/20 04:47 Globulin 3.3 g/dL (2.1-4.2) 06/05/20 04:47 Albumin/Globulin Ratio 0.8 (1.0-2.2) L 06/05/20 04:47 Lipase 22 U/L (22-51) 06/01/20 06:26 Vitamin B12 323 pg/mL (180-914) 06/04/20 04:30 Urine Color YELLOW 06/01/20 11:00 Urine Clarity CLEAR (CLEAR) 06/01/20 11:00 Urine pH 6.0 PH (5.0-7.5) 06/01/20 11:00 Ur Specific [place] 1.010 (1.002-1.030) 06/01/20 11:00 Urine Protein NEGATIVE mg/dL (NEGATIVE) 06/01/20 11:00 Urine Glucose (UA) 100 mg/dL (NEGATIVE) H 06/01/20 11:00 Urine Ketones NEGATIVE mg/dL (NEGATIVE) 06/01/20 11:00 Urine Occult Blood LARGE (NEGATIVE) H 06/01/20 11:00 Urine Nitrite NEGATIVE (NEGATIVE) 06/01/20 11:00 Urine Bilirubin NEGATIVE (NEGATIVE) 06/01/20 11:00 Urine Urobilinogen 0.2 (NORMAL) E.U./dL (NORMAL) 06/01/20 11:00 Ur Leukocyte Esterase NEGATIVE (NEGATIVE) 06/01/20 11:00 Urine RBC 11-25 /HPF (0-5) H 06/01/20 11:00 Urine WBC 0-3 /HPF (0-5) 06/01/20 11:00 Ur Squamous Epith Cells RARE Squamous (<= Few) 06/01/20 11:00 Urine Bacteria Rare /HPF (None Seen) 06/01/20 11:00 Ur Microscopic Review INDICATED 06/01/20 11:00 Urine Culture Comments NOT INDICATED 06/01/20 11:00 Nasal Adenovirus (PCR) NOT DETECTED 06/01/20 21:00 Nasal B. parapertussis DNA (PCR) NOT DETECTED 06/01/20 21:00 Nasal Coronavir 229E PCR NOT DETECTED 06/01/20 21:00 Nasal Coronavir HKU1 PCR NOT DETECTED 06/01/20 21:00 Nasal Coronavir NL63 PCR NOT DETECTED 06/01/20 21:00 Nasal Coronavir OC43 PCR NOT DETECTED 06/01/20 21:00 Nasal Enterovir/Rhinovir PCR NOT DETECTED 06/01/20 21:00 Nasal Influenza B PCR NOT DETECTED 06/01/20 21:00 Nasal Influenza A PCR NOT DETECTED 06/01/20 21:00 Nasal Parainfluen 1 PCR NOT DETECTED 06/01/20 21:00 Nasal Parainfluen 2 PCR NOT DETECTED 06/01/20 21:00 Nasal Parainfluen 3 PCR NOT DETECTED 06/01/20 21:00 Nasal Parainfluen 4 PCR NOT DETECTED 06/01/20 21:00 Nasal RSV (PCR) NOT DETECTED 06/01/20 21:00 Nasal Screen MRSA (PCR) NEGATIVE (NEGATIVE) 06/02/20 18:12 Nasal B.pertussis DNA PCR NOT DETECTED 06/01/20 21:00 Nasal C.pneumoniae (PCR) NOT DETECTED 06/01/20 21:00 [place]ass[place] Human Metapneumo PCR NOT DETECTED 06/01/20 21:00 Nasal M.pneumoniae (PCR) NOT DETECTED 06/01/20 21:00 Nasal SARS-CoV-2 (PCR) NOT DETECTED 06/01/20 21:00 Blood Type O POSITIVE 06/01/20 20:03 Antibody Screen NEGATIVE 06/01/20 20:03 ABX Reporting Has patient been on IV antibiotics over the past 48 hours?: Yes
[2020-06-05] MEDS ORDERED: POTASSIUM CHLORIDE 20 MEQ TABLET PO ONE (08:00)
[2020-06-05] MEDS: ENOXAPARIN 40 MG/0.4 ML SYRINGE SUBQ SCH (08:53)
[2020-06-05] MEDS: polyethylene glycoL 3350 17 GM PACKET PO SCH (08:54)
[2020-06-05] MEDS: metroNIDAZOLE 500 MG/100 ML 500 MG/100 ML BAG IV SCH ×2 (08:55→15:42)
[2020-06-05] MEDS: INSULIN ASPART 300 UNIT/3 ML PEN SUBQ SCH ×4 (09:45→20:33)
[2020-06-05] MEDS: NEUTRA-PHOS 250 MG TABLET PO SCH ×3 (10:40→18:27)
[2020-06-05] MEDS: metFORMIN 500 MG TABLET PO SCH ×2 (10:40→18:27)
[2020-06-05] MEDS: FERROUS SULFATE 325 MG TABLET PO SCH ×2 (11:56→17:27)
[2020-06-05] MEDS: SODIUM CHLORIDE FLUSH 0.9% 10 ML SYRINGE IVP SCH ×2 (11:56→17:28)
[2020-06-05] MEDS: MAGNESIUM OXIDE 400 MG TABLET PO SCH ×2 (12:06→15:38)
[2020-06-05] MEDS: ATORVASTATIN 40 MG TABLET PO SCH (12:07)
[2020-06-05] MEDS: LOSARTAN 50 MG TABLET PO SCH (12:07)
[2020-06-05] MEDS: DOCUSATE SODIUM 250 MG CAPSULE PO SCH (12:24)
[2020-06-05] MEDS ORDERED: ACETAMINOPHEN 500 MG TABLET PO PRN (12:59)
--- NOTE | 2020-06-05 13:54 | PROVIDER PROGRESS NOTE ---
Subjective - Prog Note Date Prog Note Date: 06/05/20 - Subjective Pt reports feeling: Improved (tolerating clears. no nausea) Objective - Vital Signs/Intake & Output Reviewed Vital Signs: Yes Vital Signs: Vital Signs x48h Temp Pulse Resp BP BP Pulse Ox 06/05/20 13:00 87 23 138/67 H 94 06/05/20 12:00 86 21 156/78 H 94 06/05/20 11:00 91 22 140/77 H 90 L 06/05/20 10:00 20 150/79 H 92 06/05/20 09:00 86 18 151/79 H 95 06/05/20 08:00 90 22 150/85 H 95 06/05/20 07:42 36.6 C 06/05/20 07:00 101 H 23 158/80 H 06/05/20 06:29 91 20 155/82 H 93 Intake & Output: Intake & Output 06/02/20 06/03/20 06/04/20 06/05/20 23:59 23:59 23:59 23:59 Intake Total 3470.834 3994.916 4762.084 860 Output Total 1475 1505 1300 840 Balance 4130.002 0742.916 3462.084 20 - Objective General Appearance: positive: No acute distress, Alert Eyes Bilateral: positive: Normal inspection, PERRL ENT: positive: No signs of dehydration Neck: positive: No JVD Respiratory: positive: No respiratory distress Abdomen: positive: Non-tender, No distention, Other (no erythema) Neurologic/Psychiatric: positive: Oriented x3, Mood/affect nml - Lab Results Fish Bones: 06/05/20 04:47 06/05/20 04:47 Other Labs: Lab Results x24hrs 06/05/20 06/05/20 06/04/20 Range/Units 04:47 04:47 04:30 WBC 8.6 (4.8-10.8) x10^3/uL RBC 3.59 L (4.20-5.40) 10^6/uL Hgb 9.8 L (12.0-16.0) g/dL Hct 32.2 L (37.0-47.0) % MCV 89.7 (81.0-99.0) fL MCH 27.3 (27.0-31.0) pg MCHC 30.4 L (32.0-36.0) g/dL RDW 14.8 (12.0-15.0) % Plt Count 217 (130-450) 10^3/uL MPV 10.5 (7.9-10.8) fL Neut # (Auto) 6.3 (1.5-6.6) 10^3/uL Lymph # (Auto) 1.4 L (1.5-3.5) 10^3/uL [place] # (Auto) 0.4 (0.0-1.0) 10^3/uL Eos # (Auto) 0.4 (0.0-0.7) 10^3/uL Baso # (Auto) 0.0 (0.0-0.1) 10^3/uL Absolute Nucleated RBC 0.00 x10^3/uL Nucleated RBC % 0.0 /100WBC Sodium 138 (135-145) mmol/L Potassium 3.3 L (3.5-5.0) mmol/L Chloride 109 (101-111) mmol/L Carbon Dioxide 22 (21-32) mmol/L Anion Gap 7.0 (6-13) BUN 7 (6-20) mg/dL Creatinine 0.6 (0.4-1.0) mg/dL Estimated GFR (MDRD) 98 (>89) Glucose 182 H (70-100) mg/dL Calcium 7.9 L (8.5-10.3) mg/dL Phosphorus 2.4 L (2.5-4.6) mg/dL Magnesium 1.6 L (1.7-2.8) mg/dL Iron < 6 L (28-170) ug/dL TIBC 232 L (250-450) ug/dL Transferrin 166 L (192-382) mg/dL Total Bilirubin 0.9 (0.2-1.0) mg/dL AST 20 (10-42) IU/L ALT 16 (10-60) IU/L Alkaline Phosphatase 95 (42-121) IU/L Total Protein 6.1 L (6.7-8.2) g/dL Albumin 2.8 L (3.2-5.5) g/dL Globulin 3.3 (2.1-4.2) g/dL Albumin/Globulin Ratio 0.8 L (1.0-2.2) Assessment/Plan - Problem List (1) Small bowel obstruction Impression: improving daily. small portions regular diet ok transfer to med/surg
[2020-06-05] MEDS: POTASSIUM CHLOR 10 MEQ/100 ML 10 MEQ/100 ML BAG IV SCH ×4 (15:37→20:33)
[2020-06-05] MEDS: INSULIN GLARGINE 300 UNIT/3 ML PEN SUBQ SCH (20:34)
[2020-06-06] MEDS: SODIUM CHLORIDE FLUSH 0.9% 10 ML SYRINGE IVP SCH ×3 (00:15→18:02)
[2020-06-06] MEDS: metroNIDAZOLE 500 MG/100 ML 500 MG/100 ML BAG IV SCH ×3 (00:15→16:33)
[2020-06-06] MEDS: methocarbamoL 500 MG TABLET PO SCH ×4 (00:15→18:01)
[2020-06-06] MEDS: METOCLOPRAMIDE 10 MG/2 ML VIAL IVP SCH ×4 (00:15→18:01)
[2020-06-06] MEDS: CIPROFLOXACIN 400 MG/200 ML 400 MG/200 ML BAG IV SCH ×2 (03:51→16:33)
[2020-06-06 06:05] LABS: MAGNESIUM 1.7 mg/dL (1.7-2.8); PHOSPHORUS 2.6 mg/dL (2.5-4.6)
[2020-06-06] MEDS: PANTOPRAZOLE 40 MG VIAL IVP SCH (07:01)
[2020-06-06] MEDS: SODIUM CHLORIDE FLUSH 0.9% 10 ML SYRINGE IVP PRN (07:07)
--- NOTE | 2020-06-06 07:17 | PROVIDER PROGRESS NOTE ---
Assessment/Plan - Problem List (1) Abdominal wall hernia Assessment/Plan: She is status post surgery postop day #4. This is managed by general surgery. On Flagyl and Cipro. Pain management per general surgery. (2) Hypertension Assessment/Plan: She is on losartan 100 mg p.o. daily and hydralazine 10 mg IV 4 times daily as needed. (3) DM (diabetes mellitus), type 2 Assessment/Plan: Patient's hemoglobin A1c done yesterday was 8.8. On Lantus 5 units subcu every afternoon. She was placed on the moderate dose sliding scale insulin. She is on Metformin 500 mg p.o. twice daily. Plan would be to increase Metformin dose to 1000 mg p.o. twice daily upon discharge. Patient was advised on improving her diet and exercising more. (4) Hypokalemia Assessment/Plan: Resolved Potassium today is 3.5 (5) Hypomagnesemia Assessment/Plan: Improved. Magnesium today is 1.7 - Current Meds Current Meds: Current Medications Generic Name Dose Route Start Last Admin Trade Name Freq PRN Reason Stop Dose Admin Atorvastatin Calcium 40 mg 06/03/20 09:00 06/05/20 12:07 Atorvastatin 40 Mg Tablet PO Not Given DAILY JOSE Docusate Sodium 250 - 500 mg 06/04/20 09:00 06/05/20 12:24 Docusate Sodium 250 Mg Capsule PO 250 mg DAILY JOSE Administration Enoxaparin Sodium 40 mg 06/02/20 09:00 06/05/20 08:53 Enoxaparin 40 Mg/0.4 Ml Syringe SUBQ 40 mg DAILY JOSE Administration Ferrous Sulfate 325 mg 06/04/20 17:00 06/05/20 17:27 Ferrous Sulfate 325 Mg Tablet PO Not Given BIDWM JOSE Hydralazine HCl 10 mg 06/04/20 10:31 06/04/20 15:05 Hydralazine Inj 20 Mg/Ml Vial IVP 10 mg QID PRN Administration Hypertensive Emergency Hydromorphone HCl 0.5 mg 06/01/20 13:58 06/05/20 06:25 Hydromorphone 0.5 Mg/0.5 Ml Syringe IVP 0.5 mg Q2H PRN Administration Pain 8 to 10 Ciprofloxacin 400 mg in 200 mls @ 200 mls/hr 06/02/20 16:00 06/06/20 03:51 Cipro 400 Mg/200 Ml IV 200 mls/hr Q12H JOSE Administration Metronidazole 500 mg in 100 mls @ 100 mls/hr 06/02/20 16:00 06/06/20 01:15 Flagyl 500 Mg/100 Ml IV Infused Q8H JOSE Infusion Insulin Aspart 2 - 10 unit 06/04/20 12:00 06/05/20 20:33 Insulin Aspart 300 Unit/3 Ml Pen SUBQ 2 unit 0800,1200,1700,2100 JOSE Administration Protocol Insulin Glargine 5 unit 06/04/20 21:00 06/05/20 20:34 Insulin Glargine 300 Unit/3 Ml Pen SUBQ 5 unit QPM JOSE Administration Losartan Potassium 100 mg 06/05/20 09:00 06/05/20 12:07 Losartan 50 Mg Tablet PO Not Given DAILY JOSE Metformin HCl 500 mg 06/04/20 17:00 06/05/20 18:27 Metformin 500 Mg Tablet PO Not Given BIDWM JOSE Methocarbamol 500 mg 06/01/20 18:00 06/06/20 00:15 Methocarbamol 500 Mg Tablet PO 500 mg Q6HR JOSE Administration Metoclopramide HCl 10 mg 06/01/20 18:00 06/06/20 07:01 Metoclopramide 10 Mg/2 Ml Vial IVP 10 mg Q6HR JOSE Administration Ondansetron HCl 4 mg 06/01/20 13:58 06/05/20 08:54 Ondansetron 4 Mg/2 Ml Vial IVP 4 mg Q6HR PRN Administration Nausea / Vomiting Pantoprazole Sodium 40 mg 06/02/20 07:00 06/06/20 07:01 Pantoprazole 40 Mg Vial IVP 40 mg QDAC JOSE Administration Polyethylene Glycol 17 gm 06/05/20 09:00 06/05/20 08:54 Polyethylene Glycol 3350 17 Gm Packet PO 17 gm DAILY JOSE Administration Sodium Chloride 10 ml 06/01/20 17:00 06/06/20 00:15 Sodium Chloride Flush 0.9% 10 Ml Syringe IVP 10 ml 0100,0900,1700 JOSE Administration Sodium Chloride 10 ml 06/01/20 13:58 06/06/20 07:07 Sodium Chloride Flush 0.9% 10 Ml Syringe IVP 10 ml PRN PRN Administration NEEDED PER PROVIDER ORDERS Sodium Phosphate 250 mg 06/04/20 12:00 06/05/20 18:27 Neutra-Phos 250 Mg Tablet PO Not Given TIDWM JOSE - Lab Result Fish Bone Diagrams: 06/06/20 07:58 06/06/20 07:58 Subjective - Subjective Patient Reports: Other (Patient was seated in bedside chair about to have breakfast at time of visit. She denied chest pain, dyspnea, nausea or vomiting. She continues to pass gas but no bowel movement yet. The rest of the visit was unremarkable.) Objective Vital Signs: Vital Signs - 24 hr 06/05/20 06/05/20 06/05/20 07:42 08:00 09:00 Temperature 36.6 C Heart Rate [ 90 86 Monitoring electrodes] Respiratory 22 18 Rate Blood Pressure [Left Brachial artery] Blood Pressure 150/85 H 151/79 H [Right Brachial artery] O2 Saturation 95 95 06/05/20 06/05/20 06/05/20 10:00 11:00 12:00 Temperature Heart Rate [ 91 86 Monitoring electrodes] Respiratory 20 22 21 Rate Blood Pressure 140/77 H 156/78 H [Left Brachial artery] Blood Pressure 150/79 H [Right Brachial artery] O2 Saturation 92 90 L 94 06/05/20 06/05/20 06/05/20 13:00 14:00 16:00 Temperature 36.2 C L Heart Rate [ 87 87 89 Monitoring electrodes] Respiratory 23 22 24 Rate Blood Pressure 138/67 H 132/74 H 158/84 H [Left Brachial artery] Blood Pressure [Right Brachial artery] O2 Saturation 94 95 94 06/05/20 22:36 Temperature 36.5 C Heart Rate [ 95 Monitoring electrodes] Respiratory 24 Rate Blood Pressure 146/80 H [Left Brachial artery] Blood Pressure [Right Brachial artery] O2 Saturation 92 Oxygen O2 Source Room air I&O (Last 24 Hrs): Intake and Output Totals x24h 06/04/20 06/05/20 06/06/20 23:59 23:59 23:59 Intake Total 4762.084 2520 100 Output Total 1300 1050 Balance 3462.084 1470 100 Comments/Notes: General: Alert, Oriented x3, Mild distress (abdominal) HEENT: PERRLA, EOMI Neck: Supple, No JVD Neuro: Alert, Non Focal, Oriented Times 3 Cardiovascular: Regular rate, No murmurs Respiratory: Chest non-tender, No respiratory distress, Breath sounds nml Abdomen: Normal bowel sounds, Soft, Other (Obese abdomen. Mild tenderness to palpation) Extremities: No clubbing, No cyanosis, No edema Skin: No rashes - Results Results: Laboratory Results WBC 8.6 x10^3/uL (4.8-10.8) 06/05/20 04:47 RBC 3.59 10^6/uL (4.20-5.40) L 06/05/20 04:47 Hgb 9.8 g/dL (12.0-16.0) L 06/05/20 04:47 Hct 32.2 % (37.0-47.0) L 06/05/20 04:47 MCV 89.7 fL (81.0-99.0) 06/05/20 04:47 MCH 27.3 pg (27.0-31.0) 06/05/20 04:47 MCHC 30.4 g/dL (32.0-36.0) L 06/05/20 04:47 RDW 14.8 % (12.0-15.0) 06/05/20 04:47 Plt Count 217 10^3/uL (130-450) 06/05/20 04:47 MPV 10.5 fL (7.9-10.8) 06/05/20 04:47 Reticulocyte % (Auto) 1.76 % (0.5-2.3) 06/04/20 04:30 Neut # (Auto) 6.3 10^3/uL (1.5-6.6) 06/05/20 04:47 Lymph # (Auto) 1.4 10^3/uL (1.5-3.5) L 06/05/20 04:47 [place] # (Auto) 0.4 10^3/uL (0.0-1.0) 06/05/20 04:47 Eos # (Auto) 0.4 10^3/uL (0.0-0.7) 06/05/20 04:47 Baso # (Auto) 0.0 10^3/uL (0.0-0.1) 06/05/20 04:47 Absolute Nucleated RBC 0.00 x10^3/uL 06/05/20 04:47 Nucleated RBC % 0.0 /100WBC 06/05/20 04:47 WBC Morphology NORMAL APPEARANCE (NORMAL) 06/04/20 04:30 Platelet Estimate NORMAL (130-450,000) (NORMAL) 06/04/20 04:30 Platelet Morphology NORMAL APPEARANCE (NORMAL) 06/04/20 04:30 RBC Morph Micro Appear NORMAL APPEARANCE (NORMAL) 06/04/20 04:30 Absolute Retic 0.063 10^6/uL (0.020-0.110) 06/04/20 04:30 Sodium 138 mmol/L (135-145) 06/05/20 04:47 Potassium 3.3 mmol/L (3.5-5.0) L 06/05/20 04:47 Chloride 109 mmol/L (101-111) 06/05/20 04:47 Carbon Dioxide 22 mmol/L (21-32) 06/05/20 04:47 Anion Gap 7.0 (6-13) 06/05/20 04:47 BUN 7 mg/dL (6-20) 06/05/20 04:47 Creatinine 0.6 mg/dL (0.4-1.0) 06/05/20 04:47 Estimated GFR (MDRD) 98 (>89) 06/05/20 04:47 Glucose 182 mg/dL (70-100) H 06/05/20 04:47 Estimat Average Glucose 206 mg/dL (70-100) H 06/04/20 04:30 Hemoglobin A1c % 8.8 % (4.27-6.07) H 06/04/20 04:30 Calcium 7.9 mg/dL (8.5-10.3) L 06/05/20 04:47 Phosphorus 2.6 mg/dL (2.5-4.6) 06/06/20 05:39 Magnesium 1.7 mg/dL (1.7-2.8) 06/06/20 05:39 Iron < 6 ug/dL (28-170) L 06/04/20 04:30 TIBC 232 ug/dL (250-450) L 06/04/20 04:30 Transferrin 166 mg/dL (192-382) L 06/04/20 04:30 Ferritin 103.1 ng/mL (11.0-306.8) 06/04/20 04:30 Total Bilirubin 0.9 mg/dL (0.2-1.0) 06/05/20 04:47 AST 20 IU/L (10-42) 06/05/20 04:47 ALT 16 IU/L (10-60) 06/05/20 04:47 Alkaline Phosphatase 95 IU/L (42-121) 06/05/20 04:47 Lactate Dehydrogenase 150 IU/L (91-225) 06/04/20 04:30 Total Protein 6.1 g/dL (6.7-8.2) L 06/05/20 04:47 Albumin 2.8 g/dL (3.2-5.5) L 06/05/20 04:47 Globulin 3.3 g/dL (2.1-4.2) 06/05/20 04:47 Albumin/Globulin Ratio 0.8 (1.0-2.2) L 06/05/20 04:47 Lipase 22 U/L (22-51) 06/01/20 06:26 Vitamin B12 323 pg/mL (180-914) 06/04/20 04:30 Urine Color YELLOW 06/01/20 11:00 Urine Clarity CLEAR (CLEAR) 06/01/20 11:00 Urine pH 6.0 PH (5.0-7.5) 06/01/20 11:00 Ur Specific [place] 1.010 (1.002-1.030) 06/01/20 11:00 Urine Protein NEGATIVE mg/dL (NEGATIVE) 06/01/20 11:00 Urine Glucose (UA) 100 mg/dL (NEGATIVE) H 06/01/20 11:00 Urine Ketones NEGATIVE mg/dL (NEGATIVE) 06/01/20 11:00 Urine Occult Blood LARGE (NEGATIVE) H 06/01/20 11:00 Urine Nitrite NEGATIVE (NEGATIVE) 06/01/20 11:00 Urine Bilirubin NEGATIVE (NEGATIVE) 06/01/20 11:00 Urine Urobilinogen 0.2 (NORMAL) E.U./dL (NORMAL) 06/01/20 11:00 Ur Leukocyte Esterase NEGATIVE (NEGATIVE) 06/01/20 11:00 Urine RBC 11-25 /HPF (0-5) H 06/01/20 11:00 Urine WBC 0-3 /HPF (0-5) 06/01/20 11:00 Ur Squamous Epith Cells RARE Squamous (<= Few) 06/01/20 11:00 Urine Bacteria Rare /HPF (None Seen) 06/01/20 11:00 Ur Microscopic Review INDICATED 06/01/20 11:00 Urine Culture Comments NOT INDICATED 06/01/20 11:00 Nasal Adenovirus (PCR) NOT DETECTED 06/01/20 21:00 Nasal B. parapertussis DNA (PCR) NOT DETECTED 06/01/20 21:00 Nasal Coronavir 229E PCR NOT DETECTED 06/01/20 21:00 Nasal Coronavir HKU1 PCR NOT DETECTED 06/01/20 21:00 Nasal Coronavir NL63 PCR NOT DETECTED 06/01/20 21:00 Nasal Coronavir OC43 PCR NOT DETECTED 06/01/20 21:00 Nasal Enterovir/Rhinovir PCR NOT DETECTED 06/01/20 21:00 Nasal Influenza B PCR NOT DETECTED 06/01/20 21:00 Nasal Influenza A PCR NOT DETECTED 06/01/20 21:00 Nasal Parainfluen 1 PCR NOT DETECTED 06/01/20 21:00 Nasal Parainfluen 2 PCR NOT DETECTED 06/01/20 21:00 Nasal Parainfluen 3 PCR NOT DETECTED 06/01/20 21:00 Nasal Parainfluen 4 PCR NOT DETECTED 06/01/20 21:00 Nasal RSV (PCR) NOT DETECTED 06/01/20 21:00 Nasal Screen MRSA (PCR) NEGATIVE (NEGATIVE) 06/02/20 18:12 Nasal B.pertussis DNA PCR NOT DETECTED 06/01/20 21:00 Nasal C.pneumoniae (PCR) NOT DETECTED 06/01/20 21:00 Jasson Human Metapneumo PCR NOT DETECTED 06/01/20 21:00 Nasal M.pneumoniae (PCR) NOT DETECTED 06/01/20 21:00 Nasal SARS-CoV-2 (PCR) NOT DETECTED 06/01/20 21:00 Blood Type O POSITIVE 06/01/20 20:03 Antibody Screen NEGATIVE 06/01/20 20:03 ABX Reporting Has patient been on IV antibiotics over the past 48 hours?: Yes
[2020-06-06] MEDS: metFORMIN 500 MG TABLET PO SCH ×2 (07:51→18:01)
[2020-06-06] MEDS: INSULIN ASPART 300 UNIT/3 ML PEN SUBQ SCH ×4 (07:52→21:25)
[2020-06-06] MEDS: NEUTRA-PHOS 250 MG TABLET PO SCH ×3 (07:57→18:01)
[2020-06-06] MEDS: FERROUS SULFATE 325 MG TABLET PO SCH ×2 (07:58→18:01)
[2020-06-06 08:04] LABS: BASOPHILS % (AUTO) 0.5 %; EOSINOPHILS # (AUTO) 0.4 10^3/uL (0.0-0.7); EOSINOPHILS % (AUTO) 4.9 %; HCT - HEMATOCRIT 35.1 % (37.0-47.0); HGB - HEMOGLOBIN 11.2 g/dL (12.0-16.0); LYMPHOCYTES # (AUTO) 1.4 10^3/uL (1.5-3.5); LYMPHOCYTES % (AUTO) 18.4 %; MEAN CORPUSCULAR HEMOGLOBIN 27.7 pg (27.0-31.0); MEAN CORPUSCULAR HGB CONC 31.9 g/dL (32.0-36.0); MEAN CORPUSCULAR VOLUME 86.7 fL (81.0-99.0); MEAN PLATELET VOLUME 10.5 fL (7.9-10.8); MONOCYTES # (AUTO) 0.5 10^3/uL (0.0-1.0); MONOCYTES % (AUTO) 6.4 %; NEUTROPHILS # (AUTO) 5.1 10^3/uL (1.5-6.6); NEUTROPHILS % (AUTO) 67.9 %; PLT - PLATELET COUNT 272 10^3/uL (130-450); RED BLOOD COUNT 4.05 10^6/uL (4.20-5.40); RED CELL DISTRIBUTION WIDTH 14.5 % (12.0-15.0); WHITE BLOOD COUNT 7.5 x10^3/uL (4.8-10.8)
[2020-06-06 08:16] LABS: CALCIUM 8.5 mg/dL (8.5-10.3); CREATININE 0.5 mg/dL (0.4-1.0); POTASSIUM 3.5 mmol/L (3.5-5.0)
[2020-06-06] MEDS: polyethylene glycoL 3350 17 GM PACKET PO SCH (09:12)
[2020-06-06] MEDS: ENOXAPARIN 40 MG/0.4 ML SYRINGE SUBQ SCH (09:12)
[2020-06-06] MEDS: ATORVASTATIN 40 MG TABLET PO SCH (09:13)
[2020-06-06] MEDS: DOCUSATE SODIUM 250 MG CAPSULE PO SCH (09:13)
[2020-06-06] MEDS: POTASSIUM CHLOR 10 MEQ/100 ML 10 MEQ/100 ML BAG IV SCH ×4 (09:19→12:54)
[2020-06-06] MEDS: LOSARTAN 50 MG TABLET PO SCH (09:19)
--- NOTE | 2020-06-06 11:55 | OPERATIVE REPORT ---
Please delete as addended to primary operative report MTDD
--- NOTE | 2020-06-06 13:07 | PROVIDER PROGRESS NOTE ---
Subjective - Prog Note Date Prog Note Date: 06/06/20 - Subjective Pt reports feeling: Improved (tolerating diet. no complaints other than weak) Objective - Vital Signs/Intake & Output Reviewed Vital Signs: Yes Vital Signs: Vital Signs x48h Temp Pulse Resp BP Pulse Ox 06/06/20 07:19 36.8 C 75 20 150/87 H 94 Intake & Output: Intake & Output 06/03/20 06/04/20 06/05/20 06/06/20 23:59 23:59 23:59 23:59 Intake Total 3994.916 4762.084 2520 800 Output Total 1505 1300 1050 Balance 2489.916 3462.084 1470 800 - Objective General Appearance: positive: No acute distress, Alert Eyes Bilateral: positive: Normal inspection, PERRL ENT: positive: No signs of dehydration Neck: positive: No JVD Respiratory: positive: No respiratory distress Abdomen: positive: Non-tender, No distention, Other (no erythema) Neurologic/Psychiatric: positive: Oriented x3 - Lab Results Fish Bones: 06/06/20 07:58 06/06/20 07:58 Other Labs: Lab Results x24hrs 06/06/20 06/06/20 06/06/20 Range/Units 07:58 07:58 05:39 WBC 7.5 (4.8-10.8) x10^3/uL RBC 4.05 L (4.20-5.40) 10^6/uL Hgb 11.2 L (12.0-16.0) g/dL Hct 35.1 L (37.0-47.0) % MCV 86.7 (81.0-99.0) fL MCH 27.7 (27.0-31.0) pg MCHC 31.9 L (32.0-36.0) g/dL RDW 14.5 (12.0-15.0) % Plt Count 272 (130-450) 10^3/uL MPV 10.5 (7.9-10.8) fL Neut # (Auto) 5.1 (1.5-6.6) 10^3/uL Lymph # (Auto) 1.4 L (1.5-3.5) 10^3/uL [place] # (Auto) 0.5 (0.0-1.0) 10^3/uL Eos # (Auto) 0.4 (0.0-0.7) 10^3/uL Baso # (Auto) 0.0 (0.0-0.1) 10^3/uL Absolute Nucleated RBC 0.00 x10^3/uL Nucleated RBC % 0.0 /100WBC Sodium 137 (135-145) mmol/L Potassium 3.5 (3.5-5.0) mmol/L Chloride 106 (101-111) mmol/L Carbon Dioxide 24 (21-32) mmol/L Anion Gap 7.0 (6-13) BUN 7 (6-20) mg/dL Creatinine 0.5 (0.4-1.0) mg/dL Estimated GFR (MDRD) 121 (>89) Glucose 160 H (70-100) mg/dL Calcium 8.5 (8.5-10.3) mg/dL Phosphorus 2.6 (2.5-4.6) mg/dL Magnesium 1.7 (1.7-2.8) mg/dL Assessment/Plan - Problem List (1) Small bowel obstruction Impression: continue present care. doing well hypokalemia. kcl today and recheck labs tomorrow weak and impaired mobility. pt consult
[2020-06-06] MEDS: INSULIN GLARGINE 300 UNIT/3 ML PEN SUBQ SCH (21:25)
[2020-06-07] MEDS: methocarbamoL 500 MG TABLET PO SCH ×4 (00:40→18:26)
[2020-06-07] MEDS: SODIUM CHLORIDE FLUSH 0.9% 10 ML SYRINGE IVP SCH ×3 (00:41→15:32)
[2020-06-07] MEDS: METOCLOPRAMIDE 10 MG/2 ML VIAL IVP SCH ×4 (00:41→18:26)
[2020-06-07] MEDS: metroNIDAZOLE 500 MG/100 ML 500 MG/100 ML BAG IV SCH ×3 (00:56→15:31)
[2020-06-07] MEDS: SODIUM CHLORIDE FLUSH 0.9% 10 ML SYRINGE IVP PRN ×2 (04:59→06:43)
[2020-06-07] MEDS: CIPROFLOXACIN 400 MG/200 ML 400 MG/200 ML BAG IV SCH ×2 (04:59→15:31)
[2020-06-07 06:34] LABS: BASOPHILS # (AUTO) 0.1 10^3/uL (0.0-0.1); BASOPHILS % (AUTO) 0.8 %; EOSINOPHILS # (AUTO) 0.3 10^3/uL (0.0-0.7); EOSINOPHILS % (AUTO) 5.2 %; HCT - HEMATOCRIT 34.1 % (37.0-47.0); HGB - HEMOGLOBIN 10.9 g/dL (12.0-16.0); LYMPHOCYTES # (AUTO) 1.5 10^3/uL (1.5-3.5); LYMPHOCYTES % (AUTO) 22.3 %; MEAN CORPUSCULAR HEMOGLOBIN 27.5 pg (27.0-31.0); MEAN CORPUSCULAR VOLUME 86.1 fL (81.0-99.0); MEAN PLATELET VOLUME 10.8 fL (7.9-10.8); MONOCYTES # (AUTO) 0.6 10^3/uL (0.0-1.0); MONOCYTES % (AUTO) 9.8 %; NEUTROPHILS # (AUTO) 3.7 10^3/uL (1.5-6.6); NEUTROPHILS % (AUTO) 57.3 %; PLT - PLATELET COUNT 266 10^3/uL (130-450); RED BLOOD COUNT 3.96 10^6/uL (4.20-5.40); RED CELL DISTRIBUTION WIDTH 14.4 % (12.0-15.0); WHITE BLOOD COUNT 6.5 x10^3/uL (4.8-10.8)
[2020-06-07 06:38] LABS: CALCIUM 8.5 mg/dL (8.5-10.3); CREATININE 0.4 mg/dL (0.4-1.0); POTASSIUM 3.4 mmol/L (3.5-5.0)
[2020-06-07] MEDS: PANTOPRAZOLE 40 MG VIAL IVP SCH (06:43)
[2020-06-07] MEDS: FERROUS SULFATE 325 MG TABLET PO SCH ×3 (07:48→18:28)
[2020-06-07] MEDS: metFORMIN 500 MG TABLET PO SCH ×2 (07:49→18:25)
[2020-06-07] MEDS: INSULIN ASPART 300 UNIT/3 ML PEN SUBQ SCH ×4 (07:49→20:40)
[2020-06-07] MEDS: NEUTRA-PHOS 250 MG TABLET PO SCH ×4 (07:51→18:28)
[2020-06-07] MEDS ORDERED: POTASSIUM CHLORIDE 20 MEQ TABLET PO ONE (08:08)
[2020-06-07] MEDS ORDERED: hydrALAZINE INJ 20 MG/ML VIAL IVP PRN (08:09)
--- NOTE | 2020-06-07 08:10 | PROVIDER PROGRESS NOTE ---
Assessment/Plan - Problem List (1) Abdominal wall hernia Assessment/Plan: She is status post surgery postop day #4. This is managed by general surgery. On Flagyl and Cipro. Pain management per general surgery. Anticipated discharge tomorrow. (2) Hypertension Assessment/Plan: She is on losartan 100 mg p.o. daily and hydralazine 10 mg IV 4 times daily as needed. (3) DM (diabetes mellitus), type 2 Assessment/Plan: Patient's hemoglobin A1c done yesterday was 8.8. On Lantus 5 units subcu every afternoon. She was placed on the moderate dose sliding scale insulin. She is on Metformin 500 mg p.o. twice daily. Plan would be to increase Metformin dose to 1000 mg p.o. twice daily upon discharge. Patient was advised on improving her diet and exercising more. (4) Hypokalemia Assessment/Plan: Potassium today is 3.4. Will replace and recheck (5) Hypomagnesemia Assessment/Plan: Will monitor - Current Meds Current Meds: Current Medications Generic Name Dose Route Start Last Admin Trade Name Freq PRN Reason Stop Dose Admin Atorvastatin Calcium 40 mg 06/03/20 09:00 06/06/20 09:13 Atorvastatin 40 Mg Tablet PO 40 mg DAILY JOSE Administration Docusate Sodium 250 - 500 mg 06/04/20 09:00 06/06/20 09:13 Docusate Sodium 250 Mg Capsule PO 250 mg DAILY JOSE Administration Enoxaparin Sodium 40 mg 06/02/20 09:00 06/06/20 09:12 Enoxaparin 40 Mg/0.4 Ml Syringe SUBQ 40 mg DAILY JOSE Administration Ferrous Sulfate 325 mg 06/04/20 17:00 06/07/20 07:48 Ferrous Sulfate 325 Mg Tablet PO 325 mg BIDWM JOSE Administration Hydromorphone HCl 0.5 mg 06/01/20 13:58 06/05/20 06:25 Hydromorphone 0.5 Mg/0.5 Ml Syringe IVP 0.5 mg Q2H PRN Administration Pain 8 to 10 Ciprofloxacin 400 mg in 200 mls @ 200 mls/hr 06/02/20 16:00 06/07/20 06:00 Cipro 400 Mg/200 Ml IV Infused Q12H JOSE Infusion Metronidazole 500 mg in 100 mls @ 100 mls/hr 06/02/20 16:00 06/07/20 07:51 Flagyl 500 Mg/100 Ml IV 100 mls/hr Q8H JOSE Administration Insulin Aspart 2 - 10 unit 06/04/20 12:00 06/07/20 07:49 Insulin Aspart 300 Unit/3 Ml Pen SUBQ 2 unit 0800,1200,1700,2100 JOSE Administration Protocol Insulin Glargine 5 unit 06/04/20 21:00 06/06/20 21:25 Insulin Glargine 300 Unit/3 Ml Pen SUBQ 5 unit QPM JOSE Administration Losartan Potassium 100 mg 06/05/20 09:00 06/06/20 09:19 Losartan 50 Mg Tablet PO 100 mg DAILY JOSE Administration Metformin HCl 500 mg 06/04/20 17:00 06/07/20 07:49 Metformin 500 Mg Tablet PO 500 mg BIDWM JOSE Administration Methocarbamol 500 mg 06/01/20 18:00 06/07/20 07:49 Methocarbamol 500 Mg Tablet PO 500 mg Q6HR JOSE Administration Metoclopramide HCl 10 mg 06/01/20 18:00 06/07/20 06:43 Metoclopramide 10 Mg/2 Ml Vial IVP 10 mg Q6HR JOSE Administration Ondansetron HCl 4 mg 06/01/20 13:58 06/05/20 08:54 Ondansetron 4 Mg/2 Ml Vial IVP 4 mg Q6HR PRN Administration Nausea / Vomiting Pantoprazole Sodium 40 mg 06/02/20 07:00 06/07/20 06:43 Pantoprazole 40 Mg Vial IVP 40 mg QDAC JOSE Administration Polyethylene Glycol 17 gm 06/05/20 09:00 06/06/20 09:12 Polyethylene Glycol 3350 17 Gm Packet PO 17 gm DAILY JOSE Administration Sodium Chloride 10 ml 06/01/20 17:00 06/07/20 07:52 Sodium Chloride Flush 0.9% 10 Ml Syringe IVP 10 ml 0100,0900,1700 JOSE Administration Sodium Chloride 10 ml 06/01/20 13:58 06/07/20 06:43 Sodium Chloride Flush 0.9% 10 Ml Syringe IVP 10 ml PRN PRN Administration NEEDED PER PROVIDER ORDERS Sodium Phosphate 250 mg 06/04/20 12:00 06/07/20 07:51 Neutra-Phos 250 Mg Tablet PO 250 mg TIDWM JOSE Administration - Lab Result Fish Bone Diagrams: 06/07/20 06:00 06/07/20 06:00 - Additional Planning My Orders: My Active Orders 06/07/20 08:08 Potassium Chloride [K-Dur] 40 meq PO ONCE ONE 06/07/20 08:09 hydrALAZINE INJ [Apresoline Inj] 10 mg IVP Q4H PRN 06/08/20 05:00 BMP - BASIC METABOLIC PANEL [CHEM] DAILYLAB CBC - COMP BLD CT W/AUTO DIFF [HEME] DAILYLAB 06/09/20 05:00 BMP - BASIC METABOLIC PANEL [CHEM] DAILYLAB CBC - COMP BLD CT W/AUTO DIFF [HEME] DAILYLAB 06/10/20 05:00 BMP - BASIC METABOLIC PANEL [CHEM] DAILYLAB CBC - COMP BLD CT W/AUTO DIFF [HEME] DAILYLAB Subjective - Subjective Patient Reports: Other (She was standing up at the time of the visit. When asked why she stated that her restless legs were acting up. She reported having a bowel movement last night and this morning. She denied any other complaints.) Objective Vital Signs: Vital Signs - 24 hr 06/06/20 06/06/20 06/07/20 14:57 16:42 01:08 Temperature 36.8 C 37.4 C 36.7 C Heart Rate 75 Heart Rate [ 80 Monitoring electrodes] Heart Rate [ 85 Radial] Respiratory 20 20 14 Rate Blood Pressure 151/79 H 155/83 H [Right Brachial artery] O2 Saturation 94 94 94 Oxygen O2 Source Room air I&O (Last 24 Hrs): Intake and Output Totals x24h 06/05/20 06/06/20 06/07/20 23:59 23:59 23:59 Intake Total 2520 1980 300 Output Total 1050 30 15 Balance 1470 1950 285 General: Alert, Oriented x3, No acute distress HEENT: Atraumatic, PERRLA, EOMI Neck: Supple, No JVD Neuro: Alert, Non Focal, Oriented Times 3 Cardiovascular: Regular rate, Normal S1, Normal S2 Respiratory: Chest non-tender, No respiratory distress, Breath sounds nml Abdomen: Normal bowel sounds, Soft, No tenderness Extremities: No clubbing, No cyanosis, No edema - Results Results: Laboratory Results WBC 6.5 x10^3/uL (4.8-10.8) 06/07/20 06:00 RBC 3.96 10^6/uL (4.20-5.40) L 06/07/20 06:00 Hgb 10.9 g/dL (12.0-16.0) L 06/07/20 06:00 Hct 34.1 % (37.0-47.0) L 06/07/20 06:00 MCV 86.1 fL (81.0-99.0) 06/07/20 06:00 MCH 27.5 pg (27.0-31.0) 06/07/20 06:00 MCHC 32.0 g/dL (32.0-36.0) 06/07/20 06:00 RDW 14.4 % (12.0-15.0) 06/07/20 06:00 Plt Count 266 10^3/uL (130-450) 06/07/20 06:00 MPV 10.8 fL (7.9-10.8) 06/07/20 06:00 Reticulocyte % (Auto) 1.76 % (0.5-2.3) 06/04/20 04:30 Neut # (Auto) 3.7 10^3/uL (1.5-6.6) 06/07/20 06:00 Lymph # (Auto) 1.5 10^3/uL (1.5-3.5) 06/07/20 06:00 [place] # (Auto) 0.6 10^3/uL (0.0-1.0) 06/07/20 06:00 Eos # (Auto) 0.3 10^3/uL (0.0-0.7) 06/07/20 06:00 Baso # (Auto) 0.1 10^3/uL (0.0-0.1) 06/07/20 06:00 Absolute Nucleated RBC 0.00 x10^3/uL 06/07/20 06:00 Nucleated RBC % 0.0 /100WBC 06/07/20 06:00 WBC Morphology NORMAL APPEARANCE (NORMAL) 06/04/20 04:30 Platelet Estimate NORMAL (130-450,000) (NORMAL) 06/04/20 04:30 Platelet Morphology NORMAL APPEARANCE (NORMAL) 06/04/20 04:30 RBC Morph Micro Appear NORMAL APPEARANCE (NORMAL) 06/04/20 04:30 Absolute Retic 0.063 10^6/uL (0.020-0.110) 06/04/20 04:30 Sodium 137 mmol/L (135-145) 06/07/20 06:00 Potassium 3.4 mmol/L (3.5-5.0) L 06/07/20 06:00 Chloride 104 mmol/L (101-111) 06/07/20 06:00 Carbon Dioxide 24 mmol/L (21-32) 06/07/20 06:00 Anion Gap 9.0 (6-13) 06/07/20 06:00 BUN 6 mg/dL (6-20) 06/07/20 06:00 Creatinine 0.4 mg/dL (0.4-1.0) 06/07/20 06:00 Estimated GFR (MDRD) 156 (>89) 06/07/20 06:00 Glucose 193 mg/dL (70-100) H 06/07/20 06:00 Estimat Average Glucose 206 mg/dL (70-100) H 06/04/20 04:30 Hemoglobin A1c % 8.8 % (4.27-6.07) H 06/04/20 04:30 Calcium 8.5 mg/dL (8.5-10.3) 06/07/20 06:00 Phosphorus 2.6 mg/dL (2.5-4.6) 06/06/20 05:39 Magnesium 1.7 mg/dL (1.7-2.8) 06/06/20 05:39 Iron < 6 ug/dL (28-170) L 06/04/20 04:30 TIBC 232 ug/dL (250-450) L 06/04/20 04:30 Transferrin 166 mg/dL (192-382) L 06/04/20 04:30 Ferritin 103.1 ng/mL (11.0-306.8) 06/04/20 04:30 Total Bilirubin 0.9 mg/dL (0.2-1.0) 06/05/20 04:47 AST 20 IU/L (10-42) 06/05/20 04:47 ALT 16 IU/L (10-60) 06/05/20 04:47 Alkaline Phosphatase 95 IU/L (42-121) 06/05/20 04:47 Lactate Dehydrogenase 150 IU/L (91-225) 06/04/20 04:30 Total Protein 6.1 g/dL (6.7-8.2) L 06/05/20 04:47 Albumin 2.8 g/dL (3.2-5.5) L 06/05/20 04:47 Globulin 3.3 g/dL (2.1-4.2) 06/05/20 04:47 Albumin/Globulin Ratio 0.8 (1.0-2.2) L 06/05/20 04:47 Lipase 22 U/L (22-51) 06/01/20 06:26 Vitamin B12 323 pg/mL (180-914) 06/04/20 04:30 Urine Color YELLOW 06/01/20 11:00 Urine Clarity CLEAR (CLEAR) 06/01/20 11:00 Urine pH 6.0 PH (5.0-7.5) 06/01/20 11:00 Ur Specific [place] 1.010 (1.002-1.030) 06/01/20 11:00 Urine Protein NEGATIVE mg/dL (NEGATIVE) 06/01/20 11:00 Urine Glucose (UA) 100 mg/dL (NEGATIVE) H 06/01/20 11:00 Urine Ketones NEGATIVE mg/dL (NEGATIVE) 06/01/20 11:00 Urine Occult Blood LARGE (NEGATIVE) H 06/01/20 11:00 Urine Nitrite NEGATIVE (NEGATIVE) 06/01/20 11:00 Urine Bilirubin NEGATIVE (NEGATIVE) 06/01/20 11:00 Urine Urobilinogen 0.2 (NORMAL) E.U./dL (NORMAL) 06/01/20 11:00 Ur Leukocyte Esterase NEGATIVE (NEGATIVE) 06/01/20 11:00 Urine RBC 11-25 /HPF (0-5) H 06/01/20 11:00 Urine WBC 0-3 /HPF (0-5) 06/01/20 11:00 Ur Squamous Epith Cells RARE Squamous (<= Few) 06/01/20 11:00 Urine Bacteria Rare /HPF (None Seen) 06/01/20 11:00 Ur Microscopic Review INDICATED 06/01/20 11:00 Urine Culture Comments NOT INDICATED 06/01/20 11:00 Nasal Adenovirus (PCR) NOT DETECTED 06/01/20 21:00 Nasal B. parapertussis DNA (PCR) NOT DETECTED 06/01/20 21:00 Nasal Coronavir 229E PCR NOT DETECTED 06/01/20 21:00 Nasal Coronavir HKU1 PCR NOT DETECTED 06/01/20 21:00 Nasal Coronavir NL63 PCR NOT DETECTED 06/01/20 21:00 Nasal Coronavir OC43 PCR NOT DETECTED 06/01/20 21:00 Nasal Enterovir/Rhinovir PCR NOT DETECTED 06/01/20 21:00 Nasal Influenza B PCR NOT DETECTED 06/01/20 21:00 Nasal Influenza A PCR NOT DETECTED 06/01/20 21:00 Nasal Parainfluen 1 PCR NOT DETECTED 06/01/20 21:00 Nasal Parainfluen 2 PCR NOT DETECTED 06/01/20 21:00 Nasal Parainfluen 3 PCR NOT DETECTED 06/01/20 21:00 Nasal Parainfluen 4 PCR NOT DETECTED 06/01/20 21:00 Nasal RSV (PCR) NOT DETECTED 06/01/20 21:00 Nasal Screen MRSA (PCR) NEGATIVE (NEGATIVE) 06/02/20 18:12 Nasal B.pertussis DNA PCR NOT DETECTED 06/01/20 21:00 Nasal C.pneumoniae (PCR) NOT DETECTED 06/01/20 21:00 Jasson Human Metapneumo PCR NOT DETECTED 06/01/20 21:00 Nasal M.pneumoniae (PCR) NOT DETECTED 06/01/20 21:00 Nasal SARS-CoV-2 (PCR) NOT DETECTED 06/01/20 21:00 Blood Type O POSITIVE 06/01/20 20:03 Antibody Screen NEGATIVE 06/01/20 20:03 ABX Reporting Has patient been on IV antibiotics over the past 48 hours?: Yes
[2020-06-07] MEDS: ATORVASTATIN 40 MG TABLET PO SCH (09:22)
[2020-06-07] MEDS: ENOXAPARIN 40 MG/0.4 ML SYRINGE SUBQ SCH (09:22)
[2020-06-07] MEDS: LOSARTAN 50 MG TABLET PO SCH (09:22)
[2020-06-07] MEDS: DOCUSATE SODIUM 250 MG CAPSULE PO SCH (09:22)
[2020-06-07] MEDS: polyethylene glycoL 3350 17 GM PACKET PO SCH (09:23)
--- NOTE | 2020-06-07 16:35 | PROVIDER PROGRESS NOTE ---
Subjective - Prog Note Date Prog Note Date: 06/07/20 - Subjective Pt reports feeling: Improved (less painful. feeling better) Objective - Vital Signs/Intake & Output Reviewed Vital Signs: Yes Vital Signs: Vital Signs x48h Temp Pulse Resp BP Pulse Ox 06/07/20 15:38 37.1 C 90 19 158/72 H 94 Intake & Output: Intake & Output 06/04/20 06/05/20 06/06/20 06/07/20 23:59 23:59 23:59 23:59 Intake Total 4762.084 2520 1980 1120 Output Total 1300 1050 30 25 Balance 3462.084 1470 1950 1095 - Objective General Appearance: positive: No acute distress, Alert Eyes Bilateral: positive: Normal inspection, PERRL ENT: positive: No signs of dehydration Neck: positive: No JVD Respiratory: positive: No respiratory distress Abdomen: positive: Non-tender, No distention, Other (dressing c/d/i. no erythema) Neurologic/Psychiatric: positive: Oriented x3 - Lab Results Fish Bones: 06/07/20 06:00 06/07/20 06:00 Other Labs: Lab Results x24hrs 06/07/20 06/07/20 Range/Units 06:00 06:00 WBC 6.5 (4.8-10.8) x10^3/uL RBC 3.96 L (4.20-5.40) 10^6/uL Hgb 10.9 L (12.0-16.0) g/dL Hct 34.1 L (37.0-47.0) % MCV 86.1 (81.0-99.0) fL MCH 27.5 (27.0-31.0) pg MCHC 32.0 (32.0-36.0) g/dL RDW 14.4 (12.0-15.0) % Plt Count 266 (130-450) 10^3/uL MPV 10.8 (7.9-10.8) fL Neut # (Auto) 3.7 (1.5-6.6) 10^3/uL Lymph # (Auto) 1.5 (1.5-3.5) 10^3/uL [place] # (Auto) 0.6 (0.0-1.0) 10^3/uL Eos # (Auto) 0.3 (0.0-0.7) 10^3/uL Baso # (Auto) 0.1 (0.0-0.1) 10^3/uL Absolute Nucleated RBC 0.00 x10^3/uL Nucleated RBC % 0.0 /100WBC Sodium 137 (135-145) mmol/L Potassium 3.4 L (3.5-5.0) mmol/L Chloride 104 (101-111) mmol/L Carbon Dioxide 24 (21-32) mmol/L Anion Gap 9.0 (6-13) BUN 6 (6-20) mg/dL Creatinine 0.4 (0.4-1.0) mg/dL Estimated GFR (MDRD) 156 (>89) Glucose 193 H (70-100) mg/dL Calcium 8.5 (8.5-10.3) mg/dL Assessment/Plan - Problem List (1) Small bowel obstruction Impression: doing very well. anticipate home tomorrow
[2020-06-07] MEDS: INSULIN GLARGINE 300 UNIT/3 ML PEN SUBQ SCH (20:41)
[2020-06-08] MEDS: METOCLOPRAMIDE 10 MG/2 ML VIAL IVP SCH ×3 (00:42→11:24)
[2020-06-08] MEDS: metroNIDAZOLE 500 MG/100 ML 500 MG/100 ML BAG IV SCH ×2 (00:42→08:26)
[2020-06-08] MEDS: methocarbamoL 500 MG TABLET PO SCH ×3 (00:50→11:25)
[2020-06-08] MEDS: SODIUM CHLORIDE FLUSH 0.9% 10 ML SYRINGE IVP SCH ×2 (01:01→08:35)
[2020-06-08] MEDS: CIPROFLOXACIN 400 MG/200 ML 400 MG/200 ML BAG IV SCH (03:42)
[2020-06-08 05:15] LABS: BASOPHILS # (AUTO) 0.1 10^3/uL (0.0-0.1); BASOPHILS % (AUTO) 0.6 %; EOSINOPHILS # (AUTO) 0.3 10^3/uL (0.0-0.7); EOSINOPHILS % (AUTO) 3.4 %; HCT - HEMATOCRIT 32.9 % (37.0-47.0); HGB - HEMOGLOBIN 10.4 g/dL (12.0-16.0); LYMPHOCYTES # (AUTO) 1.8 10^3/uL (1.5-3.5); MEAN CORPUSCULAR HEMOGLOBIN 27.2 pg (27.0-31.0); MEAN CORPUSCULAR HGB CONC 31.6 g/dL (32.0-36.0); MEAN CORPUSCULAR VOLUME 85.9 fL (81.0-99.0); MEAN PLATELET VOLUME 10.7 fL (7.9-10.8); MONOCYTES # (AUTO) 0.8 10^3/uL (0.0-1.0); MONOCYTES % (AUTO) 9.4 %; NEUTROPHILS # (AUTO) 5.4 10^3/uL (1.5-6.6); NEUTROPHILS % (AUTO) 61.5 %; PLT - PLATELET COUNT 295 10^3/uL (130-450); RED BLOOD COUNT 3.83 10^6/uL (4.20-5.40); RED CELL DISTRIBUTION WIDTH 14.6 % (12.0-15.0); WHITE BLOOD COUNT 8.8 x10^3/uL (4.8-10.8)
[2020-06-08 05:27] LABS: CALCIUM 8.5 mg/dL (8.5-10.3); CREATININE 0.6 mg/dL (0.4-1.0); POTASSIUM 3.7 mmol/L (3.5-5.0)
[2020-06-08] MEDS: PANTOPRAZOLE 40 MG VIAL IVP SCH (06:31)
[2020-06-08] MEDS: metFORMIN 500 MG TABLET PO SCH (08:26)
[2020-06-08] MEDS: INSULIN ASPART 300 UNIT/3 ML PEN SUBQ SCH ×2 (08:27→11:25)
[2020-06-08] MEDS: NEUTRA-PHOS 250 MG TABLET PO SCH ×2 (08:28→11:26)
[2020-06-08] MEDS: DOCUSATE SODIUM 250 MG CAPSULE PO SCH (08:28)
[2020-06-08] MEDS: FERROUS SULFATE 325 MG TABLET PO SCH (08:30)
[2020-06-08] MEDS: polyethylene glycoL 3350 17 GM PACKET PO SCH (08:30)
[2020-06-08] MEDS: ATORVASTATIN 40 MG TABLET PO SCH (08:34)
[2020-06-08] MEDS: ENOXAPARIN 40 MG/0.4 ML SYRINGE SUBQ SCH (08:34)
[2020-06-08] MEDS: LOSARTAN 50 MG TABLET PO SCH (08:36)
--- NOTE | 2020-06-08 12:59 | PROVIDER PROGRESS NOTE ---
Hospitalist Cross-cover Note - Cross-Cover Note Cross-Cover Note: I called and discussed pt's care plan with by phone. pt and her daughter told me before they hope no insulin at home, pt had A1C 8.8, pt had mild to moderate elevated glucose level at the admission, so pt's home Metformin increased to 1000mg bid from previous 500 mg bid, advise pt followup with her PCP in one week to continue management of her diabetes. Pt ate 100% in her breakfast, and pt had bowel movements. In the morning meeting, nurse hope change pt's IV antibiotics to PO, I help to change. 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 This was also recommended by PT/OT. Pt's glucose is 179, pt's BP is in the good control. At this point, hospitalist team will sign off. Thank surgeon let us care of this pt.
--- NOTE | 2020-06-08 13:59 | Discharge Plan ---
Discharge Plan Problem Reviewed?: Yes Disposition: Home, Self Care Condition: Good Prescriptions: Amox/Clav 875/125 [Augmentin 875/125 Tab] 1 tablet PO Q12H 10 Days #20 tablet metFORMIN [Glucophage] 1,000 mg PO BIDWM #60 tablet oxyCODONE/ACET 5/325 [Percocet 5 mg/325 mg] 1 each PO Q4-6H PRN #30 tablet PRN Reason: Pain Diet: Regular Activity Restrictions: Activity as Tolerated Shower Restrictions: No Driving Restrictions: No Assessment: doing well after small bowel resection and recurrent ventral hernia repair Additional Instructions or Follow Up instructions: call to make a follow up appointment with surgery [phone] No Smoking: If you smoke, Please STOP! Call for help. Follow-up with: Rashid Schmitz MD [Provider Admit Priv/Credential] -
[2020-06-08] MEDS ORDERED: metroNIDAZOLE 250 MG TABLET PO SCH (14:00)
--- NOTE | 2020-06-08 14:02 | DISCHARGE SUMMARY ---
"Discharge Summary Admit Date: 06/01/20 Discharge Date: 06/08/20 Discharging Provider: prakash mendez md Code Status: Attempt Resuscitation - DIAGNOSES Admission Diagnoses: chronic small bowel obstruction and recurrent ventral hernia Discharge Diagnoses with Status of Each Condition: home in good condition - HPI History of Present Illness: Chronic small bowel obstruction related to recurrent ventral hernia. She had extensive lysis of adhesions, small bowel resection, and hernia repair. - CONSULTS | PROCEDURES Consultations: home pt Procedures: as above - HOSPITAL COURSE Hospital Course: Unremarkable postop course. Home afebrile, normal wbc, no erythema, tolerating diet. - ALLERGIES Allergies/Adverse Reactions: Allergies Allergy/AdvReac Type Severity Reaction Status Date / Time No Known Drug Allergies Allergy Verified 06/01/20 06:09 - MEDICATIONS Home Medications: Ambulatory Orders Medication Instructions Recorded Confirmed Losartan Potassium 50 mg PO DAILY 09/13/19 06/01/20 Walker [Ultra-Light Rollator] 1 each MC DAILY #1 each 09/16/19 Atorvastatin Calcium 40 mg PO DAILY 06/01/20 06/01/20 Gabapentin [Neurontin] 300 mg PO QPM PRN 06/01/20 06/01/20 oxyCODONE [Roxicodone] 5 mg PO PRN PRN 06/01/20 06/01/20 Amox/Clav 875/125 [Augmentin 1 tablet PO Q12H 10 Days #20 tablet 06/08/20 875/125 Tab] metFORMIN [Glucophage] 1,000 mg PO BIDWM #60 tablet 06/08/20 oxyCODONE/ACET 5/325 [Percocet 5 1 each PO Q4-6H PRN #30 tablet 06/08/20 mg/325 mg] - PHYSICAL EXAM AT DISCHARGE General Appearance: positive: No acute distress, Alert Eyes Bilateral: positive: Normal inspection Neck: positive: No JVD Respiratory: positive: No respiratory distress Abdomen: positive: Non-tender, No distention, Other (no erythema. incision c/d/i) Neurologic/Psychiatric: positive: Oriented x3 - LABS Result Diagrams: 06/08/20 04:55 06/08/20 04:55 - FOLLOW UP Follow Up: Dr Schmitz. please call to make an appointment [phone]"
[2020-06-08] MEDS ORDERED: CIPROFLOXACIN 250 MG TABLET PO SCH (16:00)
[2020-06-08 16:13] VITALS: BP 153/93
--- NOTE | 2020-06-22 21:20 | DISCHARGE SUMMARY ---
Physician: Christiano Caba MD DATE OF ADMISSION: 06/01/2020 DATE OF DISCHARGE: 06/08/2020 PRINCIPAL FINAL DIAGNOSES: 1. Recurrent ventral or incisional hernia. 2. Chronic small-bowel obstruction. PRINCIPAL PROCEDURES: Exploratory laparotomy, extensive lysis of adhesions, small bowel resection an d repair of recurrent incisional or ventral hernia. All additional procedures, Guidry catheter placem ent, pain management. TD: 06/22/2020 21:19
== END 2020-06-08 16:30 | disposition home or self-care (01) | DRG 330 ==
LOC: EDUNIT# → ED 05:55 → MS2 13:58 → ICU 06-02 14:43 → MS2 06-05 17:59
PROVIDERS: ADMIT Surgery; ATTEND Surgery
PROC: 0DB80ZZ Excision of Small Intestine, Open Approach (ICD-10-PCS; 2020-06-02)
PROC: 0DNL0ZZ Release Transverse Colon, Open Approach (ICD-10-PCS; 2020-06-02)
PROC: 0DN80ZZ Release Small Intestine, Open Approach (ICD-10-PCS; 2020-06-02)
PROC: 0WPF4JZ Removal of Synthetic Substitute from Abdominal Wall, Percutaneous Endoscopic Approach (ICD-10-PCS; 2020-06-02)
PROC: 0D180Z8 Bypass Small Intestine to Small Intestine, Open Approach (ICD-10-PCS; 2020-06-02)
PROC: 0DNW4ZZ Release Peritoneum, Percutaneous Endoscopic Approach (ICD-10-PCS; 2020-06-02)
PROC: 0WUF0JZ Supplement Abdominal Wall with Synthetic Substitute, Open Approach (ICD-10-PCS; 2020-06-02)
PROC: 0WUF0JZ Supplement Abdominal Wall with Synthetic Substitute, Open Approach (ICD-10-PCS; principal; 2020-06-02 10:15)
DX: K43.6 Other and unspecified ventral hernia with obstruction, without gangrene (principal); K43.0 Incisional hernia with obstruction, without gangrene; T83.718A Erosion of other implanted mesh to organ or tissue, initial encounter; E66.9 Obesity, unspecified; K44.9 Diaphragmatic hernia without obstruction or gangrene; I10 Essential (primary) hypertension; E83.39 Other disorders of phosphorus metabolism; D64.9 Anemia, unspecified; E87.6 Hypokalemia; E83.42 Hypomagnesemia; K66.0 Peritoneal adhesions (postprocedural) (postinfection); Z79.899 Other long term (current) drug therapy; Z87.891 Personal history of nicotine dependence; Z79.84 Long term (current) use of oral hypoglycemic drugs; E66.01 Morbid (severe) obesity due to excess calories; Z68.37 Body mass index [BMI] 37.0-37.9, adult; Z20.822 Contact with and (suspected) exposure to COVID-19; E11.65 Type 2 diabetes mellitus with hyperglycemia
CPT/HCPCS: 36415; 74018; 74177; 80048; 80053; 81001; 82607; 82728; 83036; 83540; 83615; 83690; 83735; 84100; 84466; 85025; 85045; 86850; 86900; 86901; 87150; 87631; 97110; 97116; 97161; 97166; 97530; 97535; 99284; 99285; A9270; J0131; J1170; J1650; J1815; J2765; J7120; Q9967; 0202U; 81003; 87086

== ENCOUNTER 2020-12-02 08:00 | Outpatient (CLI) | payer MEDICARE ==
[2020-12-02 20:35] LABS: ESTIMATED AVERAGE GLUCOSE 220 mg/dL (70-100); HEMOGLOBIN A1c% 9.3 % (4.27-6.07)
== END 2020-12-02 23:59 | disposition home or self-care (01) ==
LOC: LAB.WCP 08:00
PROVIDERS: ATTEND Nurse Practitioner
DX: E11.9 Type 2 diabetes mellitus without complications (principal)
CPT/HCPCS: 36415; 83036

== ENCOUNTER 2022-01-02 13:08 | Outpatient (CLI) | payer MEDICARE ==
[2022-01-02 18:22] LABS: BASOPHILS # (AUTO) 0.1 10^3/uL (0.0-0.1); BASOPHILS % (AUTO) 0.8 %; EOSINOPHILS # (AUTO) 0.4 10^3/uL (0.0-0.7); EOSINOPHILS % (AUTO) 5.2 %; HCT - HEMATOCRIT 39.2 % (37.0-47.0); LYMPHOCYTES # (AUTO) 1.9 10^3/uL (1.5-3.5); LYMPHOCYTES % (AUTO) 24.4 %; MEAN CORPUSCULAR HGB CONC 30.6 g/dL (32.0-36.0); MEAN CORPUSCULAR VOLUME 81.7 fL (81.0-99.0); MEAN PLATELET VOLUME 11.6 fL (7.9-10.8); MONOCYTES # (AUTO) 0.7 10^3/uL (0.0-1.0); MONOCYTES % (AUTO) 9.5 %; NEUTROPHILS # (AUTO) 4.7 10^3/uL (1.5-6.6); NEUTROPHILS % (AUTO) 59.6 %; PLT - PLATELET COUNT 317 10^3/uL (130-450); RED CELL DISTRIBUTION WIDTH 16.8 % (12.0-15.0); WHITE BLOOD COUNT 7.8 x10^3/uL (4.8-10.8)
[2022-01-02 18:35] LABS: CREATININE,URINE 91.7 mg/dL; MICROALBUM/CREATININE RATIO,UR 8.7 ug/mg (<30.0); MICROALBUMIN,URINE 0.8 mg/dL (0-300.0)
[2022-01-02 18:46] LABS: ALBUMIN 3.8 g/dL (3.2-5.5); ALBUMIN/GLOBULIN RATIO 0.8 (1.0-2.2); ALKALINE PHOSPHATASE 188 IU/L (42-121); ALT ALANINE AMINOTRANSFERASE 33 IU/L (10-60); AST ASPARTATE AMINOTRANSFERASE 29 IU/L (10-42); BILIRUBIN,TOTAL 0.6 mg/dL (0.2-1.0); BUN - BLOOD UREA NITROGEN 18 mg/dL (6-20); CALCIUM 9.7 mg/dL (8.5-10.3); CARBON DIOXIDE - CO2 29 mmol/L (21-32); CHLORIDE 106 mmol/L (101-111); CHOL/HDL RATIO 2.4 (<4.4); CHOLESTEROL 188 mg/dL; CREATININE 0.6 mg/dL (0.4-1.0); GFR - MDRD 97 (>89); GLUCOSE 154 mg/dL (70-100); HDL CHOLESTEROL 78 mg/dL; IRON 31 ug/dL (28-170); LDL CHOLESTEROL,CALCULATED 96 mg/dL; LDL/HDL RATIO 1.2 (<4.4); POTASSIUM 4.1 mmol/L (3.5-5.0); SODIUM 138 mmol/L (135-145); TOTAL PROTEIN 8.7 g/dL (6.7-8.2); TRIGLYCERIDES 72 mg/dL; VLDL CHOLESTEROL 14 mg/dL
[2022-01-02 20:37] LABS: ESTIMATED AVERAGE GLUCOSE 214 mg/dL (70-100); HEMOGLOBIN A1c% 9.1 % (4.27-6.07)
== END 2022-01-02 13:09 | disposition home or self-care (01) ==
LOC: LAB.N 13:08
PROVIDERS: ATTEND Nurse Practitioner
DX: E11.9 Type 2 diabetes mellitus without complications (principal); I10 Essential (primary) hypertension; E78.5 Hyperlipidemia, unspecified; G25.81 Restless legs syndrome
CPT/HCPCS: 36415; 80053; 80061; 82043; 82570; 83036; 83540; 83721; 85025

== ENCOUNTER 2022-04-10 10:54 | Outpatient (CLI) | payer MEDICARE | END 2022-04-10 10:55 | disposition critical access hospital (66) | LOC: EMS 10:54 | DX: R53.1 Weakness (principal); M79.605 Pain in left leg; M79.604 Pain in right leg; G25.81 Restless legs syndrome; F41.9 Anxiety disorder, unspecified | CPT/HCPCS: A0425; A0429 ==

== ENCOUNTER 2022-04-10 11:08 | Inpatient (IN) | payer MEDICARE ==
[2022-04-10] MEDS ORDERED: oxyCODONE 5 MG TABLET PO STA (13:57)
--- NOTE | 2022-04-10 14:01 | ED Physician Documentation ---
History of Present Illness - Stated complaint Stated Complaint: BILAT LEG PX - Chief complaint Chief Complaint: Ext Problem - Additonal information Additional information: 77-year-old female presents to the emergency department for evaluation of bilateral lower leg pain that began about 1 week ago. She describes it as a deep pain. She states initially she was able to get around with her walker but now is unable to do so. She has been taking excessive amounts of ibuprofen up to 20 tablets a day to help with pain. She does have a history of restless leg pain. She has previously been Prescribed gabapentin but did not take it long-te rm because it gave her nightmares. She denies falls, fevers or trauma. No saddle anesthesia. Denies any low back pain. Pain is worse with movement. At rest she appears comfortable. History is obtained from patient. Reliable historian Review of Systems Constitutional: denies: Fever, Chills Cardiac: reports: Reviewed and negative Respiratory: reports: Reviewed and negative Musculoskeletal: reports: Extremity pain. 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 : Frequency HEENT: None Psych: None Musculoskeletal: None Derm: None - Past Surgical History Past Surgical History: Yes General: Gastric surgery, Other Ortho: Hip replacement /SALES SERVICE TECHNICIAN: section, Hysterectomy Derm: Skin cancer surgery - Present Medications Home Medications: Ambulatory Orders Medication Instructions Recorded Confirmed Losartan Potassium 50 mg PO DAILY 09/13/19 04/10/22 Walker [Ultra-Light Rollator] 1 each MC DAILY #1 each 09/16/19 04/10/22 Atorvastatin Calcium 40 mg PO DAILY 06/01/20 04/10/22 Gabapentin [Neurontin] 300 mg PO QPM PRN 06/01/20 04/10/22 oxyCODONE [Roxicodone] 5 mg PO PRN PRN 06/01/20 04/10/22 Amox/Clav 875/125 [Augmentin 1 tablet PO Q12H 10 Days #20 tablet 06/08/20 04/10/22 875/125 Tab] metFORMIN [Glucophage] 1,000 mg PO BIDWM #60 tablet 06/08/20 04/10/22 oxyCODONE/ACET 5/325 [Percocet 5 1 each PO Q4-6H PRN #30 tablet 06/08/20 04/10/22 mg/325 mg] - Allergies Allergies/Adverse Reactions: Allergies Allergy/AdvReac Type Severity Reaction Status Date / Time No Known Drug Allergies Allergy Verified 06/01/20 06:09 - Social History Does the pt smoke?: Yes Smoking Status: Current every day smoker Does the pt drink ETOH?: Yes Does the pt have substance abuse?: No - Immunizations Immunizations are current?: Yes - POLST Patient has POLST: No POLST Status: Full Code PD ED PE EXPANDED - General General: Alert, Other (Geriatric aged parents) - Cardiac Cardiac: Regular Rate, Radial strong equal, Pedal strong equal, Cap refill < 2 sec, Other (Hemosiderin staining bilateral lower extremities. Minimal nonpitting edema pedal bilaterally) - Respiratory Respiratory: Clear to ausultation suze. No: Distress - Abdomen Abdomen: Normal Bowel sounds. No: Tender to palpation - Derm Derm: Other (hemosiderin staining bilaterally) - Extremities Extremities: Normal, Pedal edema bilateral, Pedal Pulses Present. No: Deformity, Tenderness (Was unable to elicit tenderness with palpation of her thighs calves or feet bilaterally. Pain was elicited with movement and standing) - Neuro Neuro: Alert and Oriented X 3, CNII-XII intact - GCS Eye Opening: Spontaneous Motor: Obeys Commands Verbal: Oriented Total: 15 Results - Vitals Vitals: Vital Signs - 24 hr 04/10/22 11:18 Temperature 36.9 C Heart Rate 100 Respiratory 20 Rate Blood Pressure 112/55 L O2 Saturation 98 Oxygen O2 Source Room air - Labs Labs: Laboratory Tests 04/10/22 04/10/22 04/10/22 14:08 14:08 14:08 WBC 13.5 H RBC 5.42 H Hgb 13.8 Hct 44.9 MCV 82.8 MCH 25.5 L MCHC 30.7 L RDW 17.5 H Plt Count 342 MPV 11.2 H Neut # (Auto) 11.3 H Lymph # (Auto) 0.9 L [place] # (Auto) 1.0 Eos # (Auto) 0.1 Baso # (Auto) 0.1 Absolute Nucleated RBC 0.00 Nucleated RBC % 0.0 VBG pH VBG pCO2 VBG pO2 VBG HCO3 VBG Total CO2 VBG O2 Saturation VBG Base Excess Sodium 133 L Potassium 5.5 H Chloride 106 Carbon Dioxide 8 L* Anion Gap 19.0 H BUN 122 H* Creatinine 4.5 H Estimated GFR (MDRD) 10 L Glucose 148 H Calcium 9.9 Total Bilirubin 0.4 AST 20 ALT 27 Alkaline Phosphatase 125 H Total Creatine Kinase 77 CK-MB (CK-2) 7.5 H Total Protein 8.9 H Albumin 3.9 Globulin 5.0 H Albumin/Globulin Ratio 0.8 L Lipase 101 H 04/10/22 15:09 WBC RBC Hgb Hct MCV MCH MCHC RDW Plt Count MPV Neut # (Auto) Lymph # (Auto) [place] # (Auto) Eos # (Auto) Baso # (Auto) Absolute Nucleated RBC Nucleated RBC % VBG pH 7.123 L VBG pCO2 33.0 L VBG pO2 43.4 VBG HCO3 10.6 L VBG Total CO2 11.6 L VBG O2 Saturation 74.8 VBG Base Excess -17.6 L Sodium Potassium Chloride Carbon Dioxide Anion Gap BUN Creatinine Estimated GFR (MDRD) Glucose Calcium Total Bilirubin AST ALT Alkaline Phosphatase Total Creatine Kinase CK-MB (CK-2) Total Protein Albumin Globulin Albumin/Globulin Ratio Lipase - Rads (name of study) ct abd wo Radiology: Final report received (No acute abdominal findings) PD Medical Decision Making - ED course Complexity details: reviewed results, re-evaluated patient, considered differential, d/w patient ED course: 77-year-old female presents emergency department for evaluation 1 week bilateral lower extremity pain. This is in the setting of diabetes and previous history of rhabdomyolysis as well as neuropathy and restless leg syndrome. She denies any falls or trauma but has been taking 10-20 ibuprofen tablets a day without relief of pain. On presentation she moves all her extremities well. There is no swelling. She describes the pain simply as deep. Subsequently I did obtain CBC, electrolytes and a CK looking for electrolyte abnormalities. Unfortunately we do find an elevated BUN of 122 and a creatinine of 4.5 markedly different from December labs. Patient reported that she is recently been taking excessive amounts of Motrin in order to manage the pain. I suspect she has developed acute renal failure as a result of this. She may also have a worse some renal function secondary to her metformin use. Here in the emergency department we did obtain a VBG that showed profound acidosis with a pH of 7.1. I initially ordered a liter of IV fluids, Though nursing team were unable to successfully place a peripheral IV. We then asked anesthesia for central line placement. A CT of the abdomen was also completed to rule out a urinary pathology or obstruction as a cause of acute renal failure. No findings of stones, hydronephrosis or obstruction were noted. Unfortunately this is a critical diagnosis in an elderly woman who has fairly poor health history. She will be admitted initially to our ICU. I spoke with Dr. Whiteside of the hospitalist who graciously agrees to admit the patient to the ICU. She indicates that she will continue with IV bicarb as well as IV fluids. Robyn the admission plan with the patient and she is in agreement for further evaluation and the treatment. 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
[2022-04-10 14:14] LABS: BASOPHILS # (AUTO) 0.1 10^3/uL (0.0-0.1); BASOPHILS % (AUTO) 0.4 %; EOSINOPHILS # (AUTO) 0.1 10^3/uL (0.0-0.7); EOSINOPHILS % (AUTO) 0.7 %; HCT - HEMATOCRIT 44.9 % (37.0-47.0); HGB - HEMOGLOBIN 13.8 g/dL (12.0-16.0); LYMPHOCYTES # (AUTO) 0.9 10^3/uL (1.5-3.5); LYMPHOCYTES % (AUTO) 6.8 %; MEAN CORPUSCULAR HEMOGLOBIN 25.5 pg (27.0-31.0); MEAN CORPUSCULAR HGB CONC 30.7 g/dL (32.0-36.0); MEAN CORPUSCULAR VOLUME 82.8 fL (81.0-99.0); MEAN PLATELET VOLUME 11.2 fL (7.9-10.8); MONOCYTES % (AUTO) 7.3 %; NEUTROPHILS # (AUTO) 11.3 10^3/uL (1.5-6.6); NEUTROPHILS % (AUTO) 84.2 %; PLT - PLATELET COUNT 342 10^3/uL (130-450); RED BLOOD COUNT 5.42 10^6/uL (4.20-5.40); RED CELL DISTRIBUTION WIDTH 17.5 % (12.0-15.0); WHITE BLOOD COUNT 13.5 x10^3/uL (4.8-10.8)
[2022-04-10 14:44] LABS: ALBUMIN 3.9 g/dL (3.2-5.5); ALBUMIN/GLOBULIN RATIO 0.8 (1.0-2.2); BILIRUBIN,TOTAL 0.4 mg/dL (0.2-1.0); CALCIUM 9.9 mg/dL (8.5-10.3); CREATININE 4.5 mg/dL (0.4-1.0); POTASSIUM 5.5 mmol/L (3.5-5.0); TOTAL PROTEIN 8.9 g/dL (6.7-8.2)
[2022-04-10] MEDS ORDERED: SODIUM CHLORIDE 0.9% 1,000 ML IV STA (14:47)
[2022-04-10 15:13] LABS: VBG BASE EXCESS -17.6 mmol/L (-2 - +2); VBG HCO3 10.6 mmol/L (23-28); VBG PO2 43.4 mmHg (25-47); VBG TOTAL CO2 11.6 mmol/L (24-29)
[2022-04-10 15:14] LABS: VBG OXYGEN SATURATION 74.8 % (60-80)
[2022-04-10 15:15] LABS: VBG PH 7.123 (7.31-7.41)
--- NOTE | 2022-04-10 16:11 | CT Report ---
PROCEDURE: ABDOMEN/PELVIS WO INDICATIONS: ARF TECHNIQUE: Noncontrast 5 mm thick sections acquired from the diaphragms to the symphysis. 5 mm coronal and sagi ttal reformats were then performed. For radiation dose reduction, the following was used: automated exposure control, adjustment of mA and/or kV according to patient size. COMPARISON: 06/01/2020 FINDINGS: Included portions of the lung bases are clear. Grossly normal unenhanced CT appearance of the liver, spleen, pancreas, and adrenal glands. Right renal cyst measuring 3 cm. No hydronephrosis or hydrouret er. No urinary tract calculus identified. Distended gallbladder without adjacent inflammatory changes or obvious wall thickening. No abnormally dilated or thickened loop of bowel. No pericolonic or mese nteric inflammatory changes. Multiple bowel anastomoses noted. No free fluid or free air. Urinary adrianna dder within normal limits. No threshold and large intra-abdominal, retroperitoneal, pelvic, or inguin al lymph node. No acute or suspicious bone lesion. IMPRESSION: No acute finding. Reviewed by: Jamshid Love MD on 04/10/2022 4:10 PM PST Approved by: Jamshid Love MD on 04/10/2022 4:10 PM PST Station ID: [id number]
[2022-04-10] MEDS ORDERED: ONDANSETRON 4 MG/2 ML VIAL IVP PRN (16:40)
--- NOTE | 2022-04-10 17:11 | HISTORY & PHYSICAL EXAMINATION ---
Chief Complaint - Chief Complaint Chief Complaint: Leg pain History of Present Illness - Admitted From Admitted From:: ED - History Obtained From Records Reviewed: Adriano, Blanca History obtained from: ED provider and the patient - History of Present Illness HPI Comment/Other: This is a 77-year-old white female with a history of diabetes on metformin, restless leg syndrome on gabapentin, who was admitted here in 2020 with bowel obstruction and needed abdominal surgery for lysis of adhesions. She had an admission in 2019 for rhabdomyolysis and JESSICA (creat was 1.4) from a fall at home, when she laid stuck between her bed and the wall for 7 hours. Patient presented to the emergency room with complaint of leg pain that has been not improved despite taking her gabapentin and therefore she took 10 to 20 tablets of Motrin daily for the last 1 week. She was given oxycodone for pain and her labs were drawn. Labs showed a BUN of 122 and creatinine of 4.5 (baseline creatinine is 0.6) and serum bicarb of 8. The patient was given 1 L of fluid. A VBG was done which showed a pH of 7.1. I requested the ED to perform CT without contrast of the abdomen/pelvis which was done and this showed no areas of obstruction, no hydronephrosis or any acute findings. The ED provider discussed the case with me on the Hospitalist team. The patient is being admitted to the ICU in critical status due to JESSICA with metabolic acidosis, likely from NSAID use plus her metformin use. History - Past Medical History Cardiovascular: reports: Hypertension Respiratory: reports: None Neuro: reports: Other (RLS) Endocrine/Autoimmune: reports: Type 2 diabetes GI: reports: Hiatal hernia, Other (prior bowel obstruction) ACTIVITIES VOLUNTEER: reports: None : reports: Frequency HEENT: reports: None Psych: reports: None Musculoskeletal: reports: None Derm: reports: None - Past Surgical History General: reports: Gastric surgery, Other Ortho: reports: Hip replacement /ACTIVITIES VOLUNTEER: reports: section, Hysterectomy Derm: reports: Skin cancer surgery - Family & Social History Family History: Mother: (in their 80's), Cancer (lung cancer. She was a smoker), Father: Family History Comment/Other: Father had vascular dementia. Living arrangement: At home Living Situation: Alone Social History Notes: She lives alone. She does not smoke tobacco products. She rarely drinks alcohol. She denies any illicit drugs. - Substance History Use: Uses substance without health or social issues: NONE - POLST Patient has POLST: No POLST Status: Full Code Meds/Allgy - Home Medications Home Medications: Ambulatory Orders Medication Instructions Recorded Confirmed Losartan Potassium 50 mg PO DAILY 09/13/19 04/10/22 Walker [Ultra-Light Rollator] 1 each MC DAILY #1 each 09/16/19 04/10/22 Atorvastatin Calcium 40 mg PO DAILY 06/01/20 04/10/22 Gabapentin [Neurontin] 300 mg PO QPM PRN 06/01/20 04/10/22 oxyCODONE [Roxicodone] 5 mg PO PRN PRN 06/01/20 04/10/22 Amox/Clav 875/125 [Augmentin 1 tablet PO Q12H 10 Days #20 tablet 06/08/20 04/10/22 875/125 Tab] metFORMIN [Glucophage] 1,000 mg PO BIDWM #60 tablet 06/08/20 04/10/22 oxyCODONE/ACET 5/325 [Percocet 5 1 each PO Q4-6H PRN #30 tablet 06/08/20 04/10/22 mg/325 mg] - Allergies Allergies/Adverse Reactions: Allergies Allergy/AdvReac Type Severity Reaction Status Date / Time No Known Drug Allergies Allergy Verified 06/01/20 06:09 Review of Systems - Constitutional Constitutional: reports: Weakness - Musculoskeletal Musculoskeletal: reports: Other (leg pain and restless legs) - All Other Systems All Other Systems: reports: Reviewed and negative Exam - Vital Signs Vital Signs: Vital Signs x48h Temp Pulse Resp BP Pulse Ox 04/10/22 11:18 36.9 C 100 20 112/55 L 98 - Physical Exam General Appearance: positive: Alert, Moderate distress (from pain in her legs) Eyes Bilateral: positive: Normal inspection, No lid inflammation ENT: positive: Dry mucous membranes Neck: positive: Nml inspection, No JVD Respiratory: positive: No respiratory distress, Breath sounds nml Cardiovascular: positive: Regular rate & rhythm, No murmur Abdomen: positive: Non-tender, Nml bowel sounds, No distention Skin: positive: Warm, Dry, Pallor Extremities: positive: Non-tender, No pedal edema Neurologic/Psychiatric: positive: Oriented x3, Motor nml Conclusion/Plan - Problem List (1) Metabolic acidosis Conclusion/Plan: Patient has a VBG pH of 7.1 and serum bicarb level of 8. This is likely from her JESSICA related to NSAID use and from metformin use Plan: Admit to the ICU Continue with IV fluids Begin IV bicarb drip and will check her serum bicarb every 2 hours. Plan would be to bring her bicarb to 20-25 in 12 to 24 hours Follow BMP every 4 hours, CMP daily (2) Acute kidney injury Conclusion/Plan: This is likely secondary to NSAID abuse causing JESSICA Being dehydrated and taking metformin or possibly also adding to the JESSICA Plan: Hold metformin Order a diabetic, renal dierate at 60 to 83 cc/h. The patient went into pulmonary edema when she was with us several years ago and had a more rapid correction of dehydration Avoid nephrotoxins Follow BMP daily I explained to the patient that if this management is not resulting in correction of her BUN/creatinine, she will need to be transferred to a facility with higher level of care and she would need to be considered for hemodialysis. She understood and agreed, wants everything done. (3) Excessive use of nonsteroidal anti-inflammatory drugs (NSAIDs) Conclusion/Plan: As per her recent Hx Plan: Avoidance of NSAIDs was discussed with the patient (4) DM (diabetes mellitus), type 2 Conclusion/Plan: The patient is only on metformin for her diabetic management Plan: Hold metformin Started diabetic diet Follow fingerstick checks, sliding scale insulin coverage, start hypoglycemia protocol Check A1c with morning labs (5) Restless leg syndrome Conclusion/Plan: The patient thinks "RLS is the reason for her leg pain". No imaging was done since there has been no trauma and there is also no tenderness on exam of her legs anywhere. Her pain is only with standing up. Plan: We will continue with her gabapentin, determine from pharmacy if it needs renal dose adjustment We will give Dilaudid IV pushes as needed severe pain (6) Pulmonary HTN Conclusion/Plan: As per history from Echo done approximately 2 years ago, PA pressure was 60 mmHg. - Lab Results Fish Bones: 04/10/22 14:08 04/10/22 14:08 - Diagnostic Imaging Results Diagnostic Imaging Results: positive: Final report reviewed - Other Other Results/Comments: Attestation: The patient is expected to be discharged or transferred to another facility within 96 hours: Yes
[2022-04-10] MEDS ORDERED: SODIUM BICARBONATE 150 MEQ in DEXTROSE 5% 1,000 ML IV STA (17:29)
[2022-04-10 18:16] LABS: B. PARAPERTUSSIS- RESP PCR PAN NOT DETECTED; B. PERTUSSIS- RESP PCR PANEL NOT DETECTED; C. PNEUMONIAE- RESP PCR PANEL NOT DETECTED; CORONAVIRUS 229E-RESP PCR NOT DETECTED; CORONAVIRUS HKU1-RESP PCR NOT DETECTED; CORONAVIRUS NL63-RESP PCR NOT DETECTED; CORONAVIRUS OC43-RESP PCR NOT DETECTED; HUMAN METAPNEUMOVIRUS NOT DETECTED; INFLUENZA A- RESP PCR PANEL NOT DETECTED; INFLUENZA B - RESP PCR PANEL NOT DETECTED; M. PNEUMONIAE- RESP PCR PANEL NOT DETECTED; PARAINFLUENZA VIRUS 1 NOT DETECTED; PARAINFLUENZA VIRUS 2 NOT DETECTED; PARAINFLUENZA VIRUS 3 NOT DETECTED; PARAINFLUENZA VIRUS 4 NOT DETECTED; RHINOVIRUS/ENTEROVIRUS NOT DETECTED; RSV- RESP PCR PANEL NOT DETECTED; SARS-CoV-2 -RESP PCR PANEL NOT DETECTED
--- NOTE | 2022-04-10 19:17 | CONSULTATION NOTE ---
Consultation Report: consulted for CVL placement. R sided IJ attempt with US, unable to access vessel due to anatomy. Attempted L sided IJ under US guidance, positive venous blood return, however unable to thread wire easily, attempt aborted. Assessed B groins for femoral central line, and both areas very red, irritated, with white yeast present bilaterally. Called Dr. Muro for assistance with placing CVL. Dr. Muro placed L subclavian 3-lumen central line. Dr. Muro' assistance is very much appreciated.
[2022-04-10 19:29] LABS: BILIRUBIN,URINE NEGATIVE (NEGATIVE); CLARITY,URINE CLEAR (CLEAR); GLUCOSE, URINE (UA) NEGATIVE (NEGATIVE); KETONES,URINE (UA) NEGATIVE (NEGATIVE); LEUKOCYTE ESTERASE, URINE NEGATIVE (NEGATIVE); NITRITE,URINE NEGATIVE (NEGATIVE); OCCULT BLOOD,URINE NEGATIVE (NEGATIVE); PROTEIN,URINE 30 mg/dL (NEGATIVE); UROBILINOGEN,URINE 0.2 (NORMAL) E.U./dL (NORMAL)
[2022-04-10] MEDS: INSULIN LISPRO 300 UNIT/3 ML PEN SUBQ SCH ×2 (19:32→21:10)
[2022-04-10] MEDS: SODIUM CHLORIDE FLUSH 0.9% 10 ML SYRINGE IVP SCH (19:32)
[2022-04-10] MEDS: SODIUM CHLORIDE 0.9% 1,000 ML IV SCH (19:33)
--- NOTE | 2022-04-10 19:37 | OPERATIVE REPORT ---
Operative Report - General Admit Date: 04/10/22 Planned Procedure: Triple lumen central lumen placement Pre-Op Diagnosis: Need line access Procedure Performed: Triple lumen central venous line (LEFT subclavian vein) Post Op Diagnosis: Same - Procedure Note Primary Surgeon: Antonio Muro MD Anesthesia Technique: Local (5 mL 1% lidocaine) Complications: None. - Other Other Information/Narrative: After verbal and written informed consent was obtained detailing the procedure, the alternatives the operation including no procedure, risks of infection, bleeding requiring transfusion with its risks, pneumothorax requiring tube thoracostomy, and , a "time in" then confirmed that the patient was identified with 3 identifiers (name, date, and medical record number), and the patient was placed in Trendelenburg position. After prepping and draping the patient in a sterile manner and anesthetizing the left subclavian area with 1% lidocaine, the finder needle was inserted into the left subclavian vein and with good blood return the syringe was removed and a wire placed. The wire went to 30 cm with some cardiac irritability confirming placement down towards the heart. The needle was removed and the needle insertion site widened with the aid of a scalpel. A dilator was placed over the wire taking great care to ensure that the wire was clearly visible throughout the procedure. After flushing the brown port with heparinized saline, the dilator was removed and the triple-lumen catheter was placed over the wire again taking great care to ensure that the wire was visible and accessible throughout the entire procedure bringing the wire out through the brown port and placing the catheter at a measured distance of 18 centimeters. The wire was removed. All 3 lines had their air removed and had blood returned. Once blood returned each line was injected with heparinized saline and they were recapped. After anesthetizing the skin with 1% lidocaine, the collar was then placed on the triple-lumen catheter at 18 cm and this was secured to the skin with interrupted 3-0 silk suture. The catheter was also secured at the trifurcation again after anesthetizing the skin with 1% lidocaine using 3-0 silk suture. A sterile dressing was applied. The patient tolerated the procedure well and a chest x-ray was then obtained that showed the catheter to be in good position in the supracardiac vena cava without pneumothorax. It is okay to use the line. CPT 02694
[2022-04-10 19:39] LABS: BACTERIA,URINE Few /HPF (None Seen); CASTS, URINE 6-10 Hyaline Casts /LPF; RBC,URINE 0-5 /HPF (0-5); SQUAMOUS EPITHELIAL CELL,UR FEW Squamous (<= Few)
[2022-04-10] MEDS: HYDROmorphone 1 MG/ML CARPUJECT IVP PRN (20:09)
[2022-04-10] MEDS: FAMOTIDINE 20 MG TABLET PO SCH (20:10)
[2022-04-10] MEDS: NYSTATIN POWDER 15 GM TOP SCH (20:10)
[2022-04-10] MEDS: SODIUM CHLORIDE FLUSH 0.9% 10 ML SYRINGE IVP PRN ×2 (20:12→22:59)
[2022-04-10] MEDS ORDERED: FAMOTIDINE 20 MG TABLET PO SCH (21:00)
[2022-04-10] MEDS: oxyCODONE 5 MG TABLET PO PRN (21:16)
[2022-04-10] MEDS: GABAPENTIN 300 MG CAPSULE PO PRN (22:10)
[2022-04-10] MEDS: ACETAMINOPHEN 325 MG TABLET PO PRN (22:11)
--- NOTE | 2022-04-10 22:38 | XRAY Report ---
PROCEDURE: Chest for Line Placement INDICATIONS: line placement TECHNIQUE: One view of the chest was acquired. COMPARISON: None. FINDINGS: Surgical changes and devices: Left subclavian central venous line. Overlying monitoring wires. Lungs and pleura: No pleural effusions or pneumothorax. Lungs are clear. Mediastinum: Mediastinal contours appear normal. Heart size is normal. Bones and chest wall: No suspicious bony lesions. Overlying soft tissues appear unremarkable. IMPRESSION: Left subclavian central venous line without evidence of pneumothorax. Reviewed by: Nahomy Amin MD on 04/10/2022 10:36 PM PST Approved by: Nahomy Amin MD on 04/10/2022 10:36 PM PST Station ID: [id number]
[2022-04-10 23:15] LABS: CALCIUM, IONIZED 1.17 mmol/L (1.15-1.33)
[2022-04-10 23:25] LABS: MAGNESIUM 2.1 mg/dL (1.7-2.8); PHOSPHORUS 7.3 mg/dL (2.5-4.6)
[2022-04-10 23:26] LABS: VBG PH 7.182 (7.31-7.41)
[2022-04-10 23:33] LABS: CALCIUM 9.2 mg/dL (8.5-10.3); CREATININE 4.9 mg/dL (0.4-1.0)
--- NOTE | 2022-04-11 00:02 | PROVIDER PROGRESS NOTE ---
Account Resolution Specialist Note - Account Resolution Specialist Note Account Resolution Specialist Note: RN paged to report on most recent electrolytes. patient with metabolic acidosis on bicarb gtt. per day time progress note, patient listed as acute renal failure. base on the labs, not confident that patient is acute but rather CKD stage 5 and may warrant nephrology input. defer to day team to d/w nephrology in am. base on day team most recent progress note, continue as planned until HCO reached goal. watch out for possible SOB from volume overload. Gracia Juan DO Internal Medicine [employer] Tele bartender
[2022-04-11] MEDS: SODIUM CHLORIDE FLUSH 0.9% 10 ML SYRINGE IVP SCH ×4 (00:48→20:40)
[2022-04-11] MEDS: HYDROmorphone 1 MG/ML CARPUJECT IVP PRN ×3 (00:48→21:03)
[2022-04-11] MEDS: SODIUM CHLORIDE FLUSH 0.9% 10 ML SYRINGE IVP PRN ×9 (00:48→21:04)
[2022-04-11 01:20] LABS: CALCIUM 8.9 mg/dL (8.5-10.3); POTASSIUM 4.5 mmol/L (3.5-5.0)
[2022-04-11] MEDS: SODIUM CHLORIDE 0.9% 1,000 ML IV SCH ×2 (01:33→12:59)
[2022-04-11 05:14] LABS: BASOPHILS # (AUTO) 0.1 10^3/uL (0.0-0.1); BASOPHILS % (AUTO) 0.5 %; CALCIUM, IONIZED 1.13 mmol/L (1.15-1.33); EOSINOPHILS # (AUTO) 0.3 10^3/uL (0.0-0.7); EOSINOPHILS % (AUTO) 2.7 %; HCT - HEMATOCRIT 36.5 % (37.0-47.0); HGB - HEMOGLOBIN 11.7 g/dL (12.0-16.0); LYMPHOCYTES # (AUTO) 1.2 10^3/uL (1.5-3.5); LYMPHOCYTES % (AUTO) 12.7 %; MEAN CORPUSCULAR HEMOGLOBIN 25.9 pg (27.0-31.0); MEAN CORPUSCULAR HGB CONC 32.1 g/dL (32.0-36.0); MEAN CORPUSCULAR VOLUME 80.8 fL (81.0-99.0); MEAN PLATELET VOLUME 11.3 fL (7.9-10.8); MONOCYTES % (AUTO) 10.3 %; NEUTROPHILS # (AUTO) 7.2 10^3/uL (1.5-6.6); NEUTROPHILS % (AUTO) 73.4 %; PLT - PLATELET COUNT 254 10^3/uL (130-450); RED BLOOD COUNT 4.52 10^6/uL (4.20-5.40); RED CELL DISTRIBUTION WIDTH 17.3 % (12.0-15.0); WHITE BLOOD COUNT 9.8 x10^3/uL (4.8-10.8)
[2022-04-11 05:15] LABS: VBG PH 7.186 (7.31-7.41)
[2022-04-11 05:26] LABS: PHOSPHORUS 6.5 mg/dL (2.5-4.6)
[2022-04-11 07:20] LABS: ALBUMIN/GLOBULIN RATIO 0.7 (1.0-2.2); BILIRUBIN,TOTAL 0.4 mg/dL (0.2-1.0); CREATININE 4.9 mg/dL (0.4-1.0); TOTAL PROTEIN 7.3 g/dL (6.7-8.2)
[2022-04-11 07:21] LABS: ALBUMIN 3.1 g/dL (3.2-5.5); CALCIUM 8.6 mg/dL (8.5-10.3); POTASSIUM 4.4 mmol/L (3.5-5.0)
[2022-04-11] MEDS: INSULIN LISPRO 300 UNIT/3 ML PEN SUBQ SCH ×4 (08:03→20:38)
[2022-04-11] MEDS: NYSTATIN POWDER 15 GM TOP SCH ×2 (08:33→20:38)
[2022-04-11] MEDS: oxyCODONE 5 MG TABLET PO PRN ×3 (08:34→23:11)
[2022-04-11 09:05] LABS: CALCIUM 8.6 mg/dL (8.5-10.3); CREATININE 4.7 mg/dL (0.4-1.0); POTASSIUM 4.7 mmol/L (3.5-5.0)
[2022-04-11 11:56] LABS: ESTIMATED AVERAGE GLUCOSE 189 mg/dL (70-100); HEMOGLOBIN A1c% 8.2 % (4.27-6.07)
[2022-04-11 13:24] LABS: % IRON SATURATION 16 % (20-50); IRON 44 ug/dL (28-170); TOTAL IRON BINDING CAPACITY 283 ug/dL (250-450); TRANSFERRIN 202 mg/dL (192-382)
[2022-04-11 13:28] LABS: CALCIUM 8.4 mg/dL (8.5-10.3); CREATININE 4.5 mg/dL (0.4-1.0); POTASSIUM 4.7 mmol/L (3.5-5.0)
--- NOTE | 2022-04-11 13:38 | PHARMACY PROGRESS NOTE ---
- Best Possible Medication History Admit Date and Time: 04/10/22 1640 Processed by: Pharmacy Medication History completed: Yes Patient Interview: Pt unable to participate Secondary Source(s): Physician records, Pharmacy records, Insurance records As the person ultimately responsible for medication therapy, providers are able to order a medication from an existing home medication list in [facility] via the "Reconcile Routine" prior to Confirmation of that medication by retail support manager. Such practice is discouraged except when the physician, in their clinical judgment, deems that a medical need exists for a medication without regard to previous use.
[2022-04-11] MEDS: CYANOCOBALAMIN 500 MCG TABLET PO SCH (16:25)
[2022-04-11] MEDS: GABAPENTIN 300 MG CAPSULE PO PRN (16:25)
--- NOTE | 2022-04-11 19:28 | PROVIDER PROGRESS NOTE ---
Progress Note April 11, 2022 7:20 PM This morning the patient has minimal urine output. And her BUN was 118, creatinine 4.7. This afternoon her BUN is 119, creatinine 4.5. She is on a bicarb drip. Carbon dioxide was 11 this morning and improved to 11 this afternoon. I did speak to [facility] and left a message with their transfer center that this patient is getting close to needing dialysis. I did leave a number for them to call me. I identified her and her [facility] number and left a message with the [facility]vern [facility]a at [phone]. They had not called me back as of this evening so I called them again and left another message. Temperature is 36.4. Heart rate 92. Blood pressure 99/51. Lethargic but oriented. Neck supple Diminished breath sounds with shallow respiration. She denies shortness of breath. Abdomen is soft, hypoactive bowel sounds, nontender. She had a bowel movement on the and a bowel movement today. Extremities do not have edema. But her skin has candidiasis in her armpits and under her pannus. Review of her labs shows a creatinine on admission to be 4.5. It has not improved today and is still 4.5. Carbon dioxide was 8 on admission. We were able to get her to as high as 14 at 6 in the morning but she was back down to 11 at 8 in the morning, and she is 13 at 1 PM. Venous blood gas is 7.186. White cell count down to 9.8. Hemoglobin 11.7 and is down from 13.8 yesterday. But no evidence of bleeding on exam or history. Platelets are 254 Assessment/plan 1.. Acute kidney injury attributed to nonsteroidal use. She was taking up to 20 Motrin a day. This is resulted in metabolic acidosis, high creatinine, and renal failure. We have her on bicarb drip, and more following her BMP regularly. She is producing urine and as of today has produced 694 cc. I will keep on calling [facility] to see if we can transfer her to allow higher level of care. 2. Type 2 diabetes mellitus. She is usually on metformin at home and we are holding that because of acidosis. Acidosis may have actually been exacerbated by metformin. At this time she is on sliding scale insulin. She is only needed 2 units at lunch today. All other meals she is not needed any coverage. We will continue insulin because of its short action. I do not want to resume any oral medications due to her renal failure because of prolonged half-life. 3. Excessive nonsteroidal use. So far the only effects were seen is the renal failure. Hemoglobin is down today but there is no evidence of bleeding or abdominal pain indicating gastritis. She is on a proton pump inhibitor. Management will stay the same and we will carefully monitor her for signs and symptoms of GI bleed
[2022-04-11] MEDS: ACETAMINOPHEN 325 MG TABLET PO PRN (20:33)
[2022-04-11] MEDS: FAMOTIDINE 20 MG TABLET PO SCH (20:33)
[2022-04-12] MEDS: SODIUM CHLORIDE 0.9% 1,000 ML IV SCH ×3 (01:12→23:53)
[2022-04-12] MEDS: HYDROmorphone 1 MG/ML CARPUJECT IVP PRN ×5 (01:59→23:53)
[2022-04-12 04:47] LABS: BASOPHILS % (AUTO) 0.5 %; EOSINOPHILS # (AUTO) 0.4 10^3/uL (0.0-0.7); EOSINOPHILS % (AUTO) 4.7 %; HCT - HEMATOCRIT 35.5 % (37.0-47.0); LYMPHOCYTES # (AUTO) 1.2 10^3/uL (1.5-3.5); LYMPHOCYTES % (AUTO) 14.7 %; MEAN CORPUSCULAR HEMOGLOBIN 25.3 pg (27.0-31.0); MEAN CORPUSCULAR VOLUME 81.6 fL (81.0-99.0); MEAN PLATELET VOLUME 10.9 fL (7.9-10.8); MONOCYTES # (AUTO) 0.8 10^3/uL (0.0-1.0); NEUTROPHILS # (AUTO) 5.6 10^3/uL (1.5-6.6); NEUTROPHILS % (AUTO) 69.5 %; PLT - PLATELET COUNT 215 10^3/uL (130-450); RED BLOOD COUNT 4.35 10^6/uL (4.20-5.40); RED CELL DISTRIBUTION WIDTH 17.5 % (12.0-15.0)
[2022-04-12 04:56] LABS: CALCIUM, IONIZED 1.13 mmol/L (1.15-1.33); VBG PH 7.213 (7.31-7.41)
[2022-04-12] MEDS: oxyCODONE 5 MG TABLET PO PRN ×4 (05:13→22:26)
[2022-04-12 05:14] LABS: ALBUMIN 2.8 g/dL (3.2-5.5); ALBUMIN/GLOBULIN RATIO 0.7 (1.0-2.2); BILIRUBIN,TOTAL 0.4 mg/dL (0.2-1.0); CALCIUM 8.3 mg/dL (8.5-10.3); MAGNESIUM 1.8 mg/dL (1.7-2.8); PHOSPHORUS 4.5 mg/dL (2.5-4.6); POTASSIUM 4.1 mmol/L (3.5-5.0)
[2022-04-12] MEDS: CYANOCOBALAMIN 500 MCG TABLET PO SCH (08:18)
[2022-04-12] MEDS: GABAPENTIN 300 MG CAPSULE PO PRN ×2 (08:18→21:07)
[2022-04-12] MEDS: NYSTATIN POWDER 15 GM TOP SCH ×2 (08:19→20:59)
[2022-04-12] MEDS: INSULIN LISPRO 300 UNIT/3 ML PEN SUBQ SCH ×4 (08:19→20:59)
[2022-04-12] MEDS: SODIUM CHLORIDE FLUSH 0.9% 10 ML SYRINGE IVP SCH ×3 (08:20→19:52)
[2022-04-12] MEDS: ZINC OXIDE 20% OINT 30 GM TUBE TOP PRN (11:27)
--- NOTE | 2022-04-12 19:45 | PROVIDER PROGRESS NOTE ---
Progress Note April 12, 2022 7:35 PM I had spoken to [facility] yesterday and left 2 messages but no response. Today I spoke to [facility] again at [phone]. Nora was the coordinator and she called around to various facilities and was unable to get a bed. However she said that if I needed some help, I could call rn primary care, Asmita Recinos at [phone]. The patient's status has improved between yesterday and today. On 10 April she only urinated 239 cc. On the she increased to 994. Today her urine output is increased to 2685 at the time of this dictation. Her creatinine has come down to 3.0 and had peaked at 5. Blood pressure staying stable with this. Her systolic is solidly in the 120 is all day long. From a medical perspective, our main concern has been her severe renal failure. However the patient is exceedingly unhappy because of bilateral leg pain that has been getting worse. Exam: Temperature 36.5. Heart rate 99. Blood pressure 139/86. Respirations 19. 96% on room air She is 5 foot 6 inches tall, 88 kg. When she was admitted it was recorded at 99.79, but when she left the emergency room and came to the ICU she was at 88.5 kg. Slightly depressed, withdrawn but alert and oriented. Neck is supple Regular rate and rhythm with systolic murmur Abdomen is soft and nontender. She has normal bowel sounds. A Guidry catheter is draining yellow urine. Last bowel movement was yesterday. Extremities do not have edema. Labs: Sodium 137, potassium 4.1, BUN 108, creatinine 3.0. Anion gap is normal now at 10. White cell count is normal at 8. Hemoglobin is 11. Hematocrit 35.5. Platelets 215 Assessment/plan 1. Acute renal failure attributed to nonsteroidal use. She was taking up to 20 Motrin a day. On admission she had a metabolic acidosis, severely elevated creatinine, and oliguria. She was placed on a bicarb drip and for the first day or so there is really no movement on her labs. Urine output was minimal. There is been a definite improvement over the last 24 hours. My fear was that she was going to stay in renal failure and need dialysis.As such I had that conversation with [facility] this morning. With today's improvement I do not feel like I need to push for transfer to a higher level of care. I will now watch her fluid balance. She may have a brisk diuresis Sunday need to match her intake and output. I will closely monitor electrolytes. Monitor daily weights. Avoid nephrotoxins. 2. Type 2 diabetes mellitus for which she usually takes metformin at home. We are holding that to avoid further acidosis. She is on sliding scale insulin and has not needed more than 2 units. She received 2 units before lunch yesterday, 1 unit before bedtime last night. This morning she received 1 unit before breakfast, and has received 2 units before dinner. She is not eating very much at this point. At this time I think her glucose is well controlled, and there will be no anthony ges in today's dosing. 3. Excessive nonsteroidal use. So far no evidence of GI bleed. No black tarry stools. Renal failure has been the main problem. 4. Her main concern is peripheral neuropathy. She does not want her legs touch. She refuses SCDs and SERGE hose. As such I will start Lovenox. She has chronic peripheral neuropathy due to diabetes and has been present for years. Over the last few weeks is gotten worse and over the last week it is much, much worse ever since her dog . But on examination there is no discoloration of ischemia. The skin is warm to touch. There is no infection. There is no venous stasis. She will not tolerate us doing venous Dopplers or arterial Dopplers. She may need a nerve conduction velocity testing in the outpatient setting.
[2022-04-12] MEDS: FAMOTIDINE 20 MG TABLET PO SCH (21:00)
[2022-04-12] MEDS: SODIUM CHLORIDE FLUSH 0.9% 10 ML SYRINGE IVP PRN (23:53)
[2022-04-13] MEDS: ACETAMINOPHEN 325 MG TABLET PO PRN ×2 (01:36→18:25)
[2022-04-13] MEDS: oxyCODONE 5 MG TABLET PO PRN ×4 (02:20→20:27)
[2022-04-13] MEDS: HYDROmorphone 1 MG/ML CARPUJECT IVP PRN ×2 (05:02→22:02)
[2022-04-13] MEDS: SODIUM CHLORIDE FLUSH 0.9% 10 ML SYRINGE IVP PRN ×3 (05:02→05:33)
[2022-04-13 05:51] LABS: BASOPHILS % (AUTO) 0.5 %; EOSINOPHILS # (AUTO) 0.4 10^3/uL (0.0-0.7); EOSINOPHILS % (AUTO) 6.2 %; HCT - HEMATOCRIT 33.8 % (37.0-47.0); HGB - HEMOGLOBIN 10.7 g/dL (12.0-16.0); LYMPHOCYTES # (AUTO) 1.4 10^3/uL (1.5-3.5); LYMPHOCYTES % (AUTO) 21.8 %; MEAN CORPUSCULAR HEMOGLOBIN 25.9 pg (27.0-31.0); MEAN CORPUSCULAR HGB CONC 31.7 g/dL (32.0-36.0); MEAN CORPUSCULAR VOLUME 81.8 fL (81.0-99.0); MEAN PLATELET VOLUME 11.2 fL (7.9-10.8); MONOCYTES # (AUTO) 0.7 10^3/uL (0.0-1.0); MONOCYTES % (AUTO) 10.3 %; NEUTROPHILS % (AUTO) 60.6 %; PLT - PLATELET COUNT 227 10^3/uL (130-450); RED BLOOD COUNT 4.13 10^6/uL (4.20-5.40); VBG PH 7.269 (7.31-7.41); WHITE BLOOD COUNT 6.6 x10^3/uL (4.8-10.8)
[2022-04-13 05:52] LABS: CALCIUM, IONIZED 1.18 mmol/L (1.15-1.33)
[2022-04-13 06:03] LABS: MAGNESIUM 1.6 mg/dL (1.7-2.8); PHOSPHORUS 2.5 mg/dL (2.5-4.6)
[2022-04-13] MEDS: CYANOCOBALAMIN 500 MCG TABLET PO SCH (08:11)
[2022-04-13] MEDS: GABAPENTIN 100 MG CAPSULE PO SCH (08:12)
[2022-04-13] MEDS: NYSTATIN POWDER 15 GM TOP SCH ×2 (08:12→20:06)
[2022-04-13] MEDS: CHOLECALCIFEROL 25 MCG TABLET PO SCH (08:12)
[2022-04-13] MEDS: SODIUM CHLORIDE FLUSH 0.9% 10 ML SYRINGE IVP SCH ×2 (08:12→17:11)
[2022-04-13] MEDS: INSULIN LISPRO 300 UNIT/3 ML PEN SUBQ SCH ×4 (08:13→20:08)
[2022-04-13 09:11] LABS: CALCIUM 8.8 mg/dL (8.5-10.3)
[2022-04-13] MEDS ORDERED: MAGNESIUM OXIDE 400 MG TABLET PO SCH ×2 (10:00→10:30)
[2022-04-13] MEDS: SODIUM CHLORIDE 0.9% 1,000 ML IV SCH ×2 (11:01→18:03)
[2022-04-13] MEDS: FAMOTIDINE 20 MG TABLET PO SCH ×2 (11:03→20:05)
[2022-04-13] MEDS: ENOXAPARIN 40 MG/0.4 ML SYRINGE SUBQ SCH (12:11)
[2022-04-13] MEDS: METOPROLOL TARTRATE 25 MG TABLET PO SCH (18:02)
[2022-04-13] MEDS: traMADol 50 MG TABLET PO PRN (20:04)
[2022-04-13] MEDS: GABAPENTIN 300 MG CAPSULE PO PRN (20:06)
--- NOTE | 2022-04-13 20:27 | HISTORY & PHYSICAL EXAMINATION ---
History and Physical - History and Physical April 13, 2022 8:10 PM Yesterday evening I spent about an hour and a half with this patient. While our main concern has been her renal failure that was induced by nonsteroidal therapy, her concern was that of bilateral leg pain. She has a long history of restless leg syndrome. It can keep her up at night. There is no rhyme or reason to why her legs will hurt at night. She will have a very active day and sleeps just fine that night, or have a very slow day and not be able to sleep at all. All of this change when her dog . She also tells me that she was 12 years ago. 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 She then lost her parents 3 weeks apart from 1 another relatively recently. And then her dog a week ago. She felt that with the of her dog something change in her legs. The pain was severe. Intermittent. It sometimes shoots from her hips down the backs of her legs. But this happens mainly at night. Sometimes she felt like the bottom of her feet were painful. She says that she have chronic rubor of the feet. She does no idea why the bottoms of her feet are red but they have been that way for years and years. With the leg pain, there is been no edema. No change in the anatomy of her feet. No change in the anatomy of her legs. There is been no trauma. She has never been told that she has spinal stenosis before. The pain was getting increasingly agonizing to the point that she felt like her legs were going to support her. Everything felt like it hurt and pain would shoot from the bottoms of her feet up her bones into her femur and pelvis. So she started taking Motrin to control the pain. And she was taking up to 20 Motrin a day which then led us to the renal failure. Between yesterday and today, the patient continues to improve with her renal failure. Urine output is significant. Yesterday's 24-hour urine output was 3135 cc. As of the time of this dictation she is put out 2275 from midnight last night to right now. Heart rate has gotten tachycardic this afternoon. She is gone from heart rate in the 80s to the 90s and now she has been consistently between 107 and 111 when I am seeing her again. Daughter is at the bedside. The patient is intermittently tearful. Nursing reports that she will cry out in pain and stated "I just cannot do it, I just cannot do it" when we asked her to sit up in bed or put her feet down. She was very reluctant to work with physical therapy today because of the pain in her legs. Again the pain is not present with palpation, flexion or extension, lifting the legs, it is only prese nt when she tries to stand but not all the time. It is also present when she is laying flat on her back but not all the time. Temperature is 36.5. Blood pressure 188/95. Pulse 111. Respirations 17. 92% on room air. She is an alert, oriented elderly female, moderately overweight at 87 kg, tearful, protesting that "I am not crazy". "I know my legs hurt". Daughter is very reassuring and a quiet calm advocate at the bedside. I reassured the patient that we believe that she hurts, we just do not know why. Last night an hour and a half is spent at the bedside, tonight an hour was spent at the bedside. Neck is supple no JVD Lungs are clear to auscultation and percussion without any increased upper respiratory effort when she speaks to us, or is crying. Tachycardic regular rate and rhythm Abdomen is soft, nontender Extremities: Legs have trace edema around her ankles and shins. The skin has hyperpigmentation of hemosiderin deposits over both shins. The soles of her feet are red. There is no skin breakdown. There is great dorsalis pedis and posterior tibial pulses in both feet. Capillary refill is at 3 seconds. This is of the great toes. There is no venous stasis dermatitis. There is no varicose veins. There is no skin breakdown. She has some onychomycosis of the toenails. Flexion extension at the knee is normal, and she will spontaneously flex and extend at the ankle to show me that she can move her feet. That is not painful. Flexion extension at the hip is normal. Yet when we try and sit her up to be upright at 45 degrees she begins to cry out and say I cannot do it because my legs hurt too much. Labs: Sodium 143, potassium 4, chloride 116, carbon dioxide 18, BUN 62, creatinine 1. When this patient was admitted her BUN was 122. Her creatinine was 4.5 and peaked at 5.0 Urine output is over 100 cc an hour White cell count is 6.6, hemoglobin 10.7. She started at 13.8 on admission, her hematocrit is 33.8. MCV is 81. Platelet count 227 Assessment/plan 1. Acute renal failure attributed to kidney injury from nonsteroidal use. She was taking up to 20 Motrin a day. Admission labs showed metabolic acidosis, severely elevated creatinine, oliguria. She was placed on a bicarb drip and for the first 24 to 48 hours there is minimal movement with regards to urine output or labs. She began improving on April 11 in between then and now she has had more and more urine output per hour. Creatinine has dropped quickly. I had asked for transfer to a higher level of care since at that she is going to need dialysis. But we can cancel that. My suspicion is that she may be developing dehydration or intravascular depletion on the basis of her brisk urine output. Post ATN diuresis. Plan: Increase IV fluids to 100 cc an hour Carefully monitor potassium, and electrolytes 2. Type 2 diabetes mellitus for which she usually takes metformin at home. She is on sliding scale insulin here and rarely needs insulin before meals. P.o. intake is minimal. Nutrition services is working with her to increase p.o. intake. I am not resuming metformin because of worries for lactic acidosis at this time. 3.. Leg pain. I carefully explained to her that her story of her leg pain is not something that I recognize with a specific disease process. I do not think this is restless leg syndrome, this is not arterial ischemia, I do not see venous disease. I initially thought of possible spinal stenosis but her pain is worse laying down, and barely was sitting up. It comes and goes. Pain also is severe when she stands up but she is very vague about where the pain is. She just says it is her legs but cannot really tell me if its shins, muscles, thighs, femur etc. I think that she will have to see outpatient neurology for an opinion. I want to avoid opiates in her. She cannot have any nonsteroidals. She is on gabapentin. I will add tramadol. 4. Hypertension. At home she takes losartan but I hesitate to start it considering she just had disruption to her reading and angiotensin system with the nonsteroidal abuse. I will start metoprolol 25 mg p.o. twice daily to help with the tachycardia and the hypertension. 5. Generalized weakness especially leg weakness with leg pain. Unable to return to home at this time from what I can see. I am having physical therapy and Occupational Therapy work with her but she has been were very reluctant to see them or work with them because of leg pain. I explained that she cannot return to home until she can prove independence. And I am suggesting [facility] facility placement. It is a temporary solution, and she will need to work with PT and OT. She can then return to home.
[2022-04-13] MEDS ORDERED: traZODone 50 MG TABLET PO PRN (22:15)
[2022-04-14] MEDS: SODIUM CHLORIDE FLUSH 0.9% 10 ML SYRINGE IVP SCH ×3 (00:37→17:07)
[2022-04-14] MEDS: oxyCODONE 5 MG TABLET PO PRN ×2 (00:37→08:13)
[2022-04-14] MEDS: ACETAMINOPHEN 325 MG TABLET PO PRN ×4 (00:37→20:50)
[2022-04-14] MEDS: traMADol 50 MG TABLET PO PRN ×4 (01:56→20:49)
[2022-04-14] MEDS: traZODone 50 MG TABLET PO PRN (02:09)
[2022-04-14] MEDS: SODIUM CHLORIDE 0.9% 1,000 ML IV SCH (03:25)
[2022-04-14 04:33] LABS: BASOPHILS % (AUTO) 0.5 %; EOSINOPHILS # (AUTO) 0.4 10^3/uL (0.0-0.7); EOSINOPHILS % (AUTO) 5.8 %; HCT - HEMATOCRIT 34.6 % (37.0-47.0); HGB - HEMOGLOBIN 10.8 g/dL (12.0-16.0); LYMPHOCYTES # (AUTO) 1.8 10^3/uL (1.5-3.5); LYMPHOCYTES % (AUTO) 27.6 %; MEAN CORPUSCULAR HEMOGLOBIN 25.5 pg (27.0-31.0); MEAN CORPUSCULAR HGB CONC 31.2 g/dL (32.0-36.0); MEAN CORPUSCULAR VOLUME 81.8 fL (81.0-99.0); MEAN PLATELET VOLUME 10.9 fL (7.9-10.8); MONOCYTES # (AUTO) 0.6 10^3/uL (0.0-1.0); MONOCYTES % (AUTO) 9.2 %; NEUTROPHILS # (AUTO) 3.7 10^3/uL (1.5-6.6); NEUTROPHILS % (AUTO) 55.7 %; PLT - PLATELET COUNT 211 10^3/uL (130-450); RED BLOOD COUNT 4.23 10^6/uL (4.20-5.40); RED CELL DISTRIBUTION WIDTH 17.4 % (12.0-15.0); WHITE BLOOD COUNT 6.6 x10^3/uL (4.8-10.8)
[2022-04-14 04:54] LABS: MAGNESIUM 1.2 mg/dL (1.7-2.8); PHOSPHORUS 1.5 mg/dL (2.5-4.6); POTASSIUM 3.6 mmol/L (3.5-5.0)
[2022-04-14] MEDS: INSULIN LISPRO 300 UNIT/3 ML PEN SUBQ SCH ×4 (07:39→20:45)
[2022-04-14] MEDS: CHOLECALCIFEROL 25 MCG TABLET PO SCH (08:10)
[2022-04-14 08:11] LABS: CALCIUM 8.8 mg/dL (8.5-10.3); CREATININE 0.7 mg/dL (0.4-1.0); POTASSIUM 3.6 mmol/L (3.5-5.0)
[2022-04-14] MEDS: GABAPENTIN 100 MG CAPSULE PO SCH (08:11)
[2022-04-14] MEDS: ENOXAPARIN 40 MG/0.4 ML SYRINGE SUBQ SCH (08:11)
[2022-04-14] MEDS: CYANOCOBALAMIN 500 MCG TABLET PO SCH (08:11)
[2022-04-14] MEDS: FAMOTIDINE 20 MG TABLET PO SCH ×2 (08:11→20:50)
[2022-04-14] MEDS: METOPROLOL TARTRATE 25 MG TABLET PO SCH ×2 (08:11→20:49)
[2022-04-14] MEDS: NYSTATIN POWDER 15 GM TOP SCH ×2 (08:12→19:40)
[2022-04-14] MEDS ORDERED: POTASSIUM CHLOR 20 MEQ/100 ML 20 MEQ/100 ML BAG IV ONE (08:22)
[2022-04-14] MEDS: polyethylene glycoL 3350 17 GM PACKET PO SCH (08:54)
[2022-04-14] MEDS: MAGNESIUM SULFATE 2 GRAM 2 GM/50 ML BAG IV SCH ×2 (09:10→10:12)
[2022-04-14] MEDS ORDERED: POTASSIUM PHOSPHATE 21 MMOL in SODIUM CHLORIDE 0.9% 250 ML IV ONE (10:00)
--- NOTE | 2022-04-14 15:01 | PROVIDER PROGRESS NOTE ---
Progress Note April 14, 2022 2:37 PM I mistakenly labeled yesterday's note as a history and physical. It is a progress note. Patient is still intermittently tearful. Yesterday when she worked with physical therapy she was crying out with her leg pain. Tearful. Just getting her to sit at the edge of the bed and put her feet on the ground took 15 minutes and she protested the entire time. But she was easily distracted by conversation or something on the television and she would stop crying out and then ask a question normally. When prompted to then move her legs, she began crying out again. In spite of this daunting start, physical therapy again worked with her today. He stated that she was doing better. She was not crying out, and he wonders if some of her discomfort is just from fear. She needed lots of reassurance, lots of prompting today but was able to stand, pivot, transfer. She was able to walk more than she realized in spite of her protesting the entire time. Yesterday's 24 urine output was 2525 cc. As of midnight last night her urine output is 1200 cc. Blood pressure staying stable. This morning she was 159/96, and this afternoon she is 131/81. Pulse is not tachycardic and she is staying at about 83. Active Medications Acetaminophen (Acetaminophen 325 Mg Tablet) 650 mg PO Q4HR PRN PRN Reason: Pain 1 to 4, or Fever Last Admin: 04/14/22 10:13 Dose: 650 mg Cholecalciferol (Cholecalciferol 25 Mcg Tablet) 50 mcg PO DAILY [facility] Last Admin: 04/14/22 08:10 Dose: 50 mcg Cyanocobalamin (Cyanocobalamin 500 Mcg Tablet) 500 mcg PO DAILY [facility] Last Admin: 04/14/22 08:11 Dose: 500 mcg Enoxaparin Sodium (Enoxaparin 40 Mg/0.4 Ml Syringe) 40 mg SUBQ DAILY [facility] Last Admin: 04/14/22 08:11 Dose: 40 mg Famotidine (Famotidine 20 Mg Tablet) 20 mg PO BID [facility] Last Admin: 04/14/22 08:11 Dose: 20 mg Gabapentin (Gabapentin 300 Mg Capsule) 300 mg PO QPM PRN PRN Reason: PER PHYSICIAN ORDER Last Admin: 04/13/22 20:06 Dose: 300 mg Gabapentin (Gabapentin 100 Mg Capsule) 100 mg PO DAILY [facility] Last Admin: 04/14/22 08:11 Dose: 100 mg Hydromorphone HCl (Hydromorphone 1 Mg/Ml Carpuject) 1 mg IVP Q4HR PRN PRN Reason: PAIN >8 Last Admin: 04/13/22 22:02 Dose: 1 mg Dextrose/Sodium Chloride (D5.45ns) 1,000 mls @ 125 mls/hr IV .Q8H [facility] Insulin Human Lispro (Insulin Lispro 300 Unit/3 Ml Pen) 1 - 5 unit SUBQ 0800,1200,1700,2100 [facility]; Protocol Last Admin: 04/14/22 12:06 Dose: 2 unit Metoprolol Tartrate (Metoprolol Tartrate 25 Mg Tablet) 25 mg PO BID [facility] Last Admin: 04/14/22 08:11 Dose: 25 mg Multi-Ingredient Ointment (Zinc Oxide 20% Oint 30 Gm Tube) 1 applic TOP PRN PRN PRN Reason: Skin Care Last Admin: 04/12/22 11:27 Dose: 1 applic Nystatin (Nystatin Powder 15 Gm) 1 applic TOP BID [facility] Last Admin: 04/14/22 08:12 Dose: 1 applic Ondansetron HCl (Ondansetron 4 Mg/2 Ml Vial) 4 mg IVP Q6HR PRN PRN Reason: Nausea / Vomiting Oxycodone HCl (Oxycodone 5 Mg Tablet) 5 mg PO Q4HR PRN PRN Reason: Pain 8 to 10 Last Admin: 04/14/22 08:13 Dose: 5 mg Polyethylene Glycol (Polyethylene Glycol 3350 17 Gm Packet) 17 gm PO DAILY [facility] Last Admin: 04/14/22 08:54 Dose: 17 gm Sodium Chloride (Sodium Chloride Flush 0.9% 10 Ml Syringe) 10 ml IVP 0100,0900,1700 [facility] Last Admin: 04/14/22 08:13 Dose: 10 ml Sodium Chloride (Sodium Chloride Flush 0.9% 10 Ml Syringe) 10 ml IVP PRN PRN PRN Reason: NEEDED PER PROVIDER ORDERS Last Admin: 04/13/22 05:33 Dose: 10 ml Sodium Chloride (Sodium Chloride Flush 0.9% 10 Ml Syringe) 20 ml IVP PRN PRN PRN Reason: After Blood Draw Last Admin: 04/13/22 05:33 Dose: 20 ml Tramadol HCl (Tramadol 50 Mg Tablet) 50 mg PO Q4HR PRN PRN Reason: PAIN Last Admin: 04/14/22 11:01 Dose: 50 mg Trazodone HCl (Trazodone 50 Mg Tablet) 100 mg PO QPM PRN PRN Reason: Insomnia Last Admin: 04/14/22 02:09 Dose: 100 mg Home Meds; Losartan Potassium 50 mg PO DAILY 09/13/19 Atorvastatin Calcium 40 mg PO DAILY 06/01/20 Glipizide [Glipizide Xl] 5 mg PO DAILY 04/11/22 buPROPion HCL [Bupropion Xl] 150 mg PO QPM 04/11/22 Exam: Temperature is 36.7. Heart rate 83. Blood pressure 131/81. Respirations 19. 99% on room air. Weight on admission was possibly 99 kg. Then recorded at 88 kg on the same day. Today she is 89 kg. Yesterday she was 87 kg. Fearful, alert, oriented elderly female at 5 foot 6 inches tall. Neck is supple without JVD Lungs are clear to auscultation without tachypnea, pursed lip breathing, or increased respiratory effort with speaking or moving Regular rate and rhythm. Telemetry showed sinus. Abdomen is soft, nontender, normal bowel sounds. Last bowel movement was April 12. Guidry is draining clear yellow urine. Extremities are stated as very weak but she is able to move them, lift her leg, flex extend at the knee and flex extend at the ankle. Edema has improved daily. I did not meet this patient on admission. I took on her care the day after admission. Nursing reports that her legs were quite swollen, and violaceous. What I am seeing is very improved legs, almost no edema today. She has excellent foot pulses of dorsalis pedis and posterior tibial. Capillary refill is still at 3 to 4 seconds of the great toe. Skin is warm, dry. There are no open wounds or oozing. Sodium 145. Potassium 3.6. Chloride is rising. Yesterday she was 116 and today she is 119. BUN 30, creatinine 0.7. Glucose 151, 137, and 197 today. White cell count normal at 6.6. Hemoglobin 10.8. On admission hemoglobin was 13.8. Hematocrit 34.6. On admission she was 44.9. Platelets 211. Assessment/plan 1. Acute renal failure attributed to kidney injury from nonsteroidal use. This has resolved. Now we are in the post ATN phase of aggressive diuresis and I am worried about negative fluid balance. I increased her IV fluids to 100 cc an hour yesterday from 80 cc an hour. She was on a bicarb drip and that was discontinued. I have canceled my request to transfer to a higher level of care. Plan: IV fluids of normal saline at 100 cc an hour . I am still continue to monitor potassium and electrolytes and supplementing as needed. I am watching her developed hyperchloremia and this may be from normal saline. Sodium was 133 on admission and is 145 today. Change IV fluids to D5 half-normal saline at 100 cc an hour. Continue to watch glucose on this. Consider discontinuing Guidry. 2. Type 2 diabetes mellitus, controlled, with complication of peripheral neuropathy. Not on long-term insulin. At home she takes glyburide and metformin. I am not resuming those. She is on sliding scale insulin here with good control.Now that I am changing her to D5 half-normal saline, will continue to monitor and make sure she does not destabilize her control with my IV fluids. She is eating 100% of her food today. 3. Leg pain. Unusual history. She can sometimes be distracted from it. Not linked by her history to specific ischemia, or DVT, or rhabdo, or spinal stenosis, or radiculopathy. She does have a long history of restless leg syndrome but she feels this is not the same thing. I am continuing to use gabapentin even though she feels it gives her nightmares. That was in the past. I am avoiding opioids. Tramadol seems to be helping. I added tramadol yesterday. I have explained that she will need to get outpatient referral to a neurologist to get an opinion regarding this. Case discussed with Physical therapy and we feels that she will need strengthening and endurance exercises to get her home safely. We have reached out to her insurance company and [place] has approved transition to a SNF but we now need to find 1. 4. Hypertension. Metoprolol 25 mg p.o. twice daily started yesterday. She is usually on losartan but I am avoiding that right now. I want to wait until urine output is normal and I don't hve to worry about RAAS. Pulse has come down from 111 as of yesterday and has been in the 80s today. Sometimes as low as 74. Blood pressure was as high as 180/89 yesterday. Today she is 131/81. 5. Generalized weakness. Her leg pain has been complicated by this. These are the 2 things that brought her into the hospital in the first place. We became concerned about her renal failure but this entire time she has been very fixated on her leg pain. There appears to be some psychological overlay but I do not want to diminish her complaints of pain. She needs a lot of prompting to work with physical therapy, and she has been accepted to [facility]. I am hoping that she will get strong enough then be able to return to home.
[2022-04-14] MEDS: DEXTROSE 5%-0.45% NACL 1,000 ML IV SCH ×2 (15:34→23:42)
[2022-04-14 17:20] LABS: MAGNESIUM 1.6 mg/dL (1.7-2.8); PHOSPHORUS 1.9 mg/dL (2.5-4.6); POTASSIUM 3.9 mmol/L (3.5-5.0)
[2022-04-14] MEDS ORDERED: POTASSIUM CHLORIDE 20 MEQ TABLET PO ONE (17:22)
[2022-04-14] MEDS: NEUTRA-PHOS 250 MG TABLET PO SCH ×2 (19:22→20:44)
[2022-04-14] MEDS: MAGNESIUM OXIDE 400 MG TABLET PO SCH ×2 (19:22→23:44)
[2022-04-14] MEDS: ZINC OXIDE 20% OINT 30 GM TUBE TOP PRN (19:43)
[2022-04-15] MEDS: SODIUM CHLORIDE FLUSH 0.9% 10 ML SYRINGE IVP SCH ×3 (00:42→17:17)
[2022-04-15] MEDS: traZODone 50 MG TABLET PO PRN ×2 (01:41→21:00)
[2022-04-15] MEDS: traMADol 50 MG TABLET PO PRN ×4 (01:41→22:02)
[2022-04-15] MEDS: ACETAMINOPHEN 325 MG TABLET PO PRN ×2 (04:43→16:42)
[2022-04-15] MEDS: oxyCODONE 5 MG TABLET PO PRN ×2 (04:44→20:59)
[2022-04-15 05:00] LABS: BASOPHILS % (AUTO) 0.3 %; EOSINOPHILS # (AUTO) 0.4 10^3/uL (0.0-0.7); HGB - HEMOGLOBIN 10.3 g/dL (12.0-16.0); LYMPHOCYTES # (AUTO) 1.5 10^3/uL (1.5-3.5); LYMPHOCYTES % (AUTO) 20.1 %; MEAN CORPUSCULAR HEMOGLOBIN 25.4 pg (27.0-31.0); MEAN CORPUSCULAR HGB CONC 31.2 g/dL (32.0-36.0); MEAN CORPUSCULAR VOLUME 81.5 fL (81.0-99.0); MEAN PLATELET VOLUME 10.8 fL (7.9-10.8); MONOCYTES # (AUTO) 0.7 10^3/uL (0.0-1.0); MONOCYTES % (AUTO) 9.3 %; NEUTROPHILS # (AUTO) 4.8 10^3/uL (1.5-6.6); NEUTROPHILS % (AUTO) 63.7 %; PLT - PLATELET COUNT 197 10^3/uL (130-450); RED BLOOD COUNT 4.05 10^6/uL (4.20-5.40); RED CELL DISTRIBUTION WIDTH 17.2 % (12.0-15.0); WHITE BLOOD COUNT 7.6 x10^3/uL (4.8-10.8)
[2022-04-15 05:15] LABS: CALCIUM 8.2 mg/dL (8.5-10.3); CREATININE 0.5 mg/dL (0.4-1.0)
[2022-04-15] MEDS: ENOXAPARIN 40 MG/0.4 ML SYRINGE SUBQ SCH (08:52)
[2022-04-15] MEDS: FAMOTIDINE 20 MG TABLET PO SCH ×2 (08:52→20:59)
[2022-04-15] MEDS: CYANOCOBALAMIN 500 MCG TABLET PO SCH (08:53)
[2022-04-15] MEDS: GABAPENTIN 100 MG CAPSULE PO SCH (08:53)
[2022-04-15] MEDS: CHOLECALCIFEROL 25 MCG TABLET PO SCH (08:53)
[2022-04-15] MEDS: METOPROLOL TARTRATE 25 MG TABLET PO SCH ×2 (08:55→20:59)
[2022-04-15] MEDS: polyethylene glycoL 3350 17 GM PACKET PO SCH (08:56)
[2022-04-15] MEDS: INSULIN LISPRO 300 UNIT/3 ML PEN SUBQ SCH ×4 (08:57→21:01)
[2022-04-15] MEDS: NYSTATIN POWDER 15 GM TOP SCH ×2 (08:57→21:01)
[2022-04-15] MEDS: DEXTROSE 5%-0.45% NACL 1,000 ML IV SCH ×2 (09:03→17:17)
--- NOTE | 2022-04-15 19:19 | PROVIDER PROGRESS NOTE ---
Progress Note April 15, 2022 7:15 PM On Med surg now. Out of ICU since 04/14. She requires a lot of prompting from nursing but she does get up. She is constantly stating "I cannot, I cannot". But she does it. She is walking in the room. Urine output was recorded as 1950 cc. Then the Guidry was pulled. Her fluid balance overall was positive yesterday. Today she is 300 cc urination and is +2130 cc. Weight was 89 kg yesterday, and was 90 kg today. Temperature is 36.3. Heart rate 72. Blood pressure 157/72. Respirations 17. 95% on room air Tearful but alert and oriented elderly female. She knows where she is, why she is here. Neck is supple no JVD Lungs have diminished breath sounds at the bases but they are clear. Tachypnea is only with trying to get up and getting agitated and then settles down. Regular rate and rhythm Abdomen is obese, soft, large pannus, nontender. Normal bowel sounds. Bowel movement today. Extremities are without any edema. She is lost quite a bit of fluid weight, and the skin is shrunken around her ankles and calves. Labs: Sodium 139, potassium 4, BUN 18, creatinine 0.5. Fasting glucose 216. White cell count 7.6. Hemoglobin 10.3. Hematocrit 33. Platelet 197 Assessment/plan 1. Acute renal failure attributed to kidney injury from nonsteroidal use. Her acute renal had resolved. I was worried about post ATN phase of aggressive urine output. I had increased her NS IV fluids to 100 cc an hour from 80 cc an hour on April 13. She had a rising sodium and elevated chloride with that. So I changed NS to D5.45 on 04/14. She now has diminished urine output, has gained a kilo of weight. Sodium went from 145 to 139 today. And hyperchlore stanley of 119 has come down to normal of 109. Brea has been dc'd since 04/14. Plan: Stop IV fluids Encourage oral intake of fluids. I am still continue to monitor potassium and electrolytes and supplementing as needed. 2. Type 2 diabetes mellitus, controlled, with complication of peripheral neuropathy. Not on long-term insulin. At home she takes glyburide and metformin. I am not resuming those. She is on sliding scale insulin here with good control. Glucose did go up a bit with the D5 half-normal saline. She was 210, 209, 192 today. She is eating 100% of her food today. Since I have stopped the D5 half-normal saline, I anticipate her glucose will go down again tomorrow. I will not make any changes in her sliding scale insulin. 3. Leg pain. Unusual history. She can sometimes be distracted from it. Not linked by her history to specific ischemia, or DVT, or rhabdo, or spinal stenosis, or radiculopathy. She does have a long history of restless leg syndrome but she feels this is not the same thing. I have started gabapentin on her even though it gives her nightmares. I am avoiding opioids. Tramadol was added April 13 and seems to be working. I am recommending that she get an outpatient neurology referral regarding this pain. Case discussed with Physical therapy and we feels that she will need strengthening and endurance exercises to get her home safely. We have reached out to her insurance company and [place] has approved transition to a SNF but we now need to find a SNf. We do not have physical therapy on the weekends. She was seen yesterday. I have asked nursing to please encourage her by getting her up out of bed and walking in the room. The patient protest the whole time because of leg pain but she is doing it. 4. Hypertension. Metoprolol 25 mg p.o. twice daily started 04/13. She is usually on losartan but I am avoiding that right now. I want to wait until urine output is normal and I don't have to worry about RAAS. Pulse is between 70 to and as high as 94. Blood pressure today has been consistently 153, 157, 154 I will increase metoprolol to 50 mg twice a day 5. Generalized weakness. Her leg pain has been complicated by this. These are the 2 things that brought her into the hospital in the first place. We became concerned about her renal failure but this entire time she has been very fixated on her leg pain. There appears to be some psychological overlay but I do not want to diminish her complaints of pain. She needs a lot of prompting to work with physical therapy, and [facility]. I am hoping that she will get strong enough then be able to return to home.
[2022-04-15] MEDS: buPROPion XL 150 MG TABLET PO SCH (20:59)
[2022-04-15] MEDS: ATORVASTATIN 40 MG TABLET PO SCH (20:59)
[2022-04-15] MEDS: MUPIROCIN 2% OINT 1 GM NAS SCH (21:01)
[2022-04-16] MEDS: DEXTROSE 5%-0.45% NACL 1,000 ML IV SCH (01:00)
[2022-04-16] MEDS: SODIUM CHLORIDE FLUSH 0.9% 10 ML SYRINGE IVP SCH ×3 (01:01→17:26)
[2022-04-16] MEDS: SODIUM CHLORIDE FLUSH 0.9% 10 ML SYRINGE IVP PRN ×2 (05:04)
[2022-04-16] MEDS: traMADol 50 MG TABLET PO PRN ×3 (05:07→17:25)
[2022-04-16 05:39] LABS: BASOPHILS % (AUTO) 0.4 %; EOSINOPHILS # (AUTO) 0.4 10^3/uL (0.0-0.7); EOSINOPHILS % (AUTO) 3.8 %; HCT - HEMATOCRIT 34.2 % (37.0-47.0); HGB - HEMOGLOBIN 10.7 g/dL (12.0-16.0); LYMPHOCYTES # (AUTO) 1.7 10^3/uL (1.5-3.5); LYMPHOCYTES % (AUTO) 17.7 %; MEAN CORPUSCULAR HEMOGLOBIN 25.8 pg (27.0-31.0); MEAN CORPUSCULAR HGB CONC 31.3 g/dL (32.0-36.0); MEAN CORPUSCULAR VOLUME 82.6 fL (81.0-99.0); MEAN PLATELET VOLUME 11.5 fL (7.9-10.8); MONOCYTES # (AUTO) 0.7 10^3/uL (0.0-1.0); MONOCYTES % (AUTO) 7.1 %; NEUTROPHILS # (AUTO) 6.8 10^3/uL (1.5-6.6); PLT - PLATELET COUNT 193 10^3/uL (130-450); RED BLOOD COUNT 4.14 10^6/uL (4.20-5.40); RED CELL DISTRIBUTION WIDTH 17.3 % (12.0-15.0); WHITE BLOOD COUNT 9.9 x10^3/uL (4.8-10.8)
[2022-04-16 05:45] LABS: CALCIUM 8.4 mg/dL (8.5-10.3); CREATININE 0.6 mg/dL (0.4-1.0); POTASSIUM 3.6 mmol/L (3.5-5.0)
[2022-04-16] MEDS: MUPIROCIN 2% OINT 1 GM NAS SCH ×2 (10:15→21:17)
[2022-04-16] MEDS: INSULIN LISPRO 300 UNIT/3 ML PEN SUBQ SCH ×4 (10:15→21:17)
[2022-04-16] MEDS: GABAPENTIN 100 MG CAPSULE PO SCH (10:16)
[2022-04-16] MEDS: CHOLECALCIFEROL 25 MCG TABLET PO SCH (10:16)
[2022-04-16] MEDS: CYANOCOBALAMIN 500 MCG TABLET PO SCH (10:16)
[2022-04-16] MEDS: FAMOTIDINE 20 MG TABLET PO SCH ×2 (10:16→21:06)
[2022-04-16] MEDS: METOPROLOL TARTRATE 25 MG TABLET PO SCH (10:17)
[2022-04-16] MEDS: ENOXAPARIN 40 MG/0.4 ML SYRINGE SUBQ SCH (10:18)
[2022-04-16] MEDS: NYSTATIN POWDER 15 GM TOP SCH ×2 (10:18→21:17)
[2022-04-16] MEDS: polyethylene glycoL 3350 17 GM PACKET PO SCH (10:23)
[2022-04-16] MEDS: ACETAMINOPHEN 325 MG TABLET PO PRN ×2 (13:44→18:57)
--- NOTE | 2022-04-16 15:14 | PROVIDER PROGRESS NOTE ---
Progress Note 05/14/2022 3:08 PM Out of ICU since April 14. Still requiring a lot of coaxing and prompting from nursing to get her out of bed but she is doing it. She is very proud of herself today. Says she got up for breakfast and went back to bed. Got up to lunch and went to the bathroom and has been sitting in her chair for a couple of hours. She says she will lay down for an hour or so and then get back up for dinner. She just feels like her legs do not want to support her. The pain has improved. The pain was described as this lancinating fleeting pain that went up and down her legs. It is it is different from her restless leg discomfort. I have her on gabapentin and tramadol. Now she wonders if there is anything I can give her for the restless leg. She says it really keeps her up at night. At home she really does not do anything for restless leg syndrome. Her urine output has gradually gone down. On April 12 she was 3100 cc. On April 13 she was 2500 cc. On the she was 1950 cc. Yesterday 300 cc. No urine output recorded today because she is getting up to go to the bathroom. Eating 25 to 100% of her meals depending on what is on the tray. Active Medications Acetaminophen (Acetaminophen 325 Mg Tablet) 650 mg PO Q4HR PRN PRN Reason: Pain 1 to 4, or Fever Last Admin: 04/16/22 13:44 Dose: 650 mg Atorvastatin Calcium (Atorvastatin 40 Mg Tablet) 40 mg PO QPM REPLACED BY [facility] Last Admin: 04/15/22 20:59 Dose: 40 mg Bupropion HCl (Bupropion Xl 150 Mg Tablet) 150 mg PO QPM REPLACED BY [facility] Last Admin: 04/15/22 20:59 Dose: 150 mg Cholecalciferol (Cholecalciferol 25 Mcg Tablet) 50 mcg PO DAILY [facility]PL[facility]ED [facility] Last Admin: 04/16/22 10:16 Dose: 50 mcg Cyanocobalamin (Cyanocobalamin 500 Mcg Tablet) 500 mcg PO DAILY [facility]PL[facility] Last Admin: 04/16/22 10:16 Dose: 500 mcg Enoxaparin Sodium (Enoxaparin 40 Mg/0.4 Ml Syringe) 40 mg SUBQ DAILY [facility] Last Admin: 04/16/22 10:18 Dose: 40 mg Famotidine (Famotidine 20 Mg Tablet) 20 mg PO BID [facility]PL[facility] Last Admin: 04/16/22 10:16 Dose: 20 mg Gabapentin (Gabapentin 300 Mg Capsule) 300 mg PO QPM PRN PRN Reason: PER PHYSICIAN ORDER Last Admin: 04/13/22 20:06 Dose: 300 mg Gabapentin (Gabapentin 100 Mg Capsule) 100 mg PO DAILY [facility] Last Admin: 04/16/22 10:16 Dose: 100 mg Hydromorphone HCl (Hydromorphone 1 Mg/Ml Carpuject) 1 mg IVP Q4HR PRN PRN Reason: PAIN >8 Last Admin: 04/13/22 22:02 Dose: 1 mg Insulin Human Lispro (Insulin Lispro 300 Unit/3 Ml Pen) 1 - 9 unit SUBQ 0800,1200,1700,2100 REPLACED [facility]; Protocol Last Admin: 04/16/22 12:23 Dose: 3 unit Metoprolol Tartrate (Metoprolol Tartrate 25 Mg Tablet) 50 mg PO BID [facility]PL[facility] Last Admin: 04/16/22 10:17 Dose: 50 mg Multi-Ingredient Ointment (Zinc Oxide 20% Oint 30 Gm Tube) 1 applic TOP PRN PRN PRN Reason: Skin Care Last Admin: 04/14/22 19:43 Dose: 1 applic Mupirocin (Mupirocin 2% Oint 1 Gm) 1 applic FILIPPO BID REPLACED BY [facility] Stop: 04/22/22 09:01 Last Admin: 04/16/22 10:15 Dose: 1 applic Nystatin (Nystatin Powder 15 Gm) 1 applic TOP BID REPLACED BY [facility] Last Admin: 04/16/22 10:18 Dose: 1 applic Ondansetron HCl (Ondansetron 4 Mg/2 Ml Vial) 4 mg IVP Q6HR PRN PRN Reason: Nausea / Vomiting Oxycodone HCl (Oxycodone 5 Mg Tablet) 5 mg PO Q4HR PRN PRN Reason: Pain 8 to 10 Last Admin: 04/15/22 20:59 Dose: 5 mg Polyethylene Glycol (Polyethylene Glycol 3350 17 Gm Packet) 17 gm PO DAILY REPL[facility]ED [facility] Last Admin: 04/16/22 10:23 Dose: Not Given Sodium Chloride (Sodium Chloride Flush 0.9% 10 Ml Syringe) 10 ml IVP 0100,0900,1700 REPLACED BY [facility] Last Admin: 04/16/22 10:19 Dose: 10 ml Sodium Chloride (Sodium Chloride Flush 0.9% 10 Ml Syringe) 10 ml IVP PRN PRN PRN Reason: NEEDED PER PROVIDER ORDERS Last Admin: 04/16/22 05:04 Dose: 10 ml Sodium Chloride (Sodium Chloride Flush 0.9% 10 Ml Syringe) 20 ml IVP PRN PRN PRN Reason: After Blood Draw Last Admin: 04/16/22 05:04 Dose: 20 ml Tramadol HCl (Tramadol 50 Mg Tablet) 50 mg PO Q4HR PRN PRN Reason: PAIN Last Admin: 04/16/22 10:33 Dose: 50 mg Trazodone HCl (Trazodone 50 Mg Tablet) 100 mg PO QPM PRN PRN Reason: Insomnia Last Admin: 04/15/22 21:00 Dose: 100 mg Home Meds: Losartan Potassium 50 mg PO DAILY 09/13/19 Atorvastatin Calcium 40 mg PO DAILY 06/01/20 Glipizide [Glipizide Xl] 5 mg PO DAILY 04/11/22 buPROPion HCL [Bupropion Xl] 150 mg PO QPM 04/11/22 Exam: Temperature 36.4. Heart rate 78. Blood pressure 162/88. Respirations 20. 97 on room air. Morbidly obese pleasant female. Today is the most alert and interactive I have seen her. She still perseverates on how her pain started, what brought her into the hospital. It is almost if she does not remember that she has told us this history every day. Neck is supple Lungs are clear to auscultation and percussion without crackles rhonchi wheezing or increased respiratory effort Regular rate and rhythm Obese abdomen, soft, nontender, normal bowel sounds. Bowel movement was yesterday. Her extremities have continued to improve on a daily basis. Her legs were described as purplish and severely edematous when she was admitted. When I saw her they were with rubor of the feet, and edematous. As I have taken care of her her legs are gradually shrunk down to no edema whatsoever. She can plantar and dorsiflex at the ankles without any issue. Bend and extend at the knee without any issue. I palpate the calves, hamstrings and thighs without any issue. And the pain will come and go whether she is standing, sitting, laying down or being palpated. Pain is nebulous, does not appear to be any specific muscle group or specific part of her leg just coming down her leg. Alert, oriented to person place and time. Daughter is in the room with her and very supportive. Lab: Sodium 140, potassium 3.6, BUN 11, creatinine 0.6. Glucose today has been 219, 232, 185 White cell count 9.9, hemoglobin 10.7, hematocrit 34.2. Her hemoglobin is stayed in the same range since April 13. When she was admitted she was 13.8. Assessment/plan 1. Acute renal failure attributed to kidney injury from nonsteroidal use. Resolved since 04/13. I was worried about post ATN phase of aggressive urine output. I had increased her NS IV fluids to 100 cc an hour from 80 cc an hour on April 13. She had a rising sodium and elevated chloride with that. So I changed NS to D5.45 on 04/14. She now has diminished urine output, has gained a kilo of weight. I noticed that her sodium and chloride were going up on normal saline so I changed to D5. She responded by having normal sodium and chloride. Guidry has been dc'd since 04/14. IV fluids were stopped April 15. Stable 90 kg on the and . She was 87 kg on the . Plan: I continue to encourage oral intake of fluids. I am still continue to monitor potassium and electrolytes and supplementing as needed. 2. Type 2 diabetes mellitus, controlled, with complication of peripheral neuropathy. Not on long-term insulin. At home she takes glyburide and metformin. I am not resuming those. She is on sliding scale insulin here with good control. Glucose did go up a bit with the D5 half-normal saline. Her glucose had gone up with a D5 normal saline drip. She has good dietary intake. After stopping the D5, her glucose has not come back down. I will add a sliding scale to go from low to moderate. 3. Leg pain. Unusual history. She can sometimes be distracted from it. Not linked by her history to specific ischemia, or DVT, or rhabdo, or spinal stenosis, or radiculopathy. She does have a long history of restless leg syndrome but she feels this is not the same thing. I have started gabapentin on her even though it gives her nightmares. I am avoiding opioids. Tramadol was added April 13 and seems to be working. I am recommending that she get an outpatient neurology referral regarding this pain. Case discussed with Physical therapy and we feels that she will need strengthening and endurance exercises to get her home safely. We have reached out to her insurance company and [place] has approved transition to a SNF but we now need to find a SNf. We do not have physical therapy on the weekends. Nursing is successfully getting her up out of bed and into chair. Walking in room. Patient still protest because she feels like her legs are weak. Plan: Ropinirole 0.25 mg p.o. every afternoon to be started tonight. 4. Hypertension. Metoprolol 25 mg p.o. twice daily started 04/13. She is usually on losartan but I am avoiding that right now. I want to wait until urine output is normal and I don't have to worry about RAAS. With increasing metoprolol To 50 mg p.o. twice daily yesterday, pulse is is 77, 78. Blood pressure still high at 156, 162, 167 systolic. Urine output appears to be diminished but her oral intake is stable. BUN and creatinine have been very good for several days. I will resume her home losartan 50 mg daily 5. Generalized weakness. Her leg pain has been complicated by this. These are the 2 things that brought her into the hospital in the first place. We became concerned about her renal failure but this entire time she has been very fixated on her leg pain. There appears to be some psychological overlay but I do not want to diminish her complaints of pain. She needs a lot of prompting to work with physical therapy, and [facility]. I am hoping that she will get strong enough then be able to return to home.
[2022-04-16] MEDS: LOSARTAN 50 MG TABLET PO SCH (17:25)
[2022-04-16] MEDS ORDERED: rOPINIRole 0.25 MG TABLET PO SCH (21:00)
[2022-04-16] MEDS: buPROPion XL 150 MG TABLET PO SCH (21:06)
[2022-04-16] MEDS: METOPROLOL TARTRATE 50 MG TABLET PO SCH (21:07)
[2022-04-16] MEDS: ATORVASTATIN 40 MG TABLET PO SCH (21:09)
[2022-04-17] MEDS: SODIUM CHLORIDE FLUSH 0.9% 10 ML SYRINGE IVP SCH ×3 (00:57→17:10)
[2022-04-17] MEDS: traMADol 50 MG TABLET PO PRN ×4 (00:57→19:45)
[2022-04-17] MEDS: HYDROmorphone 1 MG/ML CARPUJECT IVP PRN ×2 (01:05→05:48)
[2022-04-17] MEDS: SODIUM CHLORIDE FLUSH 0.9% 10 ML SYRINGE IVP PRN ×2 (01:06→09:09)
[2022-04-17] MEDS: ACETAMINOPHEN 325 MG TABLET PO PRN ×2 (05:54→11:43)
[2022-04-17 06:19] LABS: BASOPHILS % (AUTO) 0.3 %; EOSINOPHILS # (AUTO) 0.3 10^3/uL (0.0-0.7); EOSINOPHILS % (AUTO) 2.7 %; HCT - HEMATOCRIT 33.5 % (37.0-47.0); HGB - HEMOGLOBIN 10.4 g/dL (12.0-16.0); LYMPHOCYTES # (AUTO) 1.5 10^3/uL (1.5-3.5); LYMPHOCYTES % (AUTO) 13.9 %; MEAN CORPUSCULAR HEMOGLOBIN 25.5 pg (27.0-31.0); MEAN CORPUSCULAR VOLUME 82.1 fL (81.0-99.0); MEAN PLATELET VOLUME 11.1 fL (7.9-10.8); MONOCYTES # (AUTO) 0.8 10^3/uL (0.0-1.0); MONOCYTES % (AUTO) 7.4 %; NEUTROPHILS % (AUTO) 74.3 %; PLT - PLATELET COUNT 187 10^3/uL (130-450); RED BLOOD COUNT 4.08 10^6/uL (4.20-5.40); RED CELL DISTRIBUTION WIDTH 16.8 % (12.0-15.0); WHITE BLOOD COUNT 10.7 x10^3/uL (4.8-10.8)
[2022-04-17 06:26] LABS: CREATININE 0.6 mg/dL (0.4-1.0); POTASSIUM 3.3 mmol/L (3.5-5.0)
[2022-04-17] MEDS: MUPIROCIN 2% OINT 1 GM NAS SCH ×2 (08:54→21:16)
[2022-04-17] MEDS: NYSTATIN POWDER 15 GM TOP SCH ×2 (08:54→21:16)
[2022-04-17] MEDS: FAMOTIDINE 20 MG TABLET PO SCH ×2 (08:57→21:13)
[2022-04-17] MEDS: INSULIN LISPRO 300 UNIT/3 ML PEN SUBQ SCH ×4 (08:57→21:16)
[2022-04-17] MEDS: ENOXAPARIN 40 MG/0.4 ML SYRINGE SUBQ SCH (08:57)
[2022-04-17] MEDS: GABAPENTIN 100 MG CAPSULE PO SCH (08:58)
[2022-04-17] MEDS: CHOLECALCIFEROL 25 MCG TABLET PO SCH (08:58)
[2022-04-17] MEDS: METOPROLOL TARTRATE 50 MG TABLET PO SCH ×2 (08:58→21:13)
[2022-04-17] MEDS: CYANOCOBALAMIN 500 MCG TABLET PO SCH (08:58)
[2022-04-17] MEDS: LOSARTAN 50 MG TABLET PO SCH (08:59)
[2022-04-17] MEDS: polyethylene glycoL 3350 17 GM PACKET PO SCH (08:59)
--- NOTE | 2022-04-17 18:12 | PROVIDER PROGRESS NOTE ---
Subjective - Prog Note Date Prog Note Date: 04/17/22 Prog Note Time: 19:25 - Subjective Subjective: She really does not report that she is improved. I try and point out to her that in spite of her feeling like she is not making any ground, she has. She is now ambulating. She is eating. She still states that her legs feel weak. Not so much pain but weakness. Last night's restless leg syndrome medication helped but she still woke up at 2 in the morning with it. Current Medications - Current Medications Current Medications: Active Medications Generic Name Dose Route Start Last Admin Trade Name Freq PRN Reason Stop Dose Admin Acetaminophen 650 mg 04/10/22 16:40 04/17/22 11:43 Acetaminophen 325 Mg Tablet PO 650 mg Q4HR PRN Administration Pain 1 to 4, or Fever Atorvastatin Calcium 40 mg 04/15/22 21:00 04/16/22 21:09 Atorvastatin 40 Mg Tablet PO 40 mg QPM JOSE Administration Bupropion HCl 150 mg 04/15/22 21:00 04/16/22 21:06 Bupropion Xl 150 Mg Tablet PO 150 mg QPM JOSE Administration Cholecalciferol 50 mcg 04/13/22 09:00 04/17/22 08:58 Cholecalciferol 25 Mcg Tablet PO 50 mcg DAILY JOSE Administration Cyanocobalamin 500 mcg 04/11/22 13:00 04/17/22 08:58 Cyanocobalamin 500 Mcg Tablet PO 500 mcg DAILY JOSE Administration Enoxaparin Sodium 40 mg 04/13/22 12:00 04/17/22 08:57 Enoxaparin 40 Mg/0.4 Ml Syringe SUBQ 40 mg DAILY JOSE Administration Famotidine 20 mg 04/13/22 10:00 04/17/22 08:57 Famotidine 20 Mg Tablet PO 20 mg BID JOSE Administration Gabapentin 300 mg 04/10/22 16:48 04/13/22 20:06 Gabapentin 300 Mg Capsule PO 300 mg QPM PRN Administration PER PHYSICIAN ORDER Gabapentin 100 mg 04/13/22 09:00 04/17/22 08:58 Gabapentin 100 Mg Capsule PO 100 mg DAILY JOSE Administration Heparin Sodium (Beef Lung) 30 - 50 unit 04/16/22 15:42 04/17/22 09:08 Heparin Flush 50 Units/5 Ml Syringe IVP 30 unit PRN PRN Administration Port Protocol (<24 hours) Insulin Human Lispro 1 - 9 unit 04/15/22 17:00 04/17/22 17:10 Insulin Lispro 300 Unit/3 Ml Pen SUBQ 1 unit 0800,1200,1700,2100 [facility] Administration Protocol Losartan Potassium 50 mg 04/16/22 15:30 04/17/22 08:59 Losartan 50 Mg Tablet PO 50 mg DAILY JOSE Administration Metoprolol Tartrate 50 mg 04/16/22 21:00 04/17/22 08:58 Metoprolol Tartrate 50 Mg Tablet PO 50 mg BID JOSE Administration Multi-Ingredient Ointment 1 applic 04/12/22 10:24 04/14/22 19:43 Zinc Oxide 20% Oint 30 Gm Tube TOP 1 applic PRN PRN Administration Skin Care Mupirocin 1 applic 04/15/22 21:00 04/17/22 08:54 Mupirocin 2% Oint 1 Gm FILIPPO 04/22/22 09:01 Not Given BID JOSE Nystatin 1 applic 04/10/22 21:00 04/17/22 08:54 Nystatin Powder 15 Gm TOP Not Given BID [facility] Ondansetron HCl 4 mg 04/10/22 16:40 Ondansetron 4 Mg/2 Ml Vial IVP Q6HR PRN Nausea / Vomiting Oxycodone HCl 5 mg 04/10/22 16:40 04/15/22 20:59 Oxycodone 5 Mg Tablet PO 5 mg Q4HR PRN Administration Pain 8 to 10 Polyethylene Glycol 17 gm 04/14/22 09:00 04/17/22 08:59 Polyethylene Glycol 3350 17 Gm Packet PO Not Given DAILY [facility] Ropinirole HCl 0.5 mg 04/17/22 21:00 Ropinirole 0.25 Mg Tablet PO QPM [facility] Sodium Chloride 10 ml 04/10/22 17:00 04/17/22 17:10 Sodium Chloride Flush 0.9% 10 Ml Syringe IVP 10 ml 0100,0900,1700 JOSE Administration Sodium Chloride 10 ml 04/10/22 16:40 04/17/22 09:09 Sodium Chloride Flush 0.9% 10 Ml Syringe IVP 10 ml PRN PRN Administration NEEDED PER PROVIDER ORDERS Sodium Chloride 20 ml 04/10/22 22:59 04/16/22 05:04 Sodium Chloride Flush 0.9% 10 Ml Syringe IVP 20 ml PRN PRN Administration After Blood Draw Tramadol HCl 50 mg 04/13/22 17:58 04/17/22 17:10 Tramadol 50 Mg Tablet PO 50 mg Q4HR PRN Administration PAIN 5-7 Trazodone HCl 100 mg 04/14/22 00:20 04/15/22 21:00 Trazodone 50 Mg Tablet PO 100 mg QPM PRN Administration Insomnia Losartan Potassium 50 mg PO DAILY 09/13/19 Atorvastatin Calcium 40 mg PO DAILY 06/01/20 Glipizide [Glipizide Xl] 5 mg PO DAILY 04/11/22 buPROPion HCL [Bupropion Xl] 150 mg PO QPM 04/11/22 Objective - Vital Signs/Intake & Output Reviewed Vital Signs: Yes Vital Signs: Vital Signs x48h Temp Pulse Resp BP Pulse Ox 04/17/22 15:33 36.5 C 61 16 145/87 H 97 04/17/22 11:35 36.6 C 71 16 136/80 H 97 Intake & Output: Intake & Output 04/14/22 04/15/22 04/16/22 04/17/22 23:59 23:59 23:59 23:59 Intake Total 3786.667 2832.083 3419.500 480 Output Total 1950 300 Balance 1855.352 8348.083 3419.500 480 - Objective General Appearance: positive: No acute distress, Alert, Other (Pleasant morbidly obese female, in no acute distress. Laying in bed. This is after she has been up twice today and sitting in the chair for several hours) Eyes Bilateral: positive: PERRL, EOMI Neck: positive: No JVD Respiratory: positive: No respiratory distress. negative: Wheezes, Rales, Rhonchi Cardiovascular: positive: Regular rate & rhythm Abdomen: positive: Non-tender, No organomegaly, Nml bowel sounds, No distention Skin: positive: Warm, Dry Extremities: positive: Full ROM, No pedal edema, Other (Her legs really do look good. There is no edema. Palpation of the muscles of her legs is without pain. She can fully flex and extend at the knee, ankle. There is no skin discol oration and she has excellent capillary refill. Even though she says she has weakness, both legs are symmetrical in mov) Neurologic/Psychiatric: positive: Oriented x3, CN's nml (2-12), Motor nml (Again both legs appear symmetrical and movement, strength. Able to lift off the bed and push against my hand) - Lab Results Fish Bones: 04/17/22 05:40 04/17/22 05:40 Other Labs: Lab Results x24hrs 04/17/22 04/17/22 04/17/22 Range/Units 16:32 11:36 07:26 WBC (4.8-10.8) x10^3/uL RBC (4.20-5.40) 10^6/uL Hgb (12.0-16.0) g/dL Hct (37.0-47.0) % MCV (81.0-99.0) fL MCH (27.0-31.0) pg MCHC (32.0-36.0) g/dL RDW (12.0-15.0) % Plt Count (130-450) 10^3/uL MPV (7.9-10.8) fL Neut # (Auto) (1.5-6.6) 10^3/uL Lymph # (Auto) (1.5-3.5) 10^3/uL Sequ[place]ah # (Auto) (0.0-1.0) 10^3/uL Eos # (Auto) (0.0-0.7) 10^3/uL Baso # (Auto) (0.0-0.1) 10^3/uL Absolute Nucleated RBC x10^3/uL Nucleated RBC % /100WBC Sodium (135-145) mmol/L Potassium (3.5-5.0) mmol/L Chloride (101-111) mmol/L Carbon Dioxide (21-32) mmol/L Anion Gap (6-13) BUN (6-20) mg/dL Creatinine (0.4-1.0) mg/dL Estimated GFR (MDRD) (>89) Glucose (70-100) mg/dL POC Whole Bld Glucose 150 H 168 H 163 H (70 - 100) mg/dL Calcium (8.5-10.3) mg/dL 04/17/22 04/17/22 04/16/22 Range/Units 05:40 05:40 21:09 WBC 10.7 (4.8-10.8) x10^3/uL RBC 4.08 L (4.20-5.40) 10^6/uL Hgb 10.4 L (12.0-16.0) g/dL Hct 33.5 L (37.0-47.0) % MCV 82.1 (81.0-99.0) fL MCH 25.5 L (27.0-31.0) pg MCHC 31.0 L (32.0-36.0) g/dL RDW 16.8 H (12.0-15.0) % Plt Count 187 (130-450) 10^3/uL MPV 11.1 H (7.9-10.8) fL Neut # (Auto) 8.0 H (1.5-6.6) 10^3/uL Lymph # (Auto) 1.5 (1.5-3.5) 10^3/uL [place]ah # (Auto) 0.8 (0.0-1.0) 10^3/uL Eos # (Auto) 0.3 (0.0-0.7) 10^3/uL Baso # (Auto) 0.0 (0.0-0.1) 10^3/uL Absolute Nucleated RBC 0.00 x10^3/uL Nucleated RBC % 0.0 /100WBC Sodium 141 (135-145) mmol/L Potassium 3.3 L (3.5-5.0) mmol/L Chloride 106 (101-111) mmol/L Carbon Dioxide 26 (21-32) mmol/L Anion Gap 9.0 (6-13) BUN 12 (6-20) mg/dL Creatinine 0.6 (0.4-1.0) mg/dL Estimated GFR (MDRD) 97 (>89) Glucose 166 H (70-100) mg/dL POC Whole Bld Glucose 154 H (70 - 100) mg/dL Calcium 9.0 (8.5-10.3) mg/dL ABX Reporting Has patient been on IV antibiotics over the past 48 hours?: No Assessment/Plan - Problem List (1) Leg pain Impression: Unusual history. She can sometimes be distracted from it. Not linked by her history to specific ischemia, or DVT, or rhabdo, or spinal stenosis, or radiculopathy. She does have a long history of restless leg syndrome but she feels this is not the same thing. I have started gabapentin on her even though it gives her nightmares. I am avoiding opioids. Tramadol was added April 13 and seems to be working. I am recommending that she get an outpatient neurology referral regarding this pain. Case discussed with Physical therapy and we feels that she will need strengthening and endurance exercises to get her home safely. We have reached o ut to her insurance company and [place] has approved transition to a SNF but we now need to find a SNf. We do not have physical therapy on the weekends. Nursing is successfully getting her up out of bed and into chair. Walking in room. Patient still protest because she feels like her legs are weak. Plan: Ropinirole 0.25 mg p.o. every afternoon to be started tonight. Qualifiers: Laterality: bilateral Qualified Code(s): M79.604 - Pain in right leg; M79.605 - Pain in left leg (2) Anemia Impression: She did not have anemia on admission. But since admission hemoglobin is between 10 and 11. We will check anemia panel tomorrow and assess if she needs any iron or B12 supplements. I am also curious to see if there is any relation to her leg pain Qualifiers: Anemia type: unspecified type Qualified Code(s): D64.9 - Anemia, unspecified (3) Acute kidney injury Impression: Due to overuse of nonsteroidal therapy. It was an impressive metabolic acidosis and renal failure. Thank goodness she has been able to respond to bicarb drip, and she had aggressive post ATN diuresis. She has now been off IV fluids, maintaining good p.o. intake. BUN and creatinine are stable. 4. Type 2 diabetes mellitus, controlled, with complication of peripheral neuropathy. Not on long-term insulin. At home she takes glyburide and metformin. I am not resuming those. She is on sliding scale insulin here with good control. Glucose did go up a bit with the D5 half-normal saline. Her glucose had gone up with a D5 normal saline drip. She has good dietary intake. After stopping the D5, her glucose has not come back down. I will add a sliding scale to go from low to moderate. 5. Hypertension. Metoprolol 25 mg p.o. twice daily started 04/13. She is usually on losartan but I am avoiding that right now. I want to wait until urine output is normal and I don't have to worry about RAAS. With increasing metoprolol To 50 mg p.o. twice daily yesterday, pulse is is 77, 78. Blood pressure still high at 156, 162, 167 systolic. Urine output appears to be diminished but her oral intake is stable. BUN and creatinine have been very good for several days. I resumed her losartan. By this afternoon blood pressure is 136/80, 145/87. For right now I think that is a decent goal. We will not change any medications. 6. Generalized weakness. Her leg pain has been complicated by this. There were 2 things that brought her into the hospital in the first place. We became concerned about her renal failure but this entire time she has been very fixated on her leg pain. There appears to be some psychological overlay but I do not want to diminish her complaints of pain. She needs a lot of prompting to work with physical therapy, and she has been [facility] to [facility] facility for [facility]hab. I am hoping that she will get strong enough then be able to return to home. Today she is comfortable. While she still complains of weakness she is not complaining nearly as much as she did with leg pain. I will double her restless leg syndrome medication to see if that will help her tonight.Her Wellbutrin was resumed April 15. I will go from 0.25 to 0.5 mg tonight.
[2022-04-17] MEDS: rOPINIRole 0.25 MG TABLET PO SCH (21:13)
[2022-04-17] MEDS: ATORVASTATIN 40 MG TABLET PO SCH (21:13)
[2022-04-17] MEDS: buPROPion XL 150 MG TABLET PO SCH (21:16)
[2022-04-18] MEDS: traMADol 50 MG TABLET PO PRN ×4 (01:26→21:01)
[2022-04-18] MEDS: oxyCODONE 5 MG TABLET PO PRN (02:51)
[2022-04-18] MEDS: GABAPENTIN 300 MG CAPSULE PO PRN ×2 (04:31→21:01)
[2022-04-18] MEDS: ACETAMINOPHEN 325 MG TABLET PO PRN ×2 (04:31→17:00)
[2022-04-18] MEDS: SODIUM CHLORIDE FLUSH 0.9% 10 ML SYRINGE IVP SCH ×3 (04:32→17:02)
[2022-04-18 05:17] LABS: BASOPHILS % (AUTO) 0.3 %; EOSINOPHILS # (AUTO) 0.2 10^3/uL (0.0-0.7); EOSINOPHILS % (AUTO) 2.2 %; HCT - HEMATOCRIT 32.9 % (37.0-47.0); HGB - HEMOGLOBIN 10.4 g/dL (12.0-16.0); LYMPHOCYTES # (AUTO) 1.5 10^3/uL (1.5-3.5); LYMPHOCYTES % (AUTO) 13.4 %; MEAN CORPUSCULAR HEMOGLOBIN 25.7 pg (27.0-31.0); MEAN CORPUSCULAR HGB CONC 31.6 g/dL (32.0-36.0); MEAN CORPUSCULAR VOLUME 81.4 fL (81.0-99.0); MONOCYTES # (AUTO) 0.8 10^3/uL (0.0-1.0); MONOCYTES % (AUTO) 7.3 %; NEUTROPHILS # (AUTO) 8.4 10^3/uL (1.5-6.6); NEUTROPHILS % (AUTO) 75.5 %; PLT - PLATELET COUNT 177 10^3/uL (130-450); RED BLOOD COUNT 4.04 10^6/uL (4.20-5.40); RED CELL DISTRIBUTION WIDTH 16.6 % (12.0-15.0); WHITE BLOOD COUNT 11.1 x10^3/uL (4.8-10.8)
[2022-04-18 05:36] LABS: CALCIUM 8.6 mg/dL (8.5-10.3); CREATININE 0.6 mg/dL (0.4-1.0); CRP - C-REACTIVE PROTEIN 2.2 mg/dL (0-1.0); POTASSIUM 3.1 mmol/L (3.5-5.0)
[2022-04-18 05:52] LABS: FERRITIN 106.9 ng/mL (11.0-306.8)
[2022-04-18] MEDS: INSULIN LISPRO 300 UNIT/3 ML PEN SUBQ SCH ×4 (09:37→21:06)
[2022-04-18] MEDS: POTASSIUM CHLORIDE 10 MEQ CAPSULE PO SCH (09:37)
[2022-04-18] MEDS: ENOXAPARIN 40 MG/0.4 ML SYRINGE SUBQ SCH (09:37)
[2022-04-18] MEDS: MUPIROCIN 2% OINT 1 GM NAS SCH ×2 (09:38→21:09)
[2022-04-18] MEDS: CYANOCOBALAMIN 500 MCG TABLET PO SCH (09:38)
[2022-04-18] MEDS: METOPROLOL TARTRATE 50 MG TABLET PO SCH ×2 (09:38→21:01)
[2022-04-18] MEDS: NYSTATIN POWDER 15 GM TOP SCH ×2 (09:38→21:06)
[2022-04-18] MEDS: LOSARTAN 50 MG TABLET PO SCH (09:38)
[2022-04-18] MEDS: CHOLECALCIFEROL 25 MCG TABLET PO SCH (09:39)
[2022-04-18] MEDS: GABAPENTIN 100 MG CAPSULE PO SCH (09:39)
[2022-04-18] MEDS: FAMOTIDINE 20 MG TABLET PO SCH ×2 (09:39→21:02)
[2022-04-18] MEDS: polyethylene glycoL 3350 17 GM PACKET PO SCH (09:45)
[2022-04-18 09:46] LABS: ABSOLUTE RETICS # AUTO 0.062 10^6/uL (0.020-0.110); RED BLOOD COUNT 4.07 10^6/uL (4.20-5.40); RETICULOCYTE COUNT % (AUTO) 1.53 % (0.5-2.3)
[2022-04-18 10:15] LABS: % IRON SATURATION 14 % (20-50); IRON 38 ug/dL (28-170); TOTAL IRON BINDING CAPACITY 272 ug/dL (250-450); TRANSFERRIN 194 mg/dL (192-382)
--- NOTE | 2022-04-18 14:17 | PROVIDER PROGRESS NOTE ---
Assessment/Plan - Problem List (1) Leg pain Qualifiers: Laterality: bilateral Qualified Code(s): M79.604 - Pain in right leg; M79.605 - Pain in left leg Assessment/Plan: She does have a long history of restless leg syndrome but she describes that t his pain is not the same thing. She does not have limb ischemia, or DVT, or rhabdo, or spinal stenosis. She says she has leg weakness and pain mostly in thigh, calf and to foot, worse in L leg than R. No imaging was done since there was no trauma this time and no tenderness on exam of her legs anywhere. Her pain is only with standing up. She did have CT imaging done of the pelvis at admission (to evaluate her kidneys) but there is no mention of what the spine looked like on that CT report. I spoke to today's radiologist, Dr. Harley and asked him to look at the spine on those CT abd/pelvis films. He said there are bulging disks at L4, L5 and S1, and she also has extensive degenerative arthritic changes. We have restarted gabapentin on her, even though she said it gave her nightmares, but since doing it here, no nightmares, she said. We are avoiding opioids. Tramadol was added April 13 and seems to be working. Case discussed with Physical therapy yesterday and today. She will need strengthening and endurance exercises to eventually return home safely. Also, there are differnt techniques with PT for sciatica patients. We have reached out to her insurance company and [facility] has approved transition to a SNF and is arranging for Dch to a SNf. Plan: Will obtain MRI of LS spine to evaluate discs and spinal cord. Continue Ropinirole, Gabapemtin, Tramadol Continue PT (2) Generalized weakness Assessment/Plan: There were 2 things that brought her into the hospital in the first place. Her acute needs concerned renal failure, but this entire time she has been very fixated on her leg pain. While she still complains of weakness, she is not complaining nearly as much as she does about continued leg pain. Plan: Continue her restless leg syndrome medication to see if that will help her Her Wellbutrin was resumed and dose adjusted Cont to work with PT and eventual DCh to a SNF for PT rehab (3) Restless leg syndrome Conclusion/Plan: The patient thinks "RLS is the reason for her leg pain". No imaging was done since there was no trauma this time and no tenderness on exam of her legs anywhere. Her pain is only with standing up. Plan: Will evaluate for bulging disks that may be causing radiculopathy as causes of the pain. And I explained to the patient that her RLS symptom is probably different than her sciatica pain Continue with ropinirole, gabapentin, tramadol and PT (4) Anemia Impression: She did not have anemia on admission. But since admission hemoglobin is between 10 and 11. Her iron panel reveals borderline abnormalities, B12 and folate levels are normal Plan: Watch Hgb intermittently Qualifiers: Anemia type: unspecified type Qualified Code(s): D64.9 - Anemia, unsp ecified (5) Type 2 diabetes mellitus, controlled, with complication of peripheral neuropathy. Not on long-term insulin. At home she takes glyburide and metformin. We did not resume those due to JESSICA with severe metabolic acidosis. She is on sliding scale insulin here with good control. She has good dietary intake. Plan: Cont a sliding scale moderate. (6) Hypertension. Metoprolol 25 mg p.o. twice daily started 04/13. BUN and creatinine have been very good for several days. Resumed her losartan. With increasing metoprolol, pulse is is in 70's and BP improved Plan: Cont present meds (7) Pulmonary HTN Conclusion/Plan: As per history from Echo done approximately 2 years ago, PA pressure was 60 mmHg. (8) Acute kidney injury Impression: Resolved Due to overuse of nonsteroidal therapy. It was an impressive metabolic acidosis and renal failure. She responded to bicarb drip and iv fluids, and she had aggressive post ATN diuresis. She has now been off IV fluids, maintaining good p.o. intake. BUN and creatinine have improved and stablized. (9) Metabolic acidosis Resolved - Current Meds Current Meds: Current Medications Generic Name Dose Route Start Last Admin Trade Name Freq PRN Reason Stop Dose Admin Acetaminophen 650 mg 04/10/22 16:40 04/18/22 04:31 Acetaminophen 325 Mg Tablet PO 650 mg Q4HR PRN Administration Pain 1 to 4, or Fever Atorvastatin Calcium 40 mg 04/15/22 21:00 04/17/22 21:13 Atorvastatin 40 Mg Tablet PO 40 mg QPM JOSE Administration Bupropion HCl 150 mg 04/15/22 21:00 04/17/22 21:16 Bupropion Xl 150 Mg Tablet PO 150 mg QPM JOSE Administration Cholecalciferol 50 mcg 04/13/22 09:00 04/18/22 09:39 Cholecalciferol 25 Mcg Tablet PO 50 mcg DAILY JOSE Administration Cyanocobalamin 500 mcg 04/11/22 13:00 04/18/22 09:38 Cyanocobalamin 500 Mcg Tablet PO 500 mcg DAILY JOSE Administration Enoxaparin Sodium 40 mg 04/13/22 12:00 04/18/22 09:37 Enoxaparin 40 Mg/0.4 Ml Syringe SUBQ 40 mg DAILY JOSE Administration Famotidine 20 mg 04/13/22 10:00 04/18/22 09:39 Famotidine 20 Mg Tablet PO 20 mg BID JOSE Administration Gabapentin 300 mg 04/10/22 16:48 04/18/22 04:31 Gabapentin 300 Mg Capsule PO 300 mg QPM PRN Administration PER PHYSICIAN ORDER Gabapentin 100 mg 04/13/22 09:00 04/18/22 09:39 Gabapentin 100 Mg Capsule PO 100 mg DAILY JOSE Administration Heparin Sodium (Beef Lung) 30 - 50 unit 04/16/22 15:42 04/17/22 09:08 Heparin Flush 50 Units/5 Ml Syringe IVP 30 unit PRN PRN Administration Port Protocol (<24 hours) Insulin Human Lispro 1 - 9 unit 04/15/22 17:00 04/18/22 12:03 Insulin Lispro 300 Unit/3 Ml Pen SUBQ 1 unit 0800,1200,1700,2100 JOSE Administration Protocol Losartan Potassium 50 mg 04/16/22 15:30 04/18/22 09:38 Losartan 50 Mg Tablet PO 50 mg DAILY JOSE Administration Metoprolol Tartrate 50 mg 04/16/22 21:00 04/18/22 09:38 Metoprolol Tartrate 50 Mg Tablet PO 50 mg BID JOSE Administration Multi-Ingredient Ointment 1 applic 04/12/22 10:24 04/14/22 19:43 Zinc Oxide 20% Oint 30 Gm Tube TOP 1 applic PRN PRN Administration Skin Care Mupirocin 1 applic 04/15/22 21:00 04/18/22 09:38 Mupirocin 2% Oint 1 Gm FILIPPO 04/22/22 09:01 1 applic BID JOSE Administration Nystatin 1 applic 04/10/22 21:00 04/18/22 09:38 Nystatin Powder 15 Gm TOP 1 applic BID JOSE Administration Oxycodone HCl 5 mg 04/10/22 16:40 04/18/22 02:51 Oxycodone 5 Mg Tablet PO 5 mg Q4HR PRN Administration Pain 8 to 10 Polyethylene Glycol 17 gm 04/14/22 09:00 04/18/22 09:45 Polyethylene Glycol 3350 17 Gm Packet PO Not Given DAILY JOSE Potassium Chloride 30 meq 04/18/22 09:00 04/18/22 09:37 Potassium Chloride 10 Meq Capsule PO 30 meq DAILYWM JOSE Administration Ropinirole HCl 0.5 mg 04/17/22 21:00 04/17/22 21:13 Ropinirole 0.25 Mg Tablet PO 0.5 mg QPM JOSE Administration Sodium Chloride 10 ml 04/10/22 17:00 04/18/22 09:45 Sodium Chloride Flush 0.9% 10 Ml Syringe IVP 10 ml 0100,0900,1700 JOSE Administration Sodium Chloride 10 ml 04/10/22 16:40 04/17/22 09:09 Sodium Chloride Flush 0.9% 10 Ml Syringe IVP 10 ml PRN PRN Administration NEEDED PER PROVIDER ORDERS Sodium Chloride 20 ml 04/10/22 22:59 04/16/22 05:04 Sodium Chloride Flush 0.9% 10 Ml Syringe IVP 20 ml PRN PRN Administration After Blood Draw Tramadol HCl 50 mg 04/13/22 17:58 04/18/22 09:38 Tramadol 50 Mg Tablet PO 50 mg Q4HR PRN Administration PAIN 5-7 Trazodone HCl 100 mg 04/14/22 00:20 04/15/22 21:00 Trazodone 50 Mg Tablet PO 100 mg QPM PRN Administration Insomnia - Lab Result Fish Bone Diagrams: 04/19/22 05:55 04/19/22 05:55 - Additional Planning My Orders: My Active Orders 04/18/22 09:00 Potassium Chloride [Micro-K] 30 meq PO DAILYWM 04/18/22 13:56 LUMBAR SPINE WO [MRI] Stat Subjective - Subjective Patient Reports: Pain (Upon standing and certain movements (dorsiflexion of left foot), she describes pain in the left posterior leg. "Because of the pain it is causing weakness", she says.) Objective Vital Signs: Vital Signs - 24 hr 04/17/22 04/17/22 04/18/22 15:33 21:13 01:23 Temperature 36.5 C 36.3 C L Heart Rate [ 61 Brachial] Heart Rate [ 80 Monitoring electrodes] Respiratory 16 18 Rate Blood Pressure 161/76 H Blood Pressure 170/83 H [Left Brachial artery] Blood Pressure 145/87 H [Right Brachial artery] O2 Saturation 97 98 04/18/22 07:36 Temperature 36.4 C L Heart Rate [ 78 Brachial] Heart Rate [ Monitoring electrodes] Respiratory 18 Rate Blood Pressure Blood Pressure [Left Brachial artery] Blood Pressure 174/76 H [Right Brachial artery] O2 Saturation 97 Oxygen O2 Source Room air I&O (Last 24 Hrs): Intake and Output Totals x24h 04/16/22 04/17/22 04/18/22 23:59 23:59 23:59 Intake Total 3419.500 850 140 Balance 3419.500 850 140 General: Alert, Oriented x3 HEENT: Mucous membr. moist/pink Neck: Supple, No JVD Neuro: Alert, Non Focal, Other (No saddle anesthesia) Cardiovascular: Regular rate Respiratory: No respiratory distress Abdomen: Soft Extremities: No clubbing, No edema, No tenderness/swelling - Results Results: Laboratory Results WBC 11.1 x10^3/uL (4.8-10.8) H 04/18/22 04:43 RBC 4.07 10^6/uL (4.20-5.40) L 04/18/22 09:34 Hgb 10.4 g/dL (12.0-16.0) L 04/18/22 04:43 Hct 32.9 % (37.0-47.0) L 04/18/22 04:43 MCV 81.4 fL (81.0-99.0) 04/18/22 04:43 MCH 25.7 pg (27.0-31.0) L 04/18/22 04:43 MCHC 31.6 g/dL (32.0-36.0) L 04/18/22 04:43 RDW 16.6 % (12.0-15.0) H 04/18/22 04:43 Plt Count 177 10^3/uL (130-450) 04/18/22 04:43 MPV 11.0 fL (7.9-10.8) H 04/18/22 04:43 Reticulocyte % (Auto) 1.53 % (0.5-2.3) 04/18/22 09:34 Neut # (Auto) 8.4 10^3/uL (1.5-6.6) H 04/18/22 04:43 Lymph # (Auto) 1.5 10^3/uL (1.5-3.5) 04/18/22 04:43 Rankin # (Auto) 0.8 10^3/uL (0.0-1.0) 04/18/22 04:43 Eos # (Auto) 0.2 10^3/uL (0.0-0.7) 04/18/22 04:43 Baso # (Auto) 0.0 10^3/uL (0.0-0.1) 04/18/22 04:43 Absolute Nucleated RBC 0.00 x10^3/uL 04/18/22 04:43 Nucleated RBC % 0.0 /100WBC 04/18/22 04:43 ESR 48 mm/Hr (0-30) H 04/18/22 04:43 Absolute Retic 0.062 10^6/uL (0.020-0.110) 04/18/22 09:34 VBG pH 7.269 (7.31-7.41) L 04/13/22 05:26 VBG pCO2 33.0 mmHg (41-51) L 04/10/22 15:09 VBG pO2 43.4 mmHg (25-47) 04/10/22 15:09 VBG HCO3 10.6 mmol/L (23-28) L 04/10/22 15:09 VBG Total CO2 11.6 mmol/L (24-29) L 04/10/22 15:09 VBG O2 Saturation 74.8 % (60-80) 04/10/22 15:09 VBG Base Excess -17.6 mmol/L (-2 - +2) L 04/10/22 15:09 Ionized Calcium 1.18 mmol/L (1.15-1.33) 04/13/22 05:26 Sodium 139 mmol/L (135-145) 04/18/22 04:43 Potassium 3.1 mmol/L (3.5-5.0) L 04/18/22 04:43 Chloride 102 mmol/L (101-111) 04/18/22 04:43 Carbon Dioxide 27 mmol/L (21-32) 04/18/22 04:43 Anion Gap 10.0 (6-13) 04/18/22 04:43 BUN 13 mg/dL (6-20) 04/18/22 04:43 Creatinine 0.6 mg/dL (0.4-1.0) 04/18/22 04:43 Estimated GFR (MDRD) 97 (>89) 04/18/22 04:43 Glucose 172 mg/dL (70-100) H 04/18/22 04:43 POC Whole Bld Glucose 159 mg/dL (70 - 100) H 04/18/22 11:37 Estimat Average Glucose 189 mg/dL (70-100) H 04/11/22 05:00 Hemoglobin A1c % 8.2 % (4.27-6.07) H 04/11/22 05:00 Calcium 8.6 mg/dL (8.5-10.3) 04/18/22 04:43 Phosphorus 1.9 mg/dL (2.5-4.6) L 04/14/22 17:00 Magnesium 1.6 mg/dL (1.7-2.8) L 04/14/22 17:00 Iron 38 ug/dL (28-170) 04/18/22 09:34 TIBC 272 ug/dL (250-450) 04/18/22 09:34 % Saturation 14 % (20-50) L 04/18/22 09:34 Transferrin 194 mg/dL (192-382) 04/18/22 09:34 Ferritin 106.9 ng/mL (11.0-306.8) 04/18/22 04:43 Total Bilirubin 0.4 mg/dL (0.2-1.0) 04/12/22 04:35 AST 17 IU/L (10-42) 04/12/22 04:35 ALT 20 IU/L (10-60) 04/12/22 04:35 Alkaline Phosphatase 103 IU/L (42-121) 04/12/22 04:35 Lactate Dehydrogenase 173 IU/L (91-225) 04/18/22 04:43 Total Creatine Kinase 77 IU/L (22-269) 04/10/22 14:08 CK-MB (CK-2) 7.5 ng/mL (0.6-6.3) H 04/10/22 14:08 C-Reactive Protein 2.2 mg/dL (0-1.0) H 04/18/22 04:43 Total Protein 7.0 g/dL (6.7-8.2) 04/12/22 04:35 Albumin 2.8 g/dL (3.2-5.5) L 04/12/22 04:35 Globulin 4.2 g/dL (2.1-4.2) 04/12/22 04:35 Albumin/Globulin Ratio 0.7 (1.0-2.2) L 04/12/22 04:35 Lipase 101 U/L (22-51) H 04/10/22 14:08 Vitamin B12 387 pg/mL (180-914) 04/18/22 04:43 Vitamin D 25-Hydroxy 25.4 ng/mL (30.0-100.0) L 04/11/22 12:55 Urine Color YELLOW 04/10/22 19:22 Urine Clarity CLEAR (CLEAR) 04/10/22 19:22 Urine pH 6.0 PH (5.0-7.5) 04/10/22 19:22 Ur Specific Whitney >=1.030 (1.002-1.030) H 04/10/22 19:22 Urine Protein 30 mg/dL (NEGATIVE) H 04/10/22 19:22 Urine Glucose (UA) NEGATIVE mg/dL (NEGATIVE) 04/10/22 19:22 Urine Ketones NEGATIVE mg/dL (NEGATIVE) 04/10/22 19:22 Urine Occult Blood NEGATIVE (NEGATIVE) 04/10/22 19:22 Urine Nitrite NEGATIVE (NEGATIVE) 04/10/22 19:22 Urine Bilirubin NEGATIVE (NEGATIVE) 04/10/22 19:22 Urine Urobilinogen 0.2 (NORMAL) E.U./dL (NORMAL) 04/10/22 19:22 Ur Leukocyte Esterase NEGATIVE (NEGATIVE) 04/10/22 19:22 Urine RBC 0-5 /HPF (0-5) 04/10/22 19:22 Urine WBC 4-5 /HPF (0-5) 04/10/22 19:22 Ur Squamous Epith Cells FEW Squamous (<= Few) 04/10/22 19:22 Urine Bacteria Few /HPF (None Seen) 04/10/22 19:22 Urine Casts 6-10 Hyaline Casts /LPF 04/10/22 19:22 Ur Microscopic Review INDICATED 04/10/22 19:22 Urine Culture Comments NOT INDICATED 04/10/22 19:22 Nasal Adenovirus (PCR) NOT DETECTED 04/10/22 16:58 Nasal B. parapertussis DNA (PCR) NOT DETECTED 04/10/22 16:58 Nasal Coronavir 229E PCR NOT DETECTED 04/10/22 16:58 Nasal Coronavir HKU1 PCR NOT DETECTED 04/10/22 16:58 Nasal Coronavir NL63 PCR NOT DETECTED 04/10/22 16:58 Nasal Coronavir OC43 PCR NOT DETECTED 04/10/22 16:58 Nasal Enterovir/Rhinovir PCR NOT DETECTED 04/10/22 16:58 Nasal Influenza B PCR NOT DETECTED 04/10/22 16:58 Nasal Influenza A PCR NOT DETECTED 04/10/22 16:58 Nasal Parainfluen 1 PCR NOT DETECTED 04/10/22 16:58 Nasal Parainfluen 2 PCR NOT DETECTED 04/10/22 16:58 Nasal Parainfluen 3 PCR NOT DETECTED 04/10/22 16:58 Nasal Parainfluen 4 PCR NOT DETECTED 04/10/22 16:58 Nasal RSV (PCR) NOT DETECTED 04/10/22 16:58 Nasal Screen MRSA (PCR) NEGATIVE (NEGATIVE) 04/10/22 17:47 Nasal B.pertussis DNA PCR NOT DETECTED 04/10/22 16:58 Nasal C.pneumoniae (PCR) NOT DETECTED 04/10/22 16:58 Filippo Human Metapneumo PCR NOT DETECTED 04/10/22 16:58 Nasal M.pneumoniae (PCR) NOT DETECTED 04/10/22 16:58 Nasal SARS-CoV-2 (PCR) NOT DETECTED 04/10/22 16:58 - Procedures Procedures: Procedures (06/01/20) EXCISION OF SMALL INTESTINE, OPEN APPROACH (06/01/20) RELEASE PERITONEUM, PERCUTANEOUS ENDOSCOPIC APPROACH (06/01/20) RELEASE SMALL INTESTINE, OPEN APPROACH (06/01/20) RELEASE TRANSVERSE COLON, OPEN APPROACH (06/01/20) REMOVAL OF SYNTH SUB FROM ABD WALL, PERC ENDO APPROACH (06/01/20) SUPPLEMENT ABDOMINAL WALL WITH SYNTH SUB, OPEN APPROACH (06/01/20)
--- NOTE | 2022-04-18 17:31 | MRI Report ---
PROCEDURE: LUMBAR SPINE WO INDICATIONS: Suspect sciatica has bulging discs on CT pelvis TECHNIQUE: Noncontrast sagittal T1 spin echo and T2 fast echo, sagittal STIR, axial T1 and T2 fast spin echo thr ough the lumbar spine. In cases with scoliosis, additional coronal T2 fast spin echo may be performe d. COMPARISON: Correlation is made with abdomen pelvis CT, 04/10/2022. FINDINGS: Image quality: Motion artifact is noted. Alignment and Curvature: Mild to moderate levoconvex scoliotic curvature is seen. Minimal retrolist hesis can be seen at L1-L2. Minimal L5-S1 anterolisthesis is seen, without associated pars defects. Bone Marrow: Marrow is of normal overall signal. No acute vertebral body compression fractures. Spinal Cord: Conus medullaris terminates at the L1 level. Visualized cord demonstrates normal signa l and size. Paraspinous Soft Tissues: No paravertebral masses. A 3 cm water signal cyst can be seen at the supe rior pole of the right kidney. Small renal cysts are seen elsewhere. Lower thoracic spine degenerative changes are seen. T12-L1: Normal in appearance. L1-L2: Moderate loss of disc height and signal are seen. Moderate disc bulge is seen at this l evel. A superimposed central disc protrusion is seen. Moderate bilateral neural foraminal narrowing is seen. Mild central canal narrowing is seen. L2-L3: At least moderate loss of disc height and disc signal can be seen. Reactive marrow endplat e changes are seen, which are hyperintense on T1-weighted and T2-weighted imaging, without significan t increased STIR signal. These imaging findings are most consistent with fatty metaplasia (Modic type 2 change). Bridging endplate osteophytes are seen on the right, as on series 5 image 8. At least m oderate disc bulge is seen, which is eccentric to the right. Moderate facet hypertrophy is seen. The re is at least moderate right-sided and mild left-sided neuroforaminal narrowing. Moderate central c anal narrowing is seen. L3-L4: At least moderate loss of disc height and disc signal can be seen on the right side. Moderat e disc bulge is seen, which is eccentric to the right. Moderate facet hypertrophy is seen. Moderate bilateral neural foraminal narrowing is seen. Moderate central canal narrowing is seen. L4-L5: Moderate loss of disc height and signal are seen. At least moderate disc bulge is seen, with a central disc protrusion. Prominent facet hypertrophy is seen. Associated hypertrophy of the ligame ntum flavum can be seen. Fluid is seen within the facet joints themselves. Moderate to severe bilater al neural foraminal narrowing can be seen, with associated compression upon the exiting nerve roots. Severe central canal narrowing is seen at this level. L5-S1: Mild loss of disc height and disc signal are seen. Moderate disc bulge is seen, which is ecc entric to the left. Moderate facet hypertrophy is seen. There is at least moderate left-sided neurof oraminal narrowing, with a degree of compression upon the exiting left L5 nerve root. No right-sided neuroforaminal narrowing is seen. Moderate central canal narrowing is seen. IMPRESSION: Multiple levels of lumbar spine degenerative change are seen, which are overall worst at L4-L5 level, where there is severe central canal narrowing. Several sites of significant neuroforaminal narrowing can be seen, with associated exiting nerve root compression. Mild to moderate levoconvex lumbar scoliosis. Reviewed by: Gerald Currie MD on 04/18/2022 4:29 PM AKST Approved by: Gerald Currie MD on 04/18/2022 4:29 PM AKST Station ID: [id number]
[2022-04-18] MEDS: buPROPion XL 150 MG TABLET PO SCH (21:01)
[2022-04-18] MEDS: rOPINIRole 0.25 MG TABLET PO SCH (21:02)
[2022-04-18] MEDS: ATORVASTATIN 40 MG TABLET PO SCH (21:02)
[2022-04-19] MEDS: SODIUM CHLORIDE FLUSH 0.9% 10 ML SYRINGE IVP SCH (01:28)
[2022-04-19] MEDS: traMADol 50 MG TABLET PO PRN ×2 (03:45→09:09)
[2022-04-19] MEDS: ACETAMINOPHEN 325 MG TABLET PO PRN ×2 (03:45→09:09)
[2022-04-19 06:07] LABS: BASOPHILS % (AUTO) 0.2 %; EOSINOPHILS # (AUTO) 0.3 10^3/uL (0.0-0.7); EOSINOPHILS % (AUTO) 3.2 %; HCT - HEMATOCRIT 33.3 % (37.0-47.0); HGB - HEMOGLOBIN 10.2 g/dL (12.0-16.0); LYMPHOCYTES # (AUTO) 1.4 10^3/uL (1.5-3.5); MEAN CORPUSCULAR HEMOGLOBIN 25.1 pg (27.0-31.0); MEAN CORPUSCULAR HGB CONC 30.6 g/dL (32.0-36.0); MEAN PLATELET VOLUME 11.3 fL (7.9-10.8); MONOCYTES # (AUTO) 0.8 10^3/uL (0.0-1.0); MONOCYTES % (AUTO) 8.2 %; NEUTROPHILS # (AUTO) 6.9 10^3/uL (1.5-6.6); NEUTROPHILS % (AUTO) 72.4 %; PLT - PLATELET COUNT 170 10^3/uL (130-450); RED BLOOD COUNT 4.06 10^6/uL (4.20-5.40); RED CELL DISTRIBUTION WIDTH 16.9 % (12.0-15.0); WHITE BLOOD COUNT 9.5 x10^3/uL (4.8-10.8)
[2022-04-19 06:14] LABS: CALCIUM 8.5 mg/dL (8.5-10.3); CREATININE 0.7 mg/dL (0.4-1.0); POTASSIUM 3.2 mmol/L (3.5-5.0)
[2022-04-19] MEDS: INSULIN LISPRO 300 UNIT/3 ML PEN SUBQ SCH (08:57)
[2022-04-19] MEDS: ENOXAPARIN 40 MG/0.4 ML SYRINGE SUBQ SCH (08:58)
[2022-04-19] MEDS: NYSTATIN POWDER 15 GM TOP SCH (08:58)
[2022-04-19] MEDS: GABAPENTIN 100 MG CAPSULE PO SCH (08:59)
[2022-04-19] MEDS: POTASSIUM CHLORIDE 10 MEQ CAPSULE PO SCH (08:59)
[2022-04-19] MEDS: CYANOCOBALAMIN 500 MCG TABLET PO SCH (08:59)
[2022-04-19] MEDS: LOSARTAN 50 MG TABLET PO SCH (09:00)
[2022-04-19] MEDS: METOPROLOL TARTRATE 50 MG TABLET PO SCH (09:00)
[2022-04-19] MEDS: CHOLECALCIFEROL 25 MCG TABLET PO SCH (09:00)
[2022-04-19] MEDS: FAMOTIDINE 20 MG TABLET PO SCH (09:00)
[2022-04-19] MEDS: MUPIROCIN 2% OINT 1 GM NAS SCH (09:06)
[2022-04-19] MEDS: polyethylene glycoL 3350 17 GM PACKET PO SCH (09:07)
[2022-04-19] MEDS ORDERED: LIDOCAINE PATCH 5% TOP PRN (10:58)
--- NOTE | 2022-04-19 11:02 | Discharge Plan ---
"Discharge Plan for SNF / POLI - Discharge Plan And Transition Orders Problem Reviewed?: Yes Disposition: 03 SNF DC/Xfer Condition: Stable Allergies and Adverse Reactions: Allergies Allergy/AdvReac Type Severity Reaction Status Date / Time No Known Drug Allergies Allergy Verified 06/01/20 06:09 Health Concerns: Patient was admitted with metabolic acidosis and acute kidney injury from excessive NSAID use. She was taking NSAIDs to control pain in her legs. The patient needed to be in the ICU, eventually her kidney function recovered. She has continued leg pain and MRI work-up shows that she has bulging disks of her lower spine. The patient is being discharged to go to SNF for PT rehab before returning home. Plan of Treatment: Daily PT and OT, specifically [place] therapy, and pain medications for lower back pain and sciatica pain. Care Goals: Improvement in symptoms and stabilization are the goals. Assessment: The patient understands and is agreeable with the plan. She hopes to eventually return home to live independently, but was advised that she may need more caregiving and other assistance, when she returns home. - SNF / POLI Transition Orders Admit to (Facility): [facility] Under the care of (Name): Abril Velasco NP (PCP) Discharge Diagnosis: (1) Sciatica pain L leg pain worse than R leg pain (2) Generalized weakness (3) Restless leg syndrome (4) Type 2 diabetes mellitus (5) Hypertension. From Echo done 2 years ago, PA pressure was 60 mmHg. (6) Metabolic acidosis Resolved (7) Acute kidney injury Resolved Medicare Certification Statement: I certify that Post Hospital half-way care is medically necessary on a continuing basis for any of the conditions for which she/he is receiving care during hospitalization. Notify PCP of admission and forward orders to primary provider for signature. Other Notification Orders: Call PCP immediately if patient develops dyspnea, chest pain/tightness or edema. House Bowel Program: Yes Additional Bowel Program Orders: If no BM after 2 days, nurse may give M.O.M. 30ml PO PRN and/or ducolax Supp 1 [place] and/or UNA 250mg P.O., and/or senna 1-2 tabs PO. On day 3 nurse may give repeat above order until residents constipation is resolved. Annual Influenza Vaccine (between Oct 27 and May 26): Yes Two-step PPD per [facility] [phone] or approved exception documents: Yes Medication Orders: PLEASE REFER TO THE DISCHARGE MEDICATION LIST. Insulin Orders?: Yes - Medications New Prescriptions: oxyCODONE [Roxicodone] 5 mg PO Q4HR PRN #12 tab PRN Reason: Pain 8 to 10 traMADol [Ultram] 50 mg PO Q4HR PRN #12 tab PRN Reason: Pain 5-7 Insulin Lispro [Humalog Kwikpen U-100] 1 - 5 unit SUBQ 0800,1200,1700,2100 #1 ea Lidocaine Patch 5% [Lidoderm Patch] 1 patch TOP DAILY PRN #30 patch PRN Reason: Pain Potassium Chloride [Micro-K] 20 meq PO DAILYWM #14 cap Gabapentin [Neurontin] 300 mg PO QPM PRN #30 cap PRN Reason: Per Physician Order Gabapentin [Neurontin] 100 mg PO DAILY #30 cap rOPINIRole [Requip] 0.5 mg PO QPM #30 tab Metoprolol Succinate [Toprol Xl] 25 mg PO DAILY #30 tablet - Diet Type: Geriatric Texture: Regular Liquids: Thin May have monthly special meal: Yes - Therapies | Activity Therapy: Evaluation | Treat if indicated: PT, OT Rehabilitation Potential: Maximize functional status Activity: Activity as Tolerated Weight Bearing: Full Weight Assistance Devices: Walker Follow Up: See PCP after DCh from SNF. Needs referral to a software specialist. Insulin Orders - [facility] Basal | Correction | Custom Orders: Diagnosis: Diabetes Initiate hypo and hyperglycemia protocols for BG <70 and BG >375. May check BG PRN for signs/symptoms of dysglycemia. Frequency of BG checks: [AC/HS] Basal Insulin: None Correction Insulin: - Select the type of insulin below [Choose: Novolog/]100 units /ml insulin inject subq per orders indicate below [X] LOW DOSE [] MODERATE DOSE [] MODERATE/HIGH DOSE [] HIGH DOSE GB UNITS GB UNITS GB UNITS GB UNITS 61-140 0 UNITS 61-140 0 UNITS 61-140 0 UNITS 61-140 0 UNITS 141-175 1 UNITS 141-175 1 UNITS 141-175 2 UNITS 141-175 3 UNITS 176-225 2 UNITS 176-225 3 UNITS 176-225 4 UNITS 176-225 5 UNITS 226-275 3 UNITS 226-275 5 UNITS 226-275 6 UNITS 226-275 7 UNITS 276-325 4 UNITS 276-325 7 UNITS 276-325 8 UNITS 276-325 9 UNITS 326-375 5 UNITS 326-375 9 UNITS 326-375 10 UNITS 326-375 11 UNITS >375 CONTACT MD >375 CONTACT MD >375 CONTACT MD >375 CONTACT MD"
--- NOTE | 2022-04-19 11:25 | DISCHARGE SUMMARY ---
Discharge Summary Admit Date: 04/10/22 Discharge Date: 04/19/22 Discharging Provider: Karla Whiteside MD Primary Care Provider: Abril Velasco NP Code Status: Attempt Resuscitation Condition at Discharge: Stable Discharge Disposition: 03 SNF DC/Xfer - HPI History of Present Illness: This is a 77-year-old white female with a history of diabetes on metformin, restless leg syndrome on gabapentin, who was admitted here in 2020 with bowel obstruction and needed abdominal surgery for lysis of adhesions. She had an admission in 2019 for rhabdomyolysis and JESSICA (creat was 1.4) from a fall at home, when she laid stuck wedged between her bed and the wall for 7 hours. Patient presented to the emergency room with complaint of leg pain that has been not improved despite taking her gabapentin and therefore she took 10 to 20 tablets of Advil daily for about the last 1 week. In the ER, she was given oxycodone for pain and her labs were drawn. Labs returned showing a BUN of 122 and creatinine of 4.5 (baseline creatinine is 0.6) and serum bicarb of 8. The patient was given 1 L of fluid. A VBG was done which showed a pH of 7.1. I requested the ED to perform CT without contrast of the abdomen/pelvis which was done and this showed no areas of urinary tract obstruction, no hydronephrosis or any acute findings. The ED provider discussed the case with me on the Hospitalist team. The patient is being admitted to the ICU in critical status due to JESSICA with metabolic acidosis, likely from NSAID use plus her metformin use. - HOSPITAL COURSE Hospital Course: (1) Acute kidney injury This was attributed to heavy nonsteroidal use. She was taking up to 20 Advil a day. Admission labs showed metabolic acidosis, severely elevated creatinine, and she had oliguria. She was placed on a bicarb drip in the ICU and for the first 24 to 48 hours there was minimal movement with regards to urine output or labs. We asked for transfer to a higher level of care since at that time, it appeared she would need dialysis. She began improving on April 11. Creatinine dropped quickly. She then had post-ATN diuresis and needed iv fluids. Eventually, she was off IV fluids, maintaining good p.o. intake, and BUN and creatinine improved and stabilized. (2) Metabolic acidosis Resolved after bicarb iv drip given in ICU (3) Restless leg syndrome The patient thinks "RLS is the reason for her leg pain" when she stands, which we explained was not. She was started on ropinirole, plus gabapentin and tramadol with good effect. (4) Midline low back with bilateral sciatica pain She does have a long history of restless leg syndrome but she described a leg pain that was not the same. She described leg weakness and pain mostly in posterior thigh, calf and to foot, worse in L leg than R. Her pain is only with standing up. It sounded alot like sciatica. It had never been evaluated, she said. She did not have limb ischemia, or DVT, or rhabdo. No imaging was done at the time of admission since there was no trauma this time and no tenderness on exam of her legs anywhere. There was CT imaging done of the pelvis at admission (to evaluate her kidneys) but there was no mention findings of the lower spine. I spoke to radiologist, Dr. Harley and asked him to look at the spine on those CT abd/pelvis films. He said there are bulging disks at L4, L5 and S1, and she also has extensive degenerative arthritic changes. She then underwent MRI of lower spine which revealed multiple levels of lumbar spine degenerative changes, worst at L4-L5 where there is severe central canal narrowing. She has many bulging disks. Several sites of neuroforaminal narrowing seen with associated exiting nerve root compression. We restarted gabapentin, even though she said it gave her nightmares, but since using it here, there were no nightmares. We avoided NSAIDs. Tramadol was added and helped, along with low dose Oxycodone and a Lidocaine patch topically. Pt saw her and discussed [place] exercises for sciatica patients. She was discharged to SNF for further PT and OT and she may need a referral to a computer training specialist. (5) Generalized weakness She was very fixated on her leg pain, which she said caused weakness. She worked with PT and was DCh to a SNF for PT & OT rehab. (6) Type 2 diabetes mellitus At home she took glyburide and metformin. We did not resume those due to JESSICA wi th severe metabolic acidosis. She was on a diabetic diet with sliding scale insulin coverage here with good control. The glipizide and metformin were resumed at discharge, plus low-dose sliding scale, if needed at the SNF. (7) Hypertension. She was put on beta-blockers for BP control. Then we eventually resumed her Losartan, when creat normalized. She was discharged on new Toprol XL. (8) Pulmonary HTN As per history from Echo done approximately 2 years ago, PA pressure was 60 mmHg. (9) Anemia She did not have anemia on admission. But after admission hemoglobin was between 10 and 11. Her iron panel and B12 levels were normal. Suspect she had hemodilutional anemia. - ALLERGIES Allergies/Adverse Reactions: Allergies Allergy/AdvReac Type Severity Reaction Status Date / Time No Known Drug Allergies Allergy Verified 06/01/20 06:09 - MEDICATIONS Home Medications: Ambulatory Orders Medication Instructions Recorded Confirmed Losartan Potassium 50 mg PO DAILY 09/13/19 04/10/22 Atorvastatin Calcium 40 mg PO DAILY 06/01/20 04/10/22 metFORMIN [Glucophage] 1,000 mg PO BIDWM #60 tablet 06/08/20 04/10/22 Glipizide [Glipizide Xl] 5 mg PO DAILY 04/11/22 04/11/22 buPROPion HCL [Bupropion Xl] 150 mg PO QPM 04/11/22 04/11/22 Gabapentin [Neurontin] 100 mg PO DAILY #30 cap 04/19/22 Gabapentin [Neurontin] 300 mg PO QPM PRN #30 cap 04/19/22 Insulin Lispro [Humalog Kwikpen 1 - 5 unit SUBQ 04/19/22 U-100] 0800,1200,1700,2100 #1 ea Lidocaine Patch 5% [Lidoderm Patch] 1 patch TOP DAILY PRN #30 patch 04/19/22 Metoprolol Succinate [Toprol Xl] 25 mg PO DAILY #30 tablet 04/19/22 Potassium Chloride [Micro-K] 20 meq PO DAILYWM #14 cap 04/19/22 oxyCODONE [Roxicodone] 5 mg PO Q4HR PRN #12 tab 04/19/22 rOPINIRole [Requip] 0.5 mg PO QPM #30 tab 04/19/22 traMADol [Ultram] 50 mg PO Q4HR PRN #12 tab 04/19/22 - PHYSICAL EXAM AT DISCHARGE General Appearance: positive: No acute distress, Alert Eyes Bilateral: positive: Normal inspection, No lid inflammation ENT: positive: No signs of dehydration - LABS Result Diagrams: 04/19/22 05:55 04/19/22 05:55 - TIME SPENT Time Spent in Discharge (Minutes): 60
[2022-04-19 12:28] VITALS: BP 160/72
[2022-04-19 20:07] LABS: ANTI-DNA (DS) AB QN 12 IU/mL (0-9); CENTROMERE B ANTIBODIES <0.2 AI (0.0-0.9); CHROMATIN ANTIBODIES 0.3 AI (0.0-0.9); JO-1 AB <0.2 AI (0.0-0.9); RIBOSOMAL P ANTIBODIES <0.2 AI (0.0-0.9); RNP ANTIBODIES <0.2 AI (0.0-0.9); SCLERODERMA-70 ANTIBODIES <0.2 AI (0.0-0.9); SJOGREN'S ANTI-SS-A <0.2 AI (0.0-0.9); SJOGREN'S ANTI-SS-B <0.2 AI (0.0-0.9); SMITH ANTIBODIES <0.2 AI (0.0-0.9); SMITH/RNP ANTIBODIES <0.2 AI (0.0-0.9)
== END 2022-04-19 12:32 | DRG 918 ==
LOC: EDUNIT# → ED 11:08 → ICU 16:40 → MS3 04-15
PROVIDERS: ADMIT Internal Medicine; ATTEND Internal Medicine
PROC: 05H633Z Insertion of Infusion Device into Left Subclavian Vein, Percutaneous Approach (ICD-10-PCS; principal; 2022-04-10)
DX: T39.311A Poisoning by propionic acid derivatives, accidental (unintentional), initial encounter (principal); N17.9 Acute kidney failure, unspecified; E11.40 Type 2 diabetes mellitus with diabetic neuropathy, unspecified; E87.20 Acidosis, unspecified; F17.200 Nicotine dependence, unspecified, uncomplicated; Y92.009 Unspecified place in unspecified non-institutional (private) residence as the place of occurrence of the external cause; E86.0 Dehydration; Z79.84 Long term (current) use of oral hypoglycemic drugs; G25.81 Restless legs syndrome; M79.604 Pain in right leg; M79.605 Pain in left leg; R53.1 Weakness; I10 Essential (primary) hypertension; Z87.891 Personal history of nicotine dependence; E11.42 Type 2 diabetes mellitus with diabetic polyneuropathy; D64.9 Anemia, unspecified; M47.816 Spondylosis without myelopathy or radiculopathy, lumbar region; M47.817 Spondylosis without myelopathy or radiculopathy, lumbosacral region; I27.20 Pulmonary hypertension, unspecified; M54.42 Lumbago with sciatica, left side; M54.41 Lumbago with sciatica, right side; Z20.822 Contact with and (suspected) exposure to COVID-19; E66.9 Obesity, unspecified; Z68.35 Body mass index [BMI] 35.0-35.9, adult
CPT/HCPCS: 36415; 72148; 74176; 80048; 80053; 81001; 82306; 82330; 82374; 82550; 82553; 82607; 82728; 82803; 83036; 83540; 83615; 83690; 83735; 84100; 84132; 84466; 85025; 85045; 85651; 86140; 86225; 86235; 87150; 87633; 87635; 97110; 97162; 97166; 97530; 97535; 99284; 99285; A9270; J1170; J1650; 81003; 83516; 87086

== ENCOUNTER 2022-05-09 10:44 | Outpatient (CLI) | payer MEDICARE | END 2022-05-09 10:45 | disposition home or self-care (01) | LOC: LAB.R 10:44 | PROVIDERS: ATTEND Registered Nurse | DX: A04.72 Enterocolitis due to Clostridium difficile, not specified as recurrent (principal) | CPT/HCPCS: 87493 ==

== ENCOUNTER 2022-06-05 10:41 | Outpatient (CLI) | payer MEDICARE | END 2022-06-05 23:59 | disposition critical access hospital (66) | LOC: EMS 10:41 | DX: R41.82 Altered mental status, unspecified (principal); E11.649 Type 2 diabetes mellitus with hypoglycemia without coma | CPT/HCPCS: A0425; A0427 ==

== ENCOUNTER 2022-06-05 10:59 | Inpatient (IN) | payer MEDICARE ==
--- NOTE | 2022-06-05 11:34 | ED Physician Documentation ---
PD HPI ALTERED MENTAL STATUS - Stated complaint Stated Complaint: HYPOGLYCEMIA - Chief complaint Chief Complaint: General - History obtained from History obtained from: Patient, EMS - History of Present Illness Timing - onset: How many days ago (The patient states she has been feeling less hungry and less intake over the last several days. No fever cough vomiting or diarrhea. She was unresponsive earlier today and care facility called EMS was found her significantly hypoglycemic.) Timing - duration: Days Timing - details: Gradual onset, Still present Associated symptoms: Cough (3 weeks ago that has persisted mildly), General weakness. No: Fever Recently seen: Not recently seen (She had not been to a provider per se but had had mild cough and respiratory symptoms about 3 weeks ago along with family members. They tested positive for COVID. She had felt that she was improving.) Review of Systems Constitutional: reports: Myalgias, Fatigue. denies: Fever, Chills Nose: reports: Congestion Cardiac: denies: Chest pain / pressure Respiratory: reports: Cough. denies: Dyspnea GI: reports: Nausea, Diarrhea. denies: Abdominal Pain, Vomiting : reports: Incontinent. denies: Dysuria Neurologic: denies: Altered mental status, Headache PD PAST MEDICAL HISTORY - Past Medical History Past Medical History: Yes Cardiovascular: Hypertension Respiratory: None Neuro: None Endocrine/Autoimmune: Type 2 diabetes GI: None, Hiatal hernia, Other [employer]: None : Frequency HEENT: None Psych: None Musculoskeletal: None Derm: None - Past Surgical History Past Surgical History: Yes General: Gastric surgery, Other Ortho: Hip replacement /[employer] WORKER: section, Hysterectomy Derm: Skin cancer surgery - Present Medications Home Medications: Ambulatory Orders Medication Instructions Recorded Confirmed Losartan Potassium 50 mg PO DAILY 09/13/19 04/10/22 Atorvastatin Calcium 40 mg PO DAILY 06/01/20 04/10/22 metFORMIN [Glucophage] 1,000 mg PO BIDWM #60 tablet 06/08/20 04/10/22 Glipizide [Glipizide Xl] 5 mg PO DAILY 04/11/22 04/11/22 buPROPion HCL [Bupropion Xl] 150 mg PO QPM 04/11/22 04/11/22 Gabapentin [Neurontin] 100 mg PO DAILY #30 cap 04/19/22 Gabapentin [Neurontin] 300 mg PO QPM PRN #30 cap 04/19/22 Insulin Lispro [Humalog Kwikpen 1 - 5 unit SUBQ 04/19/22 U-100] 0800,1200,1700,2100 #1 ea Lidocaine Patch 5% [Lidoderm Patch] 1 patch TOP DAILY PRN #30 patch 04/19/22 Metoprolol Succinate [Toprol Xl] 25 mg PO DAILY #30 tablet 04/19/22 Potassium Chloride [Micro-K] 20 meq PO DAILYWM #14 cap 04/19/22 oxyCODONE [Roxicodone] 5 mg PO Q4HR PRN #12 tab 04/19/22 rOPINIRole [Requip] 0.5 mg PO QPM #30 tab 04/19/22 traMADol [Ultram] 50 mg PO Q4HR PRN #12 tab 04/19/22 - Allergies Allergies/Adverse Reactions: Allergies Allergy/AdvReac Type Severity Reaction Status Date / Time No Known Drug Allergies Allergy Verified 06/05/22 11:14 - Social History Does the pt smoke?: Yes Smoking Status: Current every day smoker Does the pt drink ETOH?: Yes Does the pt have substance abuse?: No - Immunizations Immunizations are current?: Yes - POLST Patient has POLST: No POLST Status: Limited Interventions (I talked with the patient and she would not want dialysis and would not want intubation or CPR. This would amend her formal POLST though I have not done the paperwork.) PD ED PE NORMAL - Vitals Vital signs reviewed: Yes - General General: Alert and oriented X 3 (She is alert and conversant on arrival to the ER having had dextrose in the field.), No acute distress, Well developed/nourished, Other (cool to the touch) - HEENT HEENT: Atraumatic - Neck Neck: Supple, no meningeal sign, No adenopathy, No JVD - Cardiac Cardiac: RRR, No murmur - Respiratory Respiratory: No respiratory distress, Clear bilaterally - Abdomen Abdomen: Soft, Non tender, Non distended - Female Female : Deferred - Rectal Rectal: Deferred - Derm Derm: Normal color, Warm and dry - Extremities Extremities: No calf tenderness / cord, Other (mild general edema) - Neuro Neuro: Alert and oriented X 3, No motor deficit, Normal speech Results - Vitals Vitals: Vital Signs - 24 hr 06/05/22 06/05/22 06/05/22 11:07 11:39 11:55 Temperature 33.2 C L Heart Rate 69 68 73 Respiratory 9 L 14 14 Rate Blood Pressure 101/67 101/67 100/67 O2 Saturation 98 99 98 06/05/22 06/05/22 06/05/22 12:43 13:01 13:42 Temperature Heart Rate 73 72 70 Respiratory 13 16 12 Rate Blood Pressure 80/67 L 79/50 L 113/67 O2 Saturation 97 97 96 06/05/22 06/05/22 06/05/22 14:08 14:22 14:34 Temperature 33.4 C L Heart Rate 66 69 61 Respiratory 20 14 15 Rate Blood Pressure 103/53 L 103/53 L 92/52 L O2 Saturation 97 100 96 06/05/22 06/05/22 15:09 15:40 Temperature Heart Rate 71 75 Respiratory 14 14 Rate Blood Pressure 95/51 L 92/62 O2 Saturation 97 98 Oxygen O2 Source Room air - EKG (time done) 11:53 EKG releavant findings:: EKG personally interpreted by author of this note. Relevant findings are: Rate: Rate (enter#) (68) Rhythm: NSR [place]: RAD Intervals: RBBB Ischemia: Normal ST segments, Non specific changes. No: ST elevation c/w ischemia, ST depression - Labs Labs: Laboratory Tests 06/05/22 06/05/22 06/05/22 11:46 12:00 12:00 WBC 5.8 RBC 4.68 Hgb 12.1 Hct 37.6 MCV 80.3 L MCH 25.9 L MCHC 32.2 RDW 17.7 H Plt Count 122 L MPV 11.3 H Neut # (Auto) 4.9 Lymph # (Auto) 0.4 L Wilson # (Auto) 0.3 Eos # (Auto) 0.1 Baso # (Auto) 0.0 Absolute Nucleated RBC 0.00 Nucleated RBC % 0.0 Sodium 128 L Potassium 3.8 Chloride 93 L Carbon Dioxide 12 L* Anion Gap 23.0 H BUN 240 H* Creatinine 11.8 H* Estimated GFR (MDRD) 3 L Glucose 104 H Calcium 8.7 Magnesium 2.2 Total Bilirubin 0.3 AST 21 ALT < 10 L Alkaline Phosphatase 79 Troponin I High Sens 46.9 H* Total Protein 7.3 Albumin 3.6 Globulin 3.7 Albumin/Globulin Ratio 1.0 Lipase 58 H Urine Color Urine Clarity Urine pH Ur Specific [place] Urine Protein Urine Glucose (UA) Urine Ketones Urine Occult Blood Urine Nitrite Urine Bilirubin Urine Urobilinogen Ur Leukocyte Esterase Ur Microscopic Review Urine Culture Comments Nasal Adenovirus (PCR) Nasal B. parapertussis DNA (PCR) Nasal Coronavir 229E PCR Nasal Coronavir HKU1 PCR Nasal Coronavir NL63 PCR Nasal Coronavir OC43 PCR Nasal Enterovir/Rhinovir PCR Nasal Influenza B PCR Nasal Influenza A PCR Nasal Parainfluen 1 PCR Nasal Parainfluen 2 PCR Nasal Parainfluen 3 PCR Nasal Parainfluen 4 PCR Nasal RSV (PCR) Nasal B.pertussis DNA PCR Nasal C.pneumoniae (PCR) Jasson Human Metapneumo PCR Nasal M.pneumoniae (PCR) Nasal SARS-CoV-2 (PCR) 06/05/22 06/05/22 13:35 14:01 WBC RBC Hgb Hct MCV MCH MCHC RDW Plt Count MPV Neut # (Auto) Lymph # (Auto) Wilson # (Auto) Eos # (Auto) Baso # (Auto) Absolute Nucleated RBC Nucleated RBC % Sodium Potassium Chloride Carbon Dioxide Anion Gap BUN Creatinine Estimated GFR (MDRD) Glucose Calcium Magnesium Total Bilirubin AST ALT Alkaline Phosphatase Troponin I High Sens Total Protein Albumin Globulin Albumin/Globulin Ratio Lipase Urine Color DARK YELLOW Urine Clarity CLEAR Urine pH 5.5 Ur Specific [place] 1.025 Urine Protein TRACE Urine Glucose (UA) NEGATIVE Urine Ketones NEGATIVE Urine Occult Blood NEGATIVE Urine Nitrite NEGATIVE Urine Bilirubin NEGATIVE Urine Urobilinogen 0.2 (NORMAL) Ur Leukocyte Esterase NEGATIVE Ur Microscopic Review NOT INDICATED Urine Culture Comments NOT INDICATED Nasal Adenovirus (PCR) NOT DETECTED Nasal B. parapertussis DNA (PCR) NOT DETECTED Nasal Coronavir 229E PCR NOT DETECTED Nasal Coronavir HKU1 PCR NOT DETECTED Nasal Coronavir NL63 PCR NOT DETECTED Nasal Coronavir OC43 PCR NOT DETECTED Nasal Enterovir/Rhinovir PCR NOT DETECTED Nasal Influenza B PCR NOT DETECTED Nasal Influenza A PCR NOT DETECTED Nasal Parainfluen 1 PCR NOT DETECTED Nasal Parainfluen 2 PCR NOT DETECTED Nasal Parainfluen 3 PCR NOT DETECTED Nasal Parainfluen 4 PCR NOT DETECTED Nasal RSV (PCR) NOT DETECTED Nasal B.pertussis DNA PCR NOT DETECTED Nasal C.pneumoniae (PCR) NOT DETECTED Jasson Human Metapneumo PCR NOT DETECTED Nasal M.pneumoniae (PCR) NOT DETECTED Nasal SARS-CoV-2 (PCR) DETECTED A - Rads (name of study) chest xray Relevant Findings:: Prelim report reviewed, EMP independent interpretation of test (no infiltrates), See rad report abd/pelvic CT without contrast Relevant Findings:: Prelim report reviewed, See rad report (normal kidneys and no hydronephrosis. Some distended GB but no wall thickening. ) PD Medical Decision Making - ED course Complexity details: reviewed results, re-evaluated patient (repeated eval of temp, alertness, blood sugars and vital signs. ), considered differential, d/w patient Social Determinants of Health: lives in care facility. Drug Therapy Requiring Monitoring for Toxicity: Dextrose and IV fluids. ED course: The patient has had generalized weakness and less appetite over the past several days to week. She had been ill with some respiratory symptoms and fevers about 3 weeks ago and tested positive for COVID. She had felt she was improving. The past several days or more she states she has had no taste for food and no appetite. Her intake has been decreased. She has been having some loose stools as well. She also states she was decreasing her food and fluid intake so as to not have to bother her caregivers to get her to the bathroom as often. This morning she was noted to be poorly responsive. Medics called EMS and they found her to be hypoglycemic. She did improve with D50 IV. She arrived to the ER reasonably alert. She did feel cool and was found to have a body temperature of 33. Her blood sugar was reasonable on first arrival but started decreasing and went back down to 71 after about out an hour. At that point she was started on a D10 bolus. She was encouraged to eat a little bit. We will continue to monitor the blood sugars. Likely will need a level of infusion. Right Right now we are working on just saline boluses of warmed fluids and assuming she has some under hydration as her renal function is significantly off and her blood pressure is low. Her blood sugar presumably is low because of the acute renal failure and impaired metabolism of her diabetes medicines. Also due to decreased calorie intake. Other concern would be for infection or sepsis utilizing body glucose more. We will look for signs of infection. Her labs did come back showing a significantly elevated creatinine of 11. She had had an episode in March of poor intake and acute kidney injury that recovered quite well with rehydration. At that point her maximal creatinine was 5.0. The most recent 1 the end of March was 0.7 creatinine. The patient has been placed on a warming unit/bear hugger on arrival once her core temperature was found to be 33. She is 6 minimally increasing the temperature with external active rewarming. I will add warm humidified oxygen. Respiratory panel did result back with a positive COVID test but that may be residual from recent infection 3 weeks ago. However we will do respiratory pr ecautions and wait for her to be in her private room in the floor for the nebulizer. The patient continue with IV fluids. She had a Guidry catheter placed for temperature measurement and also urine output. She is having very slight urine output at this time. We continue with IV fluids. I reviewed with the patient her significant creatinine level and kidney abnormality. She was quite adamant she would not want dialysis. Reviewing other interventions, she would not want CPR or intubation either. Her POLST form had showed full treatment but I believe this would modify it to limited interventions. I conveyed this information to the hospitalist so we do not overstep the patient's wishes at this point. The patient remains alert and conversant and interacts well. I feel she is able to make lucid decisions. We are continuing to monitor her vital signs and temperature and blood sugar. The patient is admitted to the ICU for further care by the hospitalist. - Critical Care Time(min): 50 Comments: Careful monitoring of body temperature and repeated treatment of blood sugar with hypoglycemia as well as evaluation for blood pressure and hypotension. Time Includes: Direct patient care, Reassess patient, Document care, Coordinate care, See progress note Departure - Departure Disposition: 66 [facility] DC/Xfer Clinical Impression: Hypoglycemia, JESSICA (acute kidney injury), Generalized weakness, COVID-19 Hypothermia Qualifiers: Encounter type: initial encounter Qualified Code(s): T68.XXXA - Hypothermia, initial encounter DM (diabetes mellitus), type 2 Qualifiers: Diabetes mellitus group home insulin use: unspecified group home insulin use status Condition: Stable Record reviewed to determine appropriate education?: Yes
[2022-06-05] MEDS ORDERED: SODIUM CHLORIDE 0.9% 1,000 ML IV STA ×2 (11:48→15:19)
[2022-06-05 11:55] LABS: BASOPHILS % (AUTO) 0.2 %; EOSINOPHILS # (AUTO) 0.1 10^3/uL (0.0-0.7); EOSINOPHILS % (AUTO) 1.9 %; HCT - HEMATOCRIT 37.6 % (37.0-47.0); HGB - HEMOGLOBIN 12.1 g/dL (12.0-16.0); LYMPHOCYTES # (AUTO) 0.4 10^3/uL (1.5-3.5); LYMPHOCYTES % (AUTO) 7.7 %; MEAN CORPUSCULAR HEMOGLOBIN 25.9 pg (27.0-31.0); MEAN CORPUSCULAR HGB CONC 32.2 g/dL (32.0-36.0); MEAN CORPUSCULAR VOLUME 80.3 fL (81.0-99.0); MEAN PLATELET VOLUME 11.3 fL (7.9-10.8); MONOCYTES # (AUTO) 0.3 10^3/uL (0.0-1.0); MONOCYTES % (AUTO) 4.5 %; NEUTROPHILS # (AUTO) 4.9 10^3/uL (1.5-6.6); PLT - PLATELET COUNT 122 10^3/uL (130-450); RED BLOOD COUNT 4.68 10^6/uL (4.20-5.40); RED CELL DISTRIBUTION WIDTH 17.7 % (12.0-15.0); WHITE BLOOD COUNT 5.8 x10^3/uL (4.8-10.8)
--- NOTE | 2022-06-05 12:19 | XRAY Report ---
PROCEDURE: Chest 1 View X-Ray INDICATIONS: mild cough; hypoglycemia TECHNIQUE: One view of the chest was acquired. COMPARISON: None. FINDINGS: Surgical changes and devices: None. Lungs and pleura: No pleural effusions or pneumothorax. Lungs are clear. Mediastinum: Mediastinal contours appear normal. Heart size is normal. Bones and chest wall: No suspicious bony lesions. Overlying soft tissues appear unremarkable. IMPRESSION: No acute cardiopulmonary pathology. Reviewed by: Fran Roberts MD on 06/05/2022 12:17 PM PDT Approved by: Fran Roberts MD on 06/05/2022 12:17 PM PDT Station ID: [id number]
[2022-06-05 12:46] LABS: ALBUMIN 3.6 g/dL (3.2-5.5); ALKALINE PHOSPHATASE 79 IU/L (42-121); ALT ALANINE AMINOTRANSFERASE < 10 IU/L (10-60); AST ASPARTATE AMINOTRANSFERASE 21 IU/L (10-42); BILIRUBIN,TOTAL 0.3 mg/dL (0.2-1.0); CALCIUM 8.7 mg/dL (8.5-10.3); CHLORIDE 93 mmol/L (101-111); GFR - MDRD 3 (>89); GLUCOSE 104 mg/dL (70-100); LIPASE 58 U/L (22-51); MAGNESIUM 2.2 mg/dL (1.7-2.8); POTASSIUM 3.8 mmol/L (3.5-5.0); SODIUM 128 mmol/L (135-145); TOTAL PROTEIN 7.3 g/dL (6.7-8.2)
[2022-06-05 12:49] LABS: BUN - BLOOD UREA NITROGEN 240 mg/dL (6-20); CARBON DIOXIDE - CO2 12 mmol/L (21-32); CREATININE 11.8 mg/dL (0.4-1.0)
[2022-06-05] MEDS ORDERED: DEXTROSE 10% 250 ML IV STA (13:03)
[2022-06-05 13:51] LABS: BILIRUBIN,URINE NEGATIVE (NEGATIVE); GLUCOSE, URINE (UA) NEGATIVE (NEGATIVE); KETONES,URINE (UA) NEGATIVE (NEGATIVE); LEUKOCYTE ESTERASE, URINE NEGATIVE (NEGATIVE); NITRITE,URINE NEGATIVE (NEGATIVE); OCCULT BLOOD,URINE NEGATIVE (NEGATIVE); PH,URINE 5.5 PH (5.0-7.5); PROTEIN,URINE TRACE mg/dL (NEGATIVE); UROBILINOGEN,URINE 0.2 (NORMAL) E.U./dL (NORMAL)
[2022-06-05 13:52] LABS: CLARITY,URINE CLEAR (CLEAR)
--- NOTE | 2022-06-05 14:19 | ED Physician Documentation ---
ED Addendum - Addendum Addendum: 06/05/22 14:19 Reportedly difficult for IV access, Dr. Heller asked me to place a peripheral IV. I personally placed a longer 22-gauge IV in the right cephalic vein using real-time ultrasound guidance that flushed and ming well. I was not otherwise involved in her care.
[2022-06-05] MEDS: DEXTROSE 50% ABBOJECT 25 GM/50 ML SYRINGE IVP STA ×2 (14:27→17:06)
--- NOTE | 2022-06-05 15:12 | CT Report ---
PROCEDURE: ABDOMEN/PELVIS WO INDICATIONS: acute renal failure TECHNIQUE: Noncontrast 5 mm thick sections acquired from the diaphragms to the symphysis. 5 mm coronal and sagi ttal reformats were then performed. For radiation dose reduction, the following was used: automated exposure control, adjustment of mA and/or kV according to patient size. COMPARISON: 06/01/2020, 04/10/2022. FINDINGS: Image quality: Excellent. Lung bases and heart: 4 mm solid nodule, left lower lobe (series 4, image 17). This is stable since 2 021 and is statistically benign. Small hiatal hernia. Liver: Unremarkable. Gallbladder and biliary tree: Distended. No wall thickening. No radiopaque stones. Trace pericholecys tic fat stranding. Spleen: Unremarkable. Pancreas: Unremarkable. Adrenals: Nodular thickening of the left adrenal gland, without measurable nodule. Kidneys and ureters: No hydronephrosis. Bowel and peritoneum: No bowel distension. No pathologic free fluid. Prior enterotomy. Normal colonic caliber. Lymph nodes: No central or retroperitoneal adenopathy. Vessels: Unremarkable. PELVIS Reproductive organs: Unremarkable. Bladder: Decompressed around a Guidry catheter. Lymph nodes: Unremarkable. Bones: No aggressive osseous abnormality. Convex left scoliosis. Other: None. IMPRESSION: Unremarkable kidneys. No hydronephrosis. Gallbladder is distended, without radiopaque gallstones. There is mild pericholecystic flattening, bu t no perceived wall thickening. The findings may indicate early acute cholecystitis. If patient repor ts prior quadrant pain, consider sonographic evaluation. Reviewed by: Ki Maurice on 06/05/2022 3:10 PM PDT Approved by: Ki Maurice on 06/05/2022 3:10 PM PDT Station ID: [id number]
[2022-06-05 15:19] LABS: CORONAVIRUS 229E-RESP PCR NOT DETECTED; CORONAVIRUS HKU1-RESP PCR NOT DETECTED; CORONAVIRUS NL63-RESP PCR NOT DETECTED; CORONAVIRUS OC43-RESP PCR NOT DETECTED
[2022-06-05 15:20] LABS: B. PARAPERTUSSIS- RESP PCR PAN NOT DETECTED; B. PERTUSSIS- RESP PCR PANEL NOT DETECTED; C. PNEUMONIAE- RESP PCR PANEL NOT DETECTED; HUMAN METAPNEUMOVIRUS NOT DETECTED; INFLUENZA A- RESP PCR PANEL NOT DETECTED; INFLUENZA B - RESP PCR PANEL NOT DETECTED; M. PNEUMONIAE- RESP PCR PANEL NOT DETECTED; PARAINFLUENZA VIRUS 1 NOT DETECTED; PARAINFLUENZA VIRUS 2 NOT DETECTED; PARAINFLUENZA VIRUS 3 NOT DETECTED; PARAINFLUENZA VIRUS 4 NOT DETECTED; RHINOVIRUS/ENTEROVIRUS NOT DETECTED; RSV- RESP PCR PANEL NOT DETECTED; SARS-CoV-2 -RESP PCR PANEL DETECTED
--- NOTE | 2022-06-05 15:55 | HISTORY & PHYSICAL EXAMINATION ---
Chief Complaint - Chief Complaint Chief Complaint: Hypoglycemia, glucose 57, ambulance called to [facility] History of Present Illness - Admitted From Admitted From:: ED - History Obtained From Records Reviewed: Yes History obtained from: ED provider and medical record review - History of Present Illness HPI Comment/Other: This is a 77-year-old white female with history of diabetes on glipizide, metformin and short acting insulin for sliding scale. The patient was admitted here about 2 months ago and had metabolic acidosis from JESSICA which was caused by taking excessive amounts of nonsteroidal medicines plus being dehydrated and having uremia. After that she was discharged to a SNF. The patient now lives at [facility] and today staff found that her morning glucose was 57 and called an ambulance. She had stable blood pressure and heart rate. She was obtunded and given glucose. This helped her become more awake. The history obtained by ED was that she has not been hungry lately and also decreased her oral liquid intake. In the ED her glucose was still low in the 70s and she received supplemental glucose again. Search for an infectious cause of the hypoglycemia showed nothing on chest x-ray or urinalysis and there were no localizing signs on physical exam. She had very significant abnormal labs however, with a BUN of 240/creatinine 11, her baseline best creatinine is 0.7 and when she was here 2 months ago her creatinine was 5.0 before it improved. The ED provider spoke to the patient directly regarding her wishes for CODE STATUS but also asked if she would agree to dialysis. The patient was answering appropriately and did not appear confused and she said she wanted to be a DNR and would not want dialysis. Her POLST however, indicated full treatment and full code status therefore the ED provider rechecked her wishes with her and she now wants to be a DNR. Blood pressure in the ED has been "soft" running between 79 systolic and 110 systolic. She is also hypothermic with a temperature of 33 degrees C. She tested positive for COVID on her respiratory panel. Her oxygen saturation is 97 to 99% on room air. Her troponins were 46 and 43. VBG showed a pH of 7.23, anion gap 23, bicarb 12, serum ketones negative, sodium 128. The ED provider reached out to me on the Hospitalist team and we discussed this patient. The patient will be admitted to the ICU for managing hypoglycemia causing altered mental status and for treating metabolic acidosis, JESSICA with dehydration and hyponatremia. 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 She was a smoker), Father: Family History Comment/Other: Father had vascular dementia. Living arrangement: detention Social History Notes: She used to live alone, now lives at [facility], since her last adm 2 mos ago. She does not smoke tobacco products. She rarely drinks alcohol. She denies any illicit drugs. - Substance History Use: Uses substance without health or social issues: NONE - POLST Patient has POLST: No POLST Status: Limited Interventions (I talked with the patient and she would not want dialysis and would not want intubation or CPR. This would amend her formal POLST though I have not done the paperwork.) Meds/Allgy - Home Medications Home Medications: Ambulatory Orders Medication Instructions Recorded Confirmed Losartan Potassium 50 mg PO DAILY 09/13/19 04/10/22 Atorvastatin Calcium 40 mg PO DAILY 06/01/20 04/10/22 metFORMIN [Glucophage] 1,000 mg PO BIDWM #60 tablet 06/08/20 04/10/22 Glipizide [Glipizide Xl] 5 mg PO DAILY 04/11/22 04/11/22 buPROPion HCL [Bupropion Xl] 150 mg PO QPM 04/11/22 04/11/22 Gabapentin [Neurontin] 100 mg PO DAILY #30 cap 04/19/22 Gabapentin [Neurontin] 300 mg PO QPM PRN #30 cap 04/19/22 Insulin Lispro [Humalog Kwikpen 1 - 5 unit SUBQ 04/19/22 U-100] 0800,1200,1700,2100 #1 ea Lidocaine Patch 5% [Lidoderm Patch] 1 patch TOP DAILY PRN #30 patch 04/19/22 Metoprolol Succinate [Toprol Xl] 25 mg PO DAILY #30 tablet 04/19/22 Potassium Chloride [Micro-K] 20 meq PO DAILYWM #14 cap 04/19/22 oxyCODONE [Roxicodone] 5 mg PO Q4HR PRN #12 tab 04/19/22 rOPINIRole [Requip] 0.5 mg PO QPM #30 tab 04/19/22 traMADol [Ultram] 50 mg PO Q4HR PRN #12 tab 04/19/22 - Allergies Allergies/Adverse Reactions: Allergies Allergy/AdvReac Type Severity Reaction Status Date / Time No Known Drug Allergies Allergy Verified 06/05/22 11:14 Review of Systems - Constitutional Constitutional: reports: Fatigue - All Other Systems All Other Systems: reports: Other (The patient denies any pulmonary or GI symptoms. She does appear fatigued and lethargic. She is a poor historian.) Exam - Vital Signs Vital Signs: Vital Signs x48h Temp Pulse Resp BP Pulse Ox 06/05/22 15:40 75 14 92/62 98 06/05/22 15:09 71 14 95/51 L 97 06/05/22 14:34 61 15 92/52 L 96 06/05/22 14:22 33.4 C L 69 14 103/53 L 100 06/05/22 14:08 66 20 103/53 L 97 06/05/22 13:42 70 12 113/67 96 06/05/22 13:01 72 16 79/50 L 97 06/05/22 12:43 73 13 80/67 L 97 06/05/22 11:55 73 14 100/67 98 06/05/22 11:39 68 14 101/67 99 06/05/22 11:07 33.2 C L 69 9 L 101/67 98 - Physical Exam General Appearance: positive: No acute distress, Alert, Other (Pale, overweight) Eyes Bilateral: positive: Normal inspection, EOMI ENT: positive: ENT inspection nml, Dry mucous membranes Neck: positive: Nml inspection, No JVD Respiratory: positive: No respiratory distress Cardiovascular: positive: Regular rate & rhythm Abdomen: positive: Non-tender Skin: positive: Warm, Dry, Pallor Extremities: positive: Non-tender Neurologic/Psychiatric: positive: Other (Poor historian, lethargic, moves all extrem spontaneously, is oriented x3) Conclusion/Plan - Problem List (1) Metabolic acidosis Conclusion/Plan: Patient has a VBG pH of 7.2 and serum bicarb level of 12. This is likely from her JESSICA and from metformin use Plan: Admit to the ICU Continue with IV fluids Begin IV bicarb drip and will check her serum bicarb every 2 hours. Plan would be to bring her bicarb to 20-25 in 12 to 24 hours Follow BMP every 4 hours, CMP daily (2) Acute kidney injury Conclusion/Plan: This is likely due to volume depletion and Metformin use Plan: Hold metformin The patient went into pulmonary edema when she was with us several years ago and had a rapid correction of dehydration, therefore will give iv fluids at 90-100 cc/hr Avoid nephrotoxins Follow BMP daily Two months ago when she had JESSICA she agreed to be transferred to a facility with higher level of care if she needed hemodialysis. This time she understood and would not want dialysis and wants to be a DNR (3) Nonketotic hypoglycemia Conclusion/Plan: This is likely from calorie intake not matching her diabetic management of getting metformin, glipizide and insulin. Plan: Because she has repeat recurrent hypoglycemia she will need to be on a D5 drip plus extra D50 if she gets hypoglycemic We will order a clear liquid diet, not a diabetic diet Follow fingerstick checks and order hypoglycemia protocol (4) Hypotension Conclusion/Plan: Her soft blood pressure SO correlates with her volume depletion Plan: We will give supplemental IV fluids (5) Hypothermia Conclusion/Plan: Given her positive COVID status this may be her bodies reaction to the infection Plan: We will order a warming blanket Qualifiers: Encounter type: initial encounter Qualified Code(s): T68.XXXA - Hypothermia, initial encounter (6) Hyponatremia Conclusion/Plan: This patient has high pro bulimic hyponatremia Plan: We will give replacement in the form of NS. We will follow her electrolytes closely, a plan would be to correct her sodium by 6 to 8 mEq in the next 24 hours (7) COVID-19 Conclusion/Plan: Patient has currently no pulmonary or GI symptoms. Possibly her high Po thermia is related to this COVID infection Plan: We will order respiratory/droplet isolation She is not a candidate to receive IV steroids or IV remdesivir, without desaturating (8) DM (diabetes mellitus), type 2 Conclusion/Plan: As per history. Plan: Because of the ongoing hypoglycemia on repeat checks, we will not currently order a diabetic diet. We are holding all of her diabetic medications because of the repeat hypoglycemia and allowing clear liquids without a glu restriction Qualifiers: Diabetes mellitus parts counterman insulin use: unspecified parts counterman insulin use status (9) Restless leg syndrome Conclusion/Plan: At the last admission, she would repeatedly say "RLS is the reason for her leg pain". Her pain was only with standing up. Currently she does not want to wear the SCDs because they irritate the are less. Plan: We will restart Her meds, renally adjusted, once pharmacy reconciled the med list Will cancel the SCDs, use subcu heparin for DVT prophylax (10) Pulmonary HTN Conclusion/Plan: As per history from Echo done approximately 2 years ago, PA pressure was 60 mmHg. - Lab Results Fish Bones: 06/05/22 11:46 06/05/22 23:02 - Diagnostic Imaging Results Diagnostic Imaging Results: positive: Final report reviewed - Other Other Results/Comments: Attestation: The patient will be discharged or transferred to another facility with 96 hours: Yes.
[2022-06-05 16:12] LABS: VBG HCO3 8.8 mmol/L (23-28); VBG PCO2 21.5 mmHg (41-51); VBG PH 7.231 (7.31-7.41); VBG TOTAL CO2 9.5 mmol/L (24-29)
[2022-06-05 16:13] LABS: VBG BASE EXCESS -16.8 mmol/L (-2 - +2); VBG OXYGEN SATURATION 90.9 % (60-80)
[2022-06-05] MEDS ORDERED: DEXTROSE 40% GEL 37.5 GM TUBE PO ONE (16:54)
[2022-06-05] MEDS ORDERED: DEXTROSE 40% GEL 37.5 GM TUBE ONE ×2 (16:54→17:17)
[2022-06-05] MEDS: DEXTROSE 5%-0.9% NACL 1,000 ML IV SCH (16:57)
[2022-06-05] MEDS: ONDANSETRON 4 MG/2 ML VIAL IVP PRN (16:58)
[2022-06-05] MEDS: ZINC OXIDE 20% OINT 30 GM TUBE TOP PRN ×2 (16:58→19:59)
[2022-06-05] MEDS ORDERED: SODIUM BICARBONATE 150 MEQ in DEXTROSE 5% 1,000 ML IV SCH (21:00)
[2022-06-05] MEDS: EMOLLIENT CREAM 57 GM TUBE TOP SCH ×2 (21:20→22:17)
[2022-06-05] MEDS: SODIUM CHLORIDE FLUSH 0.9% 10 ML SYRINGE IVP SCH (21:21)
[2022-06-05] MEDS: HEPARIN 5,000 UNIT/ML VIAL SUBQ SCH (21:21)
[2022-06-05] MEDS: FAMOTIDINE 20 MG TABLET PO SCH (21:21)
[2022-06-05 23:24] LABS: VBG BASE EXCESS -14.8 mmol/L (-2 - +2); VBG HCO3 11.2 mmol/L (23-28); VBG OXYGEN SATURATION 58.6 % (60-80); VBG PCO2 27.6 mmHg (41-51); VBG PH 7.228 (7.31-7.41); VBG PO2 30.8 mmHg (25-47); VBG TOTAL CO2 12.1 mmol/L (24-29)
[2022-06-05 23:44] LABS: POTASSIUM 3.4 mmol/L (3.5-5.0)
[2022-06-05 23:46] LABS: CREATININE 11.3 mg/dL (0.4-1.0)
[2022-06-06] MEDS: SODIUM CHLORIDE FLUSH 0.9% 10 ML SYRINGE IVP SCH ×3 (01:13→18:17)
[2022-06-06 05:03] LABS: BASOPHILS % (AUTO) 0.2 %; EOSINOPHILS # (AUTO) 0.4 10^3/uL (0.0-0.7); EOSINOPHILS % (AUTO) 7.4 %; HCT - HEMATOCRIT 35.3 % (37.0-47.0); HGB - HEMOGLOBIN 11.1 g/dL (12.0-16.0); LYMPHOCYTES # (AUTO) 0.4 10^3/uL (1.5-3.5); MEAN CORPUSCULAR HEMOGLOBIN 25.3 pg (27.0-31.0); MEAN CORPUSCULAR HGB CONC 31.4 g/dL (32.0-36.0); MEAN CORPUSCULAR VOLUME 80.6 fL (81.0-99.0); MEAN PLATELET VOLUME 11.7 fL (7.9-10.8); MONOCYTES # (AUTO) 0.4 10^3/uL (0.0-1.0); MONOCYTES % (AUTO) 6.9 %; NEUTROPHILS # (AUTO) 4.6 10^3/uL (1.5-6.6); NEUTROPHILS % (AUTO) 79.2 %; PLT - PLATELET COUNT 137 10^3/uL (130-450); RED BLOOD COUNT 4.38 10^6/uL (4.20-5.40); RED CELL DISTRIBUTION WIDTH 17.7 % (12.0-15.0); WHITE BLOOD COUNT 5.8 x10^3/uL (4.8-10.8)
[2022-06-06 05:11] LABS: VBG PCO2 25.8 mmHg (41-51); VBG PH 7.292 (7.31-7.41); VBG PO2 48.1 mmHg (25-47)
[2022-06-06 05:12] LABS: VBG BASE EXCESS -12.7 mmol/L (-2 - +2); VBG HCO3 12.2 mmol/L (23-28); VBG OXYGEN SATURATION 83.1 % (60-80)
[2022-06-06] MEDS: DEXTROSE 5%-0.9% NACL 1,000 ML IV SCH ×3 (05:29→23:49)
[2022-06-06 05:33] LABS: CALCIUM 8.2 mg/dL (8.5-10.3); PHOSPHORUS 7.5 mg/dL (2.5-4.6); POTASSIUM 3.6 mmol/L (3.5-5.0)
[2022-06-06 05:35] LABS: CREATININE 10.9 mg/dL (0.4-1.0)
[2022-06-06] MEDS: DEXTROSE 40% GEL 37.5 GM TUBE PO ONE ×2 (05:45→05:55)
[2022-06-06] MEDS ORDERED: DEXTROSE 10% 250 ML IV STA (05:53)
[2022-06-06] MEDS ORDERED: DEXTROSE 10% 250 ML IV ONE (05:54)
[2022-06-06] MEDS: FAMOTIDINE 20 MG TABLET PO SCH ×2 (08:12→21:28)
[2022-06-06] MEDS: ONDANSETRON 4 MG/2 ML VIAL IVP PRN ×2 (08:12→15:17)
[2022-06-06] MEDS: HEPARIN 5,000 UNIT/ML VIAL SUBQ SCH ×2 (08:12→21:29)
[2022-06-06] MEDS ORDERED: SODIUM BICARBONATE 150 MEQ in DEXTROSE 5% 1,000 ML IV SCH (10:00)
--- NOTE | 2022-06-06 11:02 | PHARMACY PROGRESS NOTE ---
- Best Possible Medication History Admit Date and Time: 06/05/22 1540 Processed by: Pharmacy Medication History completed: Yes Patient Interview: Completed Secondary Source(s): Pharmacy records, Facility MAR as ONLY source (SPOKE TO [facility]) As the person ultimately responsible for medication therapy, providers are able to order a medication from an existing home medication list in [facility] via the "Reconcile Routine" prior to Confirmation of that medication by office support associate. Such practice is discouraged except when the physician, in their clinical judgment, deems that a medical need exists for a medication without regard to previous use.
[2022-06-06 11:07] LABS: VBG BASE EXCESS -9.6 mmol/L (-2 - +2); VBG HCO3 14.1 mmol/L (23-28); VBG OXYGEN SATURATION 82.5 % (60-80); VBG PH 7.368 (7.31-7.41); VBG PO2 45.6 mmHg (25-47); VBG TOTAL CO2 14.8 mmol/L (24-29)
[2022-06-06 11:50] LABS: CALCIUM 7.8 mg/dL (8.5-10.3); POTASSIUM 3.4 mmol/L (3.5-5.0)
[2022-06-06 11:52] LABS: CREATININE 10.5 mg/dL (0.4-1.0)
[2022-06-06] MEDS: EMOLLIENT CREAM 57 GM TUBE TOP SCH ×2 (13:09→21:29)
--- NOTE | 2022-06-06 16:43 | XRAY Report ---
PROCEDURE: Chest for Line Placement INDICATIONS: PICC by anesthesia TECHNIQUE: One view of the chest was acquired. COMPARISON: 04/10/2022 FINDINGS: Surgical changes and devices: PICC line tip projects over the mid SVC via a right-sided approach. Lungs and pleura: No pleural effusions or pneumothorax. Lungs are clear. Mediastinum: Mediastinal contours appear normal. Heart size is normal. Bones and chest wall: No suspicious bony lesions. Overlying soft tissues appear unremarkable. IMPRESSION: Tip of PICC line projects over the mid SVC. Reviewed by: Jessa Dooley MD, PhD on 06/06/2022 4:41 PM PDT Approved by: Jessa Dooley MD, PhD on 06/06/2022 4:41 PM PDT Station ID: [id number]
[2022-06-06 17:14] LABS: VBG BASE EXCESS -6.2 mmol/L (-2 - +2); VBG HCO3 14.4 mmol/L (23-28); VBG OXYGEN SATURATION 98.7 % (60-80); VBG PCO2 17.7 mmHg (41-51); VBG PH 7.527 (7.31-7.41); VBG PO2 147.2 mmHg (25-47); VBG TOTAL CO2 14.9 mmol/L (24-29)
--- NOTE | 2022-06-06 17:18 | ANESTHESIA PROCEDURE NOTE ---
Anesth Central Line Template - Central Line Central Line Preparation: Consent Obtained, Time out completed, Ultrasound used, Sterile prep and drape Central line location: Right Brachial Central line type: PICC Single Lumen Central line catheter tip site resides: Superior vena cava (SVC) Central line aftercare: Secured, Placement confirmed, No pneumothorax, No complications, Bundle checklist complete, Pt tolerated well
[2022-06-06 18:43] LABS: CALCIUM 7.4 mg/dL (8.5-10.3)
[2022-06-06 18:45] LABS: CREATININE 10.2 mg/dL (0.4-1.0)
--- NOTE | 2022-06-06 19:20 | PROVIDER PROGRESS NOTE ---
Subjective - Prog Note Date Prog Note Date: 06/06/22 Prog Note Time: 19:29 - Subjective Subjective: sleepy, eyes closed as she answers some of my questions mumbling but not really covnersant. Current Medications - Current Medications Current Medications: Active Medications Acetaminophen (Acetaminophen 325 Mg Tablet) 650 mg PO Q4HR PRN PRN Reason: Pain 1 to 4, or Fever Famotidine (Famotidine 20 Mg Tablet) 20 mg PO BID [facility] Last Admin: 06/06/22 08:12 Dose: 20 mg Heparin Sodium (Porcine) (Heparin 5,000 Unit/Ml Vial) 5,000 unit SUBQ BID [facility] Last Admin: 06/06/22 08:12 Dose: 5,000 unit Dextrose/Sodium Chloride (D5ns) 1,000 mls @ 100 mls/hr IV .Q10H [facility] Last Admin: 06/06/22 12:20 Dose: Not Given Mineral Oil (Min Oil/Dimethicon/Coconut Oil 92 Gm Tube) 1 applic TOP PRN PRN PRN Reason: Skin Care Multi-Ingredient Ointment (Emollient Cream 57 Gm Tube) 1 applic TOP BID [facility] Last Admin: 06/06/22 13:09 Dose: 1 applic Multi-Ingredient Ointment (Zinc Oxide 20% Oint 30 Gm Tube) 1 applic TOP PRN PRN PRN Reason: Skin Care Last Admin: 06/05/22 19:59 Dose: 1 applic Ondansetron HCl (Ondansetron 4 Mg/2 Ml Vial) 4 mg IVP Q6HR PRN PRN Reason: Nausea / Vomiting Last Admin: 06/06/22 15:17 Dose: 4 mg Sodium Chloride (Sodium Chloride Flush 0.9% 10 Ml Syringe) 10 ml IVP 0100,0900,1700 [facility] Last Admin: 06/06/22 18:17 Dose: 10 ml Sodium Chloride (Sodium Chloride Flush 0.9% 10 Ml Syringe) 10 ml IVP PRN PRN PRN Reason: NEEDED PER PROVIDER ORDERS Losartan Potassium 50 mg PO DAILY 09/13/19 Atorvastatin Calcium 40 mg PO DAILY 06/01/20 buPROPion HCL [Bupropion Xl] 150 mg PO QPM 04/11/22 Gabapentin [Neurontin] 100 mg PO BID 06/06/22 Metformin HCl [Metformin ER Osmotic] 1 tab PO BID 06/06/22 Ropinirole HCl 1 tab PO HS 06/06/22 glipiZIDE [Glucotrol] 1 tab PO TID 06/06/22 Objective - Vital Signs/Intake & Output Reviewed Vital Signs: Yes Vital Signs: Vital Signs x48h Temp Pulse Resp BP Pulse Ox 06/06/22 19:00 90 14 95/61 100 06/06/22 18:06 93 20 104/70 99 06/06/22 17:00 98 15 110/60 98 06/06/22 16:12 96 14 108/54 L 96 06/06/22 15:00 91 15 97/52 L 97 06/06/22 13:00 36.6 C 95 20 107/55 L 100 06/06/22 12:06 102 H 16 115/60 99 Intake & Output: Intake & Output 06/03/22 06/04/22 06/05/22 06/06/22 23:59 23:59 23:59 23:59 Intake Total 5688.333 1600 Output Total 148 877 Balance 5540.333 723 - Objective General Appearance: positive: Lethargic, Other (Body posture leaves her looking as if she is a short statured hunched over person) Eyes Bilateral: positive: PERRL, EOMI ENT: positive: No signs of dehydration Neck: negative: Stiff neck Respiratory: positive: No respiratory distress, Other (breath sounds low at bases). negative: Wheezes, Rales, Rhonchi Cardiovascular: positive: Regular rate & rhythm Abdomen: positive: Non-tender, No organomegaly, Nml bowel sounds, No distention Skin: positive: Other (moiz intertrigo in folds of skin) Extremities: positive: Full ROM, No pedal edema Neurologic/Psychiatric: positive: CN's nml (2-12), Motor nml, Disoriented to person, Disoriented to place, Disoriented to time - Lab Results Fish Bones: 06/06/22 04:20 06/06/22 17:21 Other Labs: Lab Results x24hrs 06/06/22 06/06/22 06/06/22 Range/Units 17:21 17:06 16:28 WBC (4.8-10.8) x10^3/uL RBC (4.20-5.40) 10^6/uL Hgb (12.0-16.0) g/dL Hct (37.0-47.0) % MCV (81.0-99.0) fL MCH (27.0-31.0) pg MCHC (32.0-36.0) g/dL RDW (12.0-15.0) % Plt Count (130-450) 10^3/uL MPV (7.9-10.8) fL Neut # (Auto) (1.5-6.6) 10^3/uL Lymph # (Auto) (1.5-3.5) 10^3/uL [place] # (Auto) (0.0-1.0) 10^3/uL Eos # (Auto) (0.0-0.7) 10^3/uL Baso # (Auto) (0.0-0.1) 10^3/uL Absolute Nucleated RBC x10^3/uL Nucleated RBC % /100WBC VBG pH 7.527 H (7.31-7.41) VBG pCO2 17.7 L (41-51) mmHg VBG pO2 147.2 H (25-47) mmHg VBG HCO3 14.4 L (23-28) mmol/L VBG Total CO2 14.9 L (24-29) mmol/L VBG O2 Saturation 98.7 H (60-80) % VBG Base Excess -6.2 L (-2 - +2) mmol/L Sodium 131 L (135-145) mmol/L Potassium 3.0 L (3.5-5.0) mmol/L Chloride 93 L (101-111) mmol/L Carbon Dioxide 17 L (21-32) mmol/L Anion Gap 21.0 H (6-13) BUN 197 H* (6-20) mg/dL Creatinine 10.2 H* (0.4-1.0) mg/dL Estimated GFR (MDRD) 4 L (>89) Glucose 186 H (70-100) mg/dL POC Whole Bld Glucose 175 H (70 - 100) mg/dL Calcium 7.4 L (8.5-10.3) mg/dL Phosphorus (2.5-4.6) mg/dL Nasal Screen MRSA (PCR) (NEGATIVE) 06/06/22 06/06/22 06/06/22 Range/Units 11:21 10:58 10:58 WBC (4.8-10.8) x10^3/uL RBC (4.20-5.40) 10^6/uL Hgb (12.0-16.0) g/dL Hct (37.0-47.0) % MCV (81.0-99.0) fL MCH (27.0-31.0) pg MCHC (32.0-36.0) g/dL RDW (12.0-15.0) % Plt Count (130-450) 10^3/uL MPV (7.9-10.8) fL Neut # (Auto) (1.5-6.6) 10^3/uL Lymph # (Auto) (1.5-3.5) 10^3/uL [place] # (Auto) (0.0-1.0) 10^3/uL Eos # (Auto) (0.0-0.7) 10^3/uL Baso # (Auto) (0.0-0.1) 10^3/uL Absolute Nucleated RBC x10^3/uL Nucleated RBC % /100WBC VBG pH 7.368 (7.31-7.41) VBG pCO2 25.0 L (41-51) mmHg VBG pO2 45.6 (25-47) mmHg VBG HCO3 14.1 L (23-28) mmol/L VBG Total CO2 14.8 L (24-29) mmol/L VBG O2 Saturation 82.5 H (60-80) % VBG Base Excess -9.6 L (-2 - +2) mmol/L Sodium 131 L (135-145) mmol/L Potassium 3.4 L (3.5-5.0) mmol/L Chloride 94 L (101-111) mmol/L Carbon Dioxide 14 L (21-32) mmol/L Anion Gap 23.0 H (6-13) BUN 206 H* (6-20) mg/dL Creatinine 10.5 H* (0.4-1.0) mg/dL Estimated GFR (MDRD) 4 L (>89) Glucose 117 H (70-100) mg/dL POC Whole Bld Glucose 124 H (70 - 100) mg/dL Calcium 7.8 L (8.5-10.3) mg/dL Phosphorus (2.5-4.6) mg/dL Nasal Screen MRSA (PCR) (NEGATIVE) 06/06/22 06/06/22 06/06/22 Range/Units 07:39 06:44 04:20 WBC (4.8-10.8) x10^3/uL RBC (4.20-5.40) 10^6/uL Hgb (12.0-16.0) g/dL Hct (37.0-47.0) % MCV (81.0-99.0) fL MCH (27.0-31.0) pg MCHC (32.0-36.0) g/dL RDW (12.0-15.0) % Plt Count (130-450) 10^3/uL MPV (7.9-10.8) fL Neut # (Auto) (1.5-6.6) 10^3/uL Lymph # (Auto) (1.5-3.5) 10^3/uL [place] # (Auto) (0.0-1.0) 10^3/uL Eos # (Auto) (0.0-0.7) 10^3/uL Baso # (Auto) (0.0-0.1) 10^3/uL Absolute Nucleated RBC x10^3/uL Nucleated RBC % /100WBC VBG pH 7.292 L (7.31-7.41) VBG pCO2 25.8 L (41-51) mmHg VBG pO2 48.1 H (25-47) mmHg VBG HCO3 12.2 L (23-28) mmol/L VBG Total CO2 13.0 L (24-29) mmol/L VBG O2 Saturation 83.1 H (60-80) % VBG Base Excess -12.7 L (-2 - +2) mmol/L Sodium (135-145) mmol/L Potassium (3.5-5.0) mmol/L Chloride (101-111) mmol/L Carbon Dioxide (21-32) mmol/L Anion Gap (6-13) BUN (6-20) mg/dL Creatinine (0.4-1.0) mg/dL Estimated GFR (MDRD) (>89) Glucose (70-100) mg/dL POC Whole Bld Glucose 121 H 135 H (70 - 100) mg/dL Calcium (8.5-10.3) mg/dL Phosphorus (2.5-4.6) mg/dL Nasal Screen MRSA (PCR) (NEGATIVE) 06/06/22 06/06/22 06/05/22 Range/Units 04:20 04:20 23:02 WBC 5.8 (4.8-10.8) x10^3/uL RBC 4.38 (4.20-5.40) 10^6/uL Hgb 11.1 L (12.0-16.0) g/dL Hct 35.3 L (37.0-47.0) % MCV 80.6 L (81.0-99.0) fL MCH 25.3 L (27.0-31.0) pg MCHC 31.4 L (32.0-36.0) g/dL RDW 17.7 H (12.0-15.0) % Plt Count 137 (130-450) 10^3/uL MPV 11.7 H (7.9-10.8) fL Neut # (Auto) 4.6 (1.5-6.6) 10^3/uL Lymph # (Auto) 0.4 L (1.5-3.5) 10^3/uL [place] # (Auto) 0.4 (0.0-1.0) 10^3/uL Eos # (Auto) 0.4 (0.0-0.7) 10^3/uL Baso # (Auto) 0.0 (0.0-0.1) 10^3/uL Absolute Nucleated RBC 0.00 x10^3/uL Nucleated RBC % 0.0 /100WBC VBG pH 7.228 L (7.31-7.41) VBG pCO2 27.6 L (41-51) mmHg VBG pO2 30.8 (25-47) mmHg VBG HCO3 11.2 L (23-28) mmol/L VBG Total CO2 12.1 L (24-29) mmol/L VBG O2 Saturation 58.6 L (60-80) % VBG Base Excess -14.8 L (-2 - +2) mmol/L Sodium 133 L (135-145) mmol/L Potassium 3.6 (3.5-5.0) mmol/L Chloride 98 L (101-111) mmol/L Carbon Dioxide 13 L (21-32) mmol/L Anion Gap 22.0 H (6-13) BUN 214 H* (6-20) mg/dL Creatinine 10.9 H* (0.4-1.0) mg/dL Estimated GFR (MDRD) 3 L (>89) Glucose 31 L* (70-100) mg/dL POC Whole Bld Glucose (70 - 100) mg/dL Calcium 8.2 L (8.5-10.3) mg/dL Phosphorus 7.5 H (2.5-4.6) mg/dL Nasal Screen MRSA (PCR) (NEGATIVE) 06/05/22 06/05/22 06/05/22 Range/Units 23:02 20:30 17:22 WBC (4.8-10.8) x10^3/uL RBC (4.20-5.40) 10^6/uL Hgb (12.0-16.0) g/dL Hct (37.0-47.0) % MCV (81.0-99.0) fL MCH (27.0-31.0) pg MCHC (32.0-36.0) g/dL RDW (12.0-15.0) % Plt Count (130-450) 10^3/uL MPV (7.9-10.8) fL Neut # (Auto) (1.5-6.6) 10^3/uL Lymph # (Auto) (1.5-3.5) 10^3/uL [place] # (Auto) (0.0-1.0) 10^3/uL Eos # (Auto) (0.0-0.7) 10^3/uL Baso # (Auto) (0.0-0.1) 10^3/uL Absolute Nucleated RBC x10^3/uL Nucleated RBC % /100WBC VBG pH (7.31-7.41) VBG pCO2 (41-51) mmHg VBG pO2 (25-47) mmHg VBG HCO3 (23-28) mmol/L VBG Total CO2 (24-29) mmol/L VBG O2 Saturation (60-80) % VBG Base Excess (-2 - +2) mmol/L Sodium 131 L (135-145) mmol/L Potassium 3.4 L (3.5-5.0) mmol/L Chloride 98 L (101-111) mmol/L Carbon Dioxide 12 L* (21-32) mmol/L Anion Gap 21.0 H (6-13) BUN 226 H* (6-20) mg/dL Creatinine 11.3 H* (0.4-1.0) mg/dL Estimated GFR (MDRD) 3 L (>89) Glucose 70 (70-100) mg/dL POC Whole Bld Glucose 89 176 H (70 - 100) mg/dL Calcium 8.0 L (8.5-10.3) mg/dL Phosphorus (2.5-4.6) mg/dL Nasal Screen MRSA (PCR) (NEGATIVE) 06/05/22 06/05/22 06/05/22 Range/Units 17:04 16:44 16:30 WBC (4.8-10.8) x10^3/uL RBC (4.20-5.40) 10^6/uL Hgb (12.0-16.0) g/dL Hct (37.0-47.0) % MCV (81.0-99.0) fL MCH (27.0-31.0) pg MCHC (32.0-36.0) g/dL RDW (12.0-15.0) % Plt Count (130-450) 10^3/uL MPV (7.9-10.8) fL Neut # (Auto) (1.5-6.6) 10^3/uL Lymph # (Auto) (1.5-3.5) 10^3/uL [place] # (Auto) (0.0-1.0) 10^3/uL Eos # (Auto) (0.0-0.7) 10^3/uL Baso # (Auto) (0.0-0.1) 10^3/uL Absolute Nucleated RBC x10^3/uL Nucleated RBC % /100WBC VBG pH (7.31-7.41) VBG pCO2 (41-51) mmHg VBG pO2 (25-47) mmHg VBG HCO3 (23-28) mmol/L VBG Total CO2 (24-29) mmol/L VBG O2 Saturation (60-80) % VBG Base Excess (-2 - +2) mmol/L Sodium (135-145) mmol/L Potassium (3.5-5.0) mmol/L Chloride (101-111) mmol/L Carbon Dioxide (21-32) mmol/L Anion Gap (6-13) BUN (6-20) mg/dL Creatinine (0.4-1.0) mg/dL Estimated GFR (MDRD) (>89) Glucose (70-100) mg/dL POC Whole Bld Glucose 57 L* 67 L (70 - 100) mg/dL Calcium (8.5-10.3) mg/dL Phosphorus (2.5-4.6) mg/dL Nasal Screen MRSA (PCR) NEGATIVE (NEGATIVE) 06/05/22 06/05/22 06/05/22 Range/Units 15:09 14:32 14:31 WBC (4.8-10.8) x10^3/uL RBC (4.20-5.40) 10^6/uL Hgb (12.0-16.0) g/dL Hct (37.0-47.0) % MCV (81.0-99.0) fL MCH (27.0-31.0) pg MCHC (32.0-36.0) g/dL RDW (12.0-15.0) % Plt Count (130-450) 10^3/uL MPV (7.9-10.8) fL Neut # (Auto) (1.5-6.6) 10^3/uL Lymph # (Auto) (1.5-3.5) 10^3/uL [place] # (Auto) (0.0-1.0) 10^3/uL Eos # (Auto) (0.0-0.7) 10^3/uL Baso # (Auto) (0.0-0.1) 10^3/uL Absolute Nucleated RBC x10^3/uL Nucleated RBC % /100WBC VBG pH (7.31-7.41) VBG pCO2 (41-51) mmHg VBG pO2 (25-47) mmHg VBG HCO3 (23-28) mmol/L VBG Total CO2 (24-29) mmol/L VBG O2 Saturation (60-80) % VBG Base Excess (-2 - +2) mmol/L Sodium (135-145) mmol/L Potassium (3.5-5.0) mmol/L Chloride (101-111) mmol/L Carbon Dioxide (21-32) mmol/L Anion Gap (6-13) BUN (6-20) mg/dL Creatinine (0.4-1.0) mg/dL Estimated GFR (MDRD) (>89) Glucose (70-100) mg/dL POC Whole Bld Glucose 138 H 145 H 176 H (70 - 100) mg/dL Calcium (8.5-10.3) mg/dL Phosphorus (2.5-4.6) mg/dL Nasal Screen MRSA (PCR) (NEGATIVE) 06/05/22 06/05/22 06/05/22 Range/Units 13:46 12:55 11:06 WBC (4.8-10.8) x10^3/uL RBC (4.20-5.40) 10^6/uL Hgb (12.0-16.0) g/dL Hct (37.0-47.0) % MCV (81.0-99.0) fL MCH (27.0-31.0) pg MCHC (32.0-36.0) g/dL RDW (12.0-15.0) % Plt Count (130-450) 10^3/uL MPV (7.9-10.8) fL Neut # (Auto) (1.5-6.6) 10^3/uL Lymph # (Auto) (1.5-3.5) 10^3/uL [place] # (Auto) (0.0-1.0) 10^3/uL Eos # (Auto) (0.0-0.7) 10^3/uL Baso # (Auto) (0.0-0.1) 10^3/uL Absolute Nucleated RBC x10^3/uL Nucleated RBC % /100WBC VBG pH (7.31-7.41) VBG pCO2 (41-51) mmHg VBG pO2 (25-47) mmHg VBG HCO3 (23-28) mmol/L VBG Total CO2 (24-29) mmol/L VBG O2 Saturation (60-80) % VBG Base Excess (-2 - +2) mmol/L Sodium (135-145) mmol/L Potassium (3.5-5.0) mmol/L Chloride (101-111) mmol/L Carbon Dioxide (21-32) mmol/L Anion Gap (6-13) BUN (6-20) mg/dL Creatinine (0.4-1.0) mg/dL Estimated GFR (MDRD) (>89) Glucose (70-100) mg/dL POC Whole Bld Glucose 40 L* 71 57 L* (70 - 100) mg/dL Calcium (8.5-10.3) mg/dL Phosphorus (2.5-4.6) mg/dL Nasal Screen MRSA (PCR) (NEGATIVE) Assessment/Plan - Problem List (1) Metabolic acidosis Impression: From a combination of renal failure and metformin use. She has been on a bicarb drip since admission. Her venous pH started at 7.231 on June 05. Over the course of yesterday and today her pH is slowly improved. This morning at 11 AM she was 7.368. This evening she is 7.57. She has been in the intensive care unit since admission. Plan: Continue with IV fluids But stop bicarb. I will stop every 4 hours BMP and change to daily (2) Acute kidney injury Conclusion/Plan: This is likely due to volume depletion and Metformin use. The mechanism of how she got to this is unclear to me. This is a woman who lives in an assisted/penitentiary facility. She is getting her food intake and oral intake from staff, and getting her medications from staff. They describe gradually decreasing Po intake, but her labs tell me that this woman is not eating or drinking very much for probably close to a week. She is not getting metformin while here. She had 2 IVF running, one at 100 cc an hour and then a bicarb drip at 100 cc/hr. Plan: The patient went into pulmonary edema when she was with us several years ago and had a rapid correction of dehydration, therefore will give iv fluids at 90-100 cc/hr Avoid nephrotoxins Follow BMP daily Two months ago when she had JESSICA she agreed to be transferred to a facility with higher level of care if she needed hemodialysis. This time she understood and would not want dialysis and wants to be a DNR (3) Nonketotic hypoglycemia Conclusion/Plan: This is likely from calorie intake not matching her diabetic management of getting metformin, glipizide and insulin. Plan: Because she has repeat recurrent hypoglycemia she is on a D5 drip plus extra D50 if she gets hypoglycemic We will order a clear liquid diet, not a diabetic diet but is not eating much since she is so sleepy Follow fingerstick checks and order hypoglycemia protocol (4) Hypotension Conclusion/Plan: Her soft blood pressure SO correlates with her volume depletion Plan: We will give supplemental IV fluids (5) Hypothermia resolved. Conclusion/Plan: Given her positive COVID status this may be her bodies reaction to the infection warming blanket dc'd Qualifiers: Encounter type: initial encounter Qualified Code(s): T68.XXXA - Hypothermia, initial encounter (6) Hyponatremia Conclusion/Plan: This patient has hypovolemic hyponatremia. She started at 128 on admit and is slowly correcting to 131. The D5 is slowly the correction as well. Plan: We will give replacement in the form of D5NS. We will follow her electrolytes closely, a plan would be to correct her sodium by 6 to 8 mEq in the next 24 hours and she is on goal (7) COVID-19 Conclusion/Plan: Patient has currently no pulmonary or GI symptoms. Possibly her high Po thermia is related to this COVID infection Plan: We will order respiratory/droplet isolation She is not a candidate to receive IV steroids or IV remdesivir, without desaturating (8) DM (diabetes mellitus), type 2 Conclusion/Plan: As per history. Plan: Because of the ongoing hypoglycemia on repeat checks, we will not currently order a diabetic diet. We are holding all of her diabetic medications because of the repeat hy poglycemia and allowing clear liquids without a glu restriction Qualifiers: Diabetes mellitus longterm insulin use: unspecified longterm insulin use status (9) Restless leg syndrome Conclusion/Plan: At the last admission, she would repeatedly say "RLS is the reason for her leg pain". Her pain was only with standing up. Currently she does not want to wear the SCDs because they irritate the are less. Plan: We will restart Her meds, renally adjusted, once pharmacy reconciled the med list Will cancel the SCDs, use subcu heparin for DVT prophylax (10) Pulmonary HTN Conclusion/Plan: As per history from Echo done approximately 2 years ago, PA pressure was 60 mmHg.
[2022-06-07] MEDS: SODIUM CHLORIDE FLUSH 0.9% 10 ML SYRINGE IVP SCH ×3 (01:00→17:40)
[2022-06-07] MEDS: DEXTROSE 5%-0.9% NACL 1,000 ML IV SCH (02:39)
[2022-06-07] MEDS: SODIUM CHLORIDE FLUSH 0.9% 10 ML SYRINGE IVP PRN (04:30)
[2022-06-07 04:40] LABS: EOSINOPHILS # (AUTO) 0.3 10^3/uL (0.0-0.7); EOSINOPHILS % (AUTO) 6.6 %; HCT - HEMATOCRIT 29.6 % (37.0-47.0); LYMPHOCYTES # (AUTO) 0.3 10^3/uL (1.5-3.5); LYMPHOCYTES % (AUTO) 7.7 %; MEAN CORPUSCULAR HEMOGLOBIN 26.3 pg (27.0-31.0); MEAN CORPUSCULAR HGB CONC 33.8 g/dL (32.0-36.0); MEAN CORPUSCULAR VOLUME 77.9 fL (81.0-99.0); MEAN PLATELET VOLUME 11.9 fL (7.9-10.8); MONOCYTES # (AUTO) 0.5 10^3/uL (0.0-1.0); MONOCYTES % (AUTO) 10.9 %; NEUTROPHILS # (AUTO) 3.3 10^3/uL (1.5-6.6); NEUTROPHILS % (AUTO) 74.1 %; PLT - PLATELET COUNT 132 10^3/uL (130-450); RED CELL DISTRIBUTION WIDTH 17.2 % (12.0-15.0); WHITE BLOOD COUNT 4.4 x10^3/uL (4.8-10.8)
[2022-06-07 05:04] LABS: CALCIUM 7.1 mg/dL (8.5-10.3)
[2022-06-07 05:07] LABS: CREATININE 9.4 mg/dL (0.4-1.0)
[2022-06-07] MEDS: SODIUM CHLORIDE 0.9% 1,000 ML IV SCH ×2 (08:10→20:16)
[2022-06-07] MEDS: HEPARIN 5,000 UNIT/ML VIAL SUBQ SCH ×2 (08:11→20:28)
[2022-06-07] MEDS: FAMOTIDINE 20 MG TABLET PO SCH ×2 (08:11→20:16)
[2022-06-07] MEDS: EMOLLIENT CREAM 57 GM TUBE TOP SCH ×2 (08:25→20:27)
[2022-06-07] MEDS: INSULIN LISPRO 300 UNIT/3 ML PEN SUBQ SCH ×4 (09:23→20:24)
[2022-06-07] MEDS: ONDANSETRON 4 MG/2 ML VIAL IVP PRN (14:50)
--- NOTE | 2022-06-07 16:07 | PROVIDER PROGRESS NOTE ---
Subjective - Prog Note Date Prog Note Date: 06/07/22 Prog Note Time: 16:06 - Subjective Subjective: She says that she is tired. No appetite. Nauseated. But no emesis. No abdominal pain. Asked me what really happened and I explained to her about the renal failure and the lactic acidosis. She remembered that this happened to her last time and laments that this happened to her again. Current Medications - Current Medications Current Medications: Active Medications Acetaminophen (Acetaminophen 325 Mg Tablet) 650 mg PO Q4HR PRN PRN Reason: Pain 1 to 4, or Fever Famotidine (Famotidine 20 Mg Tablet) 20 mg PO BID [facility] Last Admin: 06/07/22 20:16 Dose: 20 mg Heparin Sodium (Porcine) (Heparin 5,000 Unit/Ml Vial) 5,000 unit SUBQ BID [facility] Last Admin: 06/07/22 08:11 Dose: 5,000 unit Sodium Chloride (Normal Saline 0.9%) 1,000 mls @ 83.333 mls/hr IV .Q12H [facility] Last Admin: 06/07/22 20:16 Dose: 83.333 mls/hr Potassium Chloride (Potassium Chloride) 10 meq in 100 mls @ 100 mls/hr IV Q1H [facility] Stop: 06/07/22 23:59 Last Admin: 06/07/22 20:18 Dose: 100 mls/hr Insulin Human Lispro (Insulin Lispro 300 Unit/3 Ml Pen) 1 - 9 unit SUBQ 0800,1200,1700,2100 [facility]; Protocol Last Admin: 06/07/22 20:24 Dose: 1 unit Mineral Oil (Min Oil/Dimethicon/Coconut Oil 92 Gm Tube) 1 applic TOP PRN PRN PRN Reason: Skin Care Multi-Ingredient Ointment (Emollient Cream 57 Gm Tube) 1 applic TOP BID [facility] Last Admin: 06/07/22 20:27 Dose: Not Given Multi-Ingredient Ointment (Zinc Oxide 20% Oint 30 Gm Tube) 1 applic TOP PRN PRN PRN Reason: Skin Care Last Admin: 06/05/22 19:59 Dose: 1 applic Ondansetron HCl (Ondansetron 4 Mg/2 Ml Vial) 4 mg IVP Q6HR PRN PRN Reason: Nausea / Vomiting Last Admin: 06/07/22 14:50 Dose: 4 mg Sodium Chloride (Sodium Chloride Flush 0.9% 10 Ml Syringe) 10 ml IVP 0100,0900,1700 [facility] Last Admin: 06/07/22 17:40 Dose: Not Given Sodium Chloride (Sodium Chloride Flush 0.9% 10 Ml Syringe) 10 ml IVP PRN PRN PRN Reason: NEEDED PER PROVIDER ORDERS Last Admin: 06/07/22 04:30 Dose: 20 ml Losartan Potassium 50 mg PO DAILY 09/13/19 Atorvastatin Calcium 40 mg PO DAILY 06/01/20 buPROPion HCL [Bupropion Xl] 150 mg PO QPM 04/11/22 Gabapentin [Neurontin] 100 mg PO BID 06/06/22 Metformin HCl [Metformin ER Osmotic] 1 tab PO BID 06/06/22 Ropinirole HCl 1 tab PO HS 06/06/22 glipiZIDE [Glucotrol] 1 tab PO TID 06/06/22 Objective - Vital Signs/Intake & Output Reviewed Vital Signs: Yes Vital Signs: Vital Signs x48h Temp Pulse Resp BP Pulse Ox 06/07/22 15:00 90 20 118/69 97 06/07/22 14:00 36.7 C 88 16 102/58 L 96 06/07/22 13:00 86 16 103/67 96 06/07/22 11:00 91 16 111/64 100 06/07/22 09:00 92 16 115/61 96 Intake & Output: Intake & Output 06/04/22 06/05/22 06/06/22 06/07/22 23:59 23:59 23:59 23:59 Intake Total 5688.333 2750 681.667 Output Total 148 1064 1395 Balance 5540.333 1686 -633.333 - Objective General Appearance: positive: No acute distress, Lethargic (Sleepy, knows she is in the hospital, knows the date), Other (Overweight elderly woman, well- nourished, looks stated age) Eyes Bilateral: positive: PERRL, EOMI ENT: positive: Dry mucous membranes Neck: positive: No JVD. negative: Stiff neck Respiratory: positive: No respiratory distress, Other (Slow unlabored respiration). negative: Wheezes, Rales, Rhonchi Cardiovascular: positive: Regular rate & rhythm, Systolic murmur Abdomen: positive: Non-tender, No organomegaly, Nml bowel sounds, No distention Skin: positive: Warm, Dry Extremities: positive: Full ROM, No pedal edema Neurologic/Psychiatric: positive: CN's nml (2-12), Motor nml, Disoriented to time - Lab Results Fish Bones: 06/07/22 04:20 06/07/22 04:20 Other Labs: Lab Results x24hrs 06/07/22 06/07/22 06/07/22 Range/Units 11:44 07:49 04:20 WBC (4.8-10.8) x10^3/uL RBC (4.20-5.40) 10^6/uL Hgb (12.0-16.0) g/dL Hct (37.0-47.0) % MCV (81.0-99.0) fL MCH (27.0-31.0) pg MCHC (32.0-36.0) g/dL RDW (12.0-15.0) % Plt Count (130-450) 10^3/uL MPV (7.9-10.8) fL Neut # (Auto) (1.5-6.6) 10^3/uL Lymph # (Auto) (1.5-3.5) 10^3/uL Ida # (Auto) (0.0-1.0) 10^3/uL Eos # (Auto) (0.0-0.7) 10^3/uL Baso # (Auto) (0.0-0.1) 10^3/uL Absolute Nucleated RBC x10^3/uL Nucleated RBC % /100WBC VBG pH (7.31-7.41) VBG pCO2 (41-51) mmHg VBG pO2 (25-47) mmHg VBG HCO3 (23-28) mmol/L VBG Total CO2 (24-29) mmol/L VBG O2 Saturation (60-80) % VBG Base Excess (-2 - +2) mmol/L Sodium 132 L (135-145) mmol/L Potassium 3.0 L (3.5-5.0) mmol/L Chloride 97 L (101-111) mmol/L Carbon Dioxide 19 L (21-32) mmol/L Anion Gap 16.0 H (6-13) BUN 201 H* (6-20) mg/dL Creatinine 9.4 H* (0.4-1.0) mg/dL Estimated GFR (MDRD) 4 L (>89) Glucose 269 H (70-100) mg/dL POC Whole Bld Glucose 209 H 238 H (70 - 100) mg/dL Calcium 7.1 L (8.5-10.3) mg/dL 06/07/22 06/06/22 06/06/22 Range/Units 04:20 20:33 17:21 WBC 4.4 L (4.8-10.8) x10^3/uL RBC 3.80 L (4.20-5.40) 10^6/uL Hgb 10.0 L (12.0-16.0) g/dL Hct 29.6 L (37.0-47.0) % MCV 77.9 L (81.0-99.0) fL MCH 26.3 L (27.0-31.0) pg MCHC 33.8 (32.0-36.0) g/dL RDW 17.2 H (12.0-15.0) % Plt Count 132 (130-450) 10^3/uL MPV 11.9 H (7.9-10.8) fL Neut # (Auto) 3.3 (1.5-6.6) 10^3/uL Lymph # (Auto) 0.3 L (1.5-3.5) 10^3/uL Ida # (Auto) 0.5 (0.0-1.0) 10^3/uL Eos # (Auto) 0.3 (0.0-0.7) 10^3/uL Baso # (Auto) 0.0 (0.0-0.1) 10^3/uL Absolute Nucleated RBC 0.00 x10^3/uL Nucleated RBC % 0.0 /100WBC VBG pH (7.31-7.41) VBG pCO2 (41-51) mmHg VBG pO2 (25-47) mmHg VBG HCO3 (23-28) mmol/L VBG Total CO2 (24-29) mmol/L VBG O2 Saturation (60-80) % VBG Base Excess (-2 - +2) mmol/L Sodium 131 L (135-145) mmol/L Potassium 3.0 L (3.5-5.0) mmol/L Chloride 93 L (101-111) mmol/L Carbon Dioxide 17 L (21-32) mmol/L Anion Gap 21.0 H (6-13) BUN 197 H* (6-20) mg/dL Creatinine 10.2 H* (0.4-1.0) mg/dL Estimated GFR (MDRD) 4 L (>89) Glucose 186 H (70-100) mg/dL POC Whole Bld Glucose 232 H (70 - 100) mg/dL Calcium 7.4 L (8.5-10.3) mg/dL 06/06/22 06/06/22 Range/Units 17:06 16:28 WBC (4.8-10.8) x10^3/uL RBC (4.20-5.40) 10^6/uL Hgb (12.0-16.0) g/dL Hct (37.0-47.0) % MCV (81.0-99.0) fL MCH (27.0-31.0) pg MCHC (32.0-36.0) g/dL RDW (12.0-15.0) % Plt Count (130-450) 10^3/uL MPV (7.9-10.8) fL Neut # (Auto) (1.5-6.6) 10^3/uL Lymph # (Auto) (1.5-3.5) 10^3/uL Ida # (Auto) (0.0-1.0) 10^3/uL Eos # (Auto) (0.0-0.7) 10^3/uL Baso # (Auto) (0.0-0.1) 10^3/uL Absolute Nucleated RBC x10^3/uL Nucleated RBC % /100WBC VBG pH 7.527 H (7.31-7.41) VBG pCO2 17.7 L (41-51) mmHg VBG pO2 147.2 H (25-47) mmHg VBG HCO3 14.4 L (23-28) mmol/L VBG Total CO2 14.9 L (24-29) mmol/L VBG O2 Saturation 98.7 H (60-80) % VBG Base Excess -6.2 L (-2 - +2) mmol/L Sodium (135-145) mmol/L Potassium (3.5-5.0) mmol/L Chloride (101-111) mmol/L Carbon Dioxide (21-32) mmol/L Anion Gap (6-13) BUN (6-20) mg/dL Creatinine (0.4-1.0) mg/dL Estimated GFR (MDRD) (>89) Glucose (70-100) mg/dL POC Whole Bld Glucose 175 H (70 - 100) mg/dL Calcium (8.5-10.3) mg/dL Assessment/Plan - Problem List (1) Metabolic acidosis Impression: From a combination of renal failure and metformin use. This female is usually bedbound was started on a bicarb drip on admission. Her venous pH started at 7.231 on June 05. Over the course of June 05 and June 06, her pH is slowly improved. On the morning of the , at 11 AM, she was 7.368. By the evening she is 7.57. She has been in the intensive care unit since admission. She was kept in the ICU. Bicarb drip was stopped. She is not getting a BMP daily. She was getting it every 4 hours. Carbon dioxide started at 12 when she was admitted, and is now 19. Anion gap was 23 on admission and is 16 today. It continues to slowly improve. She is on normal saline at 83.3 cc an hour. I stopped the D5 with normal saline because she was developing hyponatremia. Plan: Continue IV fluids for hydration. (2) Acute kidney injury Conclusion/Plan: This is likely due to volume depletion and Metformin use. The mechanism of how she got to this is unclear to me. This is a woman who lives in an assisted/penitentiary facility. She is getting her food intake and oral intake from staff, and getting her medications from staff. They describe gradually decreasing Po intake, but her labs tell me that this woman is not eating or drinking very much for probably close to a week. She is not getting metformin while here. She had 2 IVF running, one at D5NS at 100 cc an hour and then a bicarb drip at 100 cc/hr. I have stopped the D5 drip. And I have reduced her normal saline to 83.3 cc an hour. 2 months ago when she had severe acute kidney injury she did want to be transferred to a higher level of care if she needed dialysis. With this admission, she does not want dialysis and would like to be a DO NOT RESUSCITATE. Plan: The patient went into pulmonary edema when she was with us several years ago and had a rapid correction of dehydration, therefore will give iv fluids at 90-100 cc/hr Avoid nephrotoxins Follow BMP daily (3) hypoglycemia Conclusion/Plan: This is likely from calorie intake not matching her diabetic management of getting metformin, glipizide and insulin. Because she had repeat recurrent hypoglycemia she was on a D5 drip plus extra D50 if she became hypoglycemic She was started on a clear liquid diet. And advanced to a dysphagia diet by June 06. With a combination of food and increased oral intake (she is eating 25 to 50% of her food) her hypoglycemia has resolved. Plan: Off of D5, and continue SS insulin. Since this is a second time she is gotten in trouble with metabolic acidosis, metformin problems, hypoglycemia due to sulfonylurea, she should probably be discharged on sliding scale insulin alone with maybe a small dose of Lantus at night. (4) Hypotension Conclusion/Plan: Her soft blood pressure SO correlates with her volume depletion. Her systolic is 102-118 today. Plan: On IV fluids, increasing p.o. intake, and I have not resumed her losartan or metoprolol at this time. Once her blood pressure starts coming up, I would resume 1 drug at a time. (5) Hypothermia resolved. Conclusion/Plan: Given her positive COVID status this may be her bodies reaction to the infection warming blanket dc'd Qualifiers: Encounter type: initial encounter Qualified Code(s): T68.XXXA - Hypothermia, initial encounter (6) Hyponatremia Conclusion/Plan: This patient has hypovolemic hyponatremia. She started at 128 on admit and is slowly correcting to 131. The D5 was slowing the correction as well. She was on D5 normal saline up until this morning. Plan: Change the IV fluids to 0.9 normal saline at 83 cc an hour We have been watching her sodium closely, and we are not correcting too quickly. (7) COVID-19 Conclusion/Plan: Patient has currently no pulmonary or GI symptoms. Possibly her hypothermia was related to this COVID infection Plan: We will order respiratory/droplet isolation She is not a candidate to receive IV steroids or IV remdesivir, without desaturating (8) DM (diabetes mellitus), type 2 Conclusion/Plan: As per history. Plan: Because of the ongoing hypoglycemia on repeat checks, we did not order a diabetic diet. We held all of her oral diabetic medications because of the repeat hypoglycemia and have advanced from from clear liquids to dysphagia minced and moist. Glucose has now come up to a level that needs treatment and she was 209 this morning. I would recommend that she be discharged on a low-dose of Lantus at night, and sliding scale insulin with her food to avoid sulfonylurea and metformin interaction again. For now, will start SS insulin and see how she does. Qualifiers: Diabetes mellitus usp insulin use: unspecified usp insulin use status (9) Restless leg syndrome Conclusion/Plan: At the last admission, she would repeatedly say "RLS is the reason for her leg pain". Her pain was only with standing up. Currently she does not want to wear the SCDs because they irritate her legs. To my examination, she is still slightly sedated, lethargic due to her renal failure. BUN of 201 can induce quite a bit of hallucinations, nausea, and lethargy. As such I have not resumed gabapentin, tramadol, or oxycodone. Plan to start her medications when she is more alert. I would also start physical therapy and Occupational Therapy evaluation and treatment when she is more alert. Goal will be going from supine to sitting to standing with standby assist. She needs to be able to at least walk a few steps. (10) Pulmonary HTN Conclusion/Plan: As per history from Echo done approximately 2 years ago, PA pressure was 60 mmHg.
[2022-06-07] MEDS: POTASSIUM CHLOR 10 MEQ/100 ML 10 MEQ/100 ML BAG IV SCH ×3 (20:18→23:26)
[2022-06-08] MEDS: POTASSIUM CHLOR 10 MEQ/100 ML 10 MEQ/100 ML BAG IV SCH (00:53)
[2022-06-08] MEDS: SODIUM CHLORIDE FLUSH 0.9% 10 ML SYRINGE IVP SCH ×3 (01:15→16:53)
[2022-06-08 05:15] LABS: EOSINOPHILS # (AUTO) 0.3 10^3/uL (0.0-0.7); EOSINOPHILS % (AUTO) 6.1 %; HGB - HEMOGLOBIN 10.2 g/dL (12.0-16.0); LYMPHOCYTES # (AUTO) 0.4 10^3/uL (1.5-3.5); LYMPHOCYTES % (AUTO) 9.3 %; MEAN CORPUSCULAR HEMOGLOBIN 26.1 pg (27.0-31.0); MEAN CORPUSCULAR HGB CONC 32.9 g/dL (32.0-36.0); MEAN CORPUSCULAR VOLUME 79.3 fL (81.0-99.0); MEAN PLATELET VOLUME 10.7 fL (7.9-10.8); MONOCYTES # (AUTO) 0.4 10^3/uL (0.0-1.0); NEUTROPHILS # (AUTO) 3.2 10^3/uL (1.5-6.6); NEUTROPHILS % (AUTO) 74.1 %; PLT - PLATELET COUNT 110 10^3/uL (130-450); RED BLOOD COUNT 3.91 10^6/uL (4.20-5.40); RED CELL DISTRIBUTION WIDTH 17.6 % (12.0-15.0); WHITE BLOOD COUNT 4.3 x10^3/uL (4.8-10.8)
[2022-06-08] MEDS: ACETAMINOPHEN 325 MG TABLET PO PRN ×2 (05:17→08:03)
[2022-06-08 05:43] LABS: CALCIUM 7.1 mg/dL (8.5-10.3); CREATININE 6.2 mg/dL (0.4-1.0); POTASSIUM 2.9 mmol/L (3.5-5.0)
[2022-06-08] MEDS: HEPARIN 5,000 UNIT/ML VIAL SUBQ SCH ×2 (08:03→20:43)
[2022-06-08] MEDS: FAMOTIDINE 20 MG TABLET PO SCH ×2 (08:03→20:43)
[2022-06-08] MEDS: EMOLLIENT CREAM 57 GM TUBE TOP SCH ×2 (08:04→21:16)
[2022-06-08] MEDS: SODIUM CHLORIDE 0.9% 1,000 ML IV SCH ×2 (08:04→20:42)
[2022-06-08] MEDS: INSULIN LISPRO 300 UNIT/3 ML PEN SUBQ SCH ×4 (08:05→20:43)
[2022-06-08] MEDS ORDERED: POTASSIUM CHLORIDE 20 MEQ TABLET PO ONE (11:16)
[2022-06-08] MEDS ORDERED: CALCIUM GLUC 1,000MG/50ML-NACL 1,000 MG/50 ML BAG IV ONE (11:16)
--- NOTE | 2022-06-08 17:42 | PROVIDER PROGRESS NOTE ---
Assessment/Plan - Problem List (1) Metabolic acidosis Assessment/Plan: Likely secondary to dehydration and metformin use leading to renal failure with metabolic acidosis Resolved AG closed (2) Acute kidney injury Assessment/Plan: Improving, but Cr still very elevated at 6.2, down from 9.4 yesterday Gentle IVF to avoid rapid pulm edema, as occurred with her in the past (3) COVID-19 Assessment/Plan: Currently without symptoms Monitor Does not meet criteria for remdesivir or Decadron (4) Hypoglycemia Assessment/Plan: Likely secondary to incorrect dosing of metformin Improved Monitor blood sugars (5) Hyponatremia Assessment/Plan: Hypovolemic hyponatremia with sodium level Normalized at 137 Monitor labs Continue IV fluids (6) Hypothermia Qualifiers: Encounter type: initial encounter Qualified Code(s): T68.XXXA - Hypothermia, initial encounter (7) DM (diabetes mellitus), type 2 Qualifiers: Diabetes mellitus director long term care insulin use: unspecified long-term insulin use status Assessment/Plan: Blood sugar moderately controlled with somewhat fluctuating blood sugar levels Continue insulin sliding scale and diabetic diet (8) Hypokalemia Assessment/Plan: Likely secondary to renal failure Replacement ordered - Current Meds Current Meds: Current Medications Generic Name Dose Route Start Last Admin Trade Name Freq PRN Reason Stop Dose Admin Acetaminophen 650 mg 06/05/22 15:40 06/08/22 08:03 Acetaminophen 325 Mg Tablet PO 650 mg Q4HR PRN Administration Pain 1 to 4, or Fever Famotidine 20 mg 06/05/22 21:00 06/08/22 08:03 Famotidine 20 Mg Tablet PO 20 mg BID JOSE Administration Heparin Sodium (Porcine) 5,000 unit 06/05/22 21:00 06/08/22 08:03 Heparin 5,000 Unit/Ml Vial SUBQ 5,000 unit BID JOSE Administration Sodium Chloride 1,000 mls @ 83.333 mls/hr 06/07/22 08:00 06/08/22 08:04 Normal Saline 0.9% IV 83.333 mls/hr .Q12H JOSE Administration Insulin Human Lispro 1 - 9 unit 06/07/22 08:00 06/08/22 16:53 Insulin Lispro 300 Unit/3 Ml Pen SUBQ Not Given 0800,1200,1700,2100 [facility] Protocol Multi-Ingredient Ointment 1 applic 06/05/22 14:00 06/08/22 08:04 Emollient Cream 57 Gm Tube TOP Not Given BID JOSE Multi-Ingredient Ointment 1 applic 06/05/22 16:06 06/05/22 19:59 Zinc Oxide 20% Oint 30 Gm Tube TOP 1 applic PRN PRN Administration Skin Care Ondansetron HCl 4 mg 06/05/22 15:40 06/07/22 14:50 Ondansetron 4 Mg/2 Ml Vial IVP 4 mg Q6HR PRN Administration Nausea / Vomiting Sodium Chloride 10 ml 06/05/22 17:00 06/08/22 16:53 Sodium Chloride Flush 0.9% 10 Ml Syringe IVP 10 ml 0100,0900,1700 JOSE Administration Sodium Chloride 10 ml 06/05/22 15:40 06/07/22 04:30 Sodium Chloride Flush 0.9% 10 Ml Syringe IVP 20 ml PRN PRN Administration NEEDED PER PROVIDER ORDERS - Lab Result Fish Bone Diagrams: 06/08/22 05:08 06/08/22 05:08 - EKG Results EKG Interpreted Independently: Yes - Additional Planning Condition/Complexity: Improved My Orders: My Active Orders 06/08/22 11:17 Evaluate and Treat PT [PT] Routine Subjective - Subjective Patient Reports: Feeling Better Objective Vital Signs: Vital Signs - 24 hr 06/07/22 06/07/22 06/07/22 19:00 20:00 21:00 Temperature 36.5 C Heart Rate [ 90 92 93 Monitoring electrodes] Heart Rate [ Supine] Respiratory 20 18 13 Rate Blood Pressure [Activity] Blood Pressure 109/61 104/57 L 143/97 H [Left Brachial artery] Blood Pressure [Supine] O2 Saturation 97 94 100 06/07/22 06/07/22 06/08/22 22:00 23:00 00:00 Temperature Heart Rate [ 90 88 86 Monitoring electrodes] Heart Rate [ Supine] Respiratory 18 16 15 Rate Blood Pressure [Activity] Blood Pressure 110/69 111/73 112/71 [Left Brachial artery] Blood Pressure [Supine] O2 Saturation 98 100 99 06/08/22 06/08/22 06/08/22 01:00 03:00 05:00 Temperature 36.6 C Heart Rate [ 87 85 83 Monitoring electrodes] Heart Rate [ Supine] Respiratory 17 14 13 Rate Blood Pressure [Activity] Blood Pressure 121/67 127/79 125/75 [Left Brachial artery] Blood Pressure [Supine] O2 Saturation 95 98 100 06/08/22 06/08/22 06/08/22 07:00 08:00 09:00 Temperature 36.7 C Heart Rate [ 90 102 H 93 Monitoring electrodes] Heart Rate [ Supine] Respiratory 13 17 14 Rate Blood Pressure [Activity] Blood Pressure 127/65 131/76 H 120/65 [Left Brachial artery] Blood Pressure [Supine] O2 Saturation 97 100 93 06/08/22 06/08/22 06/08/22 11:00 13:00 14:00 Temperature Heart Rate [ 81 90 Monitoring electrodes] Heart Rate [ 100 Supine] Respiratory 12 14 Rate Blood Pressure 147/101 H [Activity] Blood Pressure 114/69 131/73 H [Left Brachial artery] Blood Pressure 127/76 [Supine] O2 Saturation 95 99 06/08/22 06/08/22 15:00 17:00 Temperature Heart Rate [ 87 100 Monitoring electrodes] Heart Rate [ Supine] Respiratory 16 20 Rate Blood Pressure [Activity] Blood Pressure 142/87 H 125/82 H [Left Brachial artery] Blood Pressure [Supine] O2 Saturation 97 96 Oxygen O2 Source Room air I&O (Last 24 Hrs): Intake and Output Totals x24h 06/06/22 06/07/22 06/08/22 23:59 23:59 23:59 Intake Total 2750 2656.667 1843.329 Output Total 1064 2330 2315 Balance 1686 326.667 -471.671 General: Alert, Oriented x3, Cooperative HEENT: Atraumatic Neuro: Alert, Non Focal, Oriented Times 3 Cardiovascular: Regular rate, Normal S1, Normal S2 Respiratory: Chest non-tender Abdomen: Normal bowel sounds, No tenderness, No masses Extremities: No clubbing, No cyanosis, No edema Skin: No rashes, No breakdown, No significant lesion - Results Results: Laboratory Results WBC 4.3 x10^3/uL (4.8-10.8) L 06/08/22 05:08 RBC 3.91 10^6/uL (4.20-5.40) L 06/08/22 05:08 Hgb 10.2 g/dL (12.0-16.0) L 06/08/22 05:08 Hct 31.0 % (37.0-47.0) L 06/08/22 05:08 MCV 79.3 fL (81.0-99.0) L 06/08/22 05:08 MCH 26.1 pg (27.0-31.0) L 06/08/22 05:08 MCHC 32.9 g/dL (32.0-36.0) 06/08/22 05:08 RDW 17.6 % (12.0-15.0) H 06/08/22 05:08 Plt Count 110 10^3/uL (130-450) L 06/08/22 05:08 MPV 10.7 fL (7.9-10.8) 06/08/22 05:08 Neut # (Auto) 3.2 10^3/uL (1.5-6.6) 06/08/22 05:08 Lymph # (Auto) 0.4 10^3/uL (1.5-3.5) L 06/08/22 05:08 [place] # (Auto) 0.4 10^3/uL (0.0-1.0) 06/08/22 05:08 Eos # (Auto) 0.3 10^3/uL (0.0-0.7) 06/08/22 05:08 Baso # (Auto) 0.0 10^3/uL (0.0-0.1) 06/08/22 05:08 Absolute Nucleated RBC 0.00 x10^3/uL 06/08/22 05:08 Nucleated RBC % 0.0 /100WBC 06/08/22 05:08 VBG pH 7.527 (7.31-7.41) H 06/06/22 17:06 VBG pCO2 17.7 mmHg (41-51) L 06/06/22 17:06 VBG pO2 147.2 mmHg (25-47) H 06/06/22 17:06 VBG HCO3 14.4 mmol/L (23-28) L 06/06/22 17:06 VBG Total CO2 14.9 mmol/L (24-29) L 06/06/22 17:06 VBG O2 Saturation 98.7 % (60-80) H 06/06/22 17:06 VBG Base Excess -6.2 mmol/L (-2 - +2) L 06/06/22 17:06 Sodium 137 mmol/L (135-145) 06/08/22 05:08 Potassium 2.9 mmol/L (3.5-5.0) L 06/08/22 05:08 Chloride 106 mmol/L (101-111) 06/08/22 05:08 Carbon Dioxide 20 mmol/L (21-32) L 06/08/22 05:08 Anion Gap 11.0 (6-13) 06/08/22 05:08 BUN 168 mg/dL (6-20) H* 06/08/22 05:08 Creatinine 6.2 mg/dL (0.4-1.0) H 06/08/22 05:08 Estimated GFR (MDRD) 7 (>89) L 06/08/22 05:08 Glucose 136 mg/dL (70-100) H 06/08/22 05:08 POC Whole Bld Glucose 136 mg/dL (70 - 100) H 06/08/22 16:45 Calcium 7.1 mg/dL (8.5-10.3) L 06/08/22 05:08 Phosphorus 7.5 mg/dL (2.5-4.6) H 06/06/22 04:20 Magnesium 2.2 mg/dL (1.7-2.8) 06/05/22 12:00 Total Bilirubin 0.3 mg/dL (0.2-1.0) 06/05/22 12:00 AST 21 IU/L (10-42) 06/05/22 12:00 ALT < 10 IU/L (10-60) L 06/05/22 12:00 Alkaline Phosphatase 79 IU/L (42-121) 06/05/22 12:00 Troponin I High Sens 43.9 ng/L (2.3-14.8) H* 06/05/22 16:08 Total Protein 7.3 g/dL (6.7-8.2) 06/05/22 12:00 Albumin 3.6 g/dL (3.2-5.5) 06/05/22 12:00 Globulin 3.7 g/dL (2.1-4.2) 06/05/22 12:00 Albumin/Globulin Ratio 1.0 (1.0-2.2) 06/05/22 12:00 Lipase 58 U/L (22-51) H 06/05/22 12:00 Urine Color DARK YELLOW 06/05/22 13:35 Urine Clarity CLEAR (CLEAR) 06/05/22 13:35 Urine pH 5.5 PH (5.0-7.5) 06/05/22 13:35 Ur Specific [place] 1.025 (1.002-1.030) 06/05/22 13:35 Urine Protein TRACE mg/dL (NEGATIVE) 06/05/22 13:35 Urine Glucose (UA) NEGATIVE mg/dL (NEGATIVE) 06/05/22 13:35 Urine Ketones NEGATIVE mg/dL (NEGATIVE) 06/05/22 13:35 Urine Occult Blood NEGATIVE (NEGATIVE) 06/05/22 13:35 Urine Nitrite NEGATIVE (NEGATIVE) 06/05/22 13:35 Urine Bilirubin NEGATIVE (NEGATIVE) 06/05/22 13:35 Urine Urobilinogen 0.2 (NORMAL) E.U./dL (NORMAL) 06/05/22 13:35 Ur Leukocyte Esterase NEGATIVE (NEGATIVE) 06/05/22 13:35 Ur Microscopic Review NOT INDICATED 06/05/22 13:35 Urine Culture Comments NOT INDICATED 06/05/22 13:35 Nasal Adenovirus (PCR) NOT DETECTED 06/05/22 14:01 Nasal B. parapertussis DNA (PCR) NOT DETECTED 06/05/22 14:01 Nasal Coronavir 229E PCR NOT DETECTED 06/05/22 14:01 Nasal Coronavir HKU1 PCR NOT DETECTED 06/05/22 14:01 Nasal Coronavir NL63 PCR NOT DETECTED 06/05/22 14:01 Nasal Coronavir OC43 PCR NOT DETECTED 06/05/22 14:01 Nasal Enterovir/Rhinovir PCR NOT DETECTED 06/05/22 14:01 Nasal Influenza B PCR NOT DETECTED 06/05/22 14:01 Nasal Influenza A PCR NOT DETECTED 06/05/22 14:01 Nasal Parainfluen 1 PCR NOT DETECTED 06/05/22 14:01 Nasal Parainfluen 2 PCR NOT DETECTED 06/05/22 14:01 Nasal Parainfluen 3 PCR NOT DETECTED 06/05/22 14:01 Nasal Parainfluen 4 PCR NOT DETECTED 06/05/22 14:01 Nasal RSV (PCR) NOT DETECTED 06/05/22 14:01 Nasal Screen MRSA (PCR) NEGATIVE (NEGATIVE) 06/05/22 16:30 Nasal B.pertussis DNA PCR NOT DETECTED 06/05/22 14:01 Nasal C.pneumoniae (PCR) NOT DETECTED 06/05/22 14:01 Jasson Human Metapneumo PCR NOT DETECTED 06/05/22 14:01 Nasal M.pneumoniae (PCR) NOT DETECTED 06/05/22 14:01 Nasal SARS-CoV-2 (PCR) DETECTED A 06/05/22 14:01 Serum Ketones NEGATIVE (NEGATIVE) 06/05/22 16:08 - Procedures Procedures: Procedures (06/01/20) EXCISION OF SMALL INTESTINE, OPEN APPROACH (06/01/20) INSERTION OF INFUSION DEV INTO L SUBCLAV VEIN, PERC APPROACH (04/10/22) RELEASE PERITONEUM, PERCUTANEOUS ENDOSCOPIC APPROACH (06/01/20) RELEASE SMALL INTESTINE, OPEN APPROACH (06/01/20) RELEASE TRANSVERSE COLON, OPEN APPROACH (06/01/20) REMOVAL OF SYNTH SUB FROM ABD WALL, PERC ENDO APPROACH (06/01/20) SUPPLEMENT ABDOMINAL WALL WITH SYNTH SUB, OPEN APPROACH (06/01/20) ABX Reporting Has patient been on IV antibiotics over the past 48 hours?: No Current Medications - Current Medications Current Medications: Active Medications Generic Name Dose Route Start Last Admin Trade Name Freq PRN Reason Stop Dose Admin Acetaminophen 650 mg 06/05/22 15:40 06/08/22 08:03 Acetaminophen 325 Mg Tablet PO 650 mg Q4HR PRN Administration Pain 1 to 4, or Fever Famotidine 20 mg 06/05/22 21:00 06/08/22 08:03 Famotidine 20 Mg Tablet PO 20 mg BID JOSE Administration Heparin Sodium (Porcine) 5,000 unit 06/05/22 21:00 06/08/22 08:03 Heparin 5,000 Unit/Ml Vial SUBQ 5,000 unit BID JOSE Administration Sodium Chloride 1,000 mls @ 83.333 mls/hr 06/07/22 08:00 06/08/22 08:04 Normal Saline 0.9% IV 83.333 mls/hr .Q12H JOSE Administration Insulin Human Lispro 1 - 9 unit 06/07/22 08:00 06/08/22 16:53 Insulin Lispro 300 Unit/3 Ml Pen SUBQ Not Given 0800,1200,1700,2100 JOSE Protocol Mineral Oil 1 applic 06/05/22 16:06 Min Oil/Dimethicon/Coconut Oil 92 Gm Tube TOP PRN PRN Skin Care Multi-Ingredient Ointment 1 applic 06/05/22 14:00 04/13/23 08:04 Emollient Cream 57 Gm Tube TOP Not Given BID JOSE Multi-Ingredient Ointment 1 applic 06/05/22 16:06 06/05/22 19:59 Zinc Oxide 20% Oint 30 Gm Tube TOP 1 applic PRN PRN Administration Skin Care Ondansetron HCl 4 mg 06/05/22 15:40 06/07/22 14:50 Ondansetron 4 Mg/2 Ml Vial IVP 4 mg Q6HR PRN Administration Nausea / Vomiting Sodium Chloride 10 ml 06/05/22 17:00 06/08/22 16:53 Sodium Chloride Flush 0.9% 10 Ml Syringe IVP 10 ml 0100,0900,1700 JOSE Administration Sodium Chloride 10 ml 06/05/22 15:40 06/07/22 04:30 Sodium Chloride Flush 0.9% 10 Ml Syringe IVP 20 ml PRN PRN Administration NEEDED PER PROVIDER ORDERS Losartan Potassium 50 mg PO DAILY 09/13/19 Atorvastatin Calcium 40 mg PO DAILY 06/01/20 buPROPion HCL [Bupropion Xl] 150 mg PO QPM 04/11/22 Gabapentin [Neurontin] 100 mg PO BID 06/06/22 Metformin HCl [Metformin ER Osmotic] 1 tab PO BID 06/06/22 Ropinirole HCl 1 tab PO HS 06/06/22 glipiZIDE [Glucotrol] 1 tab PO TID 06/06/22
[2022-06-09] MEDS: SODIUM CHLORIDE FLUSH 0.9% 10 ML SYRINGE IVP SCH ×3 (01:41→17:01)
[2022-06-09] MEDS: ACETAMINOPHEN 325 MG TABLET PO PRN ×2 (02:12→20:28)
[2022-06-09 05:33] LABS: CALCIUM 7.3 mg/dL (8.5-10.3); CREATININE 3.9 mg/dL (0.4-1.0); POTASSIUM 3.4 mmol/L (3.5-5.0)
[2022-06-09] MEDS: SODIUM CHLORIDE 0.9% 1,000 ML IV SCH ×2 (09:01→21:23)
[2022-06-09] MEDS: INSULIN LISPRO 300 UNIT/3 ML PEN SUBQ SCH ×4 (10:50→21:17)
[2022-06-09] MEDS: HEPARIN 5,000 UNIT/ML VIAL SUBQ SCH ×2 (11:01→20:41)
[2022-06-09] MEDS: CHOLECALCIFEROL 25 MCG TABLET PO SCH (11:06)
[2022-06-09] MEDS: FAMOTIDINE 20 MG TABLET PO SCH ×2 (11:11→21:25)
[2022-06-09] MEDS: guaiFENesin 600 MG TABLET PO SCH ×2 (17:00→21:21)
[2022-06-09] MEDS: EMOLLIENT CREAM 57 GM TUBE TOP SCH ×2 (17:00→21:17)
--- NOTE | 2022-06-09 17:44 | PROVIDER PROGRESS NOTE ---
Assessment/Plan - Problem List (1) Acute kidney injury Assessment/Plan: Improving, but Cr still elevated at 3.9, down from 6.2 yesterday Gentle IVF to avoid rapid pulm edema, as occurred with her in the past (2) Metabolic acidosis Assessment/Plan: Likely secondary to dehydration and metformin use leading to renal failure with metabolic acidosis Resolved AG closed (3) COVID-19 Assessment/Plan: Currently without symptoms Tested positive 06/05 Monitor Does not meet criteria for remdesivir or Decadron (4) Hypoglycemia Assessment/Plan: Resolved (5) Hyponatremia Assessment/Plan: Na normal 143 (6) DM (diabetes mellitus), type 2 Qualifiers: Diabetes mellitus retirement insulin use: unspecified retirement insulin use status Diabetes mellitus complication status: without complication Qualified Code(s): E11.9 - Type 2 diabetes mellitus without complications Assessment/Plan: Blood sugar moderately controlled with somewhat fluctuating blood sugar levels Continue insulin sliding scale and diabetic diet (7) Hypokalemia Assessment/Plan: K 3.4 Monitor, as Cr elevated, will defer replacement - Current Meds Current Meds: Current Medications Generic Name Dose Route Start Last Admin Trade Name Freq PRN Reason Stop Dose Admin Acetaminophen 650 mg 06/05/22 15:40 06/09/22 02:12 Acetaminophen 325 Mg Tablet PO 650 mg Q4HR PRN Administration Pain 1 to 4, or Fever Cholecalciferol 50 mcg 06/09/22 09:00 06/09/22 11:06 Cholecalciferol 25 Mcg Tablet PO 50 mcg DAILY JOSE Administration Famotidine 20 mg 06/05/22 21:00 06/09/22 11:11 Famotidine 20 Mg Tablet PO 20 mg BID JOSE Administration Guaifenesin 600 mg 06/09/22 13:30 06/09/22 17:00 Guaifenesin 600 Mg Tablet PO Not Given BID JOSE Heparin Sodium (Porcine) 5,000 unit 06/05/22 21:00 06/09/22 11:01 Heparin 5,000 Unit/Ml Vial SUBQ 5,000 unit BID JOSE Administration Sodium Chloride 1,000 mls @ 83.333 mls/hr 06/07/22 08:00 06/09/22 09:01 Normal Saline 0.9% IV 83.333 mls/hr .Q12H JOSE Administration Insulin Human Lispro 1 - 9 unit 06/07/22 08:00 06/09/22 17:34 Insulin Lispro 300 Unit/3 Ml Pen SUBQ Not Given 0800,1200,1700,2100 [facility] Protocol Multi-Ingredient Ointment 1 applic 06/05/22 14:00 06/09/22 17:00 Emollient Cream 57 Gm Tube TOP 1 applic BID JOSE Administration Multi-Ingredient Ointment 1 applic 06/05/22 16:06 06/05/22 19:59 Zinc Oxide 20% Oint 30 Gm Tube TOP 1 applic PRN PRN Administration Skin Care Ondansetron HCl 4 mg 06/05/22 15:40 06/07/22 14:50 Ondansetron 4 Mg/2 Ml Vial IVP 4 mg Q6HR PRN Administration Nausea / Vomiting Sodium Chloride 10 ml 06/05/22 17:00 06/09/22 17:01 Sodium Chloride Flush 0.9% 10 Ml Syringe IVP 10 ml 0100,0900,1700 JOSE Administration Sodium Chloride 10 ml 06/05/22 15:40 06/07/22 04:30 Sodium Chloride Flush 0.9% 10 Ml Syringe IVP 20 ml PRN PRN Administration NEEDED PER PROVIDER ORDERS - Lab Result Lab results reviewed: Yes Fish Bone Diagrams: 06/08/22 05:08 06/09/22 04:30 - Additional Planning Condition/Complexity: Improved My Orders: My Active Orders 06/09/22 09:00 Cholecalciferol [Vitamin D3] 50 mcg PO DAILY 06/09/22 13:30 guaiFENesin [Mucinex] 600 mg PO BID Subjective - Subjective Patient Reports: Feeling Better Objective Vital Signs: Vital Signs - 24 hr 06/08/22 06/08/22 06/08/22 19:00 21:00 22:03 Temperature Heart Rate [ 92 91 91 Monitoring electrodes] Respiratory 19 15 15 Rate Blood Pressure 124/65 128/89 H 144/95 H [Left Brachial artery] O2 Saturation 96 97 99 06/08/22 06/09/22 06/09/22 23:00 01:00 03:00 Temperature Heart Rate [ 90 90 85 Monitoring electrodes] Respiratory 15 15 15 Rate Blood Pressure 144/95 H 154/94 H 154/92 H [Left Brachial artery] O2 Saturation 96 99 100 06/09/22 06/09/22 06/09/22 05:00 07:00 11:46 Temperature 36.7 C Heart Rate [ 83 89 90 Monitoring electrodes] Respiratory 15 11 L 16 Rate Blood Pressure 122/88 H 119/71 118/74 [Left Brachial artery] O2 Saturation 97 99 100 06/09/22 06/09/22 13:00 15:00 Temperature Heart Rate [ 93 88 Monitoring electrodes] Respiratory 18 15 Rate Blood Pressure 122/75 122/75 [Left Brachial artery] O2 Saturation 95 97 Oxygen O2 Source Room air I&O (Last 24 Hrs): Intake and Output Totals x24h 06/07/22 06/08/22 06/09/22 23:59 23:59 23:59 Intake Total 2656.667 3133.329 1916 Output Total 2330 3340 3175 Balance 326.667 -206.671 -1259 General: Alert, Oriented x3 Cardiovascular: Regular rate, Normal S1, Normal S2 Respiratory: Chest non-tender, No respiratory distress, Breath sounds nml Abdomen: Normal bowel sounds, Soft - Results Results: Laboratory Results WBC 4.3 x10^3/uL (4.8-10.8) L 06/08/22 05:08 RBC 3.91 10^6/uL (4.20-5.40) L 06/08/22 05:08 Hgb 10.2 g/dL (12.0-16.0) L 06/08/22 05:08 Hct 31.0 % (37.0-47.0) L 06/08/22 05:08 MCV 79.3 fL (81.0-99.0) L 06/08/22 05:08 MCH 26.1 pg (27.0-31.0) L 06/08/22 05:08 MCHC 32.9 g/dL (32.0-36.0) 06/08/22 05:08 RDW 17.6 % (12.0-15.0) H 06/08/22 05:08 Plt Count 110 10^3/uL (130-450) L 06/08/22 05:08 MPV 10.7 fL (7.9-10.8) 06/08/22 05:08 Neut # (Auto) 3.2 10^3/uL (1.5-6.6) 06/08/22 05:08 Lymph # (Auto) 0.4 10^3/uL (1.5-3.5) L 06/08/22 05:08 [place] # (Auto) 0.4 10^3/uL (0.0-1.0) 06/08/22 05:08 Eos # (Auto) 0.3 10^3/uL (0.0-0.7) 06/08/22 05:08 Baso # (Auto) 0.0 10^3/uL (0.0-0.1) 06/08/22 05:08 Absolute Nucleated RBC 0.00 x10^3/uL 06/08/22 05:08 Nucleated RBC % 0.0 /100WBC 06/08/22 05:08 VBG pH 7.527 (7.31-7.41) H 06/06/22 17:06 VBG pCO2 17.7 mmHg (41-51) L 06/06/22 17:06 VBG pO2 147.2 mmHg (25-47) H 06/06/22 17:06 VBG HCO3 14.4 mmol/L (23-28) L 06/06/22 17:06 VBG Total CO2 14.9 mmol/L (24-29) L 06/06/22 17:06 VBG O2 Saturation 98.7 % (60-80) H 06/06/22 17:06 VBG Base Excess -6.2 mmol/L (-2 - +2) L 06/06/22 17:06 Sodium 143 mmol/L (135-145) 06/09/22 04:30 Potassium 3.4 mmol/L (3.5-5.0) L 06/09/22 04:30 Chloride 112 mmol/L (101-111) H 06/09/22 04:30 Carbon Dioxide 21 mmol/L (21-32) 06/09/22 04:30 Anion Gap 10.0 (6-13) 06/09/22 04:30 BUN 126 mg/dL (6-20) H* 06/09/22 04:30 Creatinine 3.9 mg/dL (0.4-1.0) H 06/09/22 04:30 Estimated GFR (MDRD) 11 (>89) L 06/09/22 04:30 Glucose 113 mg/dL (70-100) H 06/09/22 04:30 POC Whole Bld Glucose 130 mg/dL (70 - 100) H 06/09/22 17:04 Calcium 7.3 mg/dL (8.5-10.3) L 06/09/22 04:30 Phosphorus 7.5 mg/dL (2.5-4.6) H 06/06/22 04:20 Magnesium 2.2 mg/dL (1.7-2.8) 06/05/22 12:00 Total Bilirubin 0.3 mg/dL (0.2-1.0) 06/05/22 12:00 AST 21 IU/L (10-42) 06/05/22 12:00 ALT < 10 IU/L (10-60) L 06/05/22 12:00 Alkaline Phosphatase 79 IU/L (42-121) 06/05/22 12:00 Troponin I High Sens 43.9 ng/L (2.3-14.8) H* 06/05/22 16:08 Total Protein 7.3 g/dL (6.7-8.2) 06/05/22 12:00 Albumin 3.6 g/dL (3.2-5.5) 06/05/22 12:00 Globulin 3.7 g/dL (2.1-4.2) 06/05/22 12:00 Albumin/Globulin Ratio 1.0 (1.0-2.2) 06/05/22 12:00 Lipase 58 U/L (22-51) H 06/05/22 12:00 Urine Color DARK YELLOW 06/05/22 13:35 Urine Clarity CLEAR (CLEAR) 06/05/22 13:35 Urine pH 5.5 PH (5.0-7.5) 06/05/22 13:35 Ur Specific [place] 1.025 (1.002-1.030) 06/05/22 13:35 Urine Protein TRACE mg/dL (NEGATIVE) 06/05/22 13:35 Urine Glucose (UA) NEGATIVE mg/dL (NEGATIVE) 06/05/22 13:35 Urine Ketones NEGATIVE mg/dL (NEGATIVE) 06/05/22 13:35 Urine Occult Blood NEGATIVE (NEGATIVE) 06/05/22 13:35 Urine Nitrite NEGATIVE (NEGATIVE) 06/05/22 13:35 Urine Bilirubin NEGATIVE (NEGATIVE) 06/05/22 13:35 Urine Urobilinogen 0.2 (NORMAL) E.U./dL (NORMAL) 06/05/22 13:35 Ur Leukocyte Esterase NEGATIVE (NEGATIVE) 06/05/22 13:35 Ur Microscopic Review NOT INDICATED 06/05/22 13:35 Urine Culture Comments NOT INDICATED 06/05/22 13:35 Nasal Adenovirus (PCR) NOT DETECTED 06/05/22 14:01 Nasal B. parapertussis DNA (PCR) NOT DETECTED 06/05/22 14:01 Nasal Coronavir 229E PCR NOT DETECTED 06/05/22 14:01 Nasal Coronavir HKU1 PCR NOT DETECTED 06/05/22 14:01 Nasal Coronavir NL63 PCR NOT DETECTED 06/05/22 14:01 Nasal Coronavir OC43 PCR NOT DETECTED 06/05/22 14:01 Nasal Enterovir/Rhinovir PCR NOT DETECTED 06/05/22 14:01 Nasal Influenza B PCR NOT DETECTED 06/05/22 14:01 Nasal Influenza A PCR NOT DETECTED 06/05/22 14:01 Nasal Parainfluen 1 PCR NOT DETECTED 06/05/22 14:01 Nasal Parainfluen 2 PCR NOT DETECTED 06/05/22 14:01 Nasal Parainfluen 3 PCR NOT DETECTED 06/05/22 14:01 Nasal Parainfluen 4 PCR NOT DETECTED 06/05/22 14:01 Nasal RSV (PCR) NOT DETECTED 06/05/22 14:01 Nasal Screen MRSA (PCR) NEGATIVE (NEGATIVE) 06/05/22 16:30 Nasal B.pertussis DNA PCR NOT DETECTED 06/05/22 14:01 Nasal C.pneumoniae (PCR) NOT DETECTED 06/05/22 14:01 Jasson Human Metapneumo PCR NOT DETECTED 06/05/22 14:01 Nasal M.pneumoniae (PCR) NOT DETECTED 06/05/22 14:01 Nasal SARS-CoV-2 (PCR) DETECTED A 06/05/22 14:01 Serum Ketones NEGATIVE (NEGATIVE) 06/05/22 16:08 - Procedures Procedures: Procedures (06/01/20) EXCISION OF SMALL INTESTINE, OPEN APPROACH (06/01/20) INSERTION OF INFUSION DEV INTO L SUBCLAV VEIN, PERC APPROACH (04/10/22) RELEASE PERITONEUM, PERCUTANEOUS ENDOSCOPIC APPROACH (06/01/20) RELEASE SMALL INTESTINE, OPEN APPROACH (06/01/20) RELEASE TRANSVERSE COLON, OPEN APPROACH (06/01/20) REMOVAL OF SYNTH SUB FROM ABD WALL, PERC ENDO APPROACH (06/01/20) SUPPLEMENT ABDOMINAL WALL WITH SYNTH SUB, OPEN APPROACH (06/01/20) ABX Reporting Has patient been on IV antibiotics over the past 48 hours?: No Current Medications - Current Medications Current Medications: Active Medications Generic Name Dose Route Start Last Admin Trade Name Freq PRN Reason Stop Dose Admin Acetaminophen 650 mg 06/05/22 15:40 06/09/22 02:12 Acetaminophen 325 Mg Tablet PO 650 mg Q4HR PRN Administration Pain 1 to 4, or Fever Cholecalciferol 50 mcg 06/09/22 09:00 06/09/22 11:06 Cholecalciferol 25 Mcg Tablet PO 50 mcg DAILY JOSE Administration Famotidine 20 mg 06/05/22 21:00 06/09/22 11:11 Famotidine 20 Mg Tablet PO 20 mg BID JOSE Administration Guaifenesin 600 mg 06/09/22 13:30 06/09/22 17:00 Guaifenesin 600 Mg Tablet PO Not Given BID JOSE Heparin Sodium (Porcine) 5,000 unit 06/05/22 21:00 06/09/22 11:01 Heparin 5,000 Unit/Ml Vial SUBQ 5,000 unit BID JOSE Administration Sodium Chloride 1,000 mls @ 83.333 mls/hr 06/07/22 08:00 06/09/22 09:01 Normal Saline 0.9% IV 83.333 mls/hr .Q12H JOSE Administration Insulin Human Lispro 1 - 9 unit 06/07/22 08:00 06/09/22 17:34 Insulin Lispro 300 Unit/3 Ml Pen SUBQ Not Given 0800,1200,1700,2100 [facility] Protocol Mineral Oil 1 applic 06/05/22 16:06 Min Oil/Dimethicon/Coconut Oil 92 Gm Tube TOP PRN PRN Skin Care Multi-Ingredient Ointment 1 applic 06/05/22 14:00 06/09/22 17:00 Emollient Cream 57 Gm Tube TOP 1 applic BID JOSE Administration Multi-Ingredient Ointment 1 applic 06/05/22 16:06 06/05/22 19:59 Zinc Oxide 20% Oint 30 Gm Tube TOP 1 applic PRN PRN Administration Skin Care Ondansetron HCl 4 mg 06/05/22 15:40 06/07/22 14:50 Ondansetron 4 Mg/2 Ml Vial IVP 4 mg Q6HR PRN Administration Nausea / Vomiting Sodium Chloride 10 ml 06/05/22 17:00 06/09/22 17:01 Sodium Chloride Flush 0.9% 10 Ml Syringe IVP 10 ml 0100,0900,1700 JOSE Administration Sodium Chloride 10 ml 06/05/22 15:40 06/07/22 04:30 Sodium Chloride Flush 0.9% 10 Ml Syringe IVP 20 ml PRN PRN Administration NEEDED PER PROVIDER ORDERS Losartan Potassium 50 mg PO DAILY 09/13/19 Atorvastatin Calcium 40 mg PO DAILY 06/01/20 buPROPion HCL [Bupropion Xl] 150 mg PO QPM 04/11/22 Gabapentin [Neurontin] 100 mg PO BID 06/06/22 Metformin HCl [Metformin ER Osmotic] 1 tab PO BID 06/06/22 Ropinirole HCl 1 tab PO HS 06/06/22 glipiZIDE [Glucotrol] 1 tab PO TID 06/06/22
[2022-06-09] MEDS: ONDANSETRON 4 MG/2 ML VIAL IVP PRN (18:36)
[2022-06-09] MEDS: ZINC OXIDE 20% OINT 30 GM TUBE TOP PRN (18:41)
[2022-06-09] MEDS: MIN OIL/DIMETHICON/COCONUT OIL 92 GM TUBE TOP PRN (18:43)
[2022-06-09] MEDS ORDERED: CALAMINE/ZINC OXIDE 177 ML BOTTLE TOP PRN (20:31)
[2022-06-10] MEDS: ZINC OXIDE 20% OINT 30 GM TUBE TOP PRN ×4 (01:28→21:55)
[2022-06-10] MEDS: SODIUM CHLORIDE FLUSH 0.9% 10 ML SYRINGE IVP SCH ×3 (01:28→16:40)
[2022-06-10 05:36] LABS: CALCIUM 6.9 mg/dL (8.5-10.3); CREATININE 2.5 mg/dL (0.4-1.0); POTASSIUM 3.2 mmol/L (3.5-5.0)
[2022-06-10] MEDS: INSULIN LISPRO 300 UNIT/3 ML PEN SUBQ SCH ×4 (08:06→20:40)
[2022-06-10] MEDS: CHOLECALCIFEROL 25 MCG TABLET PO SCH (08:07)
[2022-06-10] MEDS: ACETAMINOPHEN 325 MG TABLET PO PRN (08:07)
[2022-06-10] MEDS: guaiFENesin 600 MG TABLET PO SCH ×2 (08:08→20:41)
[2022-06-10] MEDS: FAMOTIDINE 20 MG TABLET PO SCH ×2 (08:08→20:41)
[2022-06-10] MEDS: HEPARIN 5,000 UNIT/ML VIAL SUBQ SCH ×2 (10:09→20:42)
[2022-06-10] MEDS: SODIUM CHLORIDE 0.9% 1,000 ML IV SCH ×2 (10:11→21:55)
--- NOTE | 2022-06-10 13:05 | PROVIDER PROGRESS NOTE ---
Assessment/Plan - Problem List (1) Acute kidney injury Assessment/Plan: Improving, but Cr still elevated at 2.5, down from 3.9 yesterday Gentle IVF to avoid rapid pulm edema, as occurred with her in the past (2) Metabolic acidosis Assessment/Plan: Likely secondary to dehydration and metformin use leading to renal failure with metabolic acidosis Resolved AG closed (3) COVID-19 Assessment/Plan: Currently without symptoms Tested positive 06/05 Monitor Does not meet criteria for remdesivir or Decadron (4) Hypoglycemia Assessment/Plan: Resolved (5) Hyponatremia Assessment/Plan: Na normal 143 (6) DM (diabetes mellitus), type 2 Qualifiers: Diabetes mellitus chcf insulin use: unspecified chcf insulin use status Diabetes mellitus complication status: without complication Qualified Code(s): E11.9 - Type 2 diabetes mellitus without complications Assessment/Plan: Blood sugar moderately controlled with somewhat fluctuating blood sugar levels Continue insulin sliding scale and diabetic diet (7) Hypokalemia Assessment/Plan: K 3.4 Monitor, as Cr elevated, will defer replacement - Current Meds Current Meds: Current Medications Generic Name Dose Route Start Last Admin Trade Name Freq PRN Reason Stop Dose Admin Acetaminophen 650 mg 06/05/22 15:40 06/10/22 08:07 Acetaminophen 325 Mg Tablet PO 650 mg Q4HR PRN Administration Pain 1 to 4, or Fever Cholecalciferol 50 mcg 06/09/22 09:00 06/10/22 08:07 Cholecalciferol 25 Mcg Tablet PO 50 mcg DAILY JOSE Administration Famotidine 20 mg 06/05/22 21:00 06/10/22 08:08 Famotidine 20 Mg Tablet PO 20 mg BID JOSE Administration Guaifenesin 600 mg 06/09/22 13:30 06/10/22 08:08 Guaifenesin 600 Mg Tablet PO 600 mg BID JOSE Administration Heparin Sodium (Porcine) 5,000 unit 06/05/22 21:00 06/10/22 10:09 Heparin 5,000 Unit/Ml Vial SUBQ 5,000 unit BID JOSE Administration Sodium Chloride 1,000 mls @ 83.333 mls/hr 06/07/22 08:00 06/10/22 10:11 Normal Saline 0.9% IV 83.333 mls/hr .Q12H JOSE Administration Insulin Human Lispro 1 - 9 unit 06/07/22 08:00 06/10/22 12:01 Insulin Lispro 300 Unit/3 Ml Pen SUBQ Not Given 0800,1200,1700,2100 [facility] Protocol Mineral Oil 1 applic 06/05/22 16:06 06/09/22 18:43 Min Oil/Dimethicon/Coconut Oil 92 Gm Tube TOP 1 applic PRN PRN Administration Skin Care Multi-Ingredient Ointment 1 applic 06/05/22 16:06 06/10/22 04:27 Zinc Oxide 20% Oint 30 Gm Tube TOP 1 applic PRN PRN Administration Skin Care Ondansetron HCl 4 mg 06/05/22 15:40 06/09/22 18:36 Ondansetron 4 Mg/2 Ml Vial IVP 4 mg Q6HR PRN Administration Nausea / Vomiting Sodium Chloride 10 ml 06/05/22 17:00 06/10/22 08:08 Sodium Chloride Flush 0.9% 10 Ml Syringe IVP 10 ml 0100,0900,1700 JOSE Administration Sodium Chloride 10 ml 06/05/22 15:40 06/07/22 04:30 Sodium Chloride Flush 0.9% 10 Ml Syringe IVP 20 ml PRN PRN Administration NEEDED PER PROVIDER ORDERS - Lab Result Lab results reviewed: Yes Fish Bone Diagrams: 06/08/22 05:08 06/10/22 04:15 - EKG Results EKG Interpreted Independently: No - Additional Planning My Orders: My Active Orders 06/09/22 13:30 guaiFENesin [Mucinex] 600 mg PO BID 06/11/22 05:00 CBC W/O DIFF (HEMOGRAM) [HEME] DAILYLAB Subjective - Subjective Patient Reports: Feeling Better Objective Vital Signs: Vital Signs - 24 hr 06/09/22 06/09/22 06/10/22 15:00 21:00 00:17 Temperature 36.4 C L 36.6 C Heart Rate [ 87 90 Brachial] Heart Rate [ 88 Monitoring electrodes] Respiratory 15 20 16 Rate Blood Pressure 122/75 117/63 133/66 H [Left Brachial artery] O2 Saturation 97 100 99 06/10/22 06/10/22 06/10/22 04:30 08:10 11:28 Temperature 36.4 C L 36.5 C 36.3 C L Heart Rate [ 91 78 Brachial] Heart Rate [ 99 Monitoring electrodes] Respiratory 20 18 18 Rate Blood Pressure 115/68 115/80 134/68 H [Left Brachial artery] O2 Saturation 99 96 95 Oxygen O2 Source Room air I&O (Last 24 Hrs): Intake and Output Totals x24h 06/08/22 06/09/22 06/10/22 23:59 23:59 23:59 Intake Total 3133.329 3163.777 1232.223 Output Total 3340 3175 1100 Balance -206.671 -11.223 132.223 General: Alert, Cooperative HEENT: Atraumatic Cardiovascular: Regular rate, Normal S1, Normal S2 Respiratory: Chest non-tender Abdomen: Normal bowel sounds Extremities: No clubbing, No cyanosis, No edema - Results Results: Laboratory Results WBC 4.3 x10^3/uL (4.8-10.8) L 06/08/22 05:08 RBC 3.91 10^6/uL (4.20-5.40) L 06/08/22 05:08 Hgb 10.2 g/dL (12.0-16.0) L 06/08/22 05:08 Hct 31.0 % (37.0-47.0) L 06/08/22 05:08 MCV 79.3 fL (81.0-99.0) L 06/08/22 05:08 MCH 26.1 pg (27.0-31.0) L 06/08/22 05:08 MCHC 32.9 g/dL (32.0-36.0) 06/08/22 05:08 RDW 17.6 % (12.0-15.0) H 06/08/22 05:08 Plt Count 110 10^3/uL (130-450) L 06/08/22 05:08 MPV 10.7 fL (7.9-10.8) 06/08/22 05:08 Neut # (Auto) 3.2 10^3/uL (1.5-6.6) 06/08/22 05:08 Lymph # (Auto) 0.4 10^3/uL (1.5-3.5) L 06/08/22 05:08 [place] # (Auto) 0.4 10^3/uL (0.0-1.0) 06/08/22 05:08 Eos # (Auto) 0.3 10^3/uL (0.0-0.7) 06/08/22 05:08 Baso # (Auto) 0.0 10^3/uL (0.0-0.1) 06/08/22 05:08 Absolute Nucleated RBC 0.00 x10^3/uL 06/08/22 05:08 Nucleated RBC % 0.0 /100WBC 06/08/22 05:08 VBG pH 7.527 (7.31-7.41) H 06/06/22 17:06 VBG pCO2 17.7 mmHg (41-51) L 06/06/22 17:06 VBG pO2 147.2 mmHg (25-47) H 06/06/22 17:06 VBG HCO3 14.4 mmol/L (23-28) L 06/06/22 17:06 VBG Total CO2 14.9 mmol/L (24-29) L 06/06/22 17:06 VBG O2 Saturation 98.7 % (60-80) H 06/06/22 17:06 VBG Base Excess -6.2 mmol/L (-2 - +2) L 06/06/22 17:06 Sodium 147 mmol/L (135-145) H 06/10/22 04:15 Potassium 3.2 mmol/L (3.5-5.0) L 06/10/22 04:15 Chloride 116 mmol/L (101-111) H 06/10/22 04:15 Carbon Dioxide 23 mmol/L (21-32) 06/10/22 04:15 Anion Gap 8.0 (6-13) 06/10/22 04:15 BUN 80 mg/dL (6-20) H* 06/10/22 04:15 Creatinine 2.5 mg/dL (0.4-1.0) H 06/10/22 04:15 Estimated GFR (MDRD) 19 (>89) L 06/10/22 04:15 Glucose 126 mg/dL (70-100) H 06/10/22 04:15 POC Whole Bld Glucose 130 mg/dL (70 - 100) H 06/10/22 11:26 Calcium 6.9 mg/dL (8.5-10.3) L 06/10/22 04:15 Phosphorus 7.5 mg/dL (2.5-4.6) H 06/06/22 04:20 Magnesium 2.2 mg/dL (1.7-2.8) 06/05/22 12:00 Total Bilirubin 0.3 mg/dL (0.2-1.0) 06/05/22 12:00 AST 21 IU/L (10-42) 06/05/22 12:00 ALT < 10 IU/L (10-60) L 06/05/22 12:00 Alkaline Phosphatase 79 IU/L (42-121) 06/05/22 12:00 Troponin I High Sens 43.9 ng/L (2.3-14.8) H* 06/05/22 16:08 Total Protein 7.3 g/dL (6.7-8.2) 06/05/22 12:00 Albumin 3.6 g/dL (3.2-5.5) 06/05/22 12:00 Globulin 3.7 g/dL (2.1-4.2) 06/05/22 12:00 Albumin/Globulin Ratio 1.0 (1.0-2.2) 06/05/22 12:00 Lipase 58 U/L (22-51) H 06/05/22 12:00 Urine Color DARK YELLOW 06/05/22 13:35 Urine Clarity CLEAR (CLEAR) 06/05/22 13:35 Urine pH 5.5 PH (5.0-7.5) 06/05/22 13:35 Ur Specific [place] 1.025 (1.002-1.030) 06/05/22 13:35 Urine Protein TRACE mg/dL (NEGATIVE) 06/05/22 13:35 Urine Glucose (UA) NEGATIVE mg/dL (NEGATIVE) 06/05/22 13:35 Urine Ketones NEGATIVE mg/dL (NEGATIVE) 06/05/22 13:35 Urine Occult Blood NEGATIVE (NEGATIVE) 06/05/22 13:35 Urine Nitrite NEGATIVE (NEGATIVE) 06/05/22 13:35 Urine Bilirubin NEGATIVE (NEGATIVE) 06/05/22 13:35 Urine Urobilinogen 0.2 (NORMAL) E.U./dL (NORMAL) 06/05/22 13:35 Ur Leukocyte Esterase NEGATIVE (NEGATIVE) 06/05/22 13:35 Ur Microscopic Review NOT INDICATED 06/05/22 13:35 Urine Culture Comments NOT INDICATED 06/05/22 13:35 Nasal Adenovirus (PCR) NOT DETECTED 06/05/22 14:01 Nasal B. parapertussis DNA (PCR) NOT DETECTED 06/05/22 14:01 Nasal Coronavir 229E PCR NOT DETECTED 06/05/22 14:01 Nasal Coronavir HKU1 PCR NOT DETECTED 06/05/22 14:01 Nasal Coronavir NL63 PCR NOT DETECTED 06/05/22 14:01 Nasal Coronavir OC43 PCR NOT DETECTED 06/05/22 14:01 Nasal Enterovir/Rhinovir PCR NOT DETECTED 06/05/22 14:01 Nasal Influenza B PCR NOT DETECTED 06/05/22 14:01 Nasal Influenza A PCR NOT DETECTED 06/05/22 14:01 Nasal Parainfluen 1 PCR NOT DETECTED 06/05/22 14:01 Nasal Parainfluen 2 PCR NOT DETECTED 06/05/22 14:01 Nasal Parainfluen 3 PCR NOT DETECTED 06/05/22 14:01 Nasal Parainfluen 4 PCR NOT DETECTED 06/05/22 14:01 Nasal RSV (PCR) NOT DETECTED 06/05/22 14:01 Nasal Screen MRSA (PCR) NEGATIVE (NEGATIVE) 06/05/22 16:30 Nasal B.pertussis DNA PCR NOT DETECTED 06/05/22 14:01 Nasal C.pneumoniae (PCR) NOT DETECTED 06/05/22 14:01 Jasson Human Metapneumo PCR NOT DETECTED 06/05/22 14:01 Nasal M.pneumoniae (PCR) NOT DETECTED 06/05/22 14:01 Nasal SARS-CoV-2 (PCR) DETECTED A 06/05/22 14:01 Serum Ketones NEGATIVE (NEGATIVE) 06/05/22 16:08 - Procedures Procedures: Procedures (06/01/20) EXCISION OF SMALL INTESTINE, OPEN APPROACH (06/01/20) INSERTION OF INFUSION DEV INTO L SUBCLAV VEIN, PERC APPROACH (04/10/22) RELEASE PERITONEUM, PERCUTANEOUS ENDOSCOPIC APPROACH (06/01/20) RELEASE SMALL INTESTINE, OPEN APPROACH (06/01/20) RELEASE TRANSVERSE COLON, OPEN APPROACH (06/01/20) REMOVAL OF SYNTH SUB FROM ABD WALL, PERC ENDO APPROACH (06/01/20) SUPPLEMENT ABDOMINAL WALL WITH SYNTH SUB, OPEN APPROACH (06/01/20) ABX Reporting Has patient been on IV antibiotics over the past 48 hours?: No Current Medications - Current Medications Current Medications: Active Medications Generic Name Dose Route Start Last Admin Trade Name Freq PRN Reason Stop Dose Admin Acetaminophen 650 mg 06/05/22 15:40 06/10/22 08:07 Acetaminophen 325 Mg Tablet PO 650 mg Q4HR PRN Administration Pain 1 to 4, or Fever Calamine 1 applic 06/09/22 20:31 Calamine/Zinc Oxide 177 Ml Bottle TOP PRN PRN SKIN CARE Cholecalciferol 50 mcg 06/09/22 09:00 06/10/22 08:07 Cholecalciferol 25 Mcg Tablet PO 50 mcg DAILY JOSE Administration Famotidine 20 mg 06/05/22 21:00 06/10/22 08:08 Famotidine 20 Mg Tablet PO 20 mg BID JOSE Administration Guaifenesin 600 mg 06/09/22 13:30 06/10/22 08:08 Guaifenesin 600 Mg Tablet PO 600 mg BID JOSE Administration Heparin Sodium (Porcine) 5,000 unit 06/05/22 21:00 06/10/22 10:09 Heparin 5,000 Unit/Ml Vial SUBQ 5,000 unit BID JOSE Administration Sodium Chloride 1,000 mls @ 83.333 mls/hr 06/07/22 08:00 06/10/22 10:11 Normal Saline 0.9% IV 83.333 mls/hr .Q12H JOSE Administration Insulin Human Lispro 1 - 9 unit 06/07/22 08:00 06/10/22 12:01 Insulin Lispro 300 Unit/3 Ml Pen SUBQ Not Given 0800,1200,1700,2100 [facility] Protocol Mineral Oil 1 applic 06/05/22 16:06 06/09/22 18:43 Min Oil/Dimethicon/Coconut Oil 92 Gm Tube TOP 1 applic PRN PRN Administration Skin Care Multi-Ingredient Ointment 1 applic 06/05/22 16:06 06/10/22 04:27 Zinc Oxide 20% Oint 30 Gm Tube TOP 1 applic PRN PRN Administration Skin Care Ondansetron HCl 4 mg 06/05/22 15:40 06/09/22 18:36 Ondansetron 4 Mg/2 Ml Vial IVP 4 mg Q6HR PRN Administration Nausea / Vomiting Sodium Chloride 10 ml 06/05/22 17:00 06/10/22 08:08 Sodium Chloride Flush 0.9% 10 Ml Syringe IVP 10 ml 0100,0900,1700 JOSE Administration Sodium Chloride 10 ml 06/05/22 15:40 06/07/22 04:30 Sodium Chloride Flush 0.9% 10 Ml Syringe IVP 20 ml PRN PRN Administration NEEDED PER PROVIDER ORDERS Losartan Potassium 50 mg PO DAILY 09/13/19 Atorvastatin Calcium 40 mg PO DAILY 06/01/20 buPROPion HCL [Bupropion Xl] 150 mg PO QPM 04/11/22 Gabapentin [Neurontin] 100 mg PO BID 06/06/22 Metformin HCl [Metformin ER Osmotic] 1 tab PO BID 06/06/22 Ropinirole HCl 1 tab PO HS 06/06/22 glipiZIDE [Glucotrol] 1 tab PO TID 06/06/22
[2022-06-10] MEDS: MIN OIL/DIMETHICON/COCONUT OIL 92 GM TUBE TOP PRN (14:16)
[2022-06-11] MEDS: ZINC OXIDE 20% OINT 30 GM TUBE TOP PRN ×2 (01:03→04:44)
[2022-06-11] MEDS: SODIUM CHLORIDE FLUSH 0.9% 10 ML SYRINGE IVP SCH ×4 (01:03→20:59)
[2022-06-11] MEDS: SODIUM CHLORIDE FLUSH 0.9% 10 ML SYRINGE IVP PRN (04:40)
[2022-06-11 05:39] LABS: HCT - HEMATOCRIT 28.4 % (37.0-47.0); MEAN CORPUSCULAR HEMOGLOBIN 26.3 pg (27.0-31.0); MEAN CORPUSCULAR HGB CONC 31.7 g/dL (32.0-36.0); MEAN PLATELET VOLUME 11.2 fL (7.9-10.8); RED BLOOD COUNT 3.42 10^6/uL (4.20-5.40); RED CELL DISTRIBUTION WIDTH 18.8 % (12.0-15.0); WHITE BLOOD COUNT 5.3 x10^3/uL (4.8-10.8)
[2022-06-11 05:56] LABS: CREATININE 1.7 mg/dL (0.4-1.0)
[2022-06-11 06:00] LABS: POTASSIUM 2.5 mmol/L (3.5-5.0)
[2022-06-11 06:01] LABS: CALCIUM 6.4 mg/dL (8.5-10.3)
[2022-06-11] MEDS ORDERED: POTASSIUM CHLORIDE INJ 40 MEQ in SODIUM CHLORIDE 0.9% 500 ML IV ONE (06:30)
[2022-06-11] MEDS: POTASSIUM CHLOR 10 MEQ/100 ML 10 MEQ/100 ML BAG IV SCH ×8 (06:52→21:57)
[2022-06-11] MEDS ORDERED: MAGNESIUM SULFATE 1 GM in SODIUM CHLORIDE 0.9% 50 ML IV ONE (07:00)
[2022-06-11] MEDS ORDERED: MAGNESIUM SULFATE 2 GRAM 2 GM/50 ML BAG IV ONE (08:00)
[2022-06-11] MEDS: INSULIN LISPRO 300 UNIT/3 ML PEN SUBQ SCH ×4 (08:31→20:58)
[2022-06-11] MEDS: guaiFENesin 600 MG TABLET PO SCH ×2 (08:32→21:09)
[2022-06-11] MEDS: FAMOTIDINE 20 MG TABLET PO SCH ×2 (08:32→21:09)
[2022-06-11] MEDS: CHOLECALCIFEROL 25 MCG TABLET PO SCH (08:39)
[2022-06-11] MEDS: HEPARIN 5,000 UNIT/ML VIAL SUBQ SCH ×3 (08:40→21:20)
[2022-06-11] MEDS ORDERED: POTASSIUM CHLORIDE 20 MEQ TABLET PO ONE (12:00)
[2022-06-11] MEDS: SODIUM CHLORIDE 0.9% 1,000 ML IV SCH (14:24)
--- NOTE | 2022-06-11 14:50 | PROVIDER PROGRESS NOTE ---
Assessment/Plan - Problem List (1) Acute kidney injury Assessment/Plan: Improving, but Cr much improved, down to 1.7 from 2.5 yesterday and 11.8 at admit Gentle IVF to avoid rapid pulm edema, as occurred with her in the past (2) Metabolic acidosis Assessment/Plan: Likely secondary to dehydration and metformin use leading to renal failure with metabolic acidosis Resolved AG closed (3) COVID-19 Assessment/Plan: Currently without symptoms Tested positive 06/05 Monitor Does not meet criteria for remdesivir or Decadron (4) Hypoglycemia Assessment/Plan: Resolved (5) DM (diabetes mellitus), type 2 Qualifiers: Diabetes mellitus exterminator insulin use: unspecified half-way insulin use status Diabetes mellitus complication status: without complication Qualified Code(s): E11.9 - Type 2 diabetes mellitus without complications (6) Hypokalemia Assessment/Plan: K 2.5 K replacement ordered Reorder K level - Current Meds Current Meds: Current Medications Generic Name Dose Route Start Last Admin Trade Name Freq PRN Reason Stop Dose Admin Acetaminophen 650 mg 06/05/22 15:40 06/10/22 08:07 Acetaminophen 325 Mg Tablet PO 650 mg Q4HR PRN Administration Pain 1 to 4, or Fever Cholecalciferol 50 mcg 06/09/22 09:00 06/11/22 08:39 Cholecalciferol 25 Mcg Tablet PO 50 mcg DAILY JOSE Administration Famotidine 20 mg 06/05/22 21:00 06/11/22 08:32 Famotidine 20 Mg Tablet PO 20 mg BID JOSE Administration Guaifenesin 600 mg 06/09/22 13:30 06/11/22 08:32 Guaifenesin 600 Mg Tablet PO 600 mg BID JOSE Administration Heparin Sodium (Porcine) 5,000 unit 06/05/22 21:00 06/11/22 08:40 Heparin 5,000 Unit/Ml Vial SUBQ 5,000 unit BID JOSE Administration Sodium Chloride 1,000 mls @ 83.333 mls/hr 06/07/22 08:00 06/11/22 14:24 Normal Saline 0.9% IV 83.3 mls/hr .Q12H JOSE Administration Insulin Human Lispro 1 - 9 unit 06/07/22 08:00 06/11/22 11:37 Insulin Lispro 300 Unit/3 Ml Pen SUBQ Not Given 0800,1200,1700,2100 [facility] Protocol Mineral Oil 1 applic 06/05/22 16:06 06/10/22 14:16 Min Oil/Dimethicon/Coconut Oil 92 Gm Tube TOP 1 applic PRN PRN Administration Skin Care Multi-Ingredient Ointment 1 applic 06/05/22 16:06 06/11/22 04:44 Zinc Oxide 20% Oint 30 Gm Tube TOP 1 applic PRN PRN Administration Skin Care Ondansetron HCl 4 mg 06/05/22 15:40 06/09/22 18:36 Ondansetron 4 Mg/2 Ml Vial IVP 4 mg Q6HR PRN Administration Nausea / Vomiting Sodium Chloride 10 ml 06/05/22 17:00 06/11/22 04:40 Sodium Chloride Flush 0.9% 10 Ml Syringe IVP 10 ml 0100,0900,1700 JOSE Administration Sodium Chloride 10 ml 06/05/22 15:40 06/11/22 04:40 Sodium Chloride Flush 0.9% 10 Ml Syringe IVP 10 ml PRN PRN Administration NEEDED PER PROVIDER ORDERS - Lab Result Lab results reviewed: Yes Fish Bone Diagrams: 06/11/22 04:45 06/11/22 04:45 Subjective - Subjective Patient Reports: Feeling Better Objective Vital Signs: Vital Signs - 24 hr 06/10/22 06/10/22 06/11/22 17:00 20:51 00:48 Temperature 36.3 C L 36.1 C L 36.8 C Heart Rate [ 89 86 98 Brachial] Respiratory 20 20 16 Rate Blood Pressure 108/72 140/73 H [Left Brachial artery] Blood Pressure 137/95 H [right arm] O2 Saturation 94 97 97 06/11/22 06/11/22 06/11/22 03:05 08:18 11:52 Temperature 36.6 C 36.8 C 36.3 C L Heart Rate [ 92 94 75 Brachial] Respiratory 16 18 18 Rate Blood Pressure 138/81 H 129/69 138/72 H [Left Brachial artery] Blood Pressure [right arm] O2 Saturation 92 98 97 Oxygen O2 Source Room air I&O (Last 24 Hrs): Intake and Output Totals x24h 06/09/22 06/10/22 06/11/22 23:59 23:59 23:59 Intake Total 3163.777 2689.997 2099.95 Output Total 3175 2700 750 Balance -11.223 -10.003 1349.95 General: Alert, Oriented x3, Cooperative HEENT: Atraumatic, EOMI Neuro: Alert Cardiovascular: Regular rate, Normal S1, Normal S2 Abdomen: Normal bowel sounds - Results Results: Laboratory Results WBC 5.3 x10^3/uL (4.8-10.8) 06/11/22 04:45 RBC 3.42 10^6/uL (4.20-5.40) L 06/11/22 04:45 Hgb 9.0 g/dL (12.0-16.0) L 06/11/22 04:45 Hct 28.4 % (37.0-47.0) L 06/11/22 04:45 MCV 83.0 fL (81.0-99.0) 06/11/22 04:45 MCH 26.3 pg (27.0-31.0) L 06/11/22 04:45 MCHC 31.7 g/dL (32.0-36.0) L 06/11/22 04:45 RDW 18.8 % (12.0-15.0) H 06/11/22 04:45 Plt Count 114 10^3/uL (130-450) L 06/11/22 04:45 MPV 11.2 fL (7.9-10.8) H 06/11/22 04:45 Neut # (Auto) 3.2 10^3/uL (1.5-6.6) 06/08/22 05:08 Lymph # (Auto) 0.4 10^3/uL (1.5-3.5) L 06/08/22 05:08 [place] # (Auto) 0.4 10^3/uL (0.0-1.0) 06/08/22 05:08 Eos # (Auto) 0.3 10^3/uL (0.0-0.7) 06/08/22 05:08 Baso # (Auto) 0.0 10^3/uL (0.0-0.1) 06/08/22 05:08 Absolute Nucleated RBC 0.00 x10^3/uL 06/08/22 05:08 Nucleated RBC % 0.0 /100WBC 06/08/22 05:08 VBG pH 7.527 (7.31-7.41) H 06/06/22 17:06 VBG pCO2 17.7 mmHg (41-51) L 06/06/22 17:06 VBG pO2 147.2 mmHg (25-47) H 06/06/22 17:06 VBG HCO3 14.4 mmol/L (23-28) L 06/06/22 17:06 VBG Total CO2 14.9 mmol/L (24-29) L 06/06/22 17:06 VBG O2 Saturation 98.7 % (60-80) H 06/06/22 17:06 VBG Base Excess -6.2 mmol/L (-2 - +2) L 06/06/22 17:06 Sodium 146 mmol/L (135-145) H 06/11/22 04:45 Potassium 2.5 mmol/L (3.5-5.0) L* 06/11/22 04:45 Chloride 118 mmol/L (101-111) H 06/11/22 04:45 Carbon Dioxide 22 mmol/L (21-32) 06/11/22 04:45 Anion Gap 6.0 (6-13) 06/11/22 04:45 BUN 51 mg/dL (6-20) H 06/11/22 04:45 Creatinine 1.7 mg/dL (0.4-1.0) H 06/11/22 04:45 Estimated GFR (MDRD) 29 (>89) L 06/11/22 04:45 Glucose 133 mg/dL (70-100) H 06/11/22 04:45 POC Whole Bld Glucose 138 mg/dL (70 - 100) H 06/11/22 11:37 Calcium 6.4 mg/dL (8.5-10.3) L* 06/11/22 04:45 Phosphorus 7.5 mg/dL (2.5-4.6) H 06/06/22 04:20 Magnesium 0.8 mg/dL (1.7-2.8) L* 06/11/22 04:45 Total Bilirubin 0.3 mg/dL (0.2-1.0) 06/05/22 12:00 AST 21 IU/L (10-42) 06/05/22 12:00 ALT < 10 IU/L (10-60) L 06/05/22 12:00 Alkaline Phosphatase 79 IU/L (42-121) 06/05/22 12:00 Troponin I High Sens 43.9 ng/L (2.3-14.8) H* 06/05/22 16:08 Total Protein 7.3 g/dL (6.7-8.2) 06/05/22 12:00 Albumin 3.6 g/dL (3.2-5.5) 06/05/22 12:00 Globulin 3.7 g/dL (2.1-4.2) 06/05/22 12:00 Albumin/Globulin Ratio 1.0 (1.0-2.2) 06/05/22 12:00 Lipase 58 U/L (22-51) H 06/05/22 12:00 Urine Color DARK YELLOW 06/05/22 13:35 Urine Clarity CLEAR (CLEAR) 06/05/22 13:35 Urine pH 5.5 PH (5.0-7.5) 06/05/22 13:35 Ur Specific [place] 1.025 (1.002-1.030) 06/05/22 13:35 Urine Protein TRACE mg/dL (NEGATIVE) 06/05/22 13:35 Urine Glucose (UA) NEGATIVE mg/dL (NEGATIVE) 06/05/22 13:35 Urine Ketones NEGATIVE mg/dL (NEGATIVE) 06/05/22 13:35 Urine Occult Blood NEGATIVE (NEGATIVE) 06/05/22 13:35 Urine Nitrite NEGATIVE (NEGATIVE) 06/05/22 13:35 Urine Bilirubin NEGATIVE (NEGATIVE) 06/05/22 13:35 Urine Urobilinogen 0.2 (NORMAL) E.U./dL (NORMAL) 06/05/22 13:35 Ur Leukocyte Esterase NEGATIVE (NEGATIVE) 06/05/22 13:35 Ur Microscopic Review NOT INDICATED 06/05/22 13:35 Urine Culture Comments NOT INDICATED 06/05/22 13:35 Nasal Adenovirus (PCR) NOT DETECTED 06/05/22 14:01 Nasal B. parapertussis DNA (PCR) NOT DETECTED 06/05/22 14:01 Nasal Coronavir 229E PCR NOT DETECTED 06/05/22 14:01 Nasal Coronavir HKU1 PCR NOT DETECTED 06/05/22 14:01 Nasal Coronavir NL63 PCR NOT DETECTED 06/05/22 14:01 Nasal Coronavir OC43 PCR NOT DETECTED 06/05/22 14:01 Nasal Enterovir/Rhinovir PCR NOT DETECTED 06/05/22 14:01 Nasal Influenza B PCR NOT DETECTED 06/05/22 14:01 Nasal Influenza A PCR NOT DETECTED 06/05/22 14:01 Nasal Parainfluen 1 PCR NOT DETECTED 06/05/22 14:01 Nasal Parainfluen 2 PCR NOT DETECTED 06/05/22 14:01 Nasal Parainfluen 3 PCR NOT DETECTED 06/05/22 14:01 Nasal Parainfluen 4 PCR NOT DETECTED 06/05/22 14:01 Nasal RSV (PCR) NOT DETECTED 06/05/22 14:01 Nasal Screen MRSA (PCR) NEGATIVE (NEGATIVE) 06/05/22 16:30 Nasal B.pertussis DNA PCR NOT DETECTED 06/05/22 14:01 Nasal C.pneumoniae (PCR) NOT DETECTED 06/05/22 14:01 Jasson Human Metapneumo PCR NOT DETECTED 06/05/22 14:01 Nasal M.pneumoniae (PCR) NOT DETECTED 06/05/22 14:01 Nasal SARS-CoV-2 (PCR) DETECTED A 06/05/22 14:01 Serum Ketones NEGATIVE (NEGATIVE) 06/05/22 16:08 - Procedures Procedures: Procedures (06/01/20) EXCISION OF SMALL INTESTINE, OPEN APPROACH (06/01/20) INSERTION OF INFUSION DEV INTO L SUBCLAV VEIN, PERC APPROACH (04/10/22) RELEASE PERITONEUM, PERCUTANEOUS ENDOSCOPIC APPROACH (06/01/20) RELEASE SMALL INTESTINE, OPEN APPROACH (06/01/20) RELEASE TRANSVERSE COLON, OPEN APPROACH (06/01/20) REMOVAL OF SYNTH SUB FROM ABD WALL, PERC ENDO APPROACH (06/01/20) SUPPLEMENT ABDOMINAL WALL WITH SYNTH SUB, OPEN APPROACH (06/01/20) ABX Reporting Has patient been on IV antibiotics over the past 48 hours?: No
[2022-06-11 16:16] LABS: CREATININE 1.5 mg/dL (0.4-1.0)
[2022-06-11 16:19] LABS: CALCIUM 6.4 mg/dL (8.5-10.3)
[2022-06-11] MEDS ORDERED: CALCIUM GLUCONATE IN NS 0.9% 2,000 MG/100 ML BAG IV ONE (16:52)
[2022-06-11] MEDS: MAGNESIUM OXIDE 400 MG TABLET PO SCH (17:53)
[2022-06-12] MEDS: SODIUM CHLORIDE 0.9% 1,000 ML IV SCH (03:05)
[2022-06-12 05:43] LABS: CALCIUM 6.6 mg/dL (8.5-10.3); CREATININE 1.2 mg/dL (0.4-1.0); MAGNESIUM 1.1 mg/dL (1.7-2.8)
[2022-06-12] MEDS ORDERED: POTASSIUM CHLORIDE INJ 40 MEQ in SODIUM CHLORIDE 0.9% 500 ML IV ONE (07:09)
[2022-06-12] MEDS ORDERED: CALCIUM GLUCONATE IN NS 0.9% 2,000 MG/100 ML BAG IV ONE (07:10)
[2022-06-12] MEDS: POTASSIUM CHLOR 10 MEQ/100 ML 10 MEQ/100 ML BAG IV SCH ×4 (08:09→11:41)
[2022-06-12] MEDS: INSULIN LISPRO 300 UNIT/3 ML PEN SUBQ SCH ×2 (08:16→11:52)
[2022-06-12] MEDS: CHOLECALCIFEROL 25 MCG TABLET PO SCH (08:17)
[2022-06-12] MEDS: FAMOTIDINE 20 MG TABLET PO SCH (08:17)
[2022-06-12] MEDS: MAGNESIUM OXIDE 400 MG TABLET PO SCH (08:17)
[2022-06-12] MEDS: guaiFENesin 600 MG TABLET PO SCH (08:18)
[2022-06-12] MEDS: SODIUM CHLORIDE FLUSH 0.9% 10 ML SYRINGE IVP SCH (08:18)
[2022-06-12] MEDS: HEPARIN 5,000 UNIT/ML VIAL SUBQ SCH (08:19)
--- NOTE | 2022-06-12 12:15 | Discharge Plan ---
Discharge Plan Problem Reviewed?: Yes Disposition: Home, Self Care Condition: Stable Prescriptions: Calcium Citrate 500 mg PO DAILY #30 tablet metFORMIN [Glucophage] 850 mg PO BID 30 Days #60 tablet Magnesium Oxide [Mag Ox] 400 mg PO DAILYWM 30 Days #30 tab Famotidine [Pepcid] 20 mg PO BID 30 Days #60 tab Potassium Chloride 20 meq PO DAILY #30 tab Cholecalciferol [Vitamin D3] 50 mcg PO DAILY 30 Days #60 tab Diet: Diabetic Activity Restrictions: Wt Bearing as Tolerated Shower Restrictions: No Driving Restrictions: Yes Weight Bearing: Full Weight Instruction Topics: Log Blood Sugar, Hypoglycemia Plan of Treatment: Lacey, when you were admitted to the hospital it was because your blood sugar was too low. This also would lead to a condition called metabolic acidosis in which your kidneys showed signs of dehydration and you had abnormal electrolyte levels. Fortunately, this has improved greatly and your kidney function is now normal. Your blood sugars have been well managed during your hospital stay. You do continue to have low calcium and potassium level so I am going to send prescriptions to help replenish these. In addition, I am making some recommendations to your diabetes medications. I would suggest getting off glipizide and taking a lower dose of metformin. I am going to lower it to 850 mg twice a day instead of 1000 mg twice a day. Your primary care physician can follow-up on your blood sugar and A1c levels and determine if any further changes need to be made after lowering the dose. Also, you requested some information about your spine while you were here. I have reviewed MRI and it does show evidence of something called spinal stenosis in the lumbar spine. Unfortunately, unable to directly place a referral to a pain management clinic or a neurosurgery clinic but you can ask your PCP about this. No Smoking: If you smoke, Please STOP! Call for help.
--- NOTE | 2022-06-12 12:32 | DISCHARGE SUMMARY ---
Discharge Summary Admit Date: 06/05/22 Discharge Date: 06/12/22 Discharging Provider: Dr Ted Pena Code Status: Do Not Attempt Resuscitation Condition at Discharge: Stable Discharge Disposition: 01 Home, Self Care Discharge Facility Name: [facility] - DIAGNOSES Admission Diagnoses: Metabolic acidosisresolved Acute kidney injuryresolved Nonketotic hyperglycemiaresolved Hypotensionresolved Hyponatremiaresolved Hyperthermiaresolved COVID-19improved Type 2 diabetes mellitusimproved Restless leg syndromestable Pulmonary hypertension-Stable Discharge Diagnoses with Status of Each Condition: Acute kidney injuryresolved Metabolic acidosisresolved COVID-19improved Hypoglycemia Resolved Type 2 diabetes mellitusImproved Hypokalemiastable Hypocalcemiastable - HPI History of Present Illness: This is a 77-year-old white female with history of diabetes on glipizide, metfor min and short acting insulin for sliding scale. The patient was admitted here about 2 months ago and had metabolic acidosis from JESSICA which was caused by taking excessive amounts of nonsteroidal medicines plus being dehydrated and having uremia. After that she was discharged to a SNF. The patient now lives at [facility] and today staff found that her morning glucose was 57 and called an ambulance. She had stable blood pressure and heart rate. She was obtunded and given glucose. This helped her become more awake. The history obtained by ED was that she has not been hungry lately and also decreased her oral liquid intake. In the ED her glucose was still low in the 70s and she received supplemental glucose again. Search for an infectious cause of the hypoglycemia showed nothing on chest x-ray or urinalysis and there were no localizing signs on physical exam. She had very significant abnormal labs however, with a BUN of 240/creatinine 11, her baseline best creatinine is 0.7 and when she was here 2 months ago her creatinine was 5.0 before it improved. The ED provider spoke to the patient directly regarding her wishes for CODE STATUS but also asked if she would agree to dialysis. The patient was answering appropriately and did not appear confused and she said she wanted to be a DNR and would not want dialysis. Her POLST however, indicated full treatment and full code status therefore the ED provider rechecked her wishes with her and she now wants to be a DNR. Blood pressure in the ED has been "soft" running between 79 systolic and 110 systolic. She is also hypothermic with a temperature of 33 degrees C. She tested positive for COVID on her respiratory panel. Her oxygen saturation is 97 to 99% on room air. Her troponins were 46 and 43. VBG showed a pH of 7.23, anion gap 23, bicarb 12, serum ketones negative, sodium 128. The ED provider reached out to me on the Hospitalist team and we discussed this patient. The patient will be admitted to the ICU for managing hypoglycemia causing altered mental status and for treating metabolic acidosis, JESSICA with dehydration and hyponatremia. - HOSPITAL COURSE Hospital Course: Patient had a relatively uneventful hospital course. She was admitted with the diagnosis of metabolic acidosis and acute kidney injury and treated primarily with IV fluid resuscitation. Her lab work gradually improved and on the day of discharge her acute kidney injury had completely resolved and her creatinine was within normal limits. She did however persistently have hypokalemia and hypocalcemia, despite no obvious loss of potassium such as diarrhea. Electrolytes were repleted and the patient was to be discharged on oral potassium and calcium replacement. Of note, Isabel blood sugar was well controlled throughout the hospitalization without hyperglycemia or hypoglycemia. Her home diabetes medications were held and her blood sugar levels averaged in the 130s. She was on an insulin sliding scale but most often did not require any correction insulin doses. As such, we are recommending at discharge to discontinue glipizide and to decrease metformin from 1000 mg twice daily to 850 mg twice daily. In fact she may require further dose reduction depending on her oral intake at home. - ALLERGIES Allergies/Adverse Reactions: Allergies Allergy/AdvReac Type Severity Reaction Status Date / Time No Known Drug Allergies Allergy Verified 06/05/22 11:14 - MEDICATIONS Home Medications: Ambulatory Orders Medication Instructions Recorded Confirmed Losartan Potassium 50 mg PO DAILY 09/13/19 06/06/22 Atorvastatin Calcium 40 mg PO DAILY 06/01/20 06/06/22 buPROPion HCL [Bupropion Xl] 150 mg PO QPM 04/11/22 06/06/22 Insulin Lispro [Humalog Kwikpen 1 - 5 unit SUBQ 04/19/22 06/06/22 U-100] 0800,1200,1700,2100 #1 ea Metoprolol Succinate [Toprol Xl] 25 mg PO DAILY #30 tablet 04/19/22 06/06/22 traMADol [Ultram] 50 mg PO Q4HR PRN #12 tab 04/19/22 06/06/22 Gabapentin [Neurontin] 100 mg PO BID 06/06/22 06/06/22 Ropinirole HCl 1 tab PO HS 06/06/22 06/06/22 Calcium Citrate 500 mg PO DAILY #30 tablet 06/12/22 Cholecalciferol [Vitamin D3] 50 mcg PO DAILY 30 Days #60 tab 06/12/22 Famotidine [Pepcid] 20 mg PO BID 30 Days #60 tab 06/12/22 Magnesium Oxide [Mag Ox] 400 mg PO DAILYWM 30 Days #30 tab 06/12/22 Potassium Chloride 20 meq PO DAILY #30 tab 06/12/22 metFORMIN [Glucophage] 850 mg PO BID 30 Days #60 tablet 06/12/22 - PHYSICAL EXAM AT DISCHARGE General Appearance: positive: No acute distress Eyes Bilateral: positive: Normal inspection Respiratory: positive: Chest non-tender, No respiratory distress, Breath sounds nml Cardiovascular: positive: Regular rate & rhythm, No murmur, No gallop Abdomen: positive: Non-tender, No organomegaly, Nml bowel sounds, No distention Skin: positive: Color nml - LABS Result Diagrams: 06/11/22 04:45 06/12/22 05:00 - DIAGNOSTIC IMAGING Diagnostic Imaging Results: Final report reviewed - FOLLOW UP Follow Up: PCP Possible neurosurgery referral for chronic lumbar spinal stenosis and leg weakness. - TIME SPENT Time Spent in Discharge (Minutes): 36
[2022-06-12 14:25] VITALS: BP 154/80
== END 2022-06-12 14:45 | disposition home or self-care (01) | DRG 637 ==
LOC: EDUNIT# → ED 10:59 → ICU 15:40 → MS2 06-09 17:01
PROVIDERS: ADMIT Internal Medicine; ATTEND Family Medicine Sports Medicine
PROC: 02HV33Z Insertion of Infusion Device into Superior Vena Cava, Percutaneous Approach (ICD-10-PCS; principal; 2022-06-06)
DX: E11.649 Type 2 diabetes mellitus with hypoglycemia without coma (principal); U07.1 COVID-19; E87.20 Acidosis, unspecified; E87.1 Hypo-osmolality and hyponatremia; N17.9 Acute kidney failure, unspecified; R53.1 Weakness; I45.10 Unspecified right bundle-branch block; R32 Unspecified urinary incontinence; I10 Essential (primary) hypertension; I95.9 Hypotension, unspecified; F17.200 Nicotine dependence, unspecified, uncomplicated; T68.XXXA Hypothermia, initial encounter; G25.81 Restless legs syndrome; I27.20 Pulmonary hypertension, unspecified; E87.6 Hypokalemia; Z66 Do not resuscitate; R41.82 Altered mental status, unspecified; E83.51 Hypocalcemia; M48.061 Spinal stenosis, lumbar region without neurogenic claudication; E86.0 Dehydration; R63.0 Anorexia; Z68.22 Body mass index [BMI] 22.0-22.9, adult; Z79.4 Long term (current) use of insulin; Z79.84 Long term (current) use of oral hypoglycemic drugs; Z74.01 Bed confinement status
CPT/HCPCS: 36415; 71045; 74176; 80048; 80053; 81003; 82009; 82803; 83690; 83735; 84100; 84132; 84484; 85025; 85027; 87150; 87633; 93005; 94644; 94645; 96360; 96361; 97162; 97530; 99285; 99291; A6250; A9270; J3490; 81001; 87086

== ENCOUNTER 2023-07-17 08:27 | Outpatient (CLI) | payer MEDICARE ==
[2023-07-17 12:50] LABS: BASOPHILS % (AUTO) 0.3 %; EOSINOPHILS # (AUTO) 0.3 10^3/uL (0.0-0.7); EOSINOPHILS % (AUTO) 4.1 %; HCT - HEMATOCRIT 38.4 % (37.0-47.0); HGB - HEMOGLOBIN 11.3 g/dL (12.0-16.0); LYMPHOCYTES # (AUTO) 1.5 10^3/uL (1.5-3.5); MEAN CORPUSCULAR HEMOGLOBIN 26.1 pg (27.0-31.0); MEAN CORPUSCULAR HGB CONC 29.4 g/dL (32.0-36.0); MEAN CORPUSCULAR VOLUME 88.7 fL (81.0-99.0); MEAN PLATELET VOLUME 11.9 fL (7.9-10.8); MONOCYTES # (AUTO) 0.6 10^3/uL (0.0-1.0); MONOCYTES % (AUTO) 8.7 %; NEUTROPHILS # (AUTO) 4.7 10^3/uL (1.5-6.6); NEUTROPHILS % (AUTO) 65.5 %; PLT - PLATELET COUNT 257 10^3/uL (130-450); RED BLOOD COUNT 4.33 10^6/uL (4.20-5.40); RED CELL DISTRIBUTION WIDTH 15.5 % (12.0-15.0); WHITE BLOOD COUNT 7.1 x10^3/uL (4.8-10.8)
[2023-07-17 13:10] LABS: ESTIMATED AVERAGE GLUCOSE 217 mg/dL (70-100); HEMOGLOBIN A1c% 9.2 % (4.27-6.07)
[2023-07-17 13:20] LABS: ALBUMIN/GLOBULIN RATIO 1.1 (1.0-2.2); ALKALINE PHOSPHATASE 160 IU/L (42-121); ALT ALANINE AMINOTRANSFERASE 17 IU/L (10-60); AST ASPARTATE AMINOTRANSFERASE 18 IU/L (10-42); BILIRUBIN,TOTAL 0.5 mg/dL (0.2-1.0); BUN - BLOOD UREA NITROGEN 19 mg/dL (6-20); CALCIUM 9.8 mg/dL (8.5-10.3); CARBON DIOXIDE - CO2 25 mmol/L (21-32); CHLORIDE 103 mmol/L (101-111); CHOL/HDL RATIO 2.3 (<4.4); CHOLESTEROL 169 mg/dL; GFR - MDRD 54 (>89); GLUCOSE 191 mg/dL (74-104); HDL CHOLESTEROL 75 mg/dL; LDL CHOLESTEROL,CALCULATED 80 mg/dL; LDL/HDL RATIO 1.1 (<4.4); POTASSIUM 4.4 mmol/L (3.5-4.5); SODIUM 136 mmol/L (135-145); TOTAL PROTEIN 7.6 g/dL (6.4-8.9); TRIGLYCERIDES 68 mg/dL (48-352); VLDL CHOLESTEROL 14 mg/dL
[2023-07-17 13:36] LABS: THYROID STIMULATING HORMONE 4.58 uIU/mL (0.34-5.60)
== END 2023-07-17 08:28 | disposition home or self-care (01) ==
LOC: LAB.N 08:27
PROVIDERS: ATTEND Nurse Practitioner
DX: E11.9 Type 2 diabetes mellitus without complications (principal); E78.5 Hyperlipidemia, unspecified; I10 Essential (primary) hypertension
CPT/HCPCS: 36415; 80053; 80061; 83036; 83721; 84443; 85025